=== PATIENT | female | born 1945 | race Caucasian/White ===

== ENCOUNTER 2024-11-08 09:55 | Inpatient (IN) | payer MEDICARE, MEDICAID, SELFPAY ==
[2024-11-08] VITALS (25 sets, daily range): BP systolic 98–144; BP diastolic 38–93; PULSE 71–108; RESP 11–99; TEMP 36–36.6; O2SAT 91–100; BMI 29.2
--- NOTE | 2024-11-08 10:10 | PC.NURSE ---
PATIENT BIBA FROM HOME WITH C/O AMS. PER FAMILY PATIENT WAS NOT ACTING LIKE HERSELF. ALSO C/O N/V AND DECREASED APPETITE. PATIENT HAS HX OF DM AND FAMILY STATES BLOOD SUGAR AT HOME HAS BEEN ABOVE 500 FOR A COUPLE OF DAYS NOW. PATIENT A/O X1 FOR EMS. BLOOD SUGAR READ OF HIGH FOR EMS. UPON ARRIVAL TO ED PATIENT A/O X3 WITH NO COMPLAINTS OF PAIN. BLOOD SUGAR READ IN ED HIGH. ED DOC NOTIFIED AND CAME TO BEDSIDE.
--- NOTE | 2024-11-08 10:14 | EDNOTE_ITS ---
Altered Mental Status RME/HPI General Chief Complaint: Altered Mental Status Stated Complaint: AMS Time Seen by Provider: 11/08/24 10:17 Arrival date/time: 11/08/24 09:55 RME / HPI RME / HPI narrative: This section includes all my notes and documentations, including HPI, PE, and ED course.? Donn Ramos MD HPI: 79 year old female with history of CVA, hypertension, diabetes, and previous admission for DKA presents to the ED BIBA for evaluation of altered mental status. Per medics report, family on scene stated at baseline patient is AOx1 however this morning was not acting her usual self. While in the ED patient reports I feel like shit and when asked to elaborate states I think I'm in ketoacidosis . Additionally complains of increased thirst. Denies fevers, chills, abdominal pain, vomiting. No other complaints. ROS: All negative except as documented in HPI. Physical Exam: General:? Alert and oriented.? Severe malaise appearing. Eyes:? Conjunctivae and lids clear.? ENT:? No nasal congestion.? Neck:? Supple.? Heart:? RRR.? Lungs:? No respiratory distress.? Good air movement.? No rhonchi, wheezing, rales.?? Abdomen:? Soft and nontender.?? Legs:? No clubbing, cyanosis, edema.? Skin:? Warm and dry.?? Neuro:? Alert and oriented X 3.??Cranial nerves II through XII grossly normal. No peripheral motor deficits. I reviewed EMS notes. I reviewed all diagnostic test results. My interpretation of the EKG is?sinus rhythm with nonspecific ST changes. My interpretation of the chest x-ray is infiltrates. My review of the head CT report is?no acute findings. My review of the chest/abdomen/pelvis CT report is pneumonia. Blood tests and urine tests?remarkable for DKA and YARA and UTI. At this point, diagnoses include?DKA, YARA, UTI, Pneumonia. Treatment here included?IV fluid, insulin bolus and drip, bicarb, Rocephin and Zithromax. No significant improvement noted. I discussed the case with our Machine Slat Basket Maker.? About the presentation and exam and diagnostics and treatments here.? And need of further care in the hospital.? Will accept the patient. Donn Ramos MD Related Data Home Medications ?Medication ?Instructions ?Recorded ?Confirmed cefdinir 300 mg capsule 300 mg PO BID 05/24/24 05/24/24 dapagliflozin propanediol 5 mg 5 mg PO QDAY 05/24/24 05/24/24 tablet (Farxiga) fluconazole 200 mg tablet 200 mg PO QDAY 05/24/24 05/24/24 vilazodone 20 mg tablet 20 mg PO QDAY 05/24/24 05/24/24 Previous Rx's ?Medication ?Instructions ?Recorded clopidogrel 75 mg tablet 75 mg PO QDAY #0 tabs 02/27/24 donepezil 5 mg tablet 10 mg (2 x 5 mg) PO HS #0 tabs 02/27/24 ezetimibe 10 mg tablet 10 mg PO QDAY #0 tabs 02/27/24 famotidine 20 mg tablet 20 mg PO BID #0 tabs 02/27/24 insulin glargine U-300 conc 300 40 unit (0.1333 mL) subcut QDAY #6 05/27/24 unit/mL (3 mL) subcutaneous pen mL (Toujeo Max U-300 SoloStar) insulin lispro 100 unit/mL 12 unit (0.12 mL) SCi TIDWM #10 mL 05/27/24 subcutaneous solution (Admelog U-100 Insulin lispro) pen needle, diabetic 29 gauge x #100 ea 05/27/24 1/2 (Pen Needle) Allergies Allergy/AdvReac Type Severity Reaction Status Date / Time No Known Allergies Allergy Unverified 05/24/24 05:34 Review of Systems Review of Systems Systems Reviewed: All systems reviewed, normal except as documented Past Medical History Past Medical History NEUROLOGIC: Positive Neurological Disorders and Cerebrovascular Accident CARDIAC: Positive Hypercholesterolemia and Hypertension GASTROINTESTINAL: Positive Gastrointestinal Disorders GENITOURINARY: Positive Genitourinary Disorders ENT: Positive Cataracts ENDOCRINE: Positive Diabetes Mellitus Type 2 OTHER HISTORY: Positive Falls Surgical History SURGICAL: Positive Cardiac Surgery ([place]) Social History SMOKING STATUS: Never smoker SECOND HAND EXPOSURE: No ED Exam Narrative Physical exam: As noted in HPI Course Quality Measures none Orders Category Date Time Status Bedside COVID-19 Antigen Test NOW Care 11/08/24 10:19 Active Bedside Influenza A&B Antigen Test NOW Care 11/08/24 10:19 Completed COVID-19 Screening Questionnaire NOW Care 11/08/24 12:39 Active Decision to Admit X1 Care 11/08/24 12:39 Active EKG (ED ONLY) *Do not use* NOW Care 11/08/24 10:19 Completed Saline [Insert IV] NOW Care 11/08/24 10:19 Active Straight [In and Out Catheter] X1 Care 11/08/24 10:[address] chest abdomen pelvis wo Stat Exams 11/08/24 10:[address] head/brain wo con Stat Exams 11/08/24 10:20 Completed EKG (ED Only) Stat Exams 11/08/24 10:19 Draft XR chest 1V portable Stat Exams 11/08/24 10:19 Completed ABG [Arterial Blood Gas] Stat Lab 11/08/24 11:07 Completed BNP [B-Type Natriuretic Peptide] Stat Lab 11/08/24 11:00 Completed Beta Hydroxybutyrate Stat Lab 11/08/24 11:00 Completed Blood Culture (Lab) Stat Lab 11/08/24 11:00 Received CBC Stat Lab 11/08/24 11:00 Completed CMP [Comprehensive Metabolic Panel] Stat Lab 11/08/24 11:00 Completed CRP [C-Reactive Protein] Stat Lab 11/08/24 11:00 Completed ESR [Sed Rate (ESR)] Stat Lab 11/08/24 11:00 Completed Lactate (Lactic Acid) Stat Lab 11/08/24 11:00 Results Lipase Stat Lab 11/08/24 11:00 Completed Magnesium Stat Lab 11/08/24 11:00 Completed Procalcitonin Stat Lab 11/08/24 11:00 Completed TSH [Thyroid Stimulating Hormone] Stat Lab 11/08/24 11:00 Completed Troponin I Stat Lab 11/08/24 11:00 Completed UA [Urinalysis] Stat Lab 11/08/24 10:23 Completed Urine Culture Stat Lab 11/08/24 10:23 Received Insulin Reg 100 Units/100 ml [Myxredlin] Med 11/08/24 10:18 Active 100 unit in 100 ml IV 0.1 unit/kg/hr Insulin Regular Med 11/08/24 10:17 Discontinued 10 unit IV X1 ONE Ondansetron Inj [Zofran Inj] Med 11/08/24 10:17 Discontinued 4 mg IV X1 ONE Ringers Lactated 1000 ml [Lactated Ringers] 1,000 ml Med 11/08/24 12:47 Active IV 999 mls/hr Sodium Bicarb 8.4% SYR Med 11/08/24 11:32 Discontinued 100 ml IV X1 ONE Sodium Chloride 0.9% 1000 ml [Ns] 1,000 ml Med 11/08/24 10:17 Discontinued IV 999 mls/hr cefTRIAXone/D5w 1gm IV premix [Rocephin/D5w 1gm IV Med 11/08/24 12:00 Discontinued premix] 50 ml IV X1 Vital Signs Vital signs: Vital Signs Temperature 96.8 F 11/08/24 10:21 Pulse Rate 94 11/08/24 10:21 Respiratory Rate 18 11/08/24 10:21 Blood Pressure 144/85 H 11/08/24 10:21 Pulse Oximetry (%) 97 11/08/24 10:21 Oxygen Delivery Method Room Air 11/08/24 10:21 Pulse ox is 97% on room air which is adequate. Altered Mental Status MDM Narrative MDM Narrative:: Brandy Graves am scribing for and in the presence of Dr. Ramos. Patient data External records reviewed:: [facility] previous records (I reviewed admission from 05/24/2024 through 05/28/2024 for DKA ) and EMS form Clinical information provided by:: patient and EMS (Provided prehospital course) Social determinants that could affect healthcare access:: none Patient has the following chronic illnesses:: CVA, hypertension, diabetes, and previous admission for DKA How is presenting disease/condition affected by chronic disease/condition?: exacerbated by Evaluation data The following diagnostics were reviewed and interpreted by me:: lab results, radiology exam(s) and EKG tracing(s) (My interpretation of the EKG is: Atrial fibrillation (97 bpm) with nonspecific ST-T changes. Donn Ramos MD) Lab and/or radiology exams considered but not ordered:: None Interpretation Summary: DKA and YARA pneumonia and UTI Medications / Prescriptions Medications or Prescriptions considered but not ordered:: None Medication administrations:: Medication Administration History Acetaminophen (Acetaminophen 325 Mg Tablet) 650 mg PO Q4HR PRN PRN Reason: PAIN SCALE 1-3 (mild Stop: 12/08/24 13:01 Acetaminophen (Acetaminophen Supp 650 Mg Supp) 650 mg [place] Q4HR PRN PRN Reason: PAIN SCALE 1-3 (mild Stop: 12/08/24 13:01 Al Hydrox/Mg Hydrox/Simethicone (Mg Hyd/Al Hyd/Nat (Maalox Reg) Susp 30 Ml Udc) 30 ml PO Q4HR PRN PRN Reason: Heartburn or Upset Stomach Stop: 12/08/24 13:01 Azithromycin (Azithromycin 250 Mg Tablet) 250 mg PO QDAY JULITA; Protocol Stop: 11/16/24 08:59 Dextrose (Dextrose 50%-Water Inj 50 Ml Syringe) 25 ml IV PRNMRX1 PRN PRN Reason: Blood Sugar - Low Heparin Sodium (Porcine) (Heparin Sod Inj 5000 Unit/Ml Vial) 5,000 unit SC Q8HR JULITA Stop: 11/22/24 13:59 Insulin Human Regular (Myxredlin) 100 unit in 100 mls @ 7.031 mls/hr IV .[id number] PRN; Protocol PRN Reason: PER PROTOCOL Stop: 12/08/24 10:17 Last Titration: 11/08/24 13:00 Dose: 0.1 unit/kg/hr, 7.031 mls/hr Documented By: ROSAURA Co-signed By: EF Admin: 11/08/24 12:01 Dose: 0.1 unit/kg/hr, 7.031 mls/hr Documented By: ROSAURA Co-signed By: DO Lactated Ringer's (Lactated Ringers) 1,000 mls @ 999 mls/hr IV .Q1H1M ONE Stop: 11/08/24 13:47 Last Admin: 11/08/24 12:50 Dose: 999 mls/hr Documented By: ROSAURA Potassium Chloride (Kcl Ivpb) 10 meq in 100 mls @ 100 mls/hr IV .Q1H PRN PRN Reason: IF POTASSIUM LESS THAN 3.3 Stop: 12/08/24 13:01 Magnesium Sulfate (Magnesium Sulfate Ivpb) 2 gm in 50 mls @ 25 mls/hr IV .Q2H PRN PRN Reason: PER DKA PROTOCOL Stop: 12/08/24 13:01 Insulin Human Regular 100 unit (/ IV Miscellaneous Supplies) 100 mls @ 7.031 mls/hr IV .[id number] PRN; Protocol PRN Reason: PER PROTOCOL Stop: 12/08/24 13:01 Dextrose/Lactated Ringer's (D5-Lr) 1,000 mls @ 200 mls/hr IV .Q5H PRN PRN Reason: PER PROTOCOL Stop: 12/08/24 13:01 Lactated Ringer's (Lactated Ringers) 1,000 mls @ 200 mls/hr IV .Q5H PRN PRN Reason: PER PROTOCOL Stop: 11/09/24 13:01 Potassium Chloride 20 meq/ (Lactated Ringer's) 1,010 mls @ 250 mls/hr IV .Q4H3M PRN PRN Reason: K LEVEL 3.3 TO 5.3mM/L Stop: 12/08/24 13:01 Potassium Chloride 40 meq/ (Lactated Ringer's) 1,020 mls @ 250 mls/hr IV .Q4H5M PRN PRN Reason: K LEVEL < 3.3 mM/L Stop: 12/08/24 13:01 Potassium Chloride 40 meq/ (Dextrose/Lactated Ringer's) 1,020 mls @ 250 mls/hr IV .Q4H5M PRN PRN Reason: K LEVEL < 3.3mM/L Stop: 12/08/24 13:01 Potassium Cl/Dextrose/Lact Ringer's (Kcl 20 Meq/L In D5-Lr) 20 meq in 1,000 mls @ 250 mls/hr IV .Q4H PRN PRN Reason: K LEVEL 3.3 TO 5.3 mM/L Stop: 12/08/24 13:01 Potassium Chloride (Kcl Ivpb) 10 meq in 100 mls @ 50 mls/hr IV PRN PRN PRN Reason: K LEVEL 3.3 to 5.3 & BG > 200 Stop: 12/08/24 13:01 Potassium Phosphate (Pot Phos 15 Mmol In Ns 250 Ml) 15 mmol in 250 mls @ 62.5 mls/hr IV PRN PRN PRN Reason: Phosphate <= 1mg/dL Stop: 12/08/24 13:01 Sodium Phosphate 15 mmol/ (Sodium Chloride) 255 mls @ 62.5 mls/hr IV .Q4H5M PRN PRN Reason: Phosphate <= 1mg/dL and K> than 5.3 Stop: 12/08/24 13:01 Ceftriaxone Sodium/Dextrose (Rocephin/D5w 1gm Iv Premix) 50 mls @ 100 mls/hr IV QDAY JULITA Stop: 11/15/24 13:04 Last Admin: 11/08/24 13:20 Dose: Not Given Documented By: ROSAURA Non-Admin Reason: Duplicate Medication on eMAR Azithromycin 500 mg/ Sodium (Chloride) 250 mls @ 250 mls/hr IV X1 ONE Stop: 11/08/24 14:29 Magnesium Hydroxide (Milk Of Magnesia Susp 30 Ml Udc) 30 ml PO QDAY PRN PRN Reason: CONSTIPATION Stop: 12/08/24 13:01 Nitroglycerin (Nitroglycerin 0.4 Mg Subl Btl #25) 0.4 mg SL Q5MIN PRN PRN Reason: CHEST PAIN Discontinued Medications Sodium Chloride (Ns) 1,000 mls @ 999 mls/hr IV .Q1H1M ONE Stop: 11/08/24 11:17 Last Infusion: 11/08/24 12:05 Dose: Infused Documented By: Admin: 11/08/24 10:58 Dose: 999 mls/hr Documented By: ROSAURA Ceftriaxone Sodium/Dextrose (Rocephin/D5w 1gm Iv Premix) 50 mls @ 100 mls/hr IV X1 ONE Stop: 11/08/24 12:29 Last Infusion: 11/08/24 12:40 Dose: Infused Documented By: Admin: 11/08/24 12:10 Dose: 100 mls/hr Documented By: ROSAURA Azithromycin 500 mg/ Sodium (Chloride) 250 mls @ 250 mls/hr IV QDAY JULITA Stop: 11/15/24 13:22 Last Admin: 11/08/24 13:29 Dose: Not Given Documented By: ROSAURA Non-Admin Reason: Discontinued Insulin Human Regular (Insulin Hum Regular 1 Unit/0.01 Ml (Per Unit)) 10 unit IV X1 ONE Stop: 11/08/24 10:18 Last Admin: 11/08/24 10:30 Dose: 10 unit Documented By: ROSAURA Co-signed By: BENOIT Ondansetron HCl (Ondansetron Inj 2 Mg/Ml Inj 2 Ml) 4 mg IV X1 ONE; Protocol Stop: 11/08/24 10:18 Last Admin: 11/08/24 10:59 Dose: 4 mg Documented By: ROSAURA Sodium Bicarbonate (Sodium Bicarb Inj 8.4% Syr 50 Ml Syringe) 100 ml IV X1 ONE Stop: 11/08/24 11:33 Last Admin: 11/08/24 11:47 Dose: 100 ml Documented By: FC See chart Consultations Consultation(s) initiated? (list below): No Diagnosis Differential diagnosis altered mental status: altered mental status, delirium, dementia, hypoglycemia, hyponatremia, subarachnoid hemorrhage, sepsis and other (Dehydration, DKA, UTI, pneumonia) Most likely diagnosis given after review of the tests above:: DKA, YRAA, UTI, pneumonia Admission Indicated Admission indicated?: indicated Explain why admission is indicated or not indicated:: Severe DKA Admission Request Was there a request for admission?: Yes Admission Attestation Admission request attestation: Discussed case with our ICU service regarding admission. Discussed patients ED course, exam findings, labs, and radiology results. The Hospitalist [agrees,declines] to accept the patient for admission. Disposition Plan Disposition Plan: Admit Critical Care Time Critical Care Time Critical Care Time: Yes Total Critical Care Time (min.): 36 Attestation: Due to a high probability of clinically significant, life threatening deterioration, the patient required my highest level of preparedness to intervene emergently and I personally spent this critical care time directly and personally managing the patient. This critical care time included obtaining a history; examining the patient; ordering and review of studies; arranging urgent treatment with development of a management plan; evaluation of patient's response to treatment; frequent reassessment; and discussions with family and other providers. It was exclusive of separately billable procedures and treating other patients and teaching time. Donn Ramos MD Discharge Plan Plan Patient Disposition: Admit Acute Care w/in Hospital Problem List Clinical Impression: DKA (diabetic ketoacidoses), UTI (lower urinary tract infection), YARA (acute kidney injury), Pneumonia
--- NOTE | 2024-11-08 10:19 | EKG_ITS ---
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
--- NOTE | 2024-11-08 10:19 | XR_ITS ---
Examination: AP chest single view TECHNIQUE: AP portable upright chest single view Exam date and time: November 08, 2024 1044 hours INDICATIONS: SOB today. FINDINGS: Suspicious for early left lower lobe pneumonia Normal heart size Ectatic thoracic aorta Prominent osteopenia IMPRESSION: Early left base pneumonia
--- NOTE | 2024-11-08 10:19 | XR_ITS ---
Examination: CT chest, without intravenous contrast. CT abdomen, without intravenous contrast. CT pelvis, without intravenous contrast. 2-D sagittal and coronal reconstructions. 3-D reconstructions. Date and time of exam:November 08, 2024 1037 hours Comparison February 23, 2024 INDICATIONS: Shortness of breath chest and abdominal pain today CTDI vol (mgy) 7.33 DLP (MGycm)511 Technique: Multiple CT images, 3.0 mm slice thickness, obtained chest, abdomen, pelvis, with the high-resolution 64 slice scanner.. Sagittal and coronal 2-D reconstructions are obtained. 3-D reconstructions Low dose protocols were performed. One or more of the following dose reduction techniques were used; automated exposure control, adjustment of the mA and/or KV according to patient size, use of iterative reconstruction technique. Findings: 14 mm right thyroid nodule No thoracic aortic aneurysm dilatation Main pulmonary artery segment transverse dimension 32 mm Heavy calcification left anterior descending coronary artery right coronary artery Mitral valvular calcification No paratracheal tracheobronchial or bronchopulmonary adenopathy 18 mm dense consolidation versus pulmonary nodule in the left upper lobe No pleural disease Fatty infiltration throughout the liver No gallstones Spleen not enlarged No pancreatic or adrenal mass No renal or ureteral calculi, no hydronephrosis Abdominal aortic calcification no aneurysmal dilatation No pericecal inflammatory change No bowel obstruction Colonic diverticulosis, no diverticulitis Urinary bladder wall thickening up to 8 mm No pelvic mass Fat-containing femoral hernias Severe osteopenia with chronic osteoporotic compression T11, T10 IMPRESSION: 14 mm right thyroid nodule, recommend elective dedicated thyroid sonography follow-up Heavy coronary artery calcification 18 mm dense pneumonic consolidation versus pulmonary nodule in the left upper lobe, recommend follow-up chest imaging Fatty liver No CT findings of appendicitis bowel obstruction or diverticulitis Abnormal urinary bladder wall thickening up to 8 mm, differential would include cystitis, early bladder cancer not excluded, consider urinary bladder sonography follow-up
--- NOTE | 2024-11-08 10:20 | XR_ITS ---
Examination: CT brain head without contrast. 2-D sagittal coronal reconstructions Date and time of exam:November 08, 2024 1033 hours Comparison May 19, 2015 INDICATIONS: Onset altered mental status today CTDI: vol (mGy):41.1 DLP: (mGycm):835 Technique: Multiple CT axial sections of the brain have been obtained, 5 mm slice thickness. Contrast has not been administered. 2-D sagittal, coronal reconstructions have been obtained Low dose protocols were performed. One or more of the following dose reduction techniques were used; automated exposure control, adjustment of the mA and/or KV according to patient size, use of iterative reconstruction technique. Findings: No significant ventricular enlargement. Old infarct left basal ganglia with ipsilateral ventricular dilatation Intra-axial or extra-axial hemorrhage density is not seen. No mass effect or midline shift Basal cisterns are not remarkable. Fourth ventricle is midline. Cranial vault intact. Impression: Negative for acute hemorrhage, mass effect or midline shift As clinically warranted, brain MRI follow-up would best assess for acute ischemic change
[2024-11-08] MEDS: INSULIN HUM REGULAR 1 UNIT/0.01 ML (PER UNIT) 10 UNIT IV (10:30)
[2024-11-08 10:38] LABS: Collection Type, Urine Clean Catch; Squamous Epithelial Cell,Urine 0 /hpf (0-5)
[2024-11-08 10:48] LABS: Bilirubin,Urine Negative (Negative); Blood,Urine 2+ (Negative); Budding Yeast,Urine Present; Color,Urine Lt-Yellow (Lt Yel-Yel); Glucose, Urine 4+ (Negative); Hyaline Casts,Urine < 1 /hpf (0-1); Ketones,Urine 4+ (Negative); Leukocyte Esterase,Urine Positive (Negative); Nitrite,Urine Negative (Negative); Protein,Urine Trace (Neg - Trace); RBC,Urine 2 /hpf (0-3); Urobilinogen,Urine Negative mg/dL (0.0-1.0); WBC,Urine 120 /hpf (0-5)
[2024-11-08] MEDS: SODIUM CHLORIDE 0.9% 1000 ML 1,000 ML 999 ML IV (10:58)
[2024-11-08] MEDS: ONDANSETRON INJ 2 MG/ML INJ 2 ML 4 MG IV (10:59)
[2024-11-08 11:10] LABS: Lactate (Lactic Acid) 3.4 mMol/L (0.4-2.0)
[2024-11-08 11:11] LABS: Base Excess -21 (-3-3); HCO3 6 mEq/L (20-26); Inspired Oxygen, FIO2 21 %; O2 Saturation 99 % (91-98); PCO2 15 mmHg (32.0-48.0); PO2 122 mmHg (83-108)
[2024-11-08 11:11] LABS: Basophils % (Auto) 0 % (0-2.5); Eosinophils % (Auto) 0 % (0-10); Hematocrit 40.9 % (36.0-46.0); Hemoglobin 13.8 g/dL (12.0-16.0); Immature Granulocytes % (Auto) 1 % (0-0); Immature Granulocytes Auto 0.11 Thou/mm3 (0.00-0.00); Lymphocytes % (Auto) 5 % (10-50); Mean Corpuscular HGB Conc 33.7 g/dl (31.0-37.0); Mean Corpuscular Hemoglobin 32.6 pg (25.0-35.0); Mean Corpuscular Volume 97 fL (80-100); Monocytes # (Auto) 0.3 Thou/mm3 (0.0-0.8); Monocytes % (Auto) 2 % (0-12); Neutrophils # (Auto) 16.9 Thou/mm3 (1.8-7.7); Neutrophils % (Auto) 92 % (37-80); Nucleated Red Blood Cell % 0 /100 WBC (0); Platelet Count 208 Thou/mm3 (140-440); RDW Standard Deviation 46.7 fL (36.4-46.3); Red Blood Count 4.23 Miln/mm3 (4.00-5.20); White Blood Count 18.4 Thou/mm3 (3.6-11.0)
[2024-11-08 11:18] LABS: Allen Test Performed/OK; Puncture Site Right Radial; pH, Arterial 7.17 (7.35-7.45)
[2024-11-08 11:18] LABS: Beta Hydroxybutyrate 5.3 mmol/L (<0.6)
[2024-11-08 11:19] LABS: Clarity,Urine Hazy (Clear/Hazy)
[2024-11-08 11:28] LABS: Sed Rate (ESR) 24 mm/hr (0-30)
[2024-11-08] MEDS: Sodium Bicarb Inj 8.4% SYR 50 ML SYRINGE 100 ML IV (11:47)
[2024-11-08 11:48] LABS: B-Type Natriuretic Peptide 115 pg/mL (0-100)
[2024-11-08] MEDS: INSULIN REG 100 UNITS/100 ML 100 UNIT/100 ML BAG 7.031 UNIT IV (12:01)
[2024-11-08 12:05] LABS: Alanine Aminotransferase 28 U/L (10-49); Albumin, Serum 4.6 gm/dL (3.4-4.8); Alkaline Phosphatase 97 U/L (46-116); Anion Gap 28 (7-16); Aspartate Amino Transferase 13 U/L (0-34); BUN/Creatinine Ratio 17 Ratio (12-20); Bilirubin,Total 0.5 mg/dL (0.3-1.2); Blood Urea Nitrogen 43 mg/dL (9-23); C-Reactive Protein 4.6 mg/dL (0.0-0.9); Calcium 10.1 mg/dL (8.3-10.6); Calcium (Corrected) 10.1 mg/dL (8.5-10.1); Chloride 91 mMol/L (98-107); Creatinine (Component) 2.5 mg/dL (0.6-1.3); Estimated Creatinine Clearance 15.8 mL/min (>60); Globulin 2.3 gm/dL (2.3-3.5); Lipase 62 U/L (12-53); Magnesium 2.7 mg/dL (1.6-2.6); Osmolality,Calculated 307 (275-295); Procalcitonin 2.14 ng/ml (0.0-0.49); Sodium 129 mMol/L (136-145); Thyroid Stimulating Hormone 1.73 uIU/mL (0.55-4.78); Total Protein 6.9 gm/dL (5.7-8.2); Troponin I < 0.020 ng/mL (0.0-0.045); eGFR 19 See Note
[2024-11-08 12:09] LABS: Carbon Dioxide < 10.0 mMol/L (20.0-31.0)
[2024-11-08 12:10] LABS: Glucose 783 mg/dL (74-106)
[2024-11-08] MEDS: cefTRIAXone/D5w 1gm IV premix 50 ML IV (12:10)
[2024-11-08] MEDS: RINGERS LACTATED 1000 ML 1,000 ML 999 ML IV (12:50)
--- NOTE | 2024-11-08 13:02 | ECHO_ITS ---
Transthoracic Echo Report Ht (in): 61 Wt (lb): 155 Exam Location: ER Status: Emergency Contract Preparer: Zuleyma Acosta Indications: Procedure Performed: BP: 123 / 66 HR: 65 Rhythm: Sinus Technical Quality: Fair MEASUREMENTS (Male / Female) Normal Values 2D ECHO LVOT Diameter 1.6 cm LA Volume Index 23.9 cm?/m? 16 - 28 cm?/m? Ascending Aorta Diameter 3.2 cm M-MODE Aortic Root Diameter MM 3.0 cm LA Systolic Diameter MM 3.5 cm LA Ao Ratio MM 1.2 AV Cusp Separation MM 1.8 cm DOPPLER AV Peak Velocity 194.0 cm/s AV Peak Gradient 15.1 mmHg AV Mean Gradient 7.0 mmHg AV Velocity Time Integral 38.4 cm LVOT Peak Velocity 133.0 cm/s LVOT Peak Gradient 7.1 mmHg LVOT Velocity Time Integral 29.9 cm LVOT Cardiac Index 2215.4 cm?/min?m? AV Area Cont Eq vti 1.6 cm? AV Area Cont Eq pk 1.4 cm? MV Peak Velocity 133.0 cm/s MV Peak Gradient 7.1 mmHg MV Mean Velocity 68.6 cm/s MV Mean Gradient 2.0 mmHg MV Area PHT 3.0 cm? MR Peak Velocity 337.0 cm/s MR Peak Gradient 45.4 mmHg Mitral E Point Velocity 99.4 cm/s Mitral A Point Velocity 137.0 cm/s Mitral E to A Ratio 0.7 LV E' Lateral Velocity 7.1 cm/s Mitral E to LV E' Lateral Ratio 14.1 LV E' Septal Velocity 5.8 cm/s Mitral E to LV E' Septal Ratio 17.2 TR Peak Velocity 231.0 cm/s TR Peak Gradient 21.3 mmHg FINDINGS Left Ventricle Normal left ventricular size, wall thickness, systolic function with no obvious regional wall motion abnormalities. The ejection fraction is visually estimated at 60-65%. Right Ventricle The right ventricle is normal in size and systolic function. The estimated right ventricular systoli c pressure, 26 mmHg. RAP 5. Left Atrium The left atrium is normal by two-dimensional, color flow and Doppler imaging with no structural abnormalities, no thrombus formation present. Right Atrium The right atrium is normal by two-dimensional imaging, color flow and Doppler imaging with no struct ural abnormalities, no thrombus formation present. Atrial Septum The interatrial septum appears normal with no evidence of a shunt. Aorta The aorta is normal by two-dimensional, color flow and Doppler interrogation. Mitral Valve The mitral valve is moderate MAC. There is mild mitral valve regurgitation. Aortic Valve The aortic valve is trileaflet. Mild sclerosis without stenosis. There is no significant aortic valv e regurgitation. Tricuspid Valve The tricuspid valve is normal by two-dimensional, color flow and Doppler interrogation. There is mil d tricuspid valve regurgitation. Pulmonic Valve The pulmonic valve is normal by two-dimensional, color flow and Doppler interrogation. There is no significant pulmonic valve regurgitation. Vessels The pulmonary artery appears normal. The inferior vena cava pulmonary and hepatic veins appear carol l. Pericardium The pericardium is normal by two-dimensional imaging. There is no significant pericardial effusion. CONCLUSIONS Indication: Evaluation LV function. Normal LV size and function. Stage I diastolic dysfunction. Estimated EF 60-65% Normal RV size and function. Moderate to severe MAC. Mild MR, TR. Mild AV sclerosis without stenosis. Derrick Anumanadelaa (Electronically Signed) Final Date: 09 November 2024 08:12
--- NOTE | 2024-11-08 13:06 | ESHP_ITS ---
Documentation for date of: 11/08/24 Anodic Operator HPI History of Present Illness History of present illness: This is an 79-year-old female who was brought to the ER for altered mental status. Apparently the patient has been somewhat confused and not herself for the last couple of days. The family have been taking her blood sugar at home and the blood sugars have been consistently above 500. Today the readings simply read high and therefore they decided to bring the patient to the ER. She is been having nausea and vomiting for the last 3 days. She denies any chest pain, cough, shortness of breath, abdominal pain, constipation or diarrhea at this time. She also denies any fever or chills. Per the daughter the patient has had flu sick contacts in the past week. Initially they thought her illness was this. Notes that overnight her mother was very thirsty and went looking for fluids at which point in time she drank a lot of sugar containing electrolyte solutions. She feels may have aggravated her mother's current condition. PMH: DM, CVA, h/o DKA, h/o chronic UTI, dyslipidemia PSH: Remote history of smoking and alcohol consumption however nothing in the last 20 years ROS: As per HPI otherwise negative Meds Home Medications and Allergies Home Medications ?Medication ?Instructions ?Recorded ?Confirmed ?Type cefdinir 300 mg capsule 300 mg PO BID 05/24/24 05/24/24 History dapagliflozin propanediol 5 mg 5 mg PO QDAY 05/24/24 05/24/24 History tablet (Farxiga) fluconazole 200 mg tablet 200 mg PO QDAY 05/24/24 05/24/24 History vilazodone 20 mg tablet 20 mg PO QDAY 05/24/24 05/24/24 History Allergies Allergy/AdvReac Type Severity Reaction Status Date / Time No Known Allergies Allergy Unverified 05/24/24 05:34 Exam Vital Signs Temp Pulse Resp BP Pulse Ox O2 Del Method 96.8 F 104 H 22 H 113/93 H 97 Room Air 11/08/24 10:21 11/08/24 12:00 11/08/24 12:00 11/08/24 12:00 11/08/24 12:00 11/08/24 12:00 Narrative Exam General-no acute distress however appears fatigued tired and ill, elderly and frail in appearance, awake and cooperative with the exam, oriented HEENT-normocephalic, atraumatic, sclera icteric, EOMI, oral mucosa is very dry, edentulous Chest-few crackles at right posterior base, no active wheezing, the rest of her lung luther are clear, heart regular rhythmic, no bruits murmurs auscultated times exam, no increased work of breathing, no tenderness on palpation of the chest wall Abdomen-obese, soft, nontender, bowel sounds present, no rebound or guarding Extremities-multiple areas of bruising on her lower extremities in different stages of healing, some abrasions, her feet are cool to touch, slight dusky appearance of her toes and fingertips, moves all 4, no clubbing, no other obvious mottling noted at this point in time. Physical Exam Completion Physical Exam Complete?: Yes Results: Labs 11/09/24 05:30 11/09/24 13:51 Labs: Short CBC 11/08/24 Range/Units 11:00 WBC 18.4 H (3.6-11.0) Thou/mm3 Hgb 13.8 (12.0-16.0) g/dL Hct 40.9 (36.0-46.0) % Plt Count 208 (140-440) Thou/mm3 BMP 11/08/24 11:00 Sodium 129 L Potassium 5.0 Chloride 91 L Carbon Dioxide < 10.0 L* BUN 43 H Creatinine 2.5 H Glucose 783 H* Calcium 10.1 Cardiac Enzymes 11/08/24 Range/Units 11:00 Troponin I < 0.020 (0.0-0.045) ng/mL Liver Function 11/08/24 Range/Units 11:00 Total Bilirubin 0.5 (0.3-1.2) mg/dL AST 13 (0-34) U/L ALT 28 (10-49) U/L Alkaline Phosphatase 97 (46-116) U/L Albumin 4.6 (3.4-4.8) gm/dL Urine 11/08/24 Range/Units 10:23 Urine Color Lt-Yellow (Lt Yel-Yel) Urine Clarity Hazy (Clear/Hazy) Urine pH 5.0 (5.0-7.0) Ur Specific [place] 1.020 (1.001-1.035) Urine Protein Trace (Neg - Trace) Urine Glucose (UA) 4+ A (Negative) ABG Interpretation ABG results: 11/08/24 11:07 ABG pH 7.17 L* ABG pCO2 15 L* ABG pO2 122 H ABG HCO3 6 L* ABG O2 Saturation 99 H ABG Base Excess -21 L Assessment & Plan Additional Assessment Additional Assessment: In summary this is an 79-year-old female being admitted to the ICU for 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 She will be given another liter of IV fluids prior to being started on the DKA protocol. ABG is noted and she has appropriate respiratory compensation for her metabolic acidosis. Acute kidney injury-likely prerenal and secondary to dehydration. Avoid nephrotoxins, monitor I's and O's GI Nausea- prn zofran Endo DKA-started on DKA protocol with labs every 4 hours and insulin drip. Once anion gap is closed x 2 will transition to subcutaneous Lantus. For now we will continue with finger checks every 1 hour. Check an A1c, pt has a h/o DKA and perhaps should not be on Farxiga at home as an outpt Heme Leukocytosis DVT proph- heparin ID ? UTI-started on ceftriaxone case d/w ICU team labs, imaging, records reviewed d/w family via phone ~55ccmin required for eval, exam, review, intervention, discussion and formulation of POC for this critically ill patient with DKA and severe acidosis who is at high risk for further and ongoing decompensation Additional Plan Additional Plan: PLAN: See MD orders and discussion above. Will continue supportive care of the organ system problems, diagnoses, and failures noted above. [A central line continues to be necessary for infusion of medications and IV fluids, it is to be removed when other adequate venous access is accomplished.] [Cannot be safely managed without restraints as potential for harm secondary to inadvertent movement and loss of tubes and lines outweighs the burdens of restraint.] This patient is critically ill and required [] minutes of my time to provide documentation, evaluate, manage and maintain or prevent deterioration of the organ systems and problems noted above. This critical care time does not include time I spent performing procedures that are reported separately. [If paz catheter present, it remains necessary to monitor urine output continuously, and/or divert urine from the skin. It will be removed per policy when it is not needed for these purposes.] Provider Notation Provider Notation: Although this document has been carefully reviewed, there may still be some phonetic and other typographical errors. These errors are purely grammatical due to imperfections in the software program and should not be construed in any way to compromise the substance of the patient's medical care during this visit. Thank you for the opportunity and privilege in assisting you with this patient's care and management. Quality Measures Quality Measures none Advance care planning discussed with:: child
[2024-11-08 14:05] LABS: Reflex Lactate? Y
[2024-11-08] MEDS: AZITHROMYCIN INJ 500 MG in SODIUM CHLORIDE 0.9% 250 ML 250 ML 250 MG IV (14:48)
[2024-11-08] MEDS: HEPARIN SOD INJ 5000 UNIT/ML VIAL SC ×2 (14:48→20:20)
[2024-11-08 15:03] LABS: Lactic Acid, 3 HR 2.2 mMol/L (0.4-2.0)
--- NOTE | 2024-11-08 15:36 | PC.NURSE ---
REPORT GIVEN TO MUSIC LIBRARY ASSISTANT TALYA
[2024-11-08 15:52] LABS: Basophils % (Auto) 0 % (0-2.5); Eosinophils % (Auto) 0 % (0-10); Hematocrit 32.1 % (36.0-46.0); Hemoglobin 11.5 g/dL (12.0-16.0); Immature Granulocytes % (Auto) 0 % (0-0); Immature Granulocytes Auto 0.05 Thou/mm3 (0.00-0.00); Lymphocytes # (Auto) 1.2 Thou/mm3 (1.0-4.8); Lymphocytes % (Auto) 10 % (10-50); Mean Corpuscular HGB Conc 35.8 g/dl (31.0-37.0); Mean Corpuscular Hemoglobin 32.9 pg (25.0-35.0); Mean Corpuscular Volume 92 fL (80-100); Monocytes # (Auto) 0.7 Thou/mm3 (0.0-0.8); Monocytes % (Auto) 6 % (0-12); Neutrophils # (Auto) 9.7 Thou/mm3 (1.8-7.7); Neutrophils % (Auto) 84 % (37-80); Nucleated Red Blood Cell % 0 /100 WBC (0); Platelet Count 166 Thou/mm3 (140-440); RDW Standard Deviation 43.3 fL (36.4-46.3); White Blood Count 11.6 Thou/mm3 (3.6-11.0)
[2024-11-08 15:55] LABS: Beta Hydroxybutyrate 4.9 mmol/L (<0.6)
[2024-11-08 16:09] LABS: Base Excess -3 (-3-3); HCO3 20 mEq/L (20-26); Inspired Oxygen, FIO2 21 %; O2 Saturation 97 % (91-98); PCO2 31 mmHg (32.0-48.0); PO2 90 mmHg (83-108); pH, Arterial 7.42 (7.35-7.45)
[2024-11-08 16:11] LABS: Allen Test Performed/OK; Puncture Site Right Radial
[2024-11-08 16:14] LABS: Alanine Aminotransferase 18 U/L (10-49); Albumin, Serum 3.9 gm/dL (3.4-4.8); Albumin/Globulin Ratio 2.2 (1.2-2.2); Alkaline Phosphatase 77 U/L (46-116); Anion Gap 16 (7-16); BUN/Creatinine Ratio 18 Ratio (12-20); Bilirubin,Total 0.4 mg/dL (0.3-1.2); Blood Urea Nitrogen 34 mg/dL (9-23); Calcium 9.3 mg/dL (8.3-10.6); Calcium (Corrected) 9.4 mg/dL (8.5-10.1); Carbon Dioxide 20.3 mMol/L (20.0-31.0); Chloride 103 mMol/L (98-107); Creatinine (Component) 1.9 mg/dL (0.6-1.3); Estimated Creatinine Clearance 20.8 mL/min (>60); Globulin 1.8 gm/dL (2.3-3.5); Glucose 357 mg/dL (74-106); Magnesium 2.1 mg/dL (1.6-2.6); Osmolality,Calculated 299 (275-295); Sodium 139 mMol/L (136-145); Total Protein 5.7 gm/dL (5.7-8.2); eGFR 26 See Note
[2024-11-08 16:24] LABS: Aspartate Amino Transferase < 10 U/L (0-34)
[2024-11-08] MEDS: POT CHL ADDITIVE 20 MEQ in RINGERS LACTATED 1000 ML 1,000 ML 250 MEQ IV (18:03)
[2024-11-08] MEDS: KCL 20 mEq/L in D5-LR 20 MEQ/1,000 ML BAG 250 MEQ IV (19:07)
[2024-11-08 19:30] LABS: Lactate (Lactic Acid) 1.5 mMol/L (0.4-2.0)
[2024-11-08 19:50] LABS: Albumin, Serum 3.9 gm/dL (3.4-4.8); Anion Gap 11 (7-16); BUN/Creatinine Ratio 21 Ratio (12-20); Blood Urea Nitrogen 36 mg/dL (9-23); Calcium 9.6 mg/dL (8.3-10.6); Calcium (Corrected) 9.7 mg/dL (8.5-10.1); Carbon Dioxide 25.8 mMol/L (20.0-31.0); Chloride 106 mMol/L (98-107); Creatinine (Component) 1.7 mg/dL (0.6-1.3); Estimated Creatinine Clearance 23.3 mL/min (>60); Glucose 135 mg/dL (74-106); Magnesium 2.1 mg/dL (1.6-2.6); Osmolality,Calculated 295 (275-295); Phosphorous 1.9 mg/dL (2.4-5.1); Sodium 143 mMol/L (136-145); eGFR 30 See Note
[2024-11-08] MEDS: INSULIN GLARGINE (Lantus) 5 UNIT/0.05 ML (PER 5 UNITS) 30 UNIT SC (20:19)
[2024-11-08] MEDS: SODIUM CHLORIDE 0.9% 1000 ML 1,000 ML 100 ML IV (20:22)
--- NOTE | 2024-11-08 20:24 | PD.EVENT ---
Documentation for date of: 11/08/24 Event Note Event Note: Anion gap is closed, bicarbonate levels are normal, and creatinine is trending downward. Initiate basal insulin. Plan to downgrade care in the morning if the patient's condition remains stable.
[2024-11-08] MEDS: POT PHOS 15 mMol in NS 250 ML 15 MMOL/250 ML BAG 62.5 MMOL IV (21:11)
[2024-11-09] VITALS (30 sets, daily range): BP systolic 101–180; BP diastolic 50–91; PULSE 58–78; RESP 0–98; TEMP 36.7–37.2; O2SAT 90–100; BMI 29.2
[2024-11-09 06:49] LABS: Basophils % (Auto) 0 % (0-2.5); Eosinophils % (Auto) 0 % (0-10); Hematocrit 32.1 % (36.0-46.0); Hemoglobin 11.2 g/dL (12.0-16.0); Immature Granulocytes % (Auto) 0 % (0-0); Immature Granulocytes Auto 0.04 Thou/mm3 (0.00-0.00); Lymphocytes # (Auto) 1.4 Thou/mm3 (1.0-4.8); Lymphocytes % (Auto) 15 % (10-50); Mean Corpuscular HGB Conc 34.9 g/dl (31.0-37.0); Mean Corpuscular Hemoglobin 33.3 pg (25.0-35.0); Mean Corpuscular Volume 96 fL (80-100); Monocytes # (Auto) 0.7 Thou/mm3 (0.0-0.8); Monocytes % (Auto) 8 % (0-12); Neutrophils # (Auto) 7.4 Thou/mm3 (1.8-7.7); Neutrophils % (Auto) 77 % (37-80); Nucleated Red Blood Cell % 0 /100 WBC (0); Platelet Count 151 Thou/mm3 (140-440); RDW Standard Deviation 47.2 fL (36.4-46.3); Red Blood Count 3.36 Miln/mm3 (4.00-5.20); White Blood Count 9.6 Thou/mm3 (3.6-11.0)
[2024-11-09 07:17] LABS: Albumin, Serum 3.7 gm/dL (3.4-4.8); Anion Gap 19 (7-16); BUN/Creatinine Ratio 19 Ratio (12-20); Blood Urea Nitrogen 30 mg/dL (9-23); Calcium 9.2 mg/dL (8.3-10.6); Calcium (Corrected) 9.4 mg/dL (8.5-10.1); Carbon Dioxide 17.3 mMol/L (20.0-31.0); Chloride 104 mMol/L (98-107); Creatinine (Component) 1.6 mg/dL (0.6-1.3); Estimated Creatinine Clearance 24.7 mL/min (>60); Glucose 226 mg/dL (74-106); Osmolality,Calculated 292 (275-295); Phosphorous 3.8 mg/dL (2.4-5.1); Potassium 4.8 mMol/L (3.4-5.1); Sodium 140 mMol/L (136-145); eGFR 32 See Note
[2024-11-09 07:27] LABS: Glucose Estimated Average 255 mg/dL (80-131); Hemoglobin A1C 10.5 % Hgb (4.8-6.0)
[2024-11-09] MEDS: INSULIN HUM REGULAR 1 UNIT/0.01 ML (PER UNIT) SC (08:03)
[2024-11-09] MEDS: cefTRIAXone/D5w 1gm IV premix 50 ML IV (08:25)
[2024-11-09] MEDS: AZITHROMYCIN 250 MG TABLET PO (08:25)
[2024-11-09] MEDS: INSULIN GLARGINE (Lantus) 5 UNIT/0.05 ML (PER 5 UNITS) 30 UNIT SC (08:25)
[2024-11-09] MEDS: RINGERS LACTATED 1000 ML 500 ML 999 ML IV (08:26)
[2024-11-09 09:30] LABS: Beta Hydroxybutyrate 6.3 mmol/L (<0.6)
[2024-11-09 10:01] LABS: Anion Gap 19 (7-16); BUN/Creatinine Ratio 16 Ratio (12-20); Blood Urea Nitrogen 25 mg/dL (9-23); Chloride 107 mMol/L (98-107); Creatinine (Component) 1.6 mg/dL (0.6-1.3); Estimated Creatinine Clearance 24.7 mL/min (>60); Glucose 289 mg/dL (74-106); Osmolality,Calculated 292 (275-295); Potassium 4.4 mMol/L (3.4-5.1); Sodium 139 mMol/L (136-145); eGFR 32 See Note
[2024-11-09 10:03] LABS: Carbon Dioxide 13.5 mMol/L (20.0-31.0)
--- NOTE | 2024-11-09 10:21 | PD.RESEVENT ---
Documentation for date of: 11/09/24 Event Note Event Note: 11/09/2024 Patient is 79-year-old female with past medical history of hypertension, diabetes, hyperlipidemia, chronic UTIs, CVA, history of DKA who was admitted due to altered mental status and DKA. Patient was downgraded from ICU, care was to be resumed by hospital team in the floors, however patient's anion gap increased and is still in DKA and condition is currently worsening. Patient will continue care under the ICU team. Santiago Tillman MD PGY-1
[2024-11-09] MEDS: INSULIN REG 100 UNITS/100 ML 100 UNIT in PRE-MIXED 1 BAG 7.01 UNIT IV (11:00)
[2024-11-09] MEDS: POT CHL ADDITIVE 20 MEQ in RINGERS LACTATED 1000 ML 1,000 ML 250 MEQ IV (11:02)
[2024-11-09] MEDS: INSULIN LISPRO (AdmeLOG) 1 UNIT/0.01 ML UNIT 8 UNIT SC (12:31)
[2024-11-09] MEDS: INSULIN LISPRO (AdmeLOG) 1 UNIT/0.01 ML UNIT 4 UNIT SC ×6 (13:17→18:22)
--- NOTE | 2024-11-09 13:45 | PC.NURSE ---
MD VO and MD Davis notified that the patient only has 1 IV access and multiple attempts have been made by 4 RN.
[2024-11-09] MEDS: HEPARIN SOD INJ 5000 UNIT/ML VIAL SC ×2 (14:08→20:36)
[2024-11-09] MEDS: KCL 20 mEq/L in D5-LR 20 MEQ/1,000 ML BAG 250 MEQ IV ×2 (14:08→14:11)
[2024-11-09 14:20] LABS: Base Excess, Venous -4 (-3-3); Lactate (Lactic Acid) 1.4 mMol/L (0.4-2.0); O2 Saturation, Venous 81 % (96-97); PCO2, Venous 27 mmHg (36-56); PO2, Venous 38 mmHg (15-58); pH, Venous 7.46 (7.33-7.66)
--- NOTE | 2024-11-09 14:32 | PC.NURSE ---
MD Davis and MD Metzger are aware the patient had no IV access 2 more RN's attempted with no success
[2024-11-09 14:44] LABS: Albumin, Serum 3.7 gm/dL (3.4-4.8); Anion Gap 14 (7-16); BUN/Creatinine Ratio 15 Ratio (12-20); Blood Urea Nitrogen 23 mg/dL (9-23); Calcium 9.2 mg/dL (8.3-10.6); Calcium (Corrected) 9.4 mg/dL (8.5-10.1); Carbon Dioxide 21.5 mMol/L (20.0-31.0); Chloride 107 mMol/L (98-107); Creatinine (Component) 1.5 mg/dL (0.6-1.3); Estimated Creatinine Clearance 26.3 mL/min (>60); Glucose 168 mg/dL (74-106); Magnesium 1.9 mg/dL (1.6-2.6); Osmolality,Calculated 290 (275-295); Phosphorous 1.9 mg/dL (2.4-5.1); Potassium 3.6 mMol/L (3.4-5.1); Sodium 142 mMol/L (136-145); eGFR 35 See Note
--- NOTE | 2024-11-09 14:57 | ESPR_ITS ---
Documentation for date of: 11/09/24 Subjective Subjective Interval history: This is an 79-year-old female who was brought to the ER for altered mental status. Apparently the patient has been somewhat confused and not herself for the last couple of days. The family have been taking her blood sugar at home and the blood sugars have been consistently above 500. Today the readings simply read high and therefore they decided to bring the patient to the ER. She is been having nausea and vomiting for the last 3 days. She denies any chest pain, cough, shortness of breath, abdominal pain, constipation or diarrhea at this time. She also denies any fever or chills. Per the daughter the patient has had flu sick contacts in the past week. Initially they thought her illness was this. Notes that overnight her mother was very thirsty and went looking for fluids at which point in time she drank a lot of sugar containing electrolyte solutions. She feels may have aggravated her mother's current condition. PMH: DM, CVA, h/o DKA, h/o chronic UTI, dyslipidemia PSH: Remote history of smoking and alcohol consumption however nothing in the last 20 years ROS: As per HPI otherwise negative 11/09/2024: Patient seen and examined at bedside. Patient was initially planned to be downgraded after resolution of DKA, however developed reopened anion gap and worsening metabolic acidosis, increased beta hydroxybutyrate. As such patient was already started on DKA protocol. Patient had several hide B-lines infiltrates with difficulty placing new ones. As such patient had IV fluids as per DKA protocol, with every hour bedside glucose checks and calculated lispro given every hour. Plan to downgrade patient when DKA resolves. Patient denies nausea and vomiting, states feeling significantly improved from admission. Exam Vital Signs Temp Pulse Resp BP Pulse Ox O2 Del Method 98.1 F 65 15 133/57 H 98 Room Air 11/09/24 12:02 11/09/24 14:01 11/09/24 14:01 11/09/24 14:01 11/09/24 13:02 11/08/24 14:16 Narrative Exam PE: Gen: Well-developed and well-nourished. HEENT: NCAT, PERRLA, EOMI, MMM, anicteric conjunctivae. CVS: normal S1 and S2. RRR. No M/R/G. Resp: CTA B/L. No rhonchi, rales, crackles or wheezing. Lung sounds diminished in left lower lung. Abd: soft, non-tender, non-distended. MSK: Good ROM in BUE & BLE. No rash. Trace pedal edema bilaterally. Left upper arm edema s/p infiltrated IV line. Multiple bruises bilateral forearms. Neuro: CN II-XII grossly intact. Strength 5/5 in BUE & BLE. Alert and oriented x2, baseline for patient. Psych: appropriate mood and affect. Objective Labs 11/09/24 05:30 11/09/24 13:51 Labs: Laboratory Results - last 24 hr 11/08/24 11/08/24 11/08/24 14:58 15:44 16:06 WBC 11.6 H D RBC 3.50 L Hgb 11.5 L D Hct 32.1 L MCV 92 MCH 32.9 MCHC 35.8 RDW Std Deviation 43.3 Plt Count 166 D Neut % (Auto) 84 H Lymph % (Auto) 10 [place] % (Auto) 6 Eos % (Auto) 0 Baso % (Auto) 0 Neut # (Auto) 9.7 H Lymph # (Auto) 1.2 [place] # (Auto) 0.7 Eos # (Auto) 0.0 Baso # (Auto) 0.0 Immature Gran # (Auto) 0.05 H Absolute Nucleated RBC 0.00 Immature Gran % 0 Nucleated RBC % 0 Puncture Site Right Radial ABG pH 7.42 D ABG pCO2 31 L D ABG pO2 90 D ABG HCO3 20 ABG O2 Saturation 97 ABG Base Excess -3 VBG pH VBG pCO2 VBG pO2 VBG O2 Sat (Kathryn) VBG Base Excess FiO2 21 Sodium 139 D Potassium 4.0 D Chloride 103 Carbon Dioxide 20.3 Anion Gap 16 BUN 34 H Creatinine 1.9 H D Estim Creat Clear Calc 20.8 L eGFR 26 L BUN/Creatinine Ratio 18 Glucose [address] Glu mg/dL Hemoglobin A1c Calculated Osmolality 299 H Lactic Acid 2.2 H Calcium 9.3 Corrected Calcium 9.4 Phosphorus Magnesium 2.1 Total Bilirubin 0.4 AST < 10 ALT 18 Alkaline Phosphatase 77 D Total Protein 5.7 Albumin 3.9 D Globulin 1.8 L Albumin/Globulin Ratio 2.2 Beta-Hydroxybutyrate/Acetoacetate 4.9 H 11/08/24 11/09/24 11/09/24 19:22 05:30 09:04 WBC 9.6 RBC 3.36 L Hgb 11.2 L Hct 32.1 L MCV 96 MCH 33.3 MCHC 34.9 RDW Std Deviation 47.2 H Plt Count 151 Neut % (Auto) 77 Lymph % (Auto) 15 [place] % (Auto) 8 Eos % (Auto) 0 Baso % (Auto) 0 Neut # (Auto) 7.4 Lymph # (Auto) 1.4 [place] # (Auto) 0.7 Eos # (Auto) 0.0 Baso # (Auto) 0.0 Immature Gran # (Auto) 0.04 H Absolute Nucleated RBC 0.00 Immature Gran % 0 Nucleated RBC % 0 Puncture Site ABG pH ABG pCO2 ABG pO2 ABG HCO3 ABG O2 Saturation ABG Base Excess VBG pH VBG pCO2 VBG pO2 VBG O2 Sat (Kathryn) VBG Base Excess FiO2 Sodium 143 140 Potassium 4.0 4.8 D Chloride 106 104 Carbon Dioxide 25.8 17.3 L Anion Gap 11 19 H BUN 36 H 30 H Creatinine 1.7 H 1.6 H Estim Creat Clear Calc 23.3 L 24.7 L eGFR 30 L 32 L BUN/Creatinine Ratio 21 H 19 Glucose 135 H D [address] Glu mg/dL 255 H Hemoglobin A1c 10.5 H Calculated Osmolality 295 292 Lactic Acid 1.5 Calcium 9.6 9.2 Corrected Calcium 9.7 9.4 Phosphorus 1.9 L 3.8 Magnesium 2.1 2.0 Total Bilirubin AST ALT Alkaline Phosphatase Total Protein Albumin 3.9 3.7 Globulin Albumin/Globulin Ratio Beta-Hydroxybutyrate/Acetoacetate 6.3 H 11/09/24 11/09/24 09:09 13:51 WBC RBC Hgb Hct MCV MCH MCHC RDW Std Deviation Plt Count Neut % (Auto) Lymph % (Auto) [place] % (Auto) Eos % (Auto) Baso % (Auto) Neut # (Auto) Lymph # (Auto) [place] # (Auto) Eos # (Auto) Baso # (Auto) Immature Gran # (Auto) Absolute Nucleated RBC Immature Gran % Nucleated RBC % Puncture Site ABG pH ABG pCO2 ABG pO2 ABG HCO3 ABG O2 Saturation ABG Base Excess VBG pH 7.46 VBG pCO2 27 L VBG pO2 38 VBG O2 Sat (Kathryn) 81 L VBG Base Excess -4 L FiO2 Sodium 139 142 Potassium 4.4 3.6 D Chloride 107 107 Carbon Dioxide 13.5 L* 21.5 Anion Gap 19 H 14 BUN 25 H 23 Creatinine 1.6 H 1.5 H Estim Creat Clear Calc 24.7 L 26.3 L eGFR 32 L 35 L BUN/Creatinine Ratio 16 15 Glucose 289 H D [address] Glu mg/dL Hemoglobin A1c Calculated Osmolality 292 290 Lactic Acid 1.4 Calcium 9.0 9.2 Corrected Calcium 9.4 Phosphorus 1.9 L Magnesium 1.9 Total Bilirubin AST ALT Alkaline Phosphatase Total Protein Albumin 3.7 Globulin Albumin/Globulin Ratio Beta-Hydroxybutyrate/Acetoacetate ABG Interpretation ABG results: 11/08/24 11/08/24 11/09/24 11:07 16:06 13:51 ABG pH 7.17 L* 7.42 D ABG pCO2 15 L* 31 L D ABG pO2 122 H 90 D ABG HCO3 6 L* 20 ABG O2 Saturation 99 H 97 ABG Base Excess -21 L -3 VBG pH 7.46 VBG pCO2 27 L VBG pO2 38 VBG Base Excess -4 L Quality Measures Quality Measures VTE prophylaxis Advance care planning discussed with:: patient and child Assessment & Plan Assessment Current Active Medications: Generic Name Dose Route Start Last Admin Trade Name Freq PRN Reason Stop Dose Admin Acetaminophen 650 mg 11/08/24 13:02 Acetaminophen 325 Mg Tablet PO 12/08/24 13:01 Q4HR PRN PAIN SCALE 1-3 (mild Acetaminophen 650 mg 11/08/24 13:02 Acetaminophen Supp 650 Mg Supp MN 12/08/24 13:01 Q4HR PRN PAIN SCALE 1-3 (mild Al Hydrox/Mg Hydrox/Simethicone 30 ml 11/08/24 13:02 Mg Hyd/Al Hyd/Nat (Maalox Reg) Susp 30 Ml Udc PO 12/08/24 13:01 Q4HR PRN Heartburn or Upset Stomach Azithromycin 250 mg 11/09/24 09:00 11/09/24 08:25 Azithromycin 250 Mg Tablet PO 11/16/24 08:59 250 mg QDAY JULITA Administration Protocol Dextrose 25 ml 11/09/24 10:07 Dextrose 50%-Water Inj 50 Ml Syringe IV [id number] PRN Blood Sugar - Low Heparin Sodium (Porcine) 5,000 unit 11/08/24 14:00 11/09/24 14:08 Heparin Sod Inj 5000 Unit/Ml Vial SC 11/22/24 13:59 5,000 unit Q8HR JULITA Administration Ceftriaxone Sodium/Dextrose 50 mls @ 100 mls/hr 11/08/24 13:05 11/09/24 08:25 Rocephin/D5w 1gm Iv Premix IV 11/15/24 13:04 100 mls/hr QDAY JULITA Administration Potassium Chloride 10 meq in 100 mls @ 100 mls/hr 11/09/24 10:07 Kcl Ivpb IV 12/09/24 10:06 .Q1H PRN IF POTASSIUM LESS THAN 3.3 Magnesium Sulfate 2 gm in 50 mls @ 25 mls/hr 11/09/24 10:07 Magnesium Sulfate Ivpb IV 12/09/24 10:06 .Q2H PRN PER DKA PROTOCOL Insulin Human Regular 100 unit 100 mls @ 7.01 mls/hr 11/09/24 10:07 11/09/24 11:30 / IV Miscellaneous Supplies IV 12/09/24 10:06 0 unit/kg/hr .[id number] PRN 0 mls/hr PER PROTOCOL Titration Protocol 0.1 UNIT/KG/HR Dextrose/Lactated Ringer's 1,000 mls @ 250 mls/hr 11/09/24 10:07 D5-Lr IV 12/09/24 10:06 .Q4H PRN PER PROTOCOL Lactated Ringer's 1,000 mls @ 250 mls/hr 11/09/24 10:07 Lactated Ringers IV 11/10/24 10:06 .Q4H PRN PER PROTOCOL Potassium Chloride 20 meq/ 1,010 mls @ 250 mls/hr 11/09/24 10:07 11/09/24 12:31 Lactated Ringer's IV 12/09/24 10:06 250 mls/hr .Q4H3M PRN Infusion K LEVEL 3.3 TO 5.3mM/L Potassium Chloride 40 meq/ 1,020 mls @ 250 mls/hr 11/09/24 10:07 Lactated Ringer's IV 12/09/24 10:06 .Q4H5M PRN K LEVEL < 3.3 mM/L Potassium Chloride 40 meq/ 1,020 mls @ 250 mls/hr 11/09/24 10:07 Dextrose/Lactated Ringer's IV 12/09/24 10:06 .Q4H5M PRN K LEVEL < 3.3mM/L Potassium Cl/Dextrose/Lact Ringer's 20 meq in 1,000 mls @ 250 mls/hr 11/09/24 10:07 11/09/24 14:11 Kcl 20 Meq/L In D5-Lr IV 12/09/24 10:06 250 mls/hr .Q4H PRN Administration K LEVEL 3.3 TO 5.3 mM/L Potassium Chloride 10 meq in 100 mls @ 50 mls/hr 11/09/24 10:07 Kcl Ivpb IV 12/09/24 10:06 PRN PRN K LEVEL 3.3 to 5.3 & BG > 200 Potassium Phosphate 15 mmol in 250 mls @ 62.5 mls/hr 11/09/24 10:07 Pot Phos 15 Mmol In Ns 250 Ml IV 12/09/24 10:06 PRN PRN Phosphate <= 1mg/dL Sodium Phosphate 15 mmol/ 255 mls @ 62.5 mls/hr 11/09/24 10:07 Sodium Chloride IV 12/09/24 10:06 .Q4H5M PRN Phosphate <= 1mg/dL and K> than 5.3 Insulin Glargine 30 unit 11/08/24 20:15 11/08/24 20:19 Insulin Glargine (Lantus) 5 Unit/0.05 Ml (Per 5 Units) SC 12/08/24 20:14 30 unit QDAY JULITA Administration Magnesium Hydroxide 30 ml 11/08/24 13:02 Milk Of Magnesia Susp 30 Ml Udc PO 12/08/24 13:01 QDAY PRN CONSTIPATION Nitroglycerin 0.4 mg 11/08/24 13:02 Nitroglycerin 0.4 Mg Subl Btl #25 SL Q5MIN PRN CHEST PAIN Sodium Bicarbonate 50 ml 11/09/24 10:07 Sodium Bicarb Inj 8.4% Syr 50 Ml Syringe IV 12/09/24 10:06 PRN PRN For ph <= to 7.0 Plan 79-year-old female who was brought to the ER for altered mental status, admitted to ICU for DKA. Neuro: #No active issues Cardio: #No active issues Pulm: #Left lower lobe pneumonia DDx: Aspiration versus community-acquired Patient had signs of early left lobe pneumonia on chest imaging. Decreased left lower lobe lung sounds on exam. -Rocephin 1 g IV daily (started 11/08) -Monitor vitals GI: #Nausea/vomiting-resolved Secondary to DKA. Patient had nausea and vomiting for several days prior to admission, poor p.o. intake. Nausea vomiting is resolved his DKA is improved. -Zosyn as needed for nausea Renal: #YARA Secondary to dehydration due to DKA. Patient has mild elevation of creatinine and BUN. Urinary output record unreliable, patient noncompliant with pure wick. -IVF as per DKA protocol -Avoid nephrotoxic medications -Monitor labs Endo: #DKA Patient found to have DKA based on labs, elevated beta hydroxybutyrate, anion gap acidosis. DKA protocol initiated and patient mated to ICU. Anion gap closed, patient transition to subcu insulin, was planning for downgrade but follow-up labs showed reopening of anion gap and increased beta hydroxybutyrate. Patient remains in ICU. Patient had difficult IV sticks, with infiltrates, for several hours had only 1 viable IV. IV was used for fluids, insulin was manually calculated and delivered subcu every hour. -DKA protocol fluids -Monitor labs for resolution of DKA -Calculated insulin delivery based on blood glucose levels every hour Heme: #Anemia Normocytic anemia most likely dilutional due to IVF fluid repletion. Mild and asymptomatic. -Monitor #Leukocytosis-resolved Likely reactive due to DKA. -Monitor ID: #Pneumonia -See pulm for treatment Skin/MSK: #No active issues ICU Health maintenance: Mechanical ventilation: No Sedation: No Diet: N.p.o. except ice chips DVT ppx: Heparin GI ppx: No Fu: Pure wick IV lines: 2 peripheral IVs, difficult stick Central line: No Arterial line: No Code status: Full code Plan of care discussed with attending Dr. Davis. Trevor Metzger MD PGY-1 Attending Provider Attestation/Addendum Patient seen and examined with resident. Agree with above. In brief this is an 79-year-old female admitted for DKA. Overnight her anion gap closed and she was transitioned to subcutaneous Lantus and a sliding scale. This morning repeat labs showed a worsening anion gap as well as a decreasing bicarb. She was felt of gone back into DKA and therefore insulin drip was restarted. Shortly after the patient's IV access blew and only 1 line was available. Through the 1 peripheral IV DKA fluids were given and the patient's insulin requirements were calculated and given injected with lispro every hour. She has been improving. Her acute kidney injury has also shown some degree of improvement. She maintains a good urinary output. Once her gap is closed and she is stable we will readjust her insulin prior to transitioning to the floor. Case discussed with ICU team Labs, imaging and records reviewed Approximately 40 critical care minutes required for evaluation, exam, review, intervention, hourly calculation of insulin requirements, discussion and formulation of plan of care for this critically ill patient with DKA.
[2024-11-09 17:38] LABS: Lactate (Lactic Acid) 1.5 mMol/L (0.4-2.0)
[2024-11-09 17:39] LABS: Base Excess, Venous 0 (-3-3); O2 Saturation, Venous 93 % (96-97); PCO2, Venous 31 mmHg (36-56); PO2, Venous 55 mmHg (15-58); pH, Venous 7.48 (7.33-7.66)
[2024-11-09 18:05] LABS: Albumin, Serum 3.4 gm/dL (3.4-4.8); Anion Gap 9 (7-16); BUN/Creatinine Ratio 14 Ratio (12-20); Blood Urea Nitrogen 19 mg/dL (9-23); Calcium (Corrected) 9.5 mg/dL (8.5-10.1); Carbon Dioxide 25.2 mMol/L (20.0-31.0); Chloride 109 mMol/L (98-107); Creatinine (Component) 1.4 mg/dL (0.6-1.3); Estimated Creatinine Clearance 28.2 mL/min (>60); Glucose 143 mg/dL (74-106); Magnesium 1.8 mg/dL (1.6-2.6); Osmolality,Calculated 289 (275-295); Phosphorous 1.6 mg/dL (2.4-5.1); Potassium 3.7 mMol/L (3.4-5.1); Sodium 143 mMol/L (136-145); eGFR 38 See Note
[2024-11-09] MEDS: INSULIN GLARGINE (Lantus) 5 UNIT/0.05 ML (PER 5 UNITS) 20 UNIT SC (18:24)
[2024-11-09] MEDS: NAPH,KPH MBDB 1 PACKET (1.5 GM) 2 PACKET PO (18:27)
[2024-11-09 21:22] LABS: Base Excess, Venous 3 (-3-3); O2 Saturation, Venous 54 % (96-97); PCO2, Venous 43 mmHg (36-56); PO2, Venous 27 mmHg (15-58); pH, Venous 7.42 (7.33-7.66)
[2024-11-09] MEDS: hydrALAZINE INJ 20 MG/ML VIAL 10 MG IV (21:36)
[2024-11-09 21:50] LABS: Albumin, Serum 3.3 gm/dL (3.4-4.8); Anion Gap 8 (7-16); BUN/Creatinine Ratio 15 Ratio (12-20); Blood Urea Nitrogen 18 mg/dL (9-23); Calcium 9.2 mg/dL (8.3-10.6); Calcium (Corrected) 9.8 mg/dL (8.5-10.1); Carbon Dioxide 26.3 mMol/L (20.0-31.0); Chloride 108 mMol/L (98-107); Creatinine (Component) 1.2 mg/dL (0.6-1.3); Estimated Creatinine Clearance 32.9 mL/min (>60); Glucose 69 mg/dL (74-106); Magnesium 1.7 mg/dL (1.6-2.6); Osmolality,Calculated 283 (275-295); Phosphorous 2.1 mg/dL (2.4-5.1); Potassium 4.1 mMol/L (3.4-5.1); Sodium 142 mMol/L (136-145); eGFR 45 See Note
[2024-11-10] VITALS (20 sets, daily range): BP systolic 120–175; BP diastolic 56–95; PULSE 63–94; RESP 14–99; TEMP 36.1–36.9; O2SAT 94–99
[2024-11-10] MEDS: HEPARIN SOD INJ 5000 UNIT/ML VIAL SC ×2 (05:23→13:35)
[2024-11-10] MEDS: hydrALAZINE INJ 20 MG/ML VIAL 10 MG IV (05:23)
[2024-11-10 05:24] LABS: Base Excess, Venous 2 (-3-3); O2 Saturation, Venous 90 % (96-97); PCO2, Venous 37 mmHg (36-56); PO2, Venous 52 mmHg (15-58); pH, Venous 7.45 (7.33-7.66)
[2024-11-10 05:54] LABS: Albumin, Serum 3.3 gm/dL (3.4-4.8); Anion Gap 9 (7-16); BUN/Creatinine Ratio 14 Ratio (12-20); Blood Urea Nitrogen 17 mg/dL (9-23); Calcium 8.7 mg/dL (8.3-10.6); Calcium (Corrected) 9.3 mg/dL (8.5-10.1); Carbon Dioxide 25.1 mMol/L (20.0-31.0); Chloride 107 mMol/L (98-107); Creatinine (Component) 1.2 mg/dL (0.6-1.3); Estimated Creatinine Clearance 32.9 mL/min (>60); Glucose 74 mg/dL (74-106); Magnesium 1.7 mg/dL (1.6-2.6); Osmolality,Calculated 281 (275-295); Phosphorous 1.9 mg/dL (2.4-5.1); Potassium 3.7 mMol/L (3.4-5.1); Sodium 141 mMol/L (136-145); eGFR 45 See Note
[2024-11-10] MEDS: POT PHOS 15 mMol in NS 250 ML 15 MMOL/250 ML BAG 62.5 MMOL IV (08:23)
[2024-11-10] MEDS: METOPROLOL TARTRATE 25 MG TABLET 12.5 MG PO ×2 (08:23→21:14)
[2024-11-10] MEDS: cefTRIAXone/D5w 1gm IV premix 50 ML IV (08:23)
[2024-11-10] MEDS: AZITHROMYCIN 250 MG TABLET PO (08:24)
[2024-11-10] MEDS: INSULIN GLARGINE (Lantus) 5 UNIT/0.05 ML (PER 5 UNITS) 15 UNIT SC (08:31)
[2024-11-10 10:13] LABS: Basophils % (Auto) 0 % (0-2.5); Eosinophils % (Auto) 1 % (0-10); Hematocrit 31.6 % (36.0-46.0); Hemoglobin 11.1 g/dL (12.0-16.0); Immature Granulocytes % (Auto) 0 % (0-0); Immature Granulocytes Auto 0.01 Thou/mm3 (0.00-0.00); Lymphocytes # (Auto) 1.6 Thou/mm3 (1.0-4.8); Lymphocytes % (Auto) 29 % (10-50); Mean Corpuscular HGB Conc 35.1 g/dl (31.0-37.0); Mean Corpuscular Hemoglobin 32.7 pg (25.0-35.0); Mean Corpuscular Volume 93 fL (80-100); Monocytes # (Auto) 0.4 Thou/mm3 (0.0-0.8); Monocytes % (Auto) 8 % (0-12); Neutrophils # (Auto) 3.3 Thou/mm3 (1.8-7.7); Neutrophils % (Auto) 62 % (37-80); Nucleated Red Blood Cell % 0 /100 WBC (0); Platelet Count 121 Thou/mm3 (140-440); RDW Standard Deviation 46.1 fL (36.4-46.3); Red Blood Count 3.39 Miln/mm3 (4.00-5.20); White Blood Count 5.3 Thou/mm3 (3.6-11.0)
--- NOTE | 2024-11-10 10:13 | ESPR_ITS ---
<Statement entered by Leander Lunsford MD - 11/26/24 09:27> I reviewed above note and agree with findings and plans. I have also personally examined the patient with medicine team and went over assessment and plan with medical team including rn intern and resident physician. Documentation for date of: 11/10/24 Subjective Subjective Interval history: Patient examined at bedside today. No acute overnight events. Says he takes insulin at home, but does not know how much she takes. Says that her son helps her use insulin. Says that she has not been eating well for some time now and says she does not have an appetite. No other complaints at this time. Exam Vital Signs Temp Pulse Resp BP Pulse Ox O2 Del Method 98.2 F 89 18 138/56 H 99 Room Air 11/10/24 04:01 11/10/24 08:23 11/10/24 06:00 11/10/24 08:23 11/10/24 06:00 11/08/24 14:16 Narrative Exam General: AAOx3, NAD, HEENT: Moist mucous membranes, conjunctiva clear, EOMI, PERRLA, poor dentition Cardiovascular: S1, S2, radial pulses +2 bilat, RRR Pulmonary: CTAB bilat no cough, no wheezing GI: No tenderness to light or deep palpitation, no guarding, rigidity, rebound tenderness or distension Extremities: No presence of trace or pitting edema in lower extremities bilaterally, dorsalis pedis pulses +2 bilaterally Neuro: AAOx3, no focal motor or sensory deficits in the UE or LE bilat Psych:Cooperative Objective Labs 11/11/24 05:10 11/11/24 05:10 Labs: Laboratory Results - last 24 hr 11/09/24 11/09/24 11/09/24 13:51 17:10 20:50 VBG pH 7.46 7.48 7.42 VBG pCO2 27 L 31 L 43 D VBG pO2 38 55 27 D VBG O2 Sat (Kathryn) 81 L 93 L 54 L VBG Base Excess -4 L 0 3 Sodium 142 143 142 Potassium 3.6 D 3.7 4.1 Chloride 107 109 H 108 H Carbon Dioxide 21.5 25.2 26.3 Anion Gap 14 9 8 BUN 23 19 18 Creatinine 1.5 H 1.4 H 1.2 Estim Creat Clear Calc 26.3 L 28.2 L 32.9 L eGFR 35 L 38 L 45 L BUN/Creatinine Ratio 15 14 15 Glucose 168 H D 143 H 69 L D Calculated Osmolality 290 289 283 Lactic Acid 1.4 1.5 Calcium 9.2 9.0 9.2 Corrected Calcium 9.4 9.5 9.8 Phosphorus 1.9 L 1.6 L 2.1 L Magnesium 1.9 1.8 1.7 Albumin 3.7 3.4 3.3 L Beta-Hydroxybutyrate/Acetoacetate 2.0 H 11/10/24 04:50 VBG pH 7.45 VBG pCO2 37 VBG pO2 52 D VBG O2 Sat (Kathryn) 90 L VBG Base Excess 2 Sodium 141 Potassium 3.7 Chloride 107 Carbon Dioxide 25.1 Anion Gap 9 BUN 17 Creatinine 1.2 Estim Creat Clear Calc 32.9 L eGFR 45 L BUN/Creatinine Ratio 14 Glucose 74 Calculated Osmolality 281 Lactic Acid Calcium 8.7 Corrected Calcium 9.3 Phosphorus 1.9 L Magnesium 1.7 Albumin 3.3 L Beta-Hydroxybutyrate/Acetoacetate ABG Interpretation ABG results: 11/08/24 11/08/24 11/09/24 11:07 16:06 13:51 ABG pH 7.17 L* 7.42 D ABG pCO2 15 L* 31 L D ABG pO2 122 H 90 D ABG HCO3 6 L* 20 ABG O2 Saturation 99 H 97 ABG Base Excess -21 L -3 VBG pH 7.46 VBG pCO2 27 L VBG pO2 38 VBG Base Excess -4 L 11/09/24 11/09/24 11/10/24 17:10 20:50 04:50 ABG pH ABG pCO2 ABG pO2 ABG HCO3 ABG O2 Saturation ABG Base Excess VBG pH 7.48 7.42 7.45 VBG pCO2 31 L 43 D 37 VBG pO2 55 27 D 52 D VBG Base Excess 0 3 2 Quality Measures Quality Measures VTE prophylaxis Advance care planning discussed with:: patient Assessment & Plan Assessment Current Active Medications: Generic Name Dose Route Start Last Admin Trade Name Freq PRN Reason Stop Dose Admin Acetaminophen 650 mg 11/08/24 13:02 Acetaminophen 325 Mg Tablet PO 12/08/24 13:01 Q4HR PRN PAIN SCALE 1-3 (mild Al Hydrox/Mg Hydrox/Simethicone 30 ml 11/08/24 13:02 Mg Hyd/Al Hyd/Nat (Maalox Reg) Susp 30 Ml Udc PO 12/08/24 13:01 Q4HR PRN Heartburn or Upset Stomach Azithromycin 250 mg 11/09/24 09:00 11/10/24 08:24 Azithromycin 250 Mg Tablet PO 11/16/24 08:59 250 mg QDAY JULITA Administration Protocol Dextrose 25 ml 11/09/24 18:56 Dextrose 50%-Water Inj 50 Ml Syringe IV 12/09/24 18:55 Q15MIN PRN BG 50-70 responsive npo pt Dextrose 50 ml 11/09/24 18:56 Dextrose 50%-Water Inj 50 Ml Syringe IV 12/09/24 18:55 Q15MIN PRN BG <50 OR BG <70 & pt unresponsive Glucagon 1 mg 11/09/24 18:56 Glucagon Inj 1 Mg Vial IM Q15MIN PRN BG <70, and no IV access Heparin Sodium (Porcine) 5,000 unit 11/08/24 14:00 11/10/24 05:23 Heparin Sod Inj 5000 Unit/Ml Vial SC 11/22/24 13:59 5,000 unit Q8HR JULITA Administration Hydralazine HCl 10 mg 11/10/24 07:51 Hydralazine Inj 20 Mg/Ml Vial IV 12/09/24 20:46 Q6HR PRN SBP >160 Ceftriaxone Sodium/Dextrose 50 mls @ 100 mls/hr 11/08/24 13:05 11/10/24 08:23 Rocephin/D5w 1gm Iv Premix IV 11/15/24 13:04 100 mls/hr QDAY JULITA Administration Potassium Phosphate 15 mmol in 250 mls @ 62.5 mls/hr 11/10/24 07:48 11/10/24 08:23 Pot Phos 15 Mmol In Ns 250 Ml IV 11/10/24 11:47 62.5 mls/hr X1 ONE Administration Insulin Glargine 60 unit 11/10/24 21:00 Insulin Glargine (Lantus) 5 Unit/0.05 Ml (Per 5 Units) SC 12/10/24 20:59 HS [facility] Insulin Human Lispro 0 unit 11/09/24 21:00 11/10/24 07:15 Insulin Lispro (Admelog) 1 Unit/0.01 Ml Unit SC 12/09/24 20:59 Not Given ACHS [facility] Protocol Insulin Human Lispro 15 unit 11/10/24 11:30 Insulin Lispro (Admelog) 1 Unit/0.01 Ml Unit SC 12/10/24 11:29 AC JULITA Magnesium Hydroxide 30 ml 11/08/24 13:02 Milk Of Magnesia Susp 30 Ml Udc PO 12/08/24 13:01 QDAY PRN CONSTIPATION Metoprolol Tartrate 12.5 mg 11/09/24 21:00 11/10/24 08:23 Metoprolol Tartrate 25 Mg Tablet PO 12/09/24 20:59 12.5 mg BID JULITA Administration Nitroglycerin 0.4 mg 11/08/24 13:02 Nitroglycerin 0.4 Mg Subl Btl #25 SL Q5MIN PRN CHEST PAIN Plan Assessment 79-year-old female with past medical history of diabetes mellitus, prior CVAs, and previous admissions for DKA is currently admitted for DKA, off insulin drip and is currently on subcutaneous insulin on the floors. #Insulin-dependent diabetes mellitus #DKA, resolved Patient found to have DKA based on labs, elevated beta hydroxybutyrate, anion gap acidosis. DKA protocol initiated and patient mated to ICU. Anion gap closed, patient transition to subcu insulin, was planning for downgrade but follow-up labs showed reopening of anion gap and increased beta hydroxybutyrate. Patient remains in ICU. Patient had difficult IV sticks, with infiltrates, for several hours had only 1 viable IV. IV was used for fluids, insulin was manually calculated and delivered subcu every hour. DKA could be due to noncompliance and also infectious cause, however sounds like patient is not the most compliant with her insulin management, but could also be a component of infection Home insulin regimen is 60 of glargine, will 15 with meals. Patient has gotten 15 already today, will give another 45 minutes Will resume home regimen and titrate from there A1c of 11 Anion gap is closed Fasting blood sugar today was 74 Patient given ~10 units of insulin including short acting and long-acting yesterday Plan: ?60 units of glargine ?Lispro 15 3 times daily AC ?SSI ?Hypoglycemic protocol ?Carb consistent diet #Left lower lobe pneumonia, improving DDx: Aspiration versus community-acquired Patient does have history of history, however patient's pneumonia is on left side Will hold on additional anaerobic coverage Patient is not requiring oxygen at this time Blood cultures no growth after 2 days MRSA nares negative Plan: ?Continue with Rocephin 1 g IV daily #Poor oral intake #Nausea #Vomiting Could be related to DKA or infectious cause Patient has endorsed poor oral intake prior to admission Will continue with antiemetics, will consider appetite stimulant later Plan: ?Zofran every 4 hours as needed ?Carb consistent diet #YARA, improving Secondary to dehydration due to DKA. Patient has mild elevation of creatinine and BUN. Urinary output record unreliable, patient noncompliant with pure wick. Patient to continue with p.o. fluids Creatinine 1.2 today, 1.2 yesterday Plan: -Avoid nephrotoxic medications -Monitor labs #Normocytic anemia #Asymptomatic anemia Could be related to dehydration Plan: ?Monitor CBC #Health Maintenance Disposition: Telemetry DVT prophylaxis: Heparin GI prophylaxis: Protonix Diet: Carb consistent CODE STATUS: Full Patient seen and care discussed with my senior resident, Dr. Jones , and my attending physician, Dr. Isatu Coley, PGY-1 Senior resident attestation: Patient evaluated and examined at the bedside, plan of care discussed with rest of the team including my attending physician, except as noted. Patient is 79-year-old female with past medical history of diabetes mellitus, noncompliant with treatment. Patient home insulin is 60 units of insulin glargine along with 15 units of insulin lispro premeals. Patient reports that her son's girlfriend is the one who gives her the insulin, sometimes they miss nighttime insulin, home blood glucose readings frequently in the 400s and 500s. Patient came in with DKA, was admitted to ICU for insulin drip, was downgraded to the floors once anion gap closed x 2, but patient went back into diabetic ketoacidosis, BHB positive, but due to poor IV access IV line was used for IV fluids and insulin was given subcu. Patient received approximately 120 units of insulin over last 24 hours in ICU, and downgraded to the floors, patient received 15 units insulin glargine and 15 units insulin lispro Premeal's in the a.m., concern for hypoglycemia and poor p.o. intake. RN was instructed to do frequent fingerstick glucose checks and continue with insulin as patient's risk of going back into DKA is high. Glucose in the a.m. in the 70s, patient was encouraged to eat her meals, glucose later improved to 180. #DKA #Type 2 diabetes mellitus?poorly controlled: Home dose of insulin 60 insulin glargine +15 insulin lispro 3 times daily Premeal. Received 120 units of insulin over last 24 hours During DKA management. Recommend 30 units insulin glargine twice daily and 15 units insulin lispro 3 times daily, premeals along with sliding scale insulin. Encourage better oral intake #Intractable nausea vomiting Added Zofran as needed, to be given 30 minutes before meals if patient feels nauseated #Pneumonia #UTI #Concern for cystitis Continue on IV antibiotics, ordered pelvic ultrasound as CT abdomen pelvis reported as concerning for cystitis, possible differentials include bladder cancer. Can follow-up outpatient with urology as symptoms of cystitis are not acutely concerning. Quresh PGY2
[2024-11-10] MEDS: INSULIN LISPRO (AdmeLOG) 1 UNIT/0.01 ML UNIT 15 UNIT SC (11:20)
[2024-11-10] MEDS: MG HYD/AL HYD/SIME (Maalox Reg) SUSP 30 ML UDC PO (11:25)
[2024-11-10] MEDS: ONDANSETRON INJ 2 MG/ML INJ 2 ML 4 MG IV ×2 (11:45→21:14)
--- NOTE | 2024-11-10 20:45 | PC.NURSE ---
Patient has order for lantus 45 units tonight but pt's blood sugar is 75. Pt is asymptomatic and was given juice and snacks. MD Lockwood is aware and said ok to hold the lantus for tonight
[2024-11-10] MEDS: PHENOL/NA PHENOLATE (Chloraseptic) SPRY 180 ML BTL PO (21:13)
[2024-11-11] VITALS (10 sets, daily range): BP systolic 109–153; BP diastolic 60–76; PULSE 59–73; RESP 12–95; TEMP 35.9–36.6; O2SAT 93–98; BMI 27.9
[2024-11-11 06:08] LABS: Basophils % (Auto) 0 % (0-2.5); Eosinophils # (Auto) 0.1 Thou/mm3 (0.0-0.5); Eosinophils % (Auto) 2 % (0-10); Hematocrit 32.9 % (36.0-46.0); Hemoglobin 11.6 g/dL (12.0-16.0); Immature Granulocytes % (Auto) 0 % (0-0); Immature Granulocytes Auto 0.01 Thou/mm3 (0.00-0.00); Lymphocytes % (Auto) 30 % (10-50); Mean Corpuscular HGB Conc 35.3 g/dl (31.0-37.0); Mean Corpuscular Hemoglobin 33.2 pg (25.0-35.0); Mean Corpuscular Volume 94 fL (80-100); Monocytes # (Auto) 0.3 Thou/mm3 (0.0-0.8); Monocytes % (Auto) 11 % (0-12); Neutrophils # (Auto) 1.9 Thou/mm3 (1.8-7.7); Neutrophils % (Auto) 58 % (37-80); Nucleated Red Blood Cell % 0 /100 WBC (0); Platelet Count 114 Thou/mm3 (140-440); RDW Standard Deviation 44.6 fL (36.4-46.3); Red Blood Count 3.49 Miln/mm3 (4.00-5.20); White Blood Count 3.2 Thou/mm3 (3.6-11.0)
[2024-11-11 06:38] LABS: Alanine Aminotransferase 18 U/L (10-49); Albumin, Serum 3.1 gm/dL (3.4-4.8); Albumin/Globulin Ratio 1.8 (1.2-2.2); Alkaline Phosphatase 57 U/L (46-116); Anion Gap 8 (7-16); Aspartate Amino Transferase 18 U/L (0-34); BUN/Creatinine Ratio 9 Ratio (12-20); Bilirubin,Total 0.5 mg/dL (0.3-1.2); Blood Urea Nitrogen 8 mg/dL (9-23); Calcium 8.6 mg/dL (8.3-10.6); Calcium (Corrected) 9.3 mg/dL (8.5-10.1); Carbon Dioxide 25.8 mMol/L (20.0-31.0); Chloride 107 mMol/L (98-107); Creatinine (Component) 0.9 mg/dL (0.6-1.3); Globulin 1.7 gm/dL (2.3-3.5); Glucose 89 mg/dL (74-106); Magnesium 1.7 mg/dL (1.6-2.6); Osmolality,Calculated 278 (275-295); Phosphorous 2.2 mg/dL (2.4-5.1); Potassium 3.5 mMol/L (3.4-5.1); Sodium 141 mMol/L (136-145); Total Protein 4.8 gm/dL (5.7-8.2); eGFR > 60 See Note
[2024-11-11] MEDS: INSULIN LISPRO (AdmeLOG) 1 UNIT/0.01 ML UNIT SC ×2 (07:51→12:36)
[2024-11-11] MEDS: INSULIN GLARGINE (Lantus) 5 UNIT/0.05 ML (PER 5 UNITS) 15 UNIT SC ×2 (08:37→21:17)
[2024-11-11] MEDS: METOCLOPRAMIDE INJ 5 MG/ML VIAL 2 ML IVP ×3 (08:38→17:41)
[2024-11-11] MEDS: cefTRIAXone/D5w 1gm IV premix 50 ML IV (08:39)
[2024-11-11] MEDS: AZITHROMYCIN 250 MG TABLET 500 MG PO (08:39)
[2024-11-11] MEDS: METOPROLOL TARTRATE 25 MG TABLET 12.5 MG PO ×2 (08:39→21:17)
[2024-11-11] MEDS: NAPH,KPH MBDB 1 PACKET (1.5 GM) PO (08:52)
[2024-11-11] MEDS: POTASSIUM CHLORIDE 20 mEq TABCR 40 MEQ PO (08:52)
--- NOTE | 2024-11-11 09:25 | PCS.ST ---
Swallow Eval completed. See report for details. Continue current diet. Note pt c/o pain in distal esophageal region when eating.
--- NOTE | 2024-11-11 10:09 | PC.SS ---
Initial assessment: This is 79 year old female admitted for DKA. Patient was able to confirm her home address. Patient lives with her son, James. Patient's emergency contact is her daughter, Marii Gonzalez. Patient reports being independent with ADL's. Patient denies any DME use at home. Patient's PCP is Dr. Mack Neumann. Pharmacy of choice is [facility] in [place]. The patient's discharge plan is to return home. Patient's daughter Marii to assist with transport. No needs identified at this time. D/c plan: home Contact: daughterMarii
--- NOTE | 2024-11-11 10:45 | XR_ITS ---
Examination: Urinary bladder sonography complete TECHNIQUE: Grayscale sonographic images urinary bladder November 11, 2024 1155 hours INDICATIONS: Abnormal urinary bladder wall thickening up to [address] pelvis November 08, 2024 FINDINGS: Bladder prevoid volume 87.5 cc Echogenic area in the posterior bladder wall, 5.5 x 1.2 x 4.1 cm This may represent blood clot although soft tissue mass cannot be excluded IMPRESSION: Recommend cystoscopy follow-up to differentiate blood clot from bladder mass posterior margin of the
--- NOTE | 2024-11-11 12:06 | ESPR_ITS ---
<Statement entered by Leander Lunsford MD - 11/26/24 09:38> I reviewed above note and agree with findings and plans. I have also personally examined the patient with medicine team and went over assessment and plan with medical team including public health internship and resident physician. Documentation for date of: 11/11/24 Subjective Subjective Interval history: Patient seen today at the bedside found awake, alert, orientedx3. No overnight events reported. Vital signs stable at this time. Patient is not tolerating po intake at this time states shes has pain when she tries to swallow even liquids. GI, Dr. Hairston was consulted, appreciate recommendations. Placed patient on scheduled reglan as patient states some abdominal discomfort. Repeated renal panel to follow up in the afternoon as her decreased po intake is of concern having just come out of DKA. Insulin regimen was also adjusted and antibiotic coverage broadened to zosyn and azithromycin for concern of WBCs still in sepsis range and concern for pseudomonas pneumonia Exam Vital Signs Temp Pulse Resp BP Pulse Ox O2 Del Method 97.2 F 68 21 H 153/68 H 98 Room Air 11/11/24 08:00 11/11/24 08:50 11/11/24 08:50 11/11/24 08:39 11/11/24 08:00 11/11/24 08:00 Narrative Exam Physical Exam GENERAL: NAD, AAOx3, poor dentition HEENT: Moist mucosa. Eyes open, symmetrical, & clear CARDIO: No chest pain on palpation. Heart RRR, no obvious murmurs PULM: No noted coughing/dyspnea. Lungs CTA B/L, no R/W/R GI: Abdomen soft, nondistended, no pain on palpation. BSx4 SKIN/MSK/EXT: No wounds/rashes/edema/amputations, no pain on palpation. Pedal pulses present B/L NEURO: AAOx3, able to move all 4 extremities Objective Labs 11/11/24 05:10 11/11/24 13:59 Labs: Laboratory Results - last 24 hr 11/11/24 05:10 WBC 3.2 L RBC 3.49 L Hgb 11.6 L Hct 32.9 L MCV 94 MCH 33.2 MCHC 35.3 RDW Std Deviation 44.6 Plt Count 114 L Neut % (Auto) 58 Lymph % (Auto) 30 [place] % (Auto) 11 Eos % (Auto) 2 Baso % (Auto) 0 Neut # (Auto) 1.9 Lymph # (Auto) 1.0 [facility] # (Auto) 0.3 Eos # (Auto) 0.1 Baso # (Auto) 0.0 Immature Gran # (Auto) 0.01 H Absolute Nucleated RBC 0.00 Immature Gran % 0 Nucleated RBC % 0 Sodium 141 Potassium 3.5 Chloride 107 Carbon Dioxide 25.8 Anion Gap 8 BUN 8 L Creatinine 0.9 Estim Creat Clear Calc 43.0 L eGFR > 60 BUN/Creatinine Ratio 9 L Glucose 89 Calculated Osmolality 278 Calcium 8.6 Corrected Calcium 9.3 Phosphorus 2.2 L Magnesium 1.7 Total Bilirubin 0.5 AST 18 ALT 18 Alkaline Phosphatase 57 D Total Protein 4.8 L Albumin 3.1 L Globulin 1.7 L Albumin/Globulin Ratio 1.8 ABG Interpretation ABG results: 11/08/24 11/08/24 11/09/24 11:07 16:06 13:51 ABG pH 7.17 L* 7.42 D ABG pCO2 15 L* 31 L D ABG pO2 122 H 90 D ABG HCO3 6 L* 20 ABG O2 Saturation 99 H 97 ABG Base Excess -21 L -3 VBG pH 7.46 VBG pCO2 27 L VBG pO2 38 VBG Base Excess -4 L 11/09/24 11/09/24 11/10/24 17:10 20:50 04:50 ABG pH ABG pCO2 ABG pO2 ABG HCO3 ABG O2 Saturation ABG Base Excess VBG pH 7.48 7.42 7.45 VBG pCO2 31 L 43 D 37 VBG pO2 55 27 D 52 D VBG Base Excess 0 3 2 Quality Measures Quality Measures VTE prophylaxis Advance care planning discussed with:: patient Assessment & Plan Assessment Current Active Medications: Generic Name Dose Route Start Last Admin Trade Name Freq PRN Reason Stop Dose Admin Acetaminophen 650 mg 11/08/24 13:02 Acetaminophen 325 Mg Tablet PO 12/08/24 13:01 Q4HR PRN PAIN SCALE 1-3 (mild Al Hydrox/Mg Hydrox/Simethicone 30 ml 11/08/24 13:02 11/10/24 11:25 Mg Hyd/Al Hyd/Nat (Maalox Reg) Susp 30 Ml Udc PO 12/08/24 13:01 30 ml Q4HR PRN Administration Heartburn or Upset Stomach Azithromycin 500 mg 11/11/24 09:00 11/11/24 08:39 Azithromycin 250 Mg Tablet PO 11/16/24 08:59 500 mg QDAY [facility] Administration Protocol Dextrose 25 ml 11/09/24 18:56 Dextrose 50%-Water Inj 50 Ml Syringe IV 12/09/24 18:55 Q15MIN PRN BG 50-70 responsive npo pt Dextrose 50 ml 11/09/24 18:56 Dextrose 50%-Water Inj 50 Ml Syringe IV 12/09/24 18:55 Q15MIN PRN BG <50 OR BG <70 & pt unresponsive Glucagon 1 mg 11/09/24 18:56 Glucagon Inj 1 Mg Vial IM Q15MIN PRN BG <70, and no IV access Heparin Sodium (Porcine) 5,000 unit 11/08/24 14:00 11/11/24 05:32 Heparin Sod Inj 5000 Unit/Ml Vial SC 11/22/24 13:59 Not Given Q8HR [facility] Hydralazine HCl 10 mg 11/10/24 07:51 Hydralazine Inj 20 Mg/Ml Vial IV 12/09/24 20:46 Q6HR PRN SBP >160 Piperacillin/Tazobactam/Dextrose 3.375 gm in 50 mls @ 12.5 mls/hr 11/11/24 22:00 Zosyn IV 11/18/24 21:59 Q8HR [facility] Insulin Glargine 15 unit 11/11/24 09:15 11/11/24 09:38 Insulin Glargine (Lantus) 5 Unit/0.05 Ml (Per 5 Units) SC 12/11/24 09:14 Not Given BID [facility] Insulin Human Lispro 0 unit 11/10/24 12:48 11/11/24 07:51 Insulin Lispro (Admelog) 1 Unit/0.01 Ml Unit SC 12/09/24 20:59 1 unit ACHS [facility] Administration Protocol Insulin Human Lispro 10 unit 11/11/24 11:30 Insulin Lispro (Admelog) 1 Unit/0.01 Ml Unit SC 12/11/24 11:29 AC [facility] Magnesium Hydroxide 30 ml 11/08/24 13:02 Milk Of Magnesia Susp 30 Ml Udc PO 12/08/24 13:01 QDAY PRN CONSTIPATION Metoclopramide HCl 5 mg 11/11/24 08:00 11/11/24 08:38 Metoclopramide Inj 5 Mg/Ml Vial 2 Ml IVP 12/11/24 07:59 5 mg TIDWM JULITA Administration Protocol Metoprolol Tartrate 12.5 mg 11/09/24 21:00 11/11/24 08:39 Metoprolol Tartrate 25 Mg Tablet PO 12/09/24 20:59 12.5 mg BID JULITA Administration Nitroglycerin 0.4 mg 11/08/24 13:02 Nitroglycerin 0.4 Mg Subl Btl #25 SL Q5MIN PRN CHEST PAIN Ondansetron HCl 4 mg 11/10/24 11:41 11/10/24 21:14 Ondansetron Inj 2 Mg/Ml Inj 2 Ml IV 12/10/24 11:40 4 mg Q6HR PRN Administration NAUSEA OR VOMITING Protocol Phenol/Menthol 0 ml 11/10/24 18:14 11/10/24 21:13 Phenol/Na Phenolate (Chloraseptic) [place] 180 Ml Btl PO 12/10/24 18:13 1 dose Q6HR PRN Administration SORE THROAT Plan 79-year-old female with past medical history of hypertension, diabetes, hyperlipidemia, chronic UTIs, CVA, history of DKA who was admitted due to altered mental status and DKA. Patient was downgraded to the floors after DKA resolved. #DKA-resolved #Insulin dependent Diabetes Patient was admitted to the ICU for DKA protocol Anion gap closed, patient transition to subcu insulin, was planning for downgrade but follow-up labs showed reopening of anion gap and increased beta hydroxybutyrate. Patient has previous hx of DKA, likely in the setting of noncomplaince A1C 11, Anion gap has closed There is concern as patient is not eating and not taking much po intake - SSI - blood sugar checks q 4hours - insulin glargine 15 units given today - f/u afternoon renal panel #Left lower lobe pneumonia, improving likely causes include CAP and aspiration CXR shows left sided pneumonia blood cx negative suspected pseudomonal pneumonia, will broaden coverage - on Zosyn - on azithromycin #Dysphagia #Poor oral intake #Nausea #Vomiting likely in the setting of DKA vs infectious vs mechanical Patient has endorsed poor oral intake prior to admission Currently on anti-emetics Patient has been stating pain with swallowing solids and liquids and states that is the reason she has had poor oral intake - continue anti-emetics - Dr. Hairston, GI specialist consulted, appreciate recommendations - Can consider appetite stimulant later #YARA- resolved Secondary to dehydration due to DKA. Patient has mild elevation of creatinine and BUN Urinary output record unreliable, patient non-compliant with pure wick. Patient to continue with p.o. fluids Creatinine 0.9 -Avoid nephrotoxic medications -Monitor labs #Normocytic anemia #Asymptomatic anemia Could be related to dehydration ?Monitor CBC #Cystitis #?Echogenic mass Bladder scan showed Echogenic area in the posterior bladder wall, 5.5 x 1.2 x 4.1 cm This may represent blood clot although soft tissue mass cannot be excluded recommended to do cystoscopy as outpatient -f/u as outpatient Case discussed with my senior Dr. Jones PGY-[address] Isatu Tillman MD PGY-1 Disposition: Tele Fluids: None Feeding: dysphagia 3 Thrombo prophylaxis: heparin Gastric Ulcer prophylaxis: Pantoprazole CODE STATUS: Full code Senior resident attestation: Patient evaluated and examined at the bedside, plan of care discussed with rest of the team including my attending physician, except as noted. Patient is 79-year-old female with past medical history of diabetes mellitus, noncompliant with treatment. Patient home insulin is 60 units of insulin glargine along with 15 units of insulin lispro premeals. Patient reports that her son's girlfriend is the one who gives her the insulin, sometimes they miss nighttime insulin, home blood glucose readings frequently in the 400s and 500s. Patient came in with DKA, was admitted to ICU for insulin drip, was downgraded to the floors once anion gap closed x 2, but patient went back into diabetic ketoacidosis, BHB positive, but due to poor IV access IV line was used for IV fluids and insulin was given subcu. Patient received approximately 120 units of insulin over last 24 hours in ICU, and downgraded to the floors, patient received 15 units insulin glargine and 15 units insulin lispro Premeal's in the a.m., concern for hypoglycemia and poor p.o. intake. RN was instructed to do frequent fingerstick glucose checks and continue with insulin as patient's risk of going back into DKA is high. Glucose in the a.m. in the 70s, patient was encouraged to eat her meals, glucose later improved to 180. #DKA #Type 2 diabetes mellitus?poorly controlled: Home dose of insulin 60 insulin glargine +15 insulin lispro 3 times daily Premeal. Received 120 units of insulin over last 24 hours During DKA management. ? The patient has actually been refusing diet, due to painful swallowing as well as epigastric discomfort, even after drinking water or Jell-O. Poor per oral intake, however we will watch her anion gap closely continue with low-dose insulin, once patient is back to her normal diet, she can go back to her normal insulin usage. ?Insulin glargine 15 units twice daily, insulin lispro 10 units AC with sliding scale to be continued for now. ?Patient would likely require more units of insulin once per oral intake increases. ?Added small chopped diet frequent meals, regular diet instead of carb consistent as patient is refusing to eat carb consistent diet. #Intractable nausea vomiting #Peptic ulcer disease #Odynophagia ?Added Zofran as needed for nausea, Reglan 5 mg Premeal for prokinetic effect, Protonix 40 mg twice daily due to concern for peptic ulcer, gastroenterology consult added for possible EGD, appreciate GI recs. ?Added small frequent meals, chopped up diet #Pneumonia versus pulmonary nodule: CT scan shows pulmonary nodule/pneumonia, ordered cocci serology #Rule out cocci #UTI #Concern for cystitis Continue on IV antibiotics, ordered pelvic ultrasound as CT abdomen pelvis reported as concerning for cystitis, possible differentials include bladder cancer. Can follow-up outpatient with urology for cystoscopy, ultrasound bladder shows possible blood clot versus mass in the posterior bladder wall. Spoke to patient's daughter and son, gave information about following up with urologist outpatient for cystoscopy to rule out bladder cancer. Robert PGY2
[2024-11-11] MEDS: PIPER/TAZO 3.375 GM 3.375 GM/50 ML BAG IV ×2 (12:35→21:19)
[2024-11-11] MEDS: INSULIN LISPRO (AdmeLOG) 1 UNIT/0.01 ML UNIT 10 UNIT SC (12:36)
[2024-11-11 14:36] LABS: Albumin, Serum 3.1 gm/dL (3.4-4.8); Anion Gap 7 (7-16); BUN/Creatinine Ratio 9 Ratio (12-20); Blood Urea Nitrogen 9 mg/dL (9-23); Calcium 8.4 mg/dL (8.3-10.6); Calcium (Corrected) 9.1 mg/dL (8.5-10.1); Carbon Dioxide 25.6 mMol/L (20.0-31.0); Chloride 104 mMol/L (98-107); Estimated Creatinine Clearance 38.7 mL/min (>60); Glucose 178 mg/dL (74-106); Osmolality,Calculated 276 (275-295); Phosphorous 2.1 mg/dL (2.4-5.1); Potassium 4.2 mMol/L (3.4-5.1); Sodium 137 mMol/L (136-145); eGFR 57 See Note
[2024-11-11] MEDS: HEPARIN SOD INJ 5000 UNIT/ML VIAL SC ×2 (14:46→21:18)
[2024-11-11 14:52] LABS: Cocci Serology, IgM Negative (Negative)
--- NOTE | 2024-11-11 15:13 | PC.SS ---
Rounding note: patient is not eating, medical team to monitor patient another night.
[2024-11-11] MEDS: SUCRALFATE SUSP 1 GM/10 ML UDC PO (17:41)
--- NOTE | 2024-11-11 18:50 | PD.IMCONS ---
HPI Data of Consult Requesting Physician: Domi Davis MD Primary Care Provider: Mack Neumann PA-C Consult Narrative Reason for consult: Dysphagia odynophagia History of present illness: 79 years old female evaluated at the request of the internal medicine team for odynophagia painful swallowing even with liquids She is here in the hospital with left lower lobe pneumonia just came out of DKA and has insulin-dependent diabetes mellitus She did present with a hemoglobin hematocrit 13.8 and 41.9 currently hemoglobin hematocrit down to 11.6 and 32.9 with a platelet count of 114,000 LFTs are normal She is on broad-spectrum antibiotics for her left lower lobe pneumonia cc:: cc: Domi Davis MD Review of Systems Review of Systems Systems Reviewed: All systems reviewed, normal except as documented Past Medical History Surgical History OTHER SURGICAL HX: As in the history of present illness Meds Home Medications and Allergies Home Medications ?Medication ?Instructions ?Recorded ?Confirmed ?Type cefdinir 300 mg capsule 300 mg PO BID 05/24/24 05/24/24 History dapagliflozin propanediol 5 mg 5 mg PO QDAY 05/24/24 05/24/24 History tablet (Farxiga) fluconazole 200 mg tablet 200 mg PO QDAY 05/24/24 05/24/24 History vilazodone 20 mg tablet 20 mg PO QDAY 05/24/24 05/24/24 History Allergies Allergy/AdvReac Type Severity Reaction Status Date / Time No Known Allergies Allergy Unverified 05/24/24 05:34 Exam Vital Signs Temp Pulse Resp BP Pulse Ox O2 Del Method 97.2 F 68 16 113/61 98 Room Air 11/11/24 16:00 11/11/24 16:00 11/11/24 16:00 11/11/24 16:00 11/11/24 16:00 11/11/24 16:00 Constitutional Comments: Alert oriented Routine Respiratory Exam Comments: Decreased breath sounds at the bases Routine Abdominal Exam Comments: Soft nontender Results Labs 11/11/24 05:10 11/11/24 13:59 Labs: Short CBC 11/11/24 Range/Units 05:10 WBC 3.2 L (3.6-11.0) Thou/mm3 Hgb 11.6 L (12.0-16.0) g/dL Hct 32.9 L (36.0-46.0) % Plt Count 114 L (140-440) Thou/mm3 BMP 11/11/24 11/11/24 05:10 13:59 Sodium 141 137 Potassium 3.5 4.2 D Chloride 107 104 Carbon Dioxide 25.8 25.6 BUN 8 L 9 Creatinine 0.9 1.0 Glucose 89 178 H D Calcium 8.6 8.4 Liver Function 11/11/24 11/11/24 Range/Units 05:10 13:59 Total Bilirubin 0.5 (0.3-1.2) mg/dL AST 18 (0-34) U/L ALT 18 (10-49) U/L Alkaline Phosphatase 57 D (46-116) U/L Albumin 3.1 L 3.1 L (3.4-4.8) gm/dL ABG Interpretation ABG results: 11/08/24 11/08/24 11/09/24 11:07 16:06 13:51 ABG pH 7.17 L* 7.42 D ABG pCO2 15 L* 31 L D ABG pO2 122 H 90 D ABG HCO3 6 L* 20 ABG O2 Saturation 99 H 97 ABG Base Excess -21 L -3 VBG pH 7.46 VBG pCO2 27 L VBG pO2 38 VBG Base Excess -4 L 11/09/24 11/09/24 11/10/24 17:10 20:50 04:50 ABG pH ABG pCO2 ABG pO2 ABG HCO3 ABG O2 Saturation ABG Base Excess VBG pH 7.48 7.42 7.45 VBG pCO2 31 L 43 D 37 VBG pO2 55 27 D 52 D VBG Base Excess 0 3 2 Assessment and Plan Additional Assessment & Plan Additional Plan: # Odynophagia Plan is TSH ANUP Consent obtained for fiberoptic esophagogastroduodenoscopy with possible biopsies possible therapeutic intervention such as guidewire savory dilatation or esophageal balloon dilatation if required under intravenous moderate sedation Which has been scheduled for tomorrow afternoon Clear liquid diet a.m. N.p.o. 11:00 in the morning except p.o. meds Other medical problems include # Left lower lobe pneumonia # Just came out of DKA # IDDM Thank you very much for the opportunity to participate in the care of this patient
[2024-11-11 19:38] LABS: Thyroid Stimulating Hormone 3.28 uIU/mL (0.55-4.78)
[2024-11-11] MEDS: PANTOPRAZOLE INJ 40 MG VIAL IV (21:23)
[2024-11-12] VITALS (20 sets, daily range): BP systolic 112–189; BP diastolic 48–89; PULSE 59–73; RESP 13–95; TEMP 36.1–36.8; O2SAT 92–100; BMI 28.3
[2024-11-12] MEDS: HEPARIN SOD INJ 5000 UNIT/ML VIAL SC ×2 (05:18→22:10)
[2024-11-12] MEDS: PIPER/TAZO 3.375 GM 3.375 GM/50 ML BAG IV ×3 (05:19→22:09)
[2024-11-12 06:36] LABS: Basophils % (Auto) 0 % (0-2.5); Eosinophils # (Auto) 0.1 Thou/mm3 (0.0-0.5); Eosinophils % (Auto) 3 % (0-10); Hematocrit 33.1 % (36.0-46.0); Hemoglobin 11.5 g/dL (12.0-16.0); Immature Granulocytes % (Auto) 0 % (0-0); Immature Granulocytes Auto 0.01 Thou/mm3 (0.00-0.00); Lymphocytes # (Auto) 1.1 Thou/mm3 (1.0-4.8); Lymphocytes % (Auto) 29 % (10-50); Mean Corpuscular HGB Conc 34.7 g/dl (31.0-37.0); Mean Corpuscular Hemoglobin 32.6 pg (25.0-35.0); Mean Corpuscular Volume 94 fL (80-100); Monocytes # (Auto) 0.4 Thou/mm3 (0.0-0.8); Monocytes % (Auto) 12 % (0-12); Neutrophils # (Auto) 2.1 Thou/mm3 (1.8-7.7); Neutrophils % (Auto) 56 % (37-80); Nucleated Red Blood Cell % 0 /100 WBC (0); Platelet Count 99 Thou/mm3 (140-440); RDW Standard Deviation 43.8 fL (36.4-46.3); Red Blood Count 3.53 Miln/mm3 (4.00-5.20); White Blood Count 3.6 Thou/mm3 (3.6-11.0)
[2024-11-12 07:16] LABS: Alanine Aminotransferase 20 U/L (10-49); Albumin, Serum 3.3 gm/dL (3.4-4.8); Albumin/Globulin Ratio 1.9 (1.2-2.2); Alkaline Phosphatase 60 U/L (46-116); Anion Gap 7 (7-16); Aspartate Amino Transferase 24 U/L (0-34); BUN/Creatinine Ratio 8 Ratio (12-20); Bilirubin,Total 0.5 mg/dL (0.3-1.2); Blood Urea Nitrogen 8 mg/dL (9-23); Calcium 8.8 mg/dL (8.3-10.6); Calcium (Corrected) 9.4 mg/dL (8.5-10.1); Carbon Dioxide 28.9 mMol/L (20.0-31.0); Chloride 105 mMol/L (98-107); Globulin 1.7 gm/dL (2.3-3.5); Glucose 81 mg/dL (74-106); Magnesium 1.8 mg/dL (1.6-2.6); Osmolality,Calculated 278 (275-295); Phosphorous 2.5 mg/dL (2.4-5.1); Potassium 4.2 mMol/L (3.4-5.1); Sodium 141 mMol/L (136-145); eGFR 57 See Note
[2024-11-12] MEDS: SUCRALFATE SUSP 1 GM/10 ML UDC PO ×3 (07:37→17:16)
[2024-11-12] MEDS: METOCLOPRAMIDE INJ 5 MG/ML VIAL 2 ML IVP ×3 (07:37→17:16)
--- NOTE | 2024-11-12 08:56 | PC.SS ---
Update: Plan is for EGD today.
[2024-11-12] MEDS: METOPROLOL TARTRATE 25 MG TABLET 12.5 MG PO ×2 (09:04→22:08)
[2024-11-12] MEDS: PANTOPRAZOLE INJ 40 MG VIAL IV ×2 (09:04→22:08)
[2024-11-12] MEDS: AZITHROMYCIN 250 MG TABLET 500 MG PO (09:05)
[2024-11-12] MEDS: INSULIN GLARGINE (Lantus) 5 UNIT/0.05 ML (PER 5 UNITS) 15 UNIT SC (09:06)
--- NOTE | 2024-11-12 12:40 | ESPR_ITS ---
<Statement entered by Leander Lunsford MD - 11/26/24 09:35> I reviewed above note and agree with findings and plans. I have also personally examined the patient with medicine team and went over assessment and plan with medical team including psychology intern and resident physician. <Statement entered by Lewis Horan MD - 11/12/24 16:20> Patient was seen and examined at bedside. Patient noticed to have her blood sugar in the lower normal range. For that reason, we decreased her insulin lispro to 8 units Premeal. Patient reported that her dysphagia mildly improved however she still feels the food stuck in her chest. Discussion regarding the thyroid, pulmonary, and bladder nodules was conducted with the patient and her daughter and her daughter reported that the patient refuses to do any health maintenance. We expressed our concerns I do encourage the patient to do outpatient follow-up on this nodules to rule out any malignancy. Hemoglobin at this time 11.5 and the patient is scheduled for EGD today by Dr. Hairston. - Patient's plan and care discussed with my attending, Dr. Isatu Horan MD Internal Medicine PGY-2 Documentation for date of: 11/12/24 Subjective Subjective Interval history: Patient seen today at the bedside found awake, alert, orientedx3. No overnight events reported. Continues to have pain with swallowing solids or liquids, although slightly improved compared to yesterday. Vital signs stable at this time. Patient is pending EGD by GI, Dr. Hairston. Will continue to monitor at this time. Exam Vital Signs Temp Pulse Resp BP Pulse Ox O2 Del Method 97.1 F 62 18 131/82 H 98 Room Air 11/12/24 08:00 11/12/24 11:57 11/12/24 08:00 11/12/24 09:04 11/12/24 08:00 11/12/24 08:00 Narrative Exam Physical Exam GENERAL: NAD, AAOx3, poor dentition HEENT: Moist mucosa. Eyes open, symmetrical, & clear CARDIO: No chest pain on palpation. Heart RRR, no obvious murmurs PULM: No noted coughing/dyspnea. Lungs CTA B/L, no R/W/R GI: Abdomen soft, nondistended, no pain on palpation. BSx4 SKIN/MSK/EXT: No wounds/rashes/edema/amputations, no pain on palpation. Pedal pulses present B/L NEURO: AAOx3, able to move all 4 extremities Objective Labs 11/12/24 05:43 11/12/24 05:43 Labs: Laboratory Results - last 24 hr 11/11/24 11/11/24 11/12/24 10:50 13:59 05:43 WBC 3.6 RBC 3.53 L Hgb 11.5 L Hct 33.1 L MCV 94 MCH 32.6 MCHC 34.7 RDW Std Deviation 43.8 Plt Count 99 L Neut % (Auto) 56 Lymph % (Auto) 29 [place] % (Auto) 12 Eos % (Auto) 3 Baso % (Auto) 0 Neut # (Auto) 2.1 Lymph # (Auto) 1.1 [place] # (Auto) 0.4 Eos # (Auto) 0.1 Baso # (Auto) 0.0 Immature Gran # (Auto) 0.01 H Absolute Nucleated RBC 0.00 Immature Gran % 0 Nucleated RBC % 0 Sodium 137 141 Potassium 4.2 D 4.2 Chloride 104 105 Carbon Dioxide 25.6 28.9 Anion Gap 7 7 BUN 9 8 L Creatinine 1.0 1.0 Estim Creat Clear Calc 38.7 L 39.0 L eGFR 57 L 57 L BUN/Creatinine Ratio 9 L 8 L Glucose 178 H D 81 D Calculated Osmolality 276 278 Calcium 8.4 8.8 Corrected Calcium 9.1 9.4 Phosphorus 2.1 L 2.5 Magnesium 1.8 Total Bilirubin 0.5 AST 24 ALT 20 Alkaline Phosphatase 60 Total Protein 5.0 L Albumin 3.1 L 3.3 L Globulin 1.7 L Albumin/Globulin Ratio 1.9 TSH 3.28 Coccidioides IgM Ab Negative ABG Interpretation ABG results: 11/08/24 11/08/24 11/09/24 11:07 16:06 13:51 ABG pH 7.17 L* 7.42 D ABG pCO2 15 L* 31 L D ABG pO2 122 H 90 D ABG HCO3 6 L* 20 ABG O2 Saturation 99 H 97 ABG Base Excess -21 L -3 VBG pH 7.46 VBG pCO2 27 L VBG pO2 38 VBG Base Excess -4 L 11/09/24 11/09/24 11/10/24 17:10 20:50 04:50 ABG pH ABG pCO2 ABG pO2 ABG HCO3 ABG O2 Saturation ABG Base Excess VBG pH 7.48 7.42 7.45 VBG pCO2 31 L 43 D 37 VBG pO2 55 27 D 52 D VBG Base Excess 0 3 2 Quality Measures Quality Measures VTE prophylaxis Advance care planning discussed with:: patient Assessment & Plan Assessment Current Active Medications: Generic Name Dose Route Start Last Admin Trade Name Freq PRN Reason Stop Dose Admin Acetaminophen 650 mg 11/08/24 13:02 Acetaminophen 325 Mg Tablet PO 12/08/24 13:01 Q4HR PRN PAIN SCALE 1-3 (mild Al Hydrox/Mg Hydrox/Simethicone 30 ml 11/08/24 13:02 11/10/24 11:25 Mg Hyd/Al Hyd/Nat (Maalox Reg) Susp 30 Ml Udc PO 12/08/24 13:01 30 ml Q4HR PRN Administration Heartburn or Upset Stomach Azithromycin 500 mg 11/11/24 09:00 11/12/24 09:05 Azithromycin 250 Mg Tablet PO 11/16/24 08:59 500 mg QDAY JULITA Administration Protocol Dextrose 25 ml 11/09/24 18:56 Dextrose 50%-Water Inj 50 Ml Syringe IV 12/09/24 18:55 Q15MIN PRN BG 50-70 responsive npo pt Dextrose 50 ml 11/09/24 18:56 Dextrose 50%-Water Inj 50 Ml Syringe IV 12/09/24 18:55 Q15MIN PRN BG <50 OR BG <70 & pt unresponsive Glucagon 1 mg 11/09/24 18:56 Glucagon Inj 1 Mg Vial IM Q15MIN PRN BG <70, and no IV access Heparin Sodium (Porcine) 5,000 unit 11/08/24 14:00 11/12/24 05:18 Heparin Sod Inj 5000 Unit/Ml Vial SC 11/22/24 13:59 5,000 unit Q8HR JULITA Administration Hydralazine HCl 10 mg 11/10/24 07:51 Hydralazine Inj 20 Mg/Ml Vial IV 12/09/24 20:46 Q6HR PRN SBP >160 Piperacillin/Tazobactam/Dextrose 3.375 gm in 50 mls @ 12.5 mls/hr 11/11/24 22:00 11/12/24 05:19 Zosyn IV 11/18/24 21:59 12.5 mls/hr Q8HR JULITA Administration Insulin Glargine 15 unit 11/11/24 09:15 11/12/24 09:06 Insulin Glargine (Lantus) 5 Unit/0.05 Ml (Per 5 Units) SC 12/11/24 09:14 15 unit BID JULITA Administration Insulin Human Lispro 0 unit 11/10/24 12:48 11/12/24 11:41 Insulin Lispro (Admelog) 1 Unit/0.01 Ml Unit SC 12/09/24 20:59 Not Given ACHS JULITA Protocol Insulin Human Lispro 8 unit 11/12/24 11:30 11/12/24 11:44 Insulin Lispro (Admelog) 1 Unit/0.01 Ml Unit SC 12/12/24 11:29 Not Given AC JULITA Magnesium Hydroxide 30 ml 11/08/24 13:02 Milk Of Magnesia Susp 30 Ml Udc PO 12/08/24 13:01 QDAY PRN CONSTIPATION Metoclopramide HCl 5 mg 11/11/24 08:00 11/12/24 11:37 Metoclopramide Inj 5 Mg/Ml Vial 2 Ml IVP 12/11/24 07:59 5 mg TIDWM JULITA Administration Protocol Metoprolol Tartrate 12.5 mg 11/09/24 21:00 11/12/24 09:04 Metoprolol Tartrate 25 Mg Tablet PO 12/09/24 20:59 12.5 mg BID JULITA Administration Nitroglycerin 0.4 mg 11/08/24 13:02 Nitroglycerin 0.4 Mg Subl Btl #25 SL Q5MIN PRN CHEST PAIN Ondansetron HCl 4 mg 11/10/24 11:41 11/10/24 21:14 Ondansetron Inj 2 Mg/Ml Inj 2 Ml IV 12/10/24 11:40 4 mg Q6HR PRN Administration NAUSEA OR VOMITING Protocol Pantoprazole Sodium 40 mg 11/11/24 21:00 11/12/24 09:04 Pantoprazole Inj 40 Mg Vial IV 12/11/24 20:59 40 mg BID JULITA Administration Phenol/Menthol 0 ml 11/10/24 18:14 11/10/24 21:13 Phenol/Na Phenolate (Chloraseptic) [place] 180 Ml Btl PO 12/10/24 18:13 1 dose Q6HR PRN Administration SORE THROAT Sucralfate 1 gm 11/12/24 07:30 11/12/24 11:37 Sucralfate Susp 1 Gm/10 Ml Udc PO 12/11/24 16:14 1 gm AC JULITA Administration Plan 79-year-old female with past medical history of hypertension, diabetes, hyperlipidemia, chronic UTIs, CVA, history of DKA who was admitted due to altered mental status and DKA. Patient was downgraded to the floors after DKA resolved. #DKA-resolved #Insulin dependent Diabetes Patient was admitted to the ICU for DKA protocol Anion gap closed, patient transition to subcu insulin, was planning for downgrade but follow-up labs showed reopening of anion gap and increased beta hydroxybutyrate. Patient has previous hx of DKA, likely in the setting of noncomplaince A1C 11, Anion gap has closed There is concern as patient is not eating and not taking much po intake - SSI - blood sugar checks q 4hours - insulin glargine 15 units given today - f/u afternoon renal panel #Left lower lobe pneumonia, improving likely causes include CAP and aspiration CXR shows left sided pneumonia blood cx negative suspected pseudomonal pneumonia, will broaden coverage - on Zosyn - on azithromycin #Odynophagia #Dysphagia #Poor oral intake #Nausea #Vomiting likely in the setting of DKA vs infectious vs mechanical Patient has endorsed poor oral intake prior to admission Currently on anti-emetics Patient has been stating pain with swallowing solids and liquids and states that is the reason she has had poor oral intake - continue anti-emetics - Dr. Hairston, GI specialist consulted, appreciate recommendations - Pending EGD in afternoon - Can consider appetite stimulant later #YARA- resolved Secondary to dehydration due to DKA. Patient has mild elevation of creatinine and BUN Urinary output record unreliable, patient non-compliant with pure wick. Patient to continue with p.o. fluids Creatinine 0.9 -Avoid nephrotoxic medications -Monitor labs #Normocytic anemia #Asymptomatic anemia Could be related to dehydration ?Monitor CBC #Cystitis #?Echogenic mass Bladder scan showed Echogenic area in the posterior bladder wall, 5.5 x 1.2 x 4.1 cm This may represent blood clot although soft tissue mass cannot be excluded recommended to do cystoscopy as outpatient -f/u as outpatient #?18 mm pulmonary nodule in the left upperlobe Seen on CT chest - Recommend follow-up chest imaging as outpatient Case discussed with my senior Dr. Saucedo PGY-[address] Isatu Tillman MD PGY-1 Disposition: Tele Fluids: None Feeding: dysphagia 3 Thrombo prophylaxis: heparin Gastric Ulcer prophylaxis: Pantoprazole CODE STATUS: Full code
--- NOTE | 2024-11-12 13:54 | PC.NURSE ---
Per Dr. Lea hold 1400 dose of heparin per pending procedure. Dose held.
--- NOTE | 2024-11-12 15:00 | PC.SS ---
Rounding Note: EGD remains pending. Plan is for d/c tomorrow.
[2024-11-12] MEDS: MG HYD/AL HYD/SIME (Maalox Reg) SUSP 30 ML UDC 15 ML PO (22:08)
[2024-11-13] VITALS (14 sets, daily range): BP systolic 114–162; BP diastolic 58–80; PULSE 57–82; RESP 12–17; TEMP 36.1–36.9; O2SAT 95–98; BMI 28.5
[2024-11-13] MEDS: MG HYD/AL HYD/SIME (Maalox Reg) SUSP 30 ML UDC 15 ML PO ×4 (05:17→20:29)
[2024-11-13] MEDS: PIPER/TAZO 3.375 GM 3.375 GM/50 ML BAG IV ×3 (05:17→21:17)
[2024-11-13] MEDS: HEPARIN SOD INJ 5000 UNIT/ML VIAL SC ×3 (05:18→21:17)
[2024-11-13 05:45] LABS: Basophils % (Auto) 0 % (0-2.5); Eosinophils # (Auto) 0.2 Thou/mm3 (0.0-0.5); Eosinophils % (Auto) 6 % (0-10); Hematocrit 31.9 % (36.0-46.0); Immature Granulocytes % (Auto) 0 % (0-0); Immature Granulocytes Auto 0.01 Thou/mm3 (0.00-0.00); Lymphocytes # (Auto) 1.1 Thou/mm3 (1.0-4.8); Lymphocytes % (Auto) 30 % (10-50); Mean Corpuscular HGB Conc 34.5 g/dl (31.0-37.0); Mean Corpuscular Hemoglobin 32.7 pg (25.0-35.0); Mean Corpuscular Volume 95 fL (80-100); Monocytes # (Auto) 0.5 Thou/mm3 (0.0-0.8); Monocytes % (Auto) 15 % (0-12); Neutrophils # (Auto) 1.8 Thou/mm3 (1.8-7.7); Neutrophils % (Auto) 49 % (37-80); Nucleated Red Blood Cell % 0 /100 WBC (0); Platelet Count 100 Thou/mm3 (140-440); RDW Standard Deviation 43.7 fL (36.4-46.3); Red Blood Count 3.36 Miln/mm3 (4.00-5.20); White Blood Count 3.7 Thou/mm3 (3.6-11.0)
[2024-11-13 06:15] LABS: Alanine Aminotransferase 21 U/L (10-49); Albumin, Serum 3.1 gm/dL (3.4-4.8); Albumin/Globulin Ratio 1.8 (1.2-2.2); Alkaline Phosphatase 60 U/L (46-116); Anion Gap 8 (7-16); Aspartate Amino Transferase 21 U/L (0-34); BUN/Creatinine Ratio 7 Ratio (12-20); Bilirubin,Total 0.6 mg/dL (0.3-1.2); Blood Urea Nitrogen 7 mg/dL (9-23); Calcium 8.7 mg/dL (8.3-10.6); Calcium (Corrected) 9.4 mg/dL (8.5-10.1); Carbon Dioxide 26.4 mMol/L (20.0-31.0); Chloride 105 mMol/L (98-107); Estimated Creatinine Clearance 39.1 mL/min (>60); Globulin 1.7 gm/dL (2.3-3.5); Glucose 136 mg/dL (74-106); Magnesium 1.9 mg/dL (1.6-2.6); Osmolality,Calculated 277 (275-295); Phosphorous 2.6 mg/dL (2.4-5.1); Potassium 3.9 mMol/L (3.4-5.1); Sodium 139 mMol/L (136-145); Total Protein 4.8 gm/dL (5.7-8.2); eGFR 57 See Note
[2024-11-13] MEDS: INSULIN LISPRO (AdmeLOG) 1 UNIT/0.01 ML UNIT SC ×3 (07:21→20:30)
[2024-11-13] MEDS: SUCRALFATE SUSP 1 GM/10 ML UDC PO ×3 (07:21→16:41)
[2024-11-13] MEDS: METOCLOPRAMIDE INJ 5 MG/ML VIAL 2 ML IVP (07:22)
[2024-11-13] MEDS: CLOPIDOGREL BISULFATE 75 MG TABLET PO (09:08)
[2024-11-13] MEDS: PANTOPRAZOLE INJ 40 MG VIAL IV ×2 (09:08→20:29)
[2024-11-13] MEDS: Magnesium Sulfate 2 GM Ivpb 2 GM/50 ML BAG IV (09:08)
[2024-11-13] MEDS: AZITHROMYCIN 250 MG TABLET 500 MG PO (09:08)
[2024-11-13] MEDS: INSULIN GLARGINE (Lantus) 5 UNIT/0.05 ML (PER 5 UNITS) 15 UNIT SC ×2 (09:11→20:32)
[2024-11-13] MEDS: METOPROLOL TARTRATE 25 MG TABLET 12.5 MG PO ×2 (09:23→20:24)
--- NOTE | 2024-11-13 10:11 | PC.SS ---
Update: Plan is to d/c the patient home today.
--- NOTE | 2024-11-13 10:47 | PD.RESPRO ---
Documentation for date of: 11/13/24 Subjective Subjective Interval history: Patient seen today at the bedside found awake, alert, orientedx3. No overnight events reported. Vital signs stable at this time. Underwent EGD found some stenosis which was dilated and some ulceration on lower third of esophagus. Tolerating diet well after procedure, will advance as tolerated. Possibeld ischarge in next 24-48hours. Exam Vital Signs Temp Pulse Resp BP Pulse Ox O2 Del Method O2 Flow Rate 97.1 F 66 13 144/64 H 98 Room Air 3 11/13/24 09:00 11/13/24 09:23 11/13/24 09:00 11/13/24 09:23 11/13/24 09:00 11/13/24 09:00 11/12/24 20:32 Narrative Exam Physical Exam GENERAL: NAD, AAOx3, poor dentition HEENT: Moist mucosa. Eyes open, symmetrical, & clear CARDIO: No chest pain on palpation. Heart RRR, no obvious murmurs PULM: No noted coughing/dyspnea. Lungs CTA B/L, no R/W/R GI: Abdomen soft, nondistended, no pain on palpation. BSx4 SKIN/MSK/EXT: No wounds/rashes/edema/amputations, no pain on palpation. Pedal pulses present B/L NEURO: AAOx3, able to move all 4 extremities Objective Labs 11/14/24 04:20 11/14/24 04:20 Labs: Laboratory Results - last 24 hr 11/13/24 05:27 WBC 3.7 RBC 3.36 L Hgb 11.0 L Hct 31.9 L MCV 95 MCH 32.7 MCHC 34.5 RDW Std Deviation 43.7 Plt Count 100 L Neut % (Auto) 49 Lymph % (Auto) 30 [place] % (Auto) 15 H Eos % (Auto) 6 Baso % (Auto) 0 Neut # (Auto) 1.8 Lymph # (Auto) 1.1 [place] # (Auto) 0.5 Eos # (Auto) 0.2 Baso # (Auto) 0.0 Immature Gran # (Auto) 0.01 H Absolute Nucleated RBC 0.00 Immature Gran % 0 Nucleated RBC % 0 Sodium 139 Potassium 3.9 Chloride 105 Carbon Dioxide 26.4 Anion Gap 8 BUN 7 L Creatinine 1.0 Estim Creat Clear Calc 39.1 L eGFR 57 L BUN/Creatinine Ratio 7 L Glucose 136 H D Calculated Osmolality 277 Calcium 8.7 Corrected Calcium 9.4 Phosphorus 2.6 Magnesium 1.9 Total Bilirubin 0.6 AST 21 ALT 21 Alkaline Phosphatase 60 Total Protein 4.8 L Albumin 3.1 L Globulin 1.7 L Albumin/Globulin Ratio 1.8 ABG Interpretation ABG results: 11/08/24 11/08/24 11/09/24 11:07 16:06 13:51 ABG pH 7.17 L* 7.42 D ABG pCO2 15 L* 31 L D ABG pO2 122 H 90 D ABG HCO3 6 L* 20 ABG O2 Saturation 99 H 97 ABG Base Excess -21 L -3 VBG pH 7.46 VBG pCO2 27 L VBG pO2 38 VBG Base Excess -4 L 11/09/24 11/09/24 11/10/24 17:10 20:50 04:50 ABG pH ABG pCO2 ABG pO2 ABG HCO3 ABG O2 Saturation ABG Base Excess VBG pH 7.48 7.42 7.45 VBG pCO2 31 L 43 D 37 VBG pO2 55 27 D 52 D VBG Base Excess 0 3 2 Quality Measures Quality Measures VTE prophylaxis Advance care planning discussed with:: patient Assessment & Plan Assessment Current Active Medications: Generic Name Dose Route Start Last Admin Trade Name Freq PRN Reason Stop Dose Admin Acetaminophen 650 mg 11/08/24 13:02 Acetaminophen 325 Mg Tablet PO 12/08/24 13:01 Q4HR PRN PAIN SCALE 1-3 (mild Al Hydrox/Mg Hydrox/Simethicone 30 ml 11/08/24 13:02 11/10/24 11:25 Mg Hyd/Al Hyd/Nat (Maalox Reg) Susp 30 Ml Udc PO 12/08/24 13:01 30 ml Q4HR PRN Administration Heartburn or Upset Stomach Al Hydrox/Mg Hydrox/Simethicone 15 ml 11/12/24 21:00 11/13/24 05:17 Mg Hyd/Al Hyd/Nat (Maalox Reg) Susp 30 Ml Udc PO 12/12/24 20:59 15 ml QID JULITA Administration Atorvastatin Calcium 40 mg 11/13/24 21:00 Atorvastatin Calcium 20 Mg Tablet PO 12/13/24 20:59 HS JULITA Clopidogrel Bisulfate 75 mg 11/13/24 09:00 11/13/24 09:08 Clopidogrel Bisulfate 75 Mg Tablet PO 12/13/24 08:59 75 mg QDAY JULITA Administration Dextrose 25 ml 11/09/24 18:56 Dextrose 50%-Water Inj 50 Ml Syringe IV 12/09/24 18:55 Q15MIN PRN BG 50-70 responsive npo pt Dextrose 50 ml 11/09/24 18:56 Dextrose 50%-Water Inj 50 Ml Syringe IV 12/09/24 18:55 Q15MIN PRN BG <50 OR BG <70 & pt unresponsive Donepezil HCl 10 mg 11/13/24 21:00 Donepezil Hcl 5 Mg Tablet PO 12/13/24 20:59 HS JULITA Glucagon 1 mg 11/09/24 18:56 Glucagon Inj 1 Mg Vial IM Q15MIN PRN BG <70, and no IV access Heparin Sodium (Porcine) 5,000 unit 11/08/24 14:00 11/13/24 05:18 Heparin Sod Inj 5000 Unit/Ml Vial SC 11/22/24 13:59 5,000 unit Q8HR JULITA Administration Hydralazine HCl 10 mg 11/10/24 07:51 Hydralazine Inj 20 Mg/Ml Vial IV 12/09/24 20:46 Q6HR PRN SBP >160 Piperacillin/Tazobactam/Dextrose 3.375 gm in 50 mls @ 12.5 mls/hr 11/11/24 22:00 11/13/24 05:17 Zosyn IV 11/18/24 21:59 12.5 mls/hr Q8HR JULITA Administration Insulin Glargine 15 unit 11/11/24 09:15 11/13/24 09:11 Insulin Glargine (Lantus) 5 Unit/0.05 Ml (Per 5 Units) SC 12/11/24 09:14 15 unit BID JULITA Administration Insulin Human Lispro 0 unit 11/10/24 12:48 11/13/24 07:21 Insulin Lispro (Admelog) 1 Unit/0.01 Ml Unit SC 12/09/24 20:59 4 unit ACHS JULITA Administration Protocol Insulin Human Lispro 8 unit 11/12/24 11:30 11/13/24 07:31 Insulin Lispro (Admelog) 1 Unit/0.01 Ml Unit SC 12/12/24 11:29 Not Given AC [facility] Magnesium Hydroxide 30 ml 11/08/24 13:02 Milk Of Magnesia Susp 30 Ml Udc PO 12/08/24 13:01 QDAY PRN CONSTIPATION Metoprolol Tartrate 12.5 mg 11/09/24 21:00 11/13/24 09:23 Metoprolol Tartrate 25 Mg Tablet PO 12/09/24 20:59 12.5 mg BID JULITA Administration Nitroglycerin 0.4 mg 11/08/24 13:02 Nitroglycerin 0.4 Mg Subl Btl #25 SL Q5MIN PRN CHEST PAIN Ondansetron HCl 4 mg 11/10/24 11:41 11/10/24 21:14 Ondansetron Inj 2 Mg/Ml Inj 2 Ml IV 12/10/24 11:40 4 mg Q6HR PRN Administration NAUSEA OR VOMITING Protocol Pantoprazole Sodium 40 mg 11/11/24 21:00 11/13/24 09:08 Pantoprazole Inj 40 Mg Vial IV 12/11/24 20:59 40 mg BID JULITA Administration Phenol/Menthol 0 ml 11/10/24 18:14 11/10/24 21:13 Phenol/Na Phenolate (Chloraseptic) [place] 180 Ml Btl PO 12/10/24 18:13 1 dose Q6HR PRN Administration SORE THROAT Sucralfate 1 gm 11/12/24 07:30 11/13/24 07:21 Sucralfate Susp 1 Gm/10 Ml Udc PO 12/11/24 16:14 1 gm AC JULITA Administration Plan 79-year-old female with past medical history of hypertension, diabetes, hyperlipidemia, chronic UTIs, CVA, history of DKA who was admitted due to altered mental status and DKA. Patient was downgraded to the floors after DKA resolved. #DKA-resolved #Insulin dependent Diabetes Patient was admitted to the ICU for DKA protocol Anion gap closed, patient transition to subcu insulin, was planning for downgrade but follow-up labs showed reopening of anion gap and increased beta hydroxybutyrate. Patient has previous hx of DKA, likely in the setting of noncomplaince A1C 11, Anion gap has closed There is concern as patient is not eating and not taking much po intake - SSI - blood sugar checks q 4hours - insulin glargine 15 units given today - f/u afternoon renal panel #Left lower lobe pneumonia, improving likely causes include CAP and aspiration CXR shows left sided pneumonia blood cx negative suspected pseudomonal pneumonia, will broaden coverage - on Zosyn - on azithromycin #Esophageal stenosis s/p dilation #Esophageal ulcers #Odynophagia #Dysphagia #Poor oral intake #Nausea #Vomiting likely in the setting of DKA vs infectious vs mechanical Patient has endorsed poor oral intake prior to admission Currently on anti-emetics Patient has been stating pain with swallowing solids and liquids and states that is the reason she has had poor oral intake EGD was done showed some esophageal stenosis which were dilated, and ulceration in lower 3rd of the esophagus - continue anti-emetics - Protonix 40 BID - GI on case, appreciate recommendations #YARA- resolved Secondary to dehydration due to DKA. Patient has mild elevation of creatinine and BUN Urinary output record unreliable, patient non-compliant with pure wick. Patient to continue with p.o. fluids Creatinine 0.9 -Avoid nephrotoxic medications -Monitor labs #Normocytic anemia #Asymptomatic anemia Could be related to dehydration ?Monitor CBC #Cystitis #?Echogenic mass Bladder scan showed Echogenic area in the posterior bladder wall, 5.5 x 1.2 x 4.1 cm This may represent blood clot although soft tissue mass cannot be excluded recommended to do cystoscopy as outpatient -f/u as outpatient #?18 mm pulmonary nodule in the left upperlobe Seen on CT chest - Recommend follow-up chest imaging as outpatient Case discussed with my senior Dr. Jones PGY-[address] Tran Tillman MD PGY-1 Disposition: Tele Fluids: None Feeding: Full liquid Thrombo prophylaxis: heparin Gastric Ulcer prophylaxis: Pantoprazole CODE STATUS: Full code Senior resident attestation: Patient evaluated and examined at the bedside, plan of care discussed with rest of the team including my attending physician, except as noted. Patient is 79-year-old female with past medical history of diabetes mellitus, noncompliant with treatment. Patient home insulin is 60 units of insulin glargine along with 15 units of insulin lispro premeals. Patient reports that her son's girlfriend is the one who gives her the insulin, sometimes they miss nighttime insulin, home blood glucose readings frequently in the 400s and 500s. Patient came in with DKA, was admitted to ICU for insulin drip, was downgraded to the floors once anion gap closed x 2, but patient went back into diabetic ketoacidosis, BHB positive, but due to poor IV access IV line was used for IV fluids and insulin was given subcu. Patient received approximately 120 units of insulin over last 24 hours in ICU, and downgraded to the floors, patient received 15 units insulin glargine and 15 units insulin lispro Premeal's in the a.m., concern for hypoglycemia and poor p.o. intake. RN was instructed to do frequent fingerstick glucose checks and continue with insulin as patient's risk of going back into DKA is high. #DKA #Type 2 diabetes mellitus?poorly controlled: Home dose of insulin 60 insulin glargine +15 insulin lispro 3 times daily Premeal. Received 120 units of insulin over last 24 hours During DKA management. ? The patient has actually been refusing diet, due to painful swallowing as well as epigastric discomfort, even after drinking water or Jell-O. Poor per oral intake, however we will watch her anion gap closely continue with low-dose insulin, once patient is back to her normal diet, she can go back to her normal insulin usage. ?Insulin glargine 15 units twice daily, insulin lispro 8 units AC with sliding scale to be continued for now. ?Patient would likely require more units of insulin on discharge ,once per oral intake increases. ?Added small chopped diet frequent meals, regular diet instead of carb consistent as patient is refusing to eat carb consistent diet. #Intractable nausea vomiting #Peptic ulcer disease #Odynophagia ?Added Zofran as needed for nausea, Reglan 5 mg Premeal for prokinetic effect, Protonix 40 mg twice daily due to concern for peptic ulcer, gastroenterology consult added for possible EGD, appreciate GI recs. ?Added small frequent meals, chopped up diet ?EGD by Dr. Hairston shows esophageal ulcers and esophageal stricture, which was dilated. Currently on full liquid diet, will advance as tolerated. #Pneumonia versus pulmonary nodule: CT scan shows pulmonary nodule/pneumonia, ordered cocci serology #Rule out cocci #UTI #Concern for cystitis Continue on IV antibiotics, ordered pelvic ultrasound as CT abdomen pelvis reported as concerning for cystitis, possible differentials include bladder cancer. Can follow-up outpatient with urology for cystoscopy, ultrasound bladder shows possible blood clot versus mass in the posterior bladder wall. Spoke to patient's daughter and son, gave information about following up with urologist outpatient for cystoscopy to rule out bladder cancer. Quresh PGY2 Attending Provider Attestation/Addendum I have examined the patient, reviewed labs and imaging findings, discussed the case with the resident(s), and reviewed entered orders. I agree with the plan of care as outlined in this note, with these additional summaries/recommendations: Patient seen at bedside. No acute overnight events. Patient seen tolerating liquid diet and we will advance to full liquid diet for lunch. She endorses less pain with swallowing today. She underwent EGD that revealed esophageal ulcers which were severe, esophagitis, and gastritis. Pending pathology report and patient will need close outpatient follow-up with gastroenterology in 2 weeks. Continue Protonix and Maalox. Patient was also found to have 14 mm thyroid nodule and can follow-up outpatient. Patient diagnosed with pneumonia and receiving antibiotics. Patient was also noted to have echogenic area on bladder ultrasound 5.5 X1.2X 4.1 cm. Per patient and family they are aware of this finding currently going under further evaluation outpatient. Patient's diabetic ketoacidosis has resolved. Overall her blood sugars are much improved. A1c 10.5%. Continue basal insulin 15 units subcu twice daily and lispro 8 units with meals plus insulin sliding scale. Patient was counseled on medication compliance. Repeat hematology and chemistry panel in AM. Dr. Mayfield
--- NOTE | 2024-11-13 11:15 | PC.NURSE ---
Per Janell, physical therapist patient is independent and can be transitioned to 1 star fall risk.
--- NOTE | 2024-11-13 13:36 | PC.PT ---
PT eval only. Patient is I with transfers and ambulation without AD.
[2024-11-13 13:50] LABS: Cocci Serology, IgG Negative (Negative)
--- NOTE | 2024-11-13 15:11 | PC.SS ---
Rounding Note: DKA has been resolved. GI bleed present, Dr. Hairston recommendations pending.
--- NOTE | 2024-11-13 16:46 | PC.NURSE ---
Dr. Lea made aware of patients blood sugar readings related to scheduled [address] Lea he will look at patients ordered sliding scale and adjust as necessary.
--- NOTE | 2024-11-13 19:51 | ESPR_ITS ---
Documentation for date of: 11/13/24 Subjective Subjective Interval history: Diagnosis GI dysphagia improved after endoscopic dilatation status post dilatation of the proximal esophageal stricture with 45 Palestinian and 54 Palestinian savory dilators Multiple ulcers distal esophagus Symptoms have tremendously improved Advance diet as tolerated Exam Vital Signs Temp Pulse Resp BP Pulse Ox O2 Del Method O2 Flow Rate 97.7 F 68 16 126/80 98 Room Air 3 11/13/24 17:00 11/13/24 17:00 11/13/24 17:00 11/13/24 17:00 11/13/24 17:00 11/13/24 17:00 11/12/24 20:32 Objective Labs 11/13/24 05:27 11/13/24 05:27 Labs: Laboratory Results - last 24 hr 11/11/24 11/13/24 10:50 05:27 WBC 3.7 RBC 3.36 L Hgb 11.0 L Hct 31.9 L MCV 95 MCH 32.7 MCHC 34.5 RDW Std Deviation 43.7 Plt Count 100 L Neut % (Auto) 49 Lymph % (Auto) 30 [place] % (Auto) 15 H Eos % (Auto) 6 Baso % (Auto) 0 Neut # (Auto) 1.8 Lymph # (Auto) 1.1 [place] # (Auto) 0.5 Eos # (Auto) 0.2 Baso # (Auto) 0.0 Immature Gran # (Auto) 0.01 H Absolute Nucleated RBC 0.00 Immature Gran % 0 Nucleated RBC % 0 Sodium 139 Potassium 3.9 Chloride 105 Carbon Dioxide 26.4 Anion Gap 8 BUN 7 L Creatinine 1.0 Estim Creat Clear Calc 39.1 L eGFR 57 L BUN/Creatinine Ratio 7 L Glucose 136 H D Calculated Osmolality 277 Calcium 8.7 Corrected Calcium 9.4 Phosphorus 2.6 Magnesium 1.9 Total Bilirubin 0.6 AST 21 ALT 21 Alkaline Phosphatase 60 Total Protein 4.8 L Albumin 3.1 L Globulin 1.7 L Albumin/Globulin Ratio 1.8 Coccidioides IgG Ab Negative Impressions Impression: # Proximal esophageal stricture status post endoscopic dilatation guidewire savory # Multiple ulcers distal esophagus Advance diet as tolerated ABG Interpretation ABG results: 11/08/24 11/08/24 11/09/24 11:07 16:06 13:51 ABG pH 7.17 L* 7.42 D ABG pCO2 15 L* 31 L D ABG pO2 122 H 90 D ABG HCO3 6 L* 20 ABG O2 Saturation 99 H 97 ABG Base Excess -21 L -3 VBG pH 7.46 VBG pCO2 27 L VBG pO2 38 VBG Base Excess -4 L 11/09/24 11/09/24 11/10/24 17:10 20:50 04:50 ABG pH ABG pCO2 ABG pO2 ABG HCO3 ABG O2 Saturation ABG Base Excess VBG pH 7.48 7.42 7.45 VBG pCO2 31 L 43 D 37 VBG pO2 55 27 D 52 D VBG Base Excess 0 3 2 Assessment & Plan A&P Narrative # Odynophagia Plan is TSH ANUP Consent obtained for fiberoptic esophagogastroduodenoscopy with possible biopsies possible therapeutic intervention such as guidewire savory dilatation or esophageal balloon dilatation if required under intravenous moderate sedation Which has been scheduled for tomorrow afternoon Clear liquid diet a.m. N.p.o. 11:00 in the morning except p.o. meds Other medical problems include # Left lower lobe pneumonia # Just came out of DKA # IDDM Thank you very much for the opportunity to participate in the care of this patient Time Spent With Patient Time: Total time spent is greater than 50% in coordination of care (as documented) at patient's floor/unit and/or counseling patient:
[2024-11-13] MEDS: ATORVASTATIN CALCIUM 20 MG TABLET 40 MG PO (20:24)
[2024-11-13] MEDS: DONEPEZIL HCL 5 MG TABLET 10 MG PO (20:24)
[2024-11-14] VITALS (13 sets, daily range): BP systolic 102–159; BP diastolic 51–91; PULSE 62–72; RESP 13–16; TEMP 36.6–38.9; O2SAT 95–99; BMI 29.2
[2024-11-14] MEDS: HEPARIN SOD INJ 5000 UNIT/ML VIAL SC ×3 (05:04→21:01)
[2024-11-14] MEDS: MG HYD/AL HYD/SIME (Maalox Reg) SUSP 30 ML UDC 15 ML PO ×4 (05:04→20:28)
[2024-11-14] MEDS: ACETAMINOPHEN 325 MG TABLET 650 MG PO ×2 (05:05→15:24)
[2024-11-14] MEDS: PIPER/TAZO 3.375 GM 3.375 GM/50 ML BAG IV ×3 (05:07→21:01)
[2024-11-14 06:01] LABS: Basophils % (Auto) 0 % (0-2.5); Eosinophils # (Auto) 0.2 Thou/mm3 (0.0-0.5); Eosinophils % (Auto) 5 % (0-10); Hematocrit 32.1 % (36.0-46.0); Hemoglobin 11.1 g/dL (12.0-16.0); Immature Granulocytes % (Auto) 0 % (0-0); Immature Granulocytes Auto 0.01 Thou/mm3 (0.00-0.00); Lymphocytes # (Auto) 0.5 Thou/mm3 (1.0-4.8); Lymphocytes % (Auto) 16 % (10-50); Mean Corpuscular HGB Conc 34.6 g/dl (31.0-37.0); Mean Corpuscular Hemoglobin 32.9 pg (25.0-35.0); Mean Corpuscular Volume 95 fL (80-100); Monocytes # (Auto) 0.5 Thou/mm3 (0.0-0.8); Monocytes % (Auto) 15 % (0-12); Neutrophils # (Auto) 2.1 Thou/mm3 (1.8-7.7); Neutrophils % (Auto) 64 % (37-80); Nucleated Red Blood Cell % 0 /100 WBC (0); Platelet Count 117 Thou/mm3 (140-440); RDW Standard Deviation 43.7 fL (36.4-46.3); Red Blood Count 3.37 Miln/mm3 (4.00-5.20); White Blood Count 3.2 Thou/mm3 (3.6-11.0)
[2024-11-14 06:42] LABS: Alanine Aminotransferase 25 U/L (10-49); Albumin, Serum 3.2 gm/dL (3.4-4.8); Albumin/Globulin Ratio 1.7 (1.2-2.2); Alkaline Phosphatase 65 U/L (46-116); Anion Gap 8 (7-16); Aspartate Amino Transferase 36 U/L (0-34); BUN/Creatinine Ratio 6 Ratio (12-20); Bilirubin,Total 0.6 mg/dL (0.3-1.2); Blood Urea Nitrogen 6 mg/dL (9-23); Calcium 9.2 mg/dL (8.3-10.6); Calcium (Corrected) 9.8 mg/dL (8.5-10.1); Carbon Dioxide 26.9 mMol/L (20.0-31.0); Chloride 102 mMol/L (98-107); Estimated Creatinine Clearance 39.5 mL/min (>60); Globulin 1.9 gm/dL (2.3-3.5); Glucose 127 mg/dL (74-106); Osmolality,Calculated 273 (275-295); Phosphorous 2.4 mg/dL (2.4-5.1); Sodium 137 mMol/L (136-145); Total Protein 5.1 gm/dL (5.7-8.2); eGFR 57 See Note
[2024-11-14] MEDS: SUCRALFATE SUSP 1 GM/10 ML UDC PO ×3 (08:20→17:36)
[2024-11-14] MEDS: METOPROLOL TARTRATE 25 MG TABLET 12.5 MG PO ×2 (09:27→20:29)
[2024-11-14] MEDS: CLOPIDOGREL BISULFATE 75 MG TABLET PO (09:27)
[2024-11-14] MEDS: PANTOPRAZOLE INJ 40 MG VIAL IV ×2 (09:27→20:32)
--- NOTE | 2024-11-14 09:40 | PC.SS ---
Update: Patient in possession of fever. Patient receiving IV antibiotics.
--- NOTE | 2024-11-14 10:27 | PD.RESPRO ---
Documentation for date of: 11/14/24 Subjective Subjective Interval history: Patient seen today at the bedside found awake, alert, oriented x3. Overnight patient developed 1 episode of fever, will continue to monitor at this time. States no active complaints at this time. Vitals stable at this time. Labs significant for leukopenia. Currently tolerating diet with no issues, will continue to advance. Started diflucan for yeast infection in view of spiking fevers and leukopenia. If patient continue spiking fevers will repeat blood cultures and broaden antibiotics. In the afternoon was called by nurse informing that the patient developed another fever of 102, blood cultures, urine cultures ordered, Antibiotic therapy broadened added Vancomycin and will continue with Zosyn at this time. Will continue to monitor. Exam Vital Signs Temp Pulse Resp BP Pulse Ox O2 Del Method O2 Flow Rate 97.8 F 72 16 102/51 L 95 Room Air 0 11/14/24 07:53 11/14/24 09:27 11/14/24 07:53 11/14/24 09:27 11/14/24 07:53 11/14/24 07:53 11/14/24 07:53 Narrative Exam Physical Exam GENERAL: NAD, AAOx3, poor dentition HEENT: Moist mucosa. Eyes open, symmetrical, & clear CARDIO: No chest pain on palpation. Heart RRR, no obvious murmurs PULM: No noted coughing/dyspnea. Lungs CTA B/L, no R/W/R GI: Abdomen soft, nondistended, no pain on palpation. BSx4 SKIN/MSK/EXT: No wounds/rashes/edema/amputations, no pain on palpation. Pedal pulses present B/L NEURO: AAOx3, able to move all 4 extremities Objective Labs 11/15/24 04:49 11/15/24 04:49 Labs: Laboratory Results - last 24 hr 11/11/24 11/14/24 10:50 04:20 WBC 3.2 L RBC 3.37 L Hgb 11.1 L Hct 32.1 L MCV 95 MCH 32.9 MCHC 34.6 RDW Std Deviation 43.7 Plt Count 117 L Neut % (Auto) 64 Lymph % (Auto) 16 [place] % (Auto) 15 H Eos % (Auto) 5 Baso % (Auto) 0 Neut # (Auto) 2.1 Lymph # (Auto) 0.5 L [place] # (Auto) 0.5 Eos # (Auto) 0.2 Baso # (Auto) 0.0 Immature Gran # (Auto) 0.01 H Absolute Nucleated RBC 0.00 Immature Gran % 0 Nucleated RBC % 0 Sodium 137 Potassium 4.0 Chloride 102 Carbon Dioxide 26.9 Anion Gap 8 BUN 6 L Creatinine 1.0 Estim Creat Clear Calc 39.5 L eGFR 57 L BUN/Creatinine Ratio 6 L Glucose 127 H Calculated Osmolality 273 L Calcium 9.2 Corrected Calcium 9.8 Phosphorus 2.4 Magnesium 2.0 Total Bilirubin 0.6 AST 36 H ALT 25 Alkaline Phosphatase 65 Total Protein 5.1 L Albumin 3.2 L Globulin 1.9 L Albumin/Globulin Ratio 1.7 Coccidioides IgG Ab Negative ABG Interpretation ABG results: 11/08/24 11/08/24 11/09/24 11:07 16:06 13:51 ABG pH 7.17 L* 7.42 D ABG pCO2 15 L* 31 L D ABG pO2 122 H 90 D ABG HCO3 6 L* 20 ABG O2 Saturation 99 H 97 ABG Base Excess -21 L -3 VBG pH 7.46 VBG pCO2 27 L VBG pO2 38 VBG Base Excess -4 L 11/09/24 11/09/24 11/10/24 17:10 20:50 04:50 ABG pH ABG pCO2 ABG pO2 ABG HCO3 ABG O2 Saturation ABG Base Excess VBG pH 7.48 7.42 7.45 VBG pCO2 31 L 43 D 37 VBG pO2 55 27 D 52 D VBG Base Excess 0 3 2 Quality Measures Quality Measures VTE prophylaxis Advance care planning discussed with:: patient and child Assessment & Plan Assessment Current Active Medications: Generic Name Dose Route Start Last Admin Trade Name Freq PRN Reason Stop Dose Admin Acetaminophen 650 mg 11/14/24 04:04 11/14/24 05:05 Acetaminophen 325 Mg Tablet PO 12/08/24 13:01 650 mg Q4HR PRN Administration Pain 1-3 or fever >100.3 Al Hydrox/Mg Hydrox/Simethicone 30 ml 11/08/24 13:02 11/10/24 11:25 Mg Hyd/Al Hyd/Nat (Maalox Reg) Susp 30 Ml Udc PO 12/08/24 13:01 30 ml Q4HR PRN Administration Heartburn or Upset Stomach Al Hydrox/Mg Hydrox/Simethicone 15 ml 11/12/24 21:00 11/14/24 05:04 Mg Hyd/Al Hyd/Nat (Maalox Reg) Susp 30 Ml Udc PO 12/12/24 20:59 15 ml QID JULITA Administration Atorvastatin Calcium 40 mg 11/13/24 21:00 11/13/24 20:24 Atorvastatin Calcium 20 Mg Tablet PO 12/13/24 20:59 40 mg HS JULITA Administration Clopidogrel Bisulfate 75 mg 11/13/24 09:00 11/14/24 09:27 Clopidogrel Bisulfate 75 Mg Tablet PO 12/13/24 08:59 75 mg QDAY JULITA Administration Dextrose 25 ml 11/09/24 18:56 Dextrose 50%-Water Inj 50 Ml Syringe IV 12/09/24 18:55 Q15MIN PRN BG 50-70 responsive npo pt Dextrose 50 ml 11/09/24 18:56 Dextrose 50%-Water Inj 50 Ml Syringe IV 12/09/24 18:55 Q15MIN PRN BG <50 OR BG <70 & pt unresponsive Donepezil HCl 10 mg 11/13/24 21:00 11/13/24 20:24 Donepezil Hcl 5 Mg Tablet PO 12/13/24 20:59 10 mg HS JULITA Administration Fluconazole 400 mg 11/15/24 09:00 Fluconazole 100 Mg Tablet PO 11/22/24 08:59 QDAY JULITA Glucagon 1 mg 11/09/24 18:56 Glucagon Inj 1 Mg Vial IM Q15MIN PRN BG <70, and no IV access Heparin Sodium (Porcine) 5,000 unit 11/08/24 14:00 11/14/24 05:04 Heparin Sod Inj 5000 Unit/Ml Vial SC 11/22/24 13:59 5,000 unit Q8HR JULITA Administration Hydralazine HCl 10 mg 11/10/24 07:51 Hydralazine Inj 20 Mg/Ml Vial IV 12/09/24 20:46 Q6HR PRN SBP >160 Piperacillin/Tazobactam/Dextrose 3.375 gm in 50 mls @ 12.5 mls/hr 11/11/24 22:00 11/14/24 05:07 Zosyn IV 11/18/24 21:59 12.5 mls/hr Q8HR JULITA Administration Insulin Glargine 15 unit 11/11/24 09:15 11/13/24 20:32 Insulin Glargine (Lantus) 5 Unit/0.05 Ml (Per 5 Units) SC 12/11/24 09:14 15 unit BID JULITA Administration Insulin Human Lispro 0 unit 11/10/24 12:48 11/14/24 07:30 Insulin Lispro (Admelog) 1 Unit/0.01 Ml Unit SC 12/09/24 20:59 Not Given ACHS JULITA Protocol Insulin Human Lispro 8 unit 11/12/24 11:30 11/14/24 09:08 Insulin Lispro (Admelog) 1 Unit/0.01 Ml Unit SC 12/12/24 11:29 Not Given AC JULITA Magnesium Hydroxide 30 ml 11/08/24 13:02 Milk Of Magnesia Susp 30 Ml Udc PO 12/08/24 13:01 QDAY PRN CONSTIPATION Metoprolol Tartrate 12.5 mg 11/09/24 21:00 11/14/24 09:27 Metoprolol Tartrate 25 Mg Tablet PO 12/09/24 20:59 12.5 mg BID JULITA Administration Nitroglycerin 0.4 mg 11/08/24 13:02 Nitroglycerin 0.4 Mg Subl Btl #25 SL Q5MIN PRN CHEST PAIN Ondansetron HCl 4 mg 11/10/24 11:41 11/10/24 21:14 Ondansetron Inj 2 Mg/Ml Inj 2 Ml IV 12/10/24 11:40 4 mg Q6HR PRN Administration NAUSEA OR VOMITING Protocol Pantoprazole Sodium 40 mg 11/11/24 21:00 11/14/24 09:27 Pantoprazole Inj 40 Mg Vial IV 12/11/24 20:59 40 mg BID JULITA Administration Phenol/Menthol 0 ml 11/10/24 18:14 11/10/24 21:13 Phenol/Na Phenolate (Chloraseptic) Beatrice 180 Ml Btl PO 12/10/24 18:13 1 dose Q6HR PRN Administration SORE THROAT Sucralfate 1 gm 11/12/24 07:30 11/14/24 08:20 Sucralfate Susp 1 Gm/10 Ml Udc PO 12/11/24 16:14 1 gm AC JULITA Administration Plan 79-year-old female with past medical history of hypertension, diabetes, hyperlipidemia, chronic UTIs, CVA, history of DKA who was admitted due to altered mental status and DKA. Patient was downgraded to the floors after DKA resolved. #DKA-resolved #Insulin dependent Diabetes Patient was admitted to the ICU for DKA protocol Anion gap closed, patient transition to subcu insulin, was planning for downgrade but follow-up labs showed reopening of anion gap and increased beta hydroxybutyrate. Patient has previous hx of DKA, likely in the setting of noncomplaince A1C 11, Anion gap has closed There is concern as patient is not eating and not taking much po intake s/p esophageal dilation patient has been tolerating po intake and advancing diet, well tolerated - SSI - blood sugar checks q 4hours - insulin glargine 15 units #Left lower lobe pneumonia likely causes include CAP and aspiration CXR shows left sided pneumonia blood cx negative suspected pseudomonal pneumonia, will broaden coverage - on Zosyn - on vancomycin #Esophageal stenosis s/p dilation #Esophageal ulcers #Odynophagia #Dysphagia #Poor oral intake #Nausea #Vomiting likely in the setting of DKA vs infectious vs mechanical Patient has endorsed poor oral intake prior to admission Currently on anti-emetics Patient has been stating pain with swallowing solids and liquids and states that is the reason she has had poor oral intake EGD was done showed some esophageal stenosis which were dilated, and ulceration in lower 3rd of the esophagus - continue anti-emetics - advance diet as tolerated - Protonix 40 BID - GI on case, appreciate recommendations #Fever unknown origin Patient today developed fever overnight no repeat episodes possible causes include yeast infection found on UA will treat with fluconazole at this time and will monitor if fever spikes continue will likely re-order blood cultures and broaden antibiotic coverage #YARA- resolved Secondary to dehydration due to DKA. Patient has mild elevation of creatinine and BUN Urinary output record unreliable, patient non-compliant with pure wick. Patient to continue with p.o. fluids Creatinine 0.9 -Avoid nephrotoxic medications -Monitor labs #Normocytic anemia #Asymptomatic anemia Could be related to dehydration ?Monitor CBC #Cystitis #?Echogenic mass Bladder scan showed Echogenic area in the posterior bladder wall, 5.5 x 1.2 x 4.1 cm This may represent blood clot although soft tissue mass cannot be excluded recommended to do cystoscopy as outpatient -f/u as outpatient #?18 mm pulmonary nodule in the left upperlobe Seen on CT chest - Recommend follow-up chest imaging as outpatient Case discussed with my senior Dr. Jones PGY-[address] Tran Tillman MD PGY-1 Disposition: Tele Fluids: None Feeding: dysphagia 3 Thrombo prophylaxis: heparin Gastric Ulcer prophylaxis: Pantoprazole CODE STATUS: Full code Senior resident attestation: Patient evaluated and examined at the bedside, plan of care discussed with rest of the team including my attending physician, except as noted. Patient is 79-year-old female with past medical history of diabetes mellitus, noncompliant with treatment. Patient home insulin is 60 units of insulin glargine along with 15 units of insulin lispro premeals. Patient reports that her son's girlfriend is the one who gives her the insulin, sometimes they miss nighttime insulin, home blood glucose readings frequently in the 400s and 500s. Patient came in with DKA, was admitted to ICU for insulin drip, was downgraded to the floors once anion gap closed x 2, but patient went back into diabetic ketoacidosis, BHB positive, but due to poor IV access IV line was used for IV fluids and insulin was given subcu. Patient received approximately 120 units of insulin over last 24 hours in ICU, and downgraded to the floors, patient received 15 units insulin glargine and 15 units insulin lispro Premeal's in the a.m., concern for hypoglycemia and poor p.o. intake. RN was instructed to do frequent fingerstick glucose checks and continue with insulin as patient's risk of going back into DKA is high. #Pneumonia versus pulmonary nodule: CT scan shows pulmonary nodule/pneumonia, ordered cocci serology #Rule out cocci #UTI #Concern for cystitis Continue on IV antibiotics, ordered pelvic ultrasound as CT abdomen pelvis reported as concerning for cystitis, possible differentials include bladder cancer. Can follow-up outpatient with urology for cystoscopy, ultrasound bladder shows possible blood clot versus mass in the posterior bladder wall. Spoke to patient's daughter and son, gave information about following up with urologist outpatient for cystoscopy to rule out bladder cancer. - 11/14/24 patient developed fever 101F overnight, clinically patient does not appear septic, later in the afternoon patient had temperature spike, we repeated blood cultures and urine cultures, patient is already on Zosyn for pseudomonal and anaerobic coverage, added vancomycin for MRSA coverage, follow microbiology results. 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 #DKA- resolved #Type 2 diabetes mellitus?poorly controlled: Home dose of insulin 60 insulin glargine +15 insulin lispro 3 times daily Premeal. Received 120 units of insulin over last 24 hours During DKA management. ? The patient has actually been refusing diet, due to painful swallowing as well as epigastric discomfort, even after drinking water or Jell-O. Poor per oral intake, however we will watch her anion gap closely continue with low-dose insulin, once patient is back to her normal diet, she can go back to her normal insulin usage. ?Insulin glargine 15 units twice daily, insulin lispro 8 units AC with sliding scale to be continued for now. ?Patient would likely require more units of insulin on discharge ,once per oral intake increases. ?Added small chopped diet frequent meals, regular diet instead of carb consistent as patient is refusing to eat carb consistent diet. #nausea vomiting- resolved #Peptic ulcer disease #Odynophagia ?Added Zofran as needed for nausea, Reglan 5 mg Premeal for prokinetic effect, Protonix 40 mg twice daily due to concern for peptic ulcer, gastroenterology consult added for possible EGD, appreciate GI recs. ?Added small frequent meals, chopped up diet ?EGD by Dr. Hairston shows esophageal ulcers and esophageal stricture, which was dilated. Currently on full liquid diet, will advance as tolerated. Quresh PGY2 Attending Provider Attestation/Addendum I have examined the patient, reviewed labs and imaging findings, discussed the case with the resident(s), and reviewed entered orders. I agree with the plan of care as outlined in this note, with these additional summaries/recommendations: Patient seen at bedside. Patient developed fever this morning with Tmax 101.6 F. Continue IV zosyn for pneumonia and diflucan added to regimen for yeast seen on urinalysis. We will monitor vital signs closely and repeat cultures if needed. Patient does have history of valley fever but reports she completed treatment with her primary care provider. Continue basal and bolus insulin for uncontrolled diabetes mellitus type II. Blood sugars still not at goal although overall improved. Patients dysphagia is improving and we will continue to advance diet. Continue protonix and Carafate. Repeat chemistry and hematology panel in am. Dr. Mayfield
[2024-11-14] MEDS: FLUCONAZOLE 100 MG TABLET 800 MG PO (11:00)
[2024-11-14] MEDS: INSULIN LISPRO (AdmeLOG) 1 UNIT/0.01 ML UNIT 8 UNIT SC (11:36)
[2024-11-14] MEDS: INSULIN LISPRO (AdmeLOG) 1 UNIT/0.01 ML UNIT SC ×2 (11:37→20:30)
--- NOTE | 2024-11-14 14:02 | XR_ITS ---
Examination: AP chest single view TECHNIQUE: AP portable upright chest single view Exam date and time: November 14, 2024 1412 hours Comparison November 08, 2024 INDICATIONS: Coughing today. FINDINGS: Moderate left base pneumonia Right lung clear Normal heart size IMPRESSION: Moderate left base pneumonia
--- NOTE | 2024-11-14 15:57 | PC.SS ---
Rounding Note: Patient in possession of fever. Cough has worsened. Plan is for chest X-Ray.
--- NOTE | 2024-11-14 17:57 | PD.IMPROG ---
Documentation for date of: 11/14/24 Subjective Subjective Interval history: Met with the family Patient able to eat much better No complaints of swallowing Exam Vital Signs Temp Pulse Resp BP Pulse Ox O2 Del Method O2 Flow Rate 100.9 F H 65 13 137/66 H 98 Room Air 0 11/14/24 16:37 11/14/24 16:00 11/14/24 16:00 11/14/24 16:00 11/14/24 16:00 11/14/24 16:00 11/14/24 12:00 Constitutional Comments: Chronically ill-appearing Routine Respiratory Exam Comments: Normal to auscultation Routine Abdominal Exam Comments: Soft nontender Objective Labs 11/14/24 04:20 11/14/24 04:20 Labs: Laboratory Results - last 24 hr 11/14/24 04:20 WBC 3.2 L RBC 3.37 L Hgb 11.1 L Hct 32.1 L MCV 95 MCH 32.9 MCHC 34.6 RDW Std Deviation 43.7 Plt Count 117 L Neut % (Auto) 64 Lymph % (Auto) 16 [place] % (Auto) 15 H Eos % (Auto) 5 Baso % (Auto) 0 Neut # (Auto) 2.1 Lymph # (Auto) 0.5 L [place] # (Auto) 0.5 Eos # (Auto) 0.2 Baso # (Auto) 0.0 Immature Gran # (Auto) 0.01 H Absolute Nucleated RBC 0.00 Immature Gran % 0 Nucleated RBC % 0 Sodium 137 Potassium 4.0 Chloride 102 Carbon Dioxide 26.9 Anion Gap 8 BUN 6 L Creatinine 1.0 Estim Creat Clear Calc 39.5 L eGFR 57 L BUN/Creatinine Ratio 6 L Glucose 127 H Calculated Osmolality 273 L Calcium 9.2 Corrected Calcium 9.8 Phosphorus 2.4 Magnesium 2.0 Total Bilirubin 0.6 AST 36 H ALT 25 Alkaline Phosphatase 65 Total Protein 5.1 L Albumin 3.2 L Globulin 1.9 L Albumin/Globulin Ratio 1.7 Impressions Impression: # Odynophagia improved # esophageal stricture status post endoscopic dilatation # Multiple ulcers distal esophagus Continue current management ABG Interpretation ABG results: 11/08/24 11/08/24 11/09/24 11:07 16:06 13:51 ABG pH 7.17 L* 7.42 D ABG pCO2 15 L* 31 L D ABG pO2 122 H 90 D ABG HCO3 6 L* 20 ABG O2 Saturation 99 H 97 ABG Base Excess -21 L -3 VBG pH 7.46 VBG pCO2 27 L VBG pO2 38 VBG Base Excess -4 L 11/09/24 11/09/24 11/10/24 17:10 20:50 04:50 ABG pH ABG pCO2 ABG pO2 ABG HCO3 ABG O2 Saturation ABG Base Excess VBG pH 7.48 7.42 7.45 VBG pCO2 31 L 43 D 37 VBG pO2 55 27 D 52 D VBG Base Excess 0 3 2 Assessment & Plan A&P Narrative # Odynophagia Plan is TSH ANUP Consent obtained for fiberoptic esophagogastroduodenoscopy with possible biopsies possible therapeutic intervention such as guidewire savory dilatation or esophageal balloon dilatation if required under intravenous moderate sedation Which has been scheduled for tomorrow afternoon Clear liquid diet a.m. N.p.o. 11:00 in the morning except p.o. meds Other medical problems include # Left lower lobe pneumonia # Just came out of DKA # IDDM Thank you very much for the opportunity to participate in the care of this patient Time Spent With Patient Time: Total time spent is greater than 50% in coordination of care (as documented) at patient's floor/unit and/or counseling patient:
[2024-11-14] MEDS: VANCOMYCIN/NS 1 GM IVPB 200 ML IV (18:30)
[2024-11-14] MEDS: ATORVASTATIN CALCIUM 20 MG TABLET 40 MG PO (20:29)
[2024-11-14] MEDS: DONEPEZIL HCL 5 MG TABLET 10 MG PO (20:29)
[2024-11-14] MEDS: INSULIN GLARGINE (Lantus) 5 UNIT/0.05 ML (PER 5 UNITS) 15 UNIT SC (20:30)
[2024-11-15] VITALS (12 sets, daily range): BP systolic 99–146; BP diastolic 47–80; PULSE 52–70; RESP 13–22; TEMP 36.8–39; O2SAT 96–98; BMI 29.2
[2024-11-15] MEDS: PIPER/TAZO 3.375 GM 3.375 GM/50 ML BAG IV ×3 (05:13→21:31)
[2024-11-15] MEDS: MG HYD/AL HYD/SIME (Maalox Reg) SUSP 30 ML UDC 15 ML PO ×4 (05:14→20:59)
[2024-11-15] MEDS: HEPARIN SOD INJ 5000 UNIT/ML VIAL SC ×3 (05:14→21:00)
[2024-11-15 05:49] LABS: Basophils % (Auto) 1 % (0-2.5); Eosinophils # (Auto) 0.1 Thou/mm3 (0.0-0.5); Eosinophils % (Auto) 3 % (0-10); Hematocrit 30.4 % (36.0-46.0); Hemoglobin 10.5 g/dL (12.0-16.0); Immature Granulocytes % (Auto) 1 % (0-0); Immature Granulocytes Auto 0.01 Thou/mm3 (0.00-0.00); Lymphocytes # (Auto) 0.5 Thou/mm3 (1.0-4.8); Lymphocytes % (Auto) 26 % (10-50); Mean Corpuscular HGB Conc 34.5 g/dl (31.0-37.0); Mean Corpuscular Hemoglobin 32.6 pg (25.0-35.0); Mean Corpuscular Volume 94 fL (80-100); Monocytes # (Auto) 0.5 Thou/mm3 (0.0-0.8); Monocytes % (Auto) 24 % (0-12); Neutrophils % (Auto) 47 % (37-80); Nucleated Red Blood Cell % 0 /100 WBC (0); Platelet Count 102 Thou/mm3 (140-440); RDW Standard Deviation 43.8 fL (36.4-46.3); Red Blood Count 3.22 Miln/mm3 (4.00-5.20)
[2024-11-15 05:57] LABS: White Blood Count 2.1 Thou/mm3 (3.6-11.0)
[2024-11-15 06:27] LABS: Alanine Aminotransferase 34 U/L (10-49); Albumin/Globulin Ratio 1.8 (1.2-2.2); Alkaline Phosphatase 60 U/L (46-116); Anion Gap 9 (7-16); Aspartate Amino Transferase 45 U/L (0-34); BUN/Creatinine Ratio 6 Ratio (12-20); Bilirubin,Total 0.5 mg/dL (0.3-1.2); Blood Urea Nitrogen 6 mg/dL (9-23); Calcium 8.1 mg/dL (8.3-10.6); Calcium (Corrected) 8.9 mg/dL (8.5-10.1); Carbon Dioxide 22.2 mMol/L (20.0-31.0); Chloride 99 mMol/L (98-107); Estimated Creatinine Clearance 39.5 mL/min (>60); Globulin 1.7 gm/dL (2.3-3.5); Glucose 224 mg/dL (74-106); Magnesium 1.8 mg/dL (1.6-2.6); Osmolality,Calculated 265 (275-295); Phosphorous 2.7 mg/dL (2.4-5.1); Potassium 4.1 mMol/L (3.4-5.1); Sodium 130 mMol/L (136-145); Total Protein 4.7 gm/dL (5.7-8.2); eGFR 57 See Note
[2024-11-15] MEDS: ACETAMINOPHEN 325 MG TABLET 650 MG PO (07:38)
[2024-11-15] MEDS: INSULIN LISPRO (AdmeLOG) 1 UNIT/0.01 ML UNIT 8 UNIT SC (07:39)
[2024-11-15] MEDS: INSULIN LISPRO (AdmeLOG) 1 UNIT/0.01 ML UNIT SC ×3 (07:39→21:00)
[2024-11-15] MEDS: SUCRALFATE SUSP 1 GM/10 ML UDC PO ×3 (07:41→17:31)
[2024-11-15 08:25] LABS: Lactate (Lactic Acid) 1.3 mMol/L (0.4-2.0)
[2024-11-15 08:25] LABS: Vitamin B12 819 pg/mL (211-911)
[2024-11-15 08:41] LABS: Path Review Blood Smear Sent to Pathologist
--- NOTE | 2024-11-15 08:45 | PC.SS ---
Update: Patient remains in possession of fever. Plan is to d/c patient once fever is resolved.
[2024-11-15] MEDS: FLUCONAZOLE 100 MG TABLET 400 MG PO (09:09)
[2024-11-15] MEDS: CLOPIDOGREL BISULFATE 75 MG TABLET PO (09:09)
[2024-11-15] MEDS: METOPROLOL TARTRATE 25 MG TABLET 12.5 MG PO (09:09)
[2024-11-15] MEDS: PANTOPRAZOLE INJ 40 MG VIAL IV ×2 (09:11→21:00)
[2024-11-15] MEDS: INSULIN GLARGINE (Lantus) 5 UNIT/0.05 ML (PER 5 UNITS) 23 UNIT SC ×2 (09:17→21:01)
[2024-11-15] MEDS: VANCOMYCIN/NS 750 MG IVPB 750 MG/150 ML BAG 120 MG IV (09:42)
--- NOTE | 2024-11-15 10:59 | PD.IMPROG ---
Documentation for date of: 11/15/24 Subjective Subjective Interval history: Evaluated the patient She is able to eat and swallow Family was in the room and feeding her mashed potato and chicken no difficulty in swallowing Exam Vital Signs Temp Pulse Resp BP Pulse Ox O2 Del Method O2 Flow Rate 100.2 F 66 21 H 131/61 H 96 Room Air 0 11/15/24 09:05 11/15/24 09:09 11/15/24 07:59 11/15/24 09:09 11/15/24 07:59 11/15/24 07:59 11/15/24 07:59 Routine Respiratory Exam Comments: Normal to auscultation Routine Abdominal Exam Comments: Soft nontender Objective Labs 11/15/24 04:49 11/15/24 04:49 Labs: Laboratory Results - last 24 hr 11/15/24 11/15/24 11/15/24 04:49 07:47 08:05 WBC 2.1 L RBC 3.22 L Hgb 10.5 L Hct 30.4 L MCV 94 MCH 32.6 MCHC 34.5 RDW Std Deviation 43.8 Plt Count 102 L Neut % (Auto) 47 Lymph % (Auto) 26 [place] % (Auto) 24 H Eos % (Auto) 3 Baso % (Auto) 1 Neut # (Auto) 1.0 L Lymph # (Auto) 0.5 L [place] # (Auto) 0.5 Eos # (Auto) 0.1 Baso # (Auto) 0.0 Immature Gran # (Auto) 0.01 H Absolute Nucleated RBC 0.00 Immature Gran % 1 H Nucleated RBC % 0 Smear Path Review Sent to Pathologist Cancelled Sodium 130 L Potassium 4.1 Chloride 99 Carbon Dioxide 22.2 Anion Gap 9 BUN 6 L Creatinine 1.0 Estim Creat Clear Calc 39.5 L eGFR 57 L BUN/Creatinine Ratio 6 L Glucose 224 H D Calculated Osmolality 265 L Lactic Acid 1.3 Calcium 8.1 L Corrected Calcium 8.9 Phosphorus 2.7 Magnesium 1.8 Total Bilirubin 0.5 AST 45 H ALT 34 Alkaline Phosphatase 60 Total Protein 4.7 L Albumin 3.0 L Globulin 1.7 L Albumin/Globulin Ratio 1.8 Vitamin B12 819 Impressions Impression: # Dysphagia improved after endoscopic dilatation of the esophageal stricture Continue current management ABG Interpretation ABG results: 12/13/24 12/13/24 12/14/24 11:07 16:06 13:51 ABG pH 7.17 L* 7.42 D ABG pCO2 15 L* 31 L D ABG pO2 122 H 90 D ABG HCO3 6 L* 20 ABG O2 Saturation 99 H 97 ABG Base Excess -21 L -3 VBG pH 7.46 VBG pCO2 27 L VBG pO2 38 VBG Base Excess -4 L 11/09/24 11/09/24 11/10/24 17:10 20:50 04:50 ABG pH ABG pCO2 ABG pO2 ABG HCO3 ABG O2 Saturation ABG Base Excess VBG pH 7.48 7.42 7.45 VBG pCO2 31 L 43 D 37 VBG pO2 55 27 D 52 D VBG Base Excess 0 3 2 Assessment & Plan A&P Narrative # Odynophagia Plan is TSH ANUP Consent obtained for fiberoptic esophagogastroduodenoscopy with possible biopsies possible therapeutic intervention such as guidewire savory dilatation or esophageal balloon dilatation if required under intravenous moderate sedation Which has been scheduled for tomorrow afternoon Clear liquid diet a.m. N.p.o. 11:00 in the morning except p.o. meds Other medical problems include # Left lower lobe pneumonia # Just came out of DKA # IDDM Thank you very much for the opportunity to participate in the care of this patient Time Spent With Patient Time: Total time spent is greater than 50% in coordination of care (as documented) at patient's floor/unit and/or counseling patient:
[2024-11-15] MEDS: SODIUM CHLORIDE 0.9% 500 ML 500 ML 999 ML IV (11:35)
--- NOTE | 2024-11-15 14:35 | PC.SS ---
Rounding Note: Patient's urine/blood cultures are pending. Patient receiving IV antibiotics.
--- NOTE | 2024-11-15 16:57 | ESPR_ITS ---
<Statement entered by Lewis Horan MD - 11/15/24 18:50> Patient was seen and examined at bedside, patient today is complaining of runny nose that started couple days ago. Patient was noted to spike fever with maximum of 102.2, and we noticed that the patient WBC went down to 2.7, for that reason we ordered for the patient flu and COVID screening tests. Her MRSA screening came back negative for that reason we DC'd the vancomycin. We also repeated blood cultures and sensitivity and also urine cultures. At this time the source of fever still obscure however we will continue to monitor. At this time patient is on fluconazole and Zosyn. We started the patient on fluconazole due to possibility of fungal UTI. Pathology results for her EGD showed positive H. pylori however there is low suspicion of H. pylori bacteremia as a cause of her fever. For that reason we will continue to monitor and will consider quadruple therapy if patient's fever does not improve or if blood culture showed positive bacteremia of H. pylori which is very rare. - Patient's plan and care discussed with my attending, Dr. Tran Horan MD Internal Medicine PGY-2 Documentation for date of: 11/15/24 Subjective Subjective Interval history: Pt examined at bedside today. Overnight events included a fever of 102. Spoke with pt today, reports that she feels hot, but does not experience any CP or SOB. Says that she does not experience any urinary discomfort or increase in urinary frequency. Her cough is still present same as yesterday. No other complaints at this time Exam Vital Signs Temp Pulse Resp BP Pulse Ox O2 Del Method O2 Flow Rate 98.7 F 54 L 18 130/68 96 Room Air 0 11/15/24 12:00 11/15/24 16:00 11/15/24 12:05 11/15/24 12:05 11/15/24 12:05 11/15/24 12:05 11/15/24 12:00 Narrative Exam General: AAOx3, NAD, talking a bit less HEENT: Dry mucous membranes, conjunctiva clear, EOMI, PERRLA, Cardiovascular: S1, S2, radial pulses +2 bilat, RRR Pulmonary: L sided crackles at base, cough present, no wheezing GI: No tenderness to light or deep palpitation, no guarding, rigidity, rebound tenderness or distension Extremities: No presence of trace or pitting edema in lower extremities bilaterally, dorsalis pedis pulses +2 bilaterally Neuro: AAOx3, no focal motor or sensory deficits in the UE or LE bilat Psych: Good judgement, thought and behavior. Cooperative Objective Labs 11/16/24 04:20 11/16/24 04:20 Labs: Laboratory Results - last 24 hr 11/15/24 11/15/24 11/15/24 04:49 07:47 08:05 WBC 2.1 L RBC 3.22 L Hgb 10.5 L Hct 30.4 L MCV 94 MCH 32.6 MCHC 34.5 RDW Std Deviation 43.8 Plt Count 102 L Neut % (Auto) 47 Lymph % (Auto) 26 [place] % (Auto) 24 H Eos % (Auto) 3 Baso % (Auto) 1 Neut # (Auto) 1.0 L Lymph # (Auto) 0.5 L [place] # (Auto) 0.5 Eos # (Auto) 0.1 Baso # (Auto) 0.0 Immature Gran # (Auto) 0.01 H Absolute Nucleated RBC 0.00 Immature Gran % 1 H Nucleated RBC % 0 Smear Path Review Sent to Pathologist Cancelled Sodium 130 L Potassium 4.1 Chloride 99 Carbon Dioxide 22.2 Anion Gap 9 BUN 6 L Creatinine 1.0 Estim Creat Clear Calc 39.5 L eGFR 57 L BUN/Creatinine Ratio 6 L Glucose 224 H D Calculated Osmolality 265 L Lactic Acid 1.3 Calcium 8.1 L Corrected Calcium 8.9 Phosphorus 2.7 Magnesium 1.8 Total Bilirubin 0.5 AST 45 H ALT 34 Alkaline Phosphatase 60 Total Protein 4.7 L Albumin 3.0 L Globulin 1.7 L Albumin/Globulin Ratio 1.8 Vitamin B12 819 ABG Interpretation ABG results: 11/08/24 11/08/24 11/09/24 11:07 16:06 13:51 ABG pH 7.17 L* 7.42 D ABG pCO2 15 L* 31 L D ABG pO2 122 H 90 D ABG HCO3 6 L* 20 ABG O2 Saturation 99 H 97 ABG Base Excess -21 L -3 VBG pH 7.46 VBG pCO2 27 L VBG pO2 38 VBG Base Excess -4 L 11/09/24 11/09/24 11/10/24 17:10 20:50 04:50 ABG pH ABG pCO2 ABG pO2 ABG HCO3 ABG O2 Saturation ABG Base Excess VBG pH 7.48 7.42 7.45 VBG pCO2 31 L 43 D 37 VBG pO2 55 27 D 52 D VBG Base Excess 0 3 2 Quality Measures Quality Measures VTE prophylaxis Advance care planning discussed with:: patient Assessment & Plan Assessment Current Active Medications: Generic Name Dose Route Start Last Admin Trade Name Freq PRN Reason Stop Dose Admin Acetaminophen 650 mg 11/14/24 04:04 11/15/24 07:38 Acetaminophen 325 Mg Tablet PO 12/08/24 13:01 650 mg Q4HR PRN Administration Pain 1-3 or fever >100.3 Al Hydrox/Mg Hydrox/Simethicone 30 ml 11/08/24 13:02 11/10/24 11:25 Mg Hyd/Al Hyd/Nat (Maalox Reg) Susp 30 Ml Udc PO 12/08/24 13:01 30 ml Q4HR PRN Administration Heartburn or Upset Stomach Al Hydrox/Mg Hydrox/Simethicone 15 ml 11/12/24 21:00 11/15/24 12:07 Mg Hyd/Al Hyd/Nat (Maalox Reg) Susp 30 Ml Udc PO 12/12/24 20:59 15 ml QID JULITA Administration Atorvastatin Calcium 40 mg 11/13/24 21:00 11/14/24 20:29 Atorvastatin Calcium 20 Mg Tablet PO 12/13/24 20:59 40 mg HS JULITA Administration Clopidogrel Bisulfate 75 mg 11/13/24 09:00 11/15/24 09:09 Clopidogrel Bisulfate 75 Mg Tablet PO 12/13/24 08:59 75 mg QDAY JULITA Administration Dextrose 25 ml 11/09/24 18:56 Dextrose 50%-Water Inj 50 Ml Syringe IV 12/09/24 18:55 Q15MIN PRN BG 50-70 responsive npo pt Dextrose 50 ml 11/09/24 18:56 Dextrose 50%-Water Inj 50 Ml Syringe IV 12/09/24 18:55 Q15MIN PRN BG <50 OR BG <70 & pt unresponsive Donepezil HCl 10 mg 11/13/24 21:00 11/14/24 20:29 Donepezil Hcl 5 Mg Tablet PO 12/13/24 20:59 10 mg HS JULITA Administration Fluconazole 400 mg 11/15/24 09:00 11/15/24 09:09 Fluconazole 100 Mg Tablet PO 11/22/24 08:59 400 mg QDAY JULITA Administration Glucagon 1 mg 11/09/24 18:56 Glucagon Inj 1 Mg Vial IM Q15MIN PRN BG <70, and no IV access Guaifenesin 200 mg 11/14/24 14:03 Guaifenesin Syrup 200 Mg/10 Ml Udc PO 12/14/24 14:02 QID PRN COUGH OR CONGESTION Protocol Heparin Sodium (Porcine) 5,000 unit 11/08/24 14:00 11/15/24 13:02 Heparin Sod Inj 5000 Unit/Ml Vial SC 11/22/24 13:59 5,000 unit Q8HR JULITA Administration Hydralazine HCl 10 mg 11/10/24 07:51 Hydralazine Inj 20 Mg/Ml Vial IV 12/09/24 20:46 Q6HR PRN SBP >160 Piperacillin/Tazobactam/Dextrose 3.375 gm in 50 mls @ 12.5 mls/hr 11/11/24 22:00 11/15/24 13:02 Zosyn IV 11/18/24 21:59 12.5 mls/hr Q8HR JULITA Administration Insulin Glargine 23 unit 11/15/24 09:00 11/15/24 09:17 Insulin Glargine (Lantus) 5 Unit/0.05 Ml (Per 5 Units) SC 12/15/24 08:59 23 unit BID JULITA Administration Insulin Human Lispro 0 unit 11/10/24 12:48 11/15/24 12:07 Insulin Lispro (Admelog) 1 Unit/0.01 Ml Unit SC 12/09/24 20:59 2 unit ACHS JULITA Administration Protocol Insulin Human Lispro 8 unit 11/12/24 11:30 11/15/24 12:06 Insulin Lispro (Admelog) 1 Unit/0.01 Ml Unit SC 12/12/24 11:29 Not Given AC JULITA Magnesium Hydroxide 30 ml 11/08/24 13:02 Milk Of Magnesia Susp 30 Ml Udc PO 12/08/24 13:01 QDAY PRN CONSTIPATION Metoprolol Tartrate 12.5 mg 11/09/24 21:00 11/15/24 09:09 Metoprolol Tartrate 25 Mg Tablet PO 12/09/24 20:59 12.5 mg BID JULITA Administration Nitroglycerin 0.4 mg 11/08/24 13:02 Nitroglycerin 0.4 Mg Subl Btl #25 SL Q5MIN PRN CHEST PAIN Ondansetron HCl 4 mg 11/10/24 11:41 11/10/24 21:14 Ondansetron Inj 2 Mg/Ml Inj 2 Ml IV 12/10/24 11:40 4 mg Q6HR PRN Administration NAUSEA OR VOMITING Protocol Pantoprazole Sodium 40 mg 11/11/24 21:00 11/15/24 09:11 Pantoprazole Inj 40 Mg Vial IV 12/11/24 20:59 40 mg BID JULITA Administration Pharmacy Consult 1 each 11/14/24 15:30 Vancomycin Pharmacy To Dose 1 Each Each IV 12/14/24 15:29 QDAY PRN CONSULT Phenol/Menthol 0 ml 11/10/24 18:14 11/10/24 21:13 Phenol/Na Phenolate (Chloraseptic) [place] 180 Ml Btl PO 12/10/24 18:13 1 dose Q6HR PRN Administration SORE THROAT Sucralfate 1 gm 11/12/24 07:30 11/15/24 12:07 Sucralfate Susp 1 Gm/10 Ml Udc PO 12/11/24 16:14 1 gm AC JULITA Administration Plan 79-year-old female with past medical history of hypertension, diabetes, hyperlipidemia, chronic UTIs, CVA, history of DKA who was admitted due to altered mental status and DKA. Patient was downgraded to the floors after DKA resolved. #DKA-resolved #Insulin dependent Diabetes Patient was admitted to the ICU for DKA protocol Anion gap closed, patient transition to subcu insulin, was planning for downgrade but follow-up labs showed reopening of anion gap and increased beta hydroxybutyrate. Patient has previous hx of DKA, likely in the setting of noncomplaince A1C 11, Anion gap has closed There is concern as patient is not eating and not taking much po intake s/p esophageal dilation patient has been tolerating po intake and advancing diet, well tolerated BG fasting was 111, will adjust insulin based of SSI - SSI - blood sugar checks q 4hours - insulin glargine 23 units ?Lispro TIDWM #Recurrent Fever of unknown origin possible causes include yeast infection found on UA will treat with fluconazole at this time and will monitor Fevers seem to be at night, may consider to workup for TB Fever could be infectious from lung or urine Pt was not having fevers initially Had fever 102 overnight, has had them over past two nights Plan: ?Follow-up blood cultures ?Follow-up urine culture ?Tylenol as needed #Left lower lobe pneumonia likely causes include CAP and aspiration CXR shows left sided pneumonia Initial blood cx negative suspected pseudomonal pneumonia, will broaden coverage In setting of overnight fevers, concerned for worsening infection Plan: - on Zosyn - on vancomycin ?Robitussin as needed ? Follow-up blood cultures ?As above #H. pylori infecetion #Esophageal stenosis s/p dilation #Esophageal ulcers #Odynophagia #Dysphagia #Poor oral intake #Nausea #Vomiting likely in the setting of DKA vs infectious vs mechanical Patient has endorsed poor oral intake prior to admission Currently on anti-emetics Patient has been stating pain with swallowing solids and liquids and states that is the reason she has had poor oral intake EGD was done showed some esophageal stenosis which were dilated, and ulceration in lower 3rd of the esophagus H. pylori infection positive on pathology report Need to see if we will start with Triple or Quad therapy, will continue with Zoysn for now Plan: - continue anti-emetics - advance diet as tolerated - Protonix 40 BID - GI on case, appreciate recommendations #YARA- resolved Secondary to dehydration due to DKA. Patient has mild elevation of creatinine and BUN Urinary output record unreliable, patient non-compliant with pure wick. Patient to continue with p.o. fluids Creatinine 1.0 today, yesterday 0.9 Plan: -Avoid nephrotoxic medications -Monitor labs #Normocytic anemia #Asymptomatic anemia Could be related to dehydration ?Monitor CBC #Cystitis #?Echogenic mass Bladder scan showed Echogenic area in the posterior bladder wall, 5.5 x 1.2 x 4.1 cm This may represent blood clot although soft tissue mass cannot be excluded recommended to do cystoscopy as outpatient Plan: -f/u as outpatient #?18 mm pulmonary nodule in the left upperlobe Seen on CT chest - Recommend follow-up chest imaging as outpatient #Health Maintenance Disposition: Tele DVT prophylaxis: Heparin GI prophylaxis: Protonix Diet: Dysphagia CODE STATUS: Full Patient seen and care discussed with my senior resident, Dr. Horan, and my attending physician, Dr. Tran Coley, PGY-1 Attending Provider Attestation/Addendum I have examined the patient, reviewed labs and imaging findings, discussed the case with the resident(s), and reviewed entered orders. I agree with the plan of care as outlined in this note, with these additional summaries/recommendations: Patient seen at bedside. Overnight patient spiked multiple fevers with Tmax 102.2 Fahrenheit. Repeat blood and urine cultures ordered. Rule out new source. Path report from EGD did reveal H. pylori and patient currently receiving Zosyn. We will discontinue IV vancomycin as MRSA screen negative. Patient is receiving fluconazole for yeast seen on urinalysis and patient now denies ever having valley fever. Cocci serology was negative on admission. Patient reports improvement in dysphagia after esophageal dilation during EGD. Continue Protonix and Carafate. Repeat hematology and chemistry panel in AM. Dr. Mayfield
[2024-11-15 19:50] LABS: COVID-19 Antigen (In-House) Negative (Negative)
[2024-11-15 19:51] LABS: Influenza A Ag Positive; Influenza B Ag Negative
--- NOTE | 2024-11-15 20:15 | PC.NURSE ---
MD Van made aware that pt is positive for influenza A, will put order in. Pt will be on droplet precaution.
[2024-11-15] MEDS: ATORVASTATIN CALCIUM 20 MG TABLET 40 MG PO (21:00)
[2024-11-15] MEDS: DONEPEZIL HCL 5 MG TABLET 10 MG PO (21:00)
[2024-11-15] MEDS: OSELTAMIVIR 75 MG CAPSULE PO (21:04)
[2024-11-16] VITALS (9 sets, daily range): BP systolic 116–140; BP diastolic 50–81; PULSE 52–71; RESP 12–20; TEMP 36.4–37.7; O2SAT 95–97
--- NOTE | 2024-11-16 00:57 | PC.NURSE ---
Pt given specimen cup for sputum culture.
[2024-11-16] MEDS: HEPARIN SOD INJ 5000 UNIT/ML VIAL SC ×3 (05:14→21:22)
[2024-11-16] MEDS: PIPER/TAZO 3.375 GM 3.375 GM/50 ML BAG IV (05:14)
[2024-11-16] MEDS: MG HYD/AL HYD/SIME (Maalox Reg) SUSP 30 ML UDC 15 ML PO ×4 (05:14→20:45)
[2024-11-16 05:28] LABS: Basophils % (Auto) 1 % (0-2.5); Eosinophils # (Auto) 0.1 Thou/mm3 (0.0-0.5); Eosinophils % (Auto) 4 % (0-10); Hematocrit 30.8 % (36.0-46.0); Hemoglobin 11.1 g/dL (12.0-16.0); Immature Granulocytes % (Auto) 1 % (0-0); Immature Granulocytes Auto 0.01 Thou/mm3 (0.00-0.00); Lymphocytes # (Auto) 0.7 Thou/mm3 (1.0-4.8); Lymphocytes % (Auto) 42 % (10-50); Mean Corpuscular Hemoglobin 33.4 pg (25.0-35.0); Mean Corpuscular Volume 93 fL (80-100); Monocytes # (Auto) 0.5 Thou/mm3 (0.0-0.8); Monocytes % (Auto) 28 % (0-12); Neutrophils # (Auto) 0.4 Thou/mm3 (1.8-7.7); Neutrophils % (Auto) 26 % (37-80); Nucleated Red Blood Cell % 0 /100 WBC (0); Platelet Count 102 Thou/mm3 (140-440); RDW Standard Deviation 43.9 fL (36.4-46.3); Red Blood Count 3.32 Miln/mm3 (4.00-5.20)
[2024-11-16 05:48] LABS: White Blood Count 1.6 Thou/mm3 (3.6-11.0)
[2024-11-16 05:50] LABS: Alanine Aminotransferase 49 U/L (10-49); Albumin, Serum 3.1 gm/dL (3.4-4.8); Albumin/Globulin Ratio 1.8 (1.2-2.2); Alkaline Phosphatase 59 U/L (46-116); Anion Gap 7 (7-16); Aspartate Amino Transferase 89 U/L (0-34); BUN/Creatinine Ratio 7 Ratio (12-20); Bilirubin,Total 0.4 mg/dL (0.3-1.2); Blood Urea Nitrogen 7 mg/dL (9-23); Calcium (Corrected) 8.7 mg/dL (8.5-10.1); Carbon Dioxide 25.8 mMol/L (20.0-31.0); Chloride 100 mMol/L (98-107); Estimated Creatinine Clearance 39.5 mL/min (>60); Globulin 1.7 gm/dL (2.3-3.5); Glucose 173 mg/dL (74-106); Magnesium 1.8 mg/dL (1.6-2.6); Osmolality,Calculated 268 (275-295); Phosphorous 2.9 mg/dL (2.4-5.1); Potassium 3.6 mMol/L (3.4-5.1); Sodium 133 mMol/L (136-145); Total Protein 4.8 gm/dL (5.7-8.2); eGFR 57 See Note
[2024-11-16] MEDS: SUCRALFATE SUSP 1 GM/10 ML UDC PO ×2 (07:33→11:36)
[2024-11-16] MEDS: INSULIN LISPRO (AdmeLOG) 1 UNIT/0.01 ML UNIT 8 UNIT SC ×2 (07:34→11:37)
[2024-11-16] MEDS: INSULIN GLARGINE (Lantus) 5 UNIT/0.05 ML (PER 5 UNITS) 23 UNIT SC ×2 (07:34→20:46)
[2024-11-16] MEDS: INSULIN LISPRO (AdmeLOG) 1 UNIT/0.01 ML UNIT SC ×3 (07:35→20:47)
[2024-11-16] MEDS: METOPROLOL TARTRATE 25 MG TABLET 12.5 MG PO (08:15)
[2024-11-16] MEDS: PANTOPRAZOLE INJ 40 MG VIAL IV (08:15)
[2024-11-16] MEDS: FLUCONAZOLE 100 MG TABLET 400 MG PO (08:16)
[2024-11-16] MEDS: CLOPIDOGREL BISULFATE 75 MG TABLET PO (08:16)
[2024-11-16] MEDS: OSELTAMIVIR 30 MG CAPSULE PO ×2 (08:16→20:45)
--- NOTE | 2024-11-16 10:15 | PC.NURSE ---
Notified that patient heart rate was 47 but has been maintaining in the 50s per tele. Patient is asymptomatic otherwise. Patient was sleeping when heart rate was warner but when she was woken up heart rate was 65. Patient did receive 12.5mg of metoprolol as hr was 70 -72 for 0800 vitals and again when medications were being administered. No new orders received at this time
--- NOTE | 2024-11-16 12:42 | PD.IMPROG ---
Documentation for date of: 11/16/24 Subjective Subjective Interval history: Swallowing has improved as per the patient and the family Continue current management Exam Vital Signs Temp Pulse Resp BP Pulse Ox O2 Del Method O2 Flow Rate 99.2 F 66 19 118/81 96 Room Air 0 11/16/24 12:00 11/16/24 12:00 11/16/24 12:00 11/16/24 12:00 11/16/24 12:00 11/16/24 12:00 11/16/24 12:00 Objective Labs 11/16/24 04:20 11/16/24 04:20 Labs: Laboratory Results - last 24 hr 11/15/24 11/15/24 11/16/24 14:36 14:56 04:20 WBC 1.6 L RBC 3.32 L Hgb 11.1 L Hct 30.8 L MCV 93 MCH 33.4 MCHC 36.0 RDW Std Deviation 43.9 Plt Count 102 L Neut % (Auto) 26 L Lymph % (Auto) 42 [place] % (Auto) 28 H Eos % (Auto) 4 Baso % (Auto) 1 Neut # (Auto) 0.4 L Lymph # (Auto) 0.7 L [place] # (Auto) 0.5 Eos # (Auto) 0.1 Baso # (Auto) 0.0 Immature Gran # (Auto) 0.01 H Absolute Nucleated RBC 0.00 Immature Gran % 1 H Nucleated RBC % 0 Sodium 133 L Potassium 3.6 D Chloride 100 Carbon Dioxide 25.8 Anion Gap 7 BUN 7 L Creatinine 1.0 Estim Creat Clear Calc 39.5 L eGFR 57 L BUN/Creatinine Ratio 7 L Glucose 173 H D Calculated Osmolality 268 L Calcium 8.0 L Corrected Calcium 8.7 Phosphorus 2.9 Magnesium 1.8 Total Bilirubin 0.4 AST 89 H ALT 49 Alkaline Phosphatase 59 Total Protein 4.8 L Albumin 3.1 L Globulin 1.7 L Albumin/Globulin Ratio 1.8 Influenza A (Rapid) Positive A Influenza B (Rapid) Negative SARS-CoV-2 Ag (Rapid) Negative Impressions Impression: # Esophageal stricture status post endoscopic dilatation # Dysphagia improved after endoscopic dilatation Continue current management ABG Interpretation ABG results: 11/08/24 11/08/24 11/09/24 11:07 16:06 13:51 ABG pH 7.17 L* 7.42 D ABG pCO2 15 L* 31 L D ABG pO2 122 H 90 D ABG HCO3 6 L* 20 ABG O2 Saturation 99 H 97 ABG Base Excess -21 L -3 VBG pH 7.46 VBG pCO2 27 L VBG pO2 38 VBG Base Excess -4 L 11/09/24 11/09/24 11/10/24 17:10 20:50 04:50 ABG pH ABG pCO2 ABG pO2 ABG HCO3 ABG O2 Saturation ABG Base Excess VBG pH 7.48 7.42 7.45 VBG pCO2 31 L 43 D 37 VBG pO2 55 27 D 52 D VBG Base Excess 0 3 2 Assessment & Plan A&P Narrative # Odynophagia Plan is TSH ANUP Consent obtained for fiberoptic esophagogastroduodenoscopy with possible biopsies possible therapeutic intervention such as guidewire savory dilatation or esophageal balloon dilatation if required under intravenous moderate sedation Which has been scheduled for tomorrow afternoon Clear liquid diet a.m. N.p.o. 11:00 in the morning except p.o. meds Other medical problems include # Left lower lobe pneumonia # Just came out of DKA # IDDM Thank you very much for the opportunity to participate in the care of this patient Time Spent With Patient Time: Total time spent is greater than 50% in coordination of care (as documented) at patient's floor/unit and/or counseling patient:
[2024-11-16] MEDS: metroNIDAZOLE 250 MG TABLET 500 MG PO ×2 (14:58→21:22)
--- NOTE | 2024-11-16 15:37 | ESPR_ITS ---
Documentation for date of: 11/16/24 Subjective Subjective Interval history: Patient examined at bedside today. No acute overnight events. Patient did not have a fever overnight. Says she is not having any urinary symptoms in terms of increase frequency or dysuria. Patient wondering when she can go home. No other complaints at this time Exam Vital Signs Temp Pulse Resp BP Pulse Ox O2 Del Method O2 Flow Rate 99.2 F 66 19 118/81 96 Room Air 0 11/16/24 12:00 11/16/24 12:00 11/16/24 12:00 11/16/24 12:00 11/16/24 12:00 11/16/24 12:00 11/16/24 12:00 Narrative Exam General: AAOx3, NAD, talking more compared to yesterday HEENT: Dry mucous membranes, conjunctiva clear, EOMI, PERRLA, Cardiovascular: S1, S2, radial pulses +2 bilat, RRR Pulmonary: L sided crackles at base, cough present, no wheezing GI: No tenderness to light or deep palpitation, no guarding, rigidity, rebound tenderness or distension Extremities: No presence of trace or pitting edema in lower extremities bilaterally, dorsalis pedis pulses +2 bilaterally Neuro: AAOx3, no focal motor or sensory deficits in the UE or LE bilat Psych: Good judgement, thought and behavior. Cooperative Objective Labs 11/17/24 04:42 11/17/24 04:42 Labs: Laboratory Results - last 24 hr 11/15/24 11/15/24 11/16/24 14:36 14:56 04:20 WBC 1.6 L RBC 3.32 L Hgb 11.1 L Hct 30.8 L MCV 93 MCH 33.4 MCHC 36.0 RDW Std Deviation 43.9 Plt Count 102 L Neut % (Auto) 26 L Lymph % (Auto) 42 [place] % (Auto) 28 H Eos % (Auto) 4 Baso % (Auto) 1 Neut # (Auto) 0.4 L Lymph # (Auto) 0.7 L [place] # (Auto) 0.5 Eos # (Auto) 0.1 Baso # (Auto) 0.0 Immature Gran # (Auto) 0.01 H Absolute Nucleated RBC 0.00 Immature Gran % 1 H Nucleated RBC % 0 Sodium 133 L Potassium 3.6 D Chloride 100 Carbon Dioxide 25.8 Anion Gap 7 BUN 7 L Creatinine 1.0 Estim Creat Clear Calc 39.5 L eGFR 57 L BUN/Creatinine Ratio 7 L Glucose 173 H D Calculated Osmolality 268 L Calcium 8.0 L Corrected Calcium 8.7 Phosphorus 2.9 Magnesium 1.8 Total Bilirubin 0.4 AST 89 H ALT 49 Alkaline Phosphatase 59 Total Protein 4.8 L Albumin 3.1 L Globulin 1.7 L Albumin/Globulin Ratio 1.8 Influenza A (Rapid) Positive A Influenza B (Rapid) Negative SARS-CoV-2 Ag (Rapid) Negative ABG Interpretation ABG results: 11/08/24 11/08/24 11/09/24 11:07 16:06 13:51 ABG pH 7.17 L* 7.42 D ABG pCO2 15 L* 31 L D ABG pO2 122 H 90 D ABG HCO3 6 L* 20 ABG O2 Saturation 99 H 97 ABG Base Excess -21 L -3 VBG pH 7.46 VBG pCO2 27 L VBG pO2 38 VBG Base Excess -4 L 11/09/24 11/09/24 11/10/24 17:10 20:50 04:50 ABG pH ABG pCO2 ABG pO2 ABG HCO3 ABG O2 Saturation ABG Base Excess VBG pH 7.48 7.42 7.45 VBG pCO2 31 L 43 D 37 VBG pO2 55 27 D 52 D VBG Base Excess 0 3 2 Quality Measures Quality Measures VTE prophylaxis Advance care planning discussed with:: patient Assessment & Plan Assessment Current Active Medications: Generic Name Dose Route Start Last Admin Trade Name Freq PRN Reason Stop Dose Admin Acetaminophen 650 mg 11/14/24 04:04 11/15/24 07:38 Acetaminophen 325 Mg Tablet PO 12/08/24 13:01 650 mg Q4HR PRN Administration Pain 1-3 or fever >100.3 Al Hydrox/Mg Hydrox/Simethicone 30 ml 11/08/24 13:02 11/10/24 11:25 Mg Hyd/Al Hyd/Nat (Maalox Reg) Susp 30 Ml Udc PO 12/08/24 13:01 30 ml Q4HR PRN Administration Heartburn or Upset Stomach Al Hydrox/Mg Hydrox/Simethicone 15 ml 11/12/24 21:00 11/16/24 11:36 Mg Hyd/Al Hyd/Nat (Maalox Reg) Susp 30 Ml Udc PO 12/12/24 20:59 15 ml QID JULITA Administration Atorvastatin Calcium 40 mg 11/13/24 21:00 11/15/24 21:00 Atorvastatin Calcium 20 Mg Tablet PO 12/13/24 20:59 40 mg HS JULITA Administration Bismuth Subsalicylate 1 tab 11/16/24 17:00 Bismuth Subsalicyl 1 Tablet (Pepto-Bismol) PO 12/16/24 16:59 QID JULITA Clopidogrel Bisulfate 75 mg 11/13/24 09:00 11/16/24 08:16 Clopidogrel Bisulfate 75 Mg Tablet PO 12/13/24 08:59 75 mg QDAY JULITA Administration Dextrose 25 ml 11/09/24 18:56 Dextrose 50%-Water Inj 50 Ml Syringe IV 12/09/24 18:55 Q15MIN PRN BG 50-70 responsive npo pt Dextrose 50 ml 11/09/24 18:56 Dextrose 50%-Water Inj 50 Ml Syringe IV 12/09/24 18:55 Q15MIN PRN BG <50 OR BG <70 & pt unresponsive Donepezil HCl 10 mg 11/13/24 21:00 11/15/24 21:00 Donepezil Hcl 5 Mg Tablet PO 12/13/24 20:59 10 mg HS JULITA Administration Doxycycline Hyclate 100 mg 11/16/24 21:00 Doxycycline 100 Mg Tablet PO 11/23/24 20:59 BID JULITA Fluconazole 400 mg 11/15/24 09:00 11/16/24 08:16 Fluconazole 100 Mg Tablet PO 11/22/24 08:59 400 mg QDAY JULITA Administration Glucagon 1 mg 11/09/24 18:56 Glucagon Inj 1 Mg Vial IM Q15MIN PRN BG <70, and no IV access Guaifenesin 200 mg 11/14/24 14:03 Guaifenesin Syrup 200 Mg/10 Ml Udc PO 12/14/24 14:02 QID PRN COUGH OR CONGESTION Protocol Heparin Sodium (Porcine) 5,000 unit 11/08/24 14:00 11/16/24 14:19 Heparin Sod Inj 5000 Unit/Ml Vial SC 11/22/24 13:59 5,000 unit Q8HR JULITA Administration Hydralazine HCl 10 mg 11/10/24 07:51 Hydralazine Inj 20 Mg/Ml Vial IV 12/09/24 20:46 Q6HR PRN SBP >160 Insulin Glargine 23 unit 11/15/24 09:00 11/16/24 07:34 Insulin Glargine (Lantus) 5 Unit/0.05 Ml (Per 5 Units) SC 12/15/24 08:59 23 unit BID JULITA Administration Insulin Human Lispro 0 unit 11/10/24 12:48 11/16/24 11:37 Insulin Lispro (Admelog) 1 Unit/0.01 Ml Unit SC 12/09/24 20:59 2 unit ACHS JULITA Administration Protocol Insulin Human Lispro 8 unit 11/12/24 11:30 11/16/24 11:37 Insulin Lispro (Admelog) 1 Unit/0.01 Ml Unit SC 12/12/24 11:29 8 unit AC JULITA Administration Magnesium Hydroxide 30 ml 11/08/24 13:02 Milk Of Magnesia Susp 30 Ml Udc PO 12/08/24 13:01 QDAY PRN CONSTIPATION Metronidazole 500 mg 11/16/24 14:45 11/16/24 14:58 Metronidazole 250 Mg Tablet PO 11/23/24 14:44 500 mg TID JULITA Administration Nitroglycerin 0.4 mg 11/08/24 13:02 Nitroglycerin 0.4 Mg Subl Btl #25 SL Q5MIN PRN CHEST PAIN Ondansetron HCl 4 mg 11/10/24 11:41 11/10/24 21:14 Ondansetron Inj 2 Mg/Ml Inj 2 Ml IV 12/10/24 11:40 4 mg Q6HR PRN Administration NAUSEA OR VOMITING Protocol Oseltamivir Phosphate 30 mg 11/16/24 09:00 11/16/24 08:16 Oseltamivir 30 Mg Capsule PO 11/20/24 09:01 30 mg BID JULITA Administration Pantoprazole Sodium 40 mg 11/11/24 21:00 11/16/24 08:15 Pantoprazole Inj 40 Mg Vial IV 12/11/24 20:59 40 mg BID JULITA Administration Phenol/Menthol 0 ml 11/10/24 18:14 11/10/24 21:13 Phenol/Na Phenolate (Chloraseptic) Morrison 180 Ml Btl PO 12/10/24 18:13 1 dose Q6HR PRN Administration SORE THROAT Sucralfate 1 gm 11/12/24 07:30 12/21/24 11:36 Sucralfate Susp 1 Gm/10 Ml Udc PO 12/11/24 16:14 1 gm AC JULITA Administration Plan 79-year-old female with past medical history of hypertension, diabetes, hyperlipidemia, chronic UTIs, CVA, history of DKA who was admitted due to altered mental status and DKA. Patient was downgraded to the floors after DKA resolved. #DKA-resolved #Insulin dependent Diabetes Patient was admitted to the ICU for DKA protocol Anion gap closed, patient transition to subcu insulin, was planning for downgrade but follow-up labs showed reopening of anion gap and increased beta hydroxybutyrate. Patient has previous hx of DKA, likely in the setting of noncomplaince A1C 11, Anion gap has closed There is concern as patient is not eating and not taking much po intake s/p esophageal dilation patient has been tolerating po intake and advancing diet, well tolerated BG fasting was 173 today, will adjust insulin based of SSI Plan: - SSI - blood sugar checks q 4hours - insulin glargine 23 units BID ?Lispro 8 units TIDWM #Infection with Influenza #Recurrent Fever, improving #Left lower lobe pneumonia #? Vaginitis Patient was treated for lower lobe pneumonia for over 7 days with Zosyn Patient tested positive for influenza A, night team started Tamiflu With initiation of Tamiflu, patient has not spiked fever in past 24 hours Fever was likely secondary to influenza Will hold on continue antibiotics at this time Concern for vaginitis due to yeast in urine Plan: ?Continue Tamiflu ?Follow-up urine culture ?Tylenol as needed ?Continue fluconazole #Leukopenia, worsening #Neutropenia, worsening Abs neutrophil count at 0.4 Leukocyte count at ~1.7, has been downtrending over the past couple days Zosyn could be causing the leukopenia and neutropenia, seen as a side effect, we will stop Zosyn and see how patient improves May consider oncology consult if does not improve tomorrow with stopping Zosyn Plan: ?Trend CBC #H. pylori infection #Esophageal stenosis s/p dilation #Esophageal ulcers #Odynophagia #Dysphagia #Poor oral intake #Nausea #Vomiting likely in the setting of DKA vs infectious vs mechanical Patient has endorsed poor oral intake prior to admission Currently on anti-emetics Patient has been stating pain with swallowing solids and liquids and states that is the reason she has had poor oral intake EGD was done showed some esophageal stenosis which were dilated, and ulceration in lower 3rd of the esophagus H. pylori infection positive on pathology report Stopped Zosyn, will initiate quad therapy for h pylori Plan: ?Initiate quad therapy for h pylori - continue anti-emetics - advance diet as tolerated - Protonix 40 BID - GI on case, appreciate recommendations #YARA- resolved Secondary to dehydration due to DKA. Patient has mild elevation of creatinine and BUN Urinary output record unreliable, patient non-compliant with pure wick. Patient to continue with p.o. fluids Creatinine 1.0 today, yesterday 0.9 Plan: -Avoid nephrotoxic medications -Monitor labs #Normocytic anemia #Asymptomatic anemia Could be related to dehydration ?Monitor CBC #?Echogenic mass Bladder scan showed Echogenic area in the posterior bladder wall, 5.5 x 1.2 x 4.1 cm This may represent blood clot although soft tissue mass cannot be excluded recommended to do cystoscopy as outpatient Plan: -f/u as outpatient #?18 mm pulmonary nodule in the left upperlobe Seen on CT chest - Recommend follow-up chest imaging as outpatient #Health Maintenance Disposition: Tele DVT prophylaxis: Heparin GI prophylaxis: Protonix Diet: Dysphagia CODE STATUS: Full Patient seen and care discussed with my senior resident, Dr. Jones, and my attending physician, Dr. Tran Coley, PGY-1 Senior resident attestation: Patient evaluated and examined at the bedside, plan of care discussed with rest of the team including my attending physician, except as noted. Senior resident attestation: Patient evaluated and examined at the bedside, plan of care discussed with rest of the team including my attending physician, except as noted. Patient is 79-year-old female with past medical history of diabetes mellitus, noncompliant with treatment. Patient home insulin is 60 units of insulin glargine along with 15 units of insulin lispro premeals. Patient reports that her son's girlfriend is the one who gives her the insulin, sometimes they miss nighttime insulin, home blood glucose readings frequently in the 400s and 500s. Patient came in with DKA, was admitted to ICU for insulin drip, was downgraded to the floors once anion gap closed x 2, but patient went back into diabetic ketoacidosis, BHB positive, but due to poor IV access IV line was used for IV fluids and insulin was given subcu. Patient received approximately 120 units of insulin over last 24 hours in ICU, and downgraded to the floors, patient received 15 units insulin glargine and 15 units insulin lispro Premeal's in the a.m., concern for hypoglycemia and poor p.o. intake. RN was instructed to do frequent fingerstick glucose checks and continue with insulin as patient's risk of going back into DKA is high. #New onset fever #Influenza A The patient had new onset fever, despite being on adequate antibiotics for pneumonia, which included pseudomonal coverage. Patient's clinical condition continued to improve but developed fever overnight, of note patient had recent sick contacts, initial bedside influenza testing in the ER was negative, repeat flu and COVID testing was ordered as patient blood culture and urine cultures continue to be negative for bacteria, tested positive for influenza A. Started on Tamiflu by the night team. Likely cause of new onset fevers. ? Continue Tamiflu #Neutropenia ANC<1000, absolute neutrophil count 400 on CBC this a.m., went over patient's documentation, orders, likely cause for neutropenia possible bone marrow suppression or drug-induced neutropenia. Of note patient does not clinically look septic, she has actually improved a lot since admission, her appetite has improved, she is more alert and active, eating her meals. Likely pulmonary suppression due to concurrent viral infection or drug-induced neutropenia, we will discontinue likely culprits as patient is already received 10 days of IV antibiotic therapy for pneumonia. ? Zosyn discontinued due to concern for neutropenia. ? Already completed adequate antibiotic therapy for pneumonia. Will continue to monitor for any new onset fever, follow-up blood cultures. #H. pylori gastritis EGD showed H. pylori-like organisms on path report, ? Start patient on H. pylori eradication therapy on bismuth, doxycycline, metronidazole and on Protonix to be continued for 10 to 14 days. ?Tetracycline substituted with Doxycycline due to concomitant neutropenia. #Pneumonia #Rule out cocci #UTI #Concern for cystitis ? Already completed adequate antibiotic therapy for pneumonia. Will continue to monitor for any new onset fever, follow-up blood cultures. ? Currently on Diflucan for UTI caused by yeast. #DKA- resolved #Type 2 diabetes mellitus?poorly controlled: Home dose of insulin 60 insulin glargine +15 insulin lispro 3 times daily Premeal. ?Currently well-managed on insulin glargine 23 units twice daily, insulin lispro 8 units AC with sliding scale . #Nausea vomiting- resolved #Peptic ulcer disease #Odynophagia ?Zofran, Reglan, ?EGD by Dr. Hairston shows esophageal ulcers and esophageal stricture, which was dilated. Diet advance as tolerated. Quresh PGY2 Attending Provider Attestation/Addendum I have examined the patient, reviewed labs and imaging findings, discussed the case with the resident(s), and reviewed entered orders. I agree with the plan of care as outlined in this note, with these additional summaries/recommendations: Patient seen at bedside. No acute overnight events. Patient now afebrile for approximately 24 hours. Repeat blood culture still pending. Influenza A returned positive and patient started on Tamiflu. Patient has worsening leukopenia with now neutropenia. Zosyn stopped as it may be contributing and repeat hematology panel in AM. If no improvement then we will consider consulting hematology. Patient started on quadruple therapy for H. pylori. Patient's dysphagia continues to improve and currently tolerating dysphagia 3 diet. Blood sugars continue to improve from admission and continue basal and bolus insulin. A1c 10.5%. Thrombocytopenia present although no evidence of bleeding and we will continue to monitor. Outpatient follow-up for echogenic mass seen on bladder ultrasound. Continue to monitor for return of fevers. Repeat chemistry and hematology panel in AM. Dr. Mayfield
[2024-11-16] MEDS: BISMUTH SUBSALICYL 1 TABLET (Pepto-Bismol) 1 TAB PO ×2 (17:27→20:45)
--- NOTE | 2024-11-16 18:31 | PC.NURSE ---
Notified that patients blood sugar was 95. Per provider okay to hold 8 units scheduled lispro
[2024-11-16] MEDS: DONEPEZIL HCL 5 MG TABLET 10 MG PO (20:44)
[2024-11-16] MEDS: DOXYCYCLINE 100 MG TABLET PO (20:45)
[2024-11-16] MEDS: ATORVASTATIN CALCIUM 20 MG TABLET 40 MG PO (20:45)
[2024-11-16] MEDS: PANTOPRAZOLE 40 MG TABLET PO (20:45)
[2024-11-17] VITALS (7 sets, daily range): BP systolic 115–148; BP diastolic 58–76; PULSE 53–68; RESP 13–20; TEMP 36.1–36.5; O2SAT 95–99
[2024-11-17] MEDS: HEPARIN SOD INJ 5000 UNIT/ML VIAL SC ×3 (05:20→21:50)
[2024-11-17] MEDS: BISMUTH SUBSALICYL 1 TABLET (Pepto-Bismol) 1 TAB PO ×4 (05:20→21:49)
[2024-11-17] MEDS: MG HYD/AL HYD/SIME (Maalox Reg) SUSP 30 ML UDC 15 ML PO ×4 (05:20→21:49)
[2024-11-17] MEDS: metroNIDAZOLE 250 MG TABLET 500 MG PO ×3 (05:20→21:50)
[2024-11-17 06:07] LABS: Alanine Aminotransferase 57 U/L (10-49); Albumin, Serum 3.1 gm/dL (3.4-4.8); Albumin/Globulin Ratio 1.9 (1.2-2.2); Alkaline Phosphatase 59 U/L (46-116); Anion Gap 6 (7-16); Aspartate Amino Transferase 82 U/L (0-34); BUN/Creatinine Ratio 8 Ratio (12-20); Bilirubin,Total 0.3 mg/dL (0.3-1.2); Blood Urea Nitrogen 7 mg/dL (9-23); Calcium 8.2 mg/dL (8.3-10.6); Calcium (Corrected) 8.9 mg/dL (8.5-10.1); Carbon Dioxide 26.9 mMol/L (20.0-31.0); Chloride 102 mMol/L (98-107); Creatinine (Component) 0.9 mg/dL (0.6-1.3); Globulin 1.6 gm/dL (2.3-3.5); Glucose 110 mg/dL (74-106); Magnesium 1.7 mg/dL (1.6-2.6); Osmolality,Calculated 269 (275-295); Phosphorous 2.5 mg/dL (2.4-5.1); Potassium 3.3 mMol/L (3.4-5.1); Sodium 135 mMol/L (136-145); Total Protein 4.7 gm/dL (5.7-8.2); eGFR > 60 See Note
[2024-11-17 06:48] LABS: Basophils % (Auto) 1 % (0-2.5); Eosinophils # (Auto) 0.1 Thou/mm3 (0.0-0.5); Eosinophils % (Auto) 7 % (0-10); Hemoglobin 10.8 g/dL (12.0-16.0); Immature Granulocytes % (Auto) 1 % (0-0); Immature Granulocytes Auto 0.01 Thou/mm3 (0.00-0.00); Lymphocytes # (Auto) 0.8 Thou/mm3 (1.0-4.8); Lymphocytes % (Auto) 48 % (10-50); Mean Corpuscular HGB Conc 34.8 g/dl (31.0-37.0); Mean Corpuscular Volume 95 fL (80-100); Monocytes # (Auto) 0.4 Thou/mm3 (0.0-0.8); Monocytes % (Auto) 21 % (0-12); Neutrophils # (Auto) 0.4 Thou/mm3 (1.8-7.7); Neutrophils % (Auto) 23 % (37-80); Nucleated Red Blood Cell % 0 /100 WBC (0); Platelet Count 120 Thou/mm3 (140-440); RDW Standard Deviation 44.5 fL (36.4-46.3); Red Blood Count 3.27 Miln/mm3 (4.00-5.20)
[2024-11-17 07:06] LABS: White Blood Count 1.8 Thou/mm3 (3.6-11.0)
[2024-11-17] MEDS: FLUCONAZOLE 100 MG TABLET 400 MG PO (08:12)
[2024-11-17] MEDS: PANTOPRAZOLE 40 MG TABLET PO ×2 (08:12→21:50)
[2024-11-17] MEDS: CLOPIDOGREL BISULFATE 75 MG TABLET PO (08:12)
[2024-11-17] MEDS: DOXYCYCLINE 100 MG TABLET PO ×2 (08:12→21:49)
[2024-11-17] MEDS: OSELTAMIVIR 30 MG CAPSULE PO ×2 (08:13→21:49)
[2024-11-17] MEDS: POTASSIUM CHLORIDE 20 mEq TABCR 40 MEQ PO (08:17)
[2024-11-17] MEDS: Magnesium Sulfate 4 GM Ivpb 4 GM/50 ML BAG IV (08:17)
[2024-11-17] MEDS: INSULIN GLARGINE (Lantus) 5 UNIT/0.05 ML (PER 5 UNITS) 23 UNIT SC (08:18)
--- NOTE | 2024-11-17 12:41 | ESPR_ITS ---
Documentation for date of: 11/17/24 Subjective Subjective Interval history: Patient seen today at the bedside found awake, alert, oriented x 3. No overnight events reported. Vital signs at this time are stable. No fevers reported in the last 48 hours. States no active complaints at this time, is asking when she is able to go home. Due to continuing leukopenia and neutropenia will consult hematology Dr. Antoine for further recommendations. Encouraged patient to get out of bed to chair with assistance and ambulate as tolerated with assistance. Will continue current management with Tamiflu, fluconazole. Will continue management of H. pylori with quadruple therapy. Anticipate discharge in next 24 to 48 hours. Exam Vital Signs Temp Pulse Resp BP Pulse Ox O2 Del Method O2 Flow Rate 97.3 F 60 17 125/70 95 Room Air 0 11/17/24 12:00 11/17/24 12:00 11/17/24 12:00 11/17/24 12:00 11/17/24 12:00 11/17/24 12:00 11/17/24 12:00 Narrative Exam Physical Exam GENERAL: NAD, AAOx3 HEENT: Moist mucosa. Eyes open, symmetrical, & clear CARDIO: Heart RRR, no obvious murmurs PULM: No noted coughing/dyspnea CTA B/L, no R/W/R GI: Abdomen soft, nondistended, no pain on palpation. BSx4 SKIN/MSK/EXT: No wounds/rashes/edema/amputations, no pain on palpation. Pedal pulses present B/L NEURO: AAOx3, no focal neuro deficits, able to move all 4 extremities Objective Labs 11/17/24 04:42 11/17/24 04:42 Labs: Laboratory Results - last 24 hr 11/17/24 04:42 WBC 1.8 L RBC 3.27 L Hgb 10.8 L Hct 31.0 L MCV 95 MCH 33.0 MCHC 34.8 RDW Std Deviation 44.5 Plt Count 120 L Neut % (Auto) 23 L Lymph % (Auto) 48 [place] % (Auto) 21 H Eos % (Auto) 7 Baso % (Auto) 1 Neut # (Auto) 0.4 L Lymph # (Auto) 0.8 L [place] # (Auto) 0.4 Eos # (Auto) 0.1 Baso # (Auto) 0.0 Immature Gran # (Auto) 0.01 H Absolute Nucleated RBC 0.00 Immature Gran % 1 H Nucleated RBC % 0 Sodium 135 L Potassium 3.3 L Chloride 102 Carbon Dioxide 26.9 Anion Gap 6 L BUN 7 L Creatinine 0.9 Estim Creat Clear Calc 43.0 L eGFR > 60 BUN/Creatinine Ratio 8 L Glucose 110 H D Calculated Osmolality 269 L Calcium 8.2 L Corrected Calcium 8.9 Phosphorus 2.5 Magnesium 1.7 Total Bilirubin 0.3 AST 82 H ALT 57 H Alkaline Phosphatase 59 Total Protein 4.7 L Albumin 3.1 L Globulin 1.6 L Albumin/Globulin Ratio 1.9 ABG Interpretation ABG results: 11/08/24 11/08/24 11/09/24 11:07 16:06 13:51 ABG pH 7.17 L* 7.42 D ABG pCO2 15 L* 31 L D ABG pO2 122 H 90 D ABG HCO3 6 L* 20 ABG O2 Saturation 99 H 97 ABG Base Excess -21 L -3 VBG pH 7.46 VBG pCO2 27 L VBG pO2 38 VBG Base Excess -4 L 11/09/24 11/09/24 11/10/24 17:10 20:50 04:50 ABG pH ABG pCO2 ABG pO2 ABG HCO3 ABG O2 Saturation ABG Base Excess VBG pH 7.48 7.42 7.45 VBG pCO2 31 L 43 D 37 VBG pO2 55 27 D 52 D VBG Base Excess 0 3 2 Quality Measures Quality Measures VTE prophylaxis Advance care planning discussed with:: patient Assessment & Plan Assessment Current Active Medications: Generic Name Dose Route Start Last Admin Trade Name Freq PRN Reason Stop Dose Admin Acetaminophen 650 mg 11/14/24 04:04 11/15/24 07:38 Acetaminophen 325 Mg Tablet PO 12/08/24 13:01 650 mg Q4HR PRN Administration Pain 1-3 or fever >100.3 Al Hydrox/Mg Hydrox/Simethicone 30 ml 11/08/24 13:02 11/10/24 11:25 Mg Hyd/Al Hyd/Nat (Maalox Reg) Susp 30 Ml Udc PO 12/08/24 13:01 30 ml Q4HR PRN Administration Heartburn or Upset Stomach Al Hydrox/Mg Hydrox/Simethicone 15 ml 11/12/24 21:00 11/17/24 11:32 Mg Hyd/Al Hyd/Nat (Maalox Reg) Susp 30 Ml Udc PO 12/12/24 20:59 15 ml QID JULITA Administration Atorvastatin Calcium 40 mg 11/13/24 21:00 11/16/24 20:45 Atorvastatin Calcium 20 Mg Tablet PO 12/13/24 20:59 40 mg HS JULITA Administration Bismuth Subsalicylate 1 tab 11/16/24 17:00 11/17/24 11:32 Bismuth Subsalicyl 1 Tablet (Pepto-Bismol) PO 12/16/24 16:59 1 tab QID JULITA Administration Clopidogrel Bisulfate 75 mg 11/13/24 09:00 11/17/24 08:12 Clopidogrel Bisulfate 75 Mg Tablet PO 12/13/24 08:59 75 mg QDAY JULITA Administration Dextrose 25 ml 11/09/24 18:56 Dextrose 50%-Water Inj 50 Ml Syringe IV 12/09/24 18:55 Q15MIN PRN BG 50-70 responsive npo pt Dextrose 50 ml 11/09/24 18:56 Dextrose 50%-Water Inj 50 Ml Syringe IV 12/09/24 18:55 Q15MIN PRN BG <50 OR BG <70 & pt unresponsive Donepezil HCl 10 mg 11/13/24 21:00 11/16/24 20:44 Donepezil Hcl 5 Mg Tablet PO 12/13/24 20:59 10 mg HS JULITA Administration Doxycycline Hyclate 100 mg 11/16/24 21:00 11/17/24 08:12 Doxycycline 100 Mg Tablet PO 11/23/24 20:59 100 mg BID JULITA Administration Fluconazole 400 mg 11/15/24 09:00 11/17/24 08:12 Fluconazole 100 Mg Tablet PO 11/22/24 08:59 400 mg QDAY JULITA Administration Glucagon 1 mg 11/09/24 18:56 Glucagon Inj 1 Mg Vial IM Q15MIN PRN BG <70, and no IV access Guaifenesin 200 mg 11/14/24 14:03 Guaifenesin Syrup 200 Mg/10 Ml Udc PO 12/14/24 14:02 QID PRN COUGH OR CONGESTION Protocol Heparin Sodium (Porcine) 5,000 unit 11/08/24 14:00 11/17/24 05:20 Heparin Sod Inj 5000 Unit/Ml Vial SC 11/22/24 13:59 5,000 unit Q8HR JULITA Administration Hydralazine HCl 10 mg 11/10/24 07:51 Hydralazine Inj 20 Mg/Ml Vial IV 12/09/24 20:46 Q6HR PRN SBP >160 Insulin Glargine 23 unit 11/15/24 09:00 11/17/24 08:18 Insulin Glargine (Lantus) 5 Unit/0.05 Ml (Per 5 Units) SC 12/15/24 08:59 23 unit BID JULITA Administration Insulin Human Lispro 0 unit 11/10/24 12:48 11/17/24 11:29 Insulin Lispro (Admelog) 1 Unit/0.01 Ml Unit SC 12/09/24 20:59 Not Given ACHS JULITA Protocol Insulin Human Lispro 8 unit 11/12/24 11:30 11/17/24 11:29 Insulin Lispro (Admelog) 1 Unit/0.01 Ml Unit SC 12/12/24 11:29 Not Given AC JULITA Magnesium Hydroxide 30 ml 11/08/24 13:02 Milk Of Magnesia Susp 30 Ml Udc PO 12/08/24 13:01 QDAY PRN CONSTIPATION Metronidazole 500 mg 11/16/24 14:45 11/17/24 05:20 Metronidazole 250 Mg Tablet PO 11/23/24 14:44 500 mg TID JULITA Administration Nitroglycerin 0.4 mg 11/08/24 13:02 Nitroglycerin 0.4 Mg Subl Btl #25 SL Q5MIN PRN CHEST PAIN Ondansetron HCl 4 mg 11/10/24 11:41 11/10/24 21:14 Ondansetron Inj 2 Mg/Ml Inj 2 Ml IV 12/10/24 11:40 4 mg Q6HR PRN Administration NAUSEA OR VOMITING Protocol Oseltamivir Phosphate 30 mg 11/16/24 09:00 11/17/24 08:13 Oseltamivir 30 Mg Capsule PO 11/20/24 09:01 30 mg BID JULITA Administration Pantoprazole Sodium 40 mg 11/16/24 21:00 11/17/24 08:12 Pantoprazole 40 Mg Tablet PO 12/16/24 20:59 40 mg BID JULITA Administration Phenol/Menthol 0 ml 11/10/24 18:14 11/10/24 21:13 Phenol/Na Phenolate (Chloraseptic) [place] 180 Ml Btl PO 01/14/25 18:13 1 dose Q6HR PRN Administration SORE THROAT Plan 79-year-old female with past medical history of hypertension, diabetes, hyperlipidemia, chronic UTIs, CVA, history of DKA who was admitted due to altered mental status and DKA. Patient was downgraded to the floors after DKA resolved. #DKA-resolved #Insulin dependent Diabetes Patient was admitted to the ICU for DKA protocol Anion gap closed, patient transition to subcu insulin, was planning for downgrade but follow-up labs showed reopening of anion gap and increased beta hydroxybutyrate. Patient has previous hx of DKA, likely in the setting of noncomplaince A1C 11, Anion gap has closed There is concern as patient is not eating and not taking much po intake s/p esophageal dilation patient has been tolerating po intake and advancing diet, well tolerated - SSI - blood sugar checks q 4hours - insulin glargine 23 units twice daily -Lispro 8 units 3 times daily with meals #Infection with Influenza #Recurrent Fever, improving #Left lower lobe pneumonia #? Vaginitis Patient already received 7 days of treatment for pneumonia Fevers likely in the setting of influenza blood cx negative Concern for vaginitis due to yeast on UA in the setting of neutropenia with spiking fevers -On Tamiflu -On Fluconazole #Neutropenia #Leukpenia Patient has absolute neutrophil count less than 1000 possible bone marrow suppression or drug-induced neutropenia. Patient however does not look septic clinically improved since admission Zosyn was discontinued due to concerns for worsening neutropenia and already completed antibiotic therapy Patient continues to have a leukopenia and neutropenia -Consulted hematology Dr. Antoine, appreciate recommendations #H. pylori infection #Esophageal stenosis s/p dilation #Esophageal ulcers #Odynophagia #Dysphagia #Poor oral intake #Nausea #Vomiting likely in the setting of DKA vs infectious vs mechanical Patient has endorsed poor oral intake prior to admission Currently on anti-emetics Patient has been stating pain with swallowing solids and liquids and states that is the reason she has had poor oral intake EGD was done showed some esophageal stenosis which were dilated, and ulceration in lower 3rd of the esophagus H. pylori infection positive on pathology report - on quadruple therapy for H.Pylori, flagyl, bismuth, PPI, doxycycline - continue anti-emetics - advance diet as tolerated - Protonix 40mg BID - GI on case, appreciate recommendations #YARA- resolved Secondary to dehydration due to DKA. Patient has mild elevation of creatinine and BUN Urinary output record unreliable, patient non-compliant with pure wick. Patient to continue with p.o. fluids Creatinine 0.9 -Avoid nephrotoxic medications -Monitor labs #Normocytic anemia #Asymptomatic anemia Could be related to dehydration ?Monitor CBC #Cystitis #?Echogenic mass Bladder scan showed Echogenic area in the posterior bladder wall, 5.5 x 1.2 x 4.1 cm This may represent blood clot although soft tissue mass cannot be excluded recommended to do cystoscopy as outpatient -f/u as outpatient #?18 mm pulmonary nodule in the left upperlobe Seen on CT chest - Recommend follow-up chest imaging as outpatient Case discussed with my senior Dr. Jones PGY-[address] Tran Tillman MD PGY-1 Disposition: Tele Fluids: None Feeding: dysphagia 3 Thrombo prophylaxis: heparin Gastric Ulcer prophylaxis: Pantoprazole CODE STATUS: Full code Senior resident attestation: Patient evaluated and examined at the bedside, plan of care discussed with rest of the team including my attending physician, except as noted. Patient is 79-year-old female with past medical history of diabetes mellitus, noncompliant with treatment. Patient home insulin is 60 units of insulin glargine along with 15 units of insulin lispro premeals. Patient reports that her son's girlfriend is the one who gives her the insulin, sometimes they miss nighttime insulin, home blood glucose readings frequently in the 400s and 500s. Patient came in with DKA, was admitted to ICU for insulin drip, was downgraded to the floors once anion gap closed x 2, but patient went back into diabetic ketoacidosis, BHB positive, but due to poor IV access IV line was used for IV fluids and insulin was given subcu. Patient received approximately 120 units of insulin over last 24 hours in ICU, and downgraded to the floors, patient received 15 units insulin glargine and 15 units insulin lispro Premeal's in the a.m., concern for hypoglycemia and poor p.o. intake. RN was instructed to do frequent fingerstick glucose checks and continue with insulin as patient's risk of going back into DKA is high. #New onset fever #Influenza A The patient had new onset fever, despite being on adequate antibiotics for pneumonia, which included pseudomonal coverage. Patient's clinical condition continued to improve but developed fever overnight, of note patient had recent sick contacts, initial bedside influenza testing in the ER was negative, repeat flu and COVID testing was ordered as patient blood culture and urine cultures continue to be negative for bacteria, tested positive for influenza A. Started on Tamiflu by the night team. Likely cause of new onset fevers. ? Continue Tamiflu #Neutropenia ANC<1000, absolute neutrophil count 400 on CBC this a.m., went over patient's documentation, orders, likely cause for neutropenia possible bone marrow suppression or drug-induced neutropenia. Of note patient does not clinically look septic, she has actually improved a lot since admission, her appetite has improved, she is more alert and active, eating her meals. Likely pulmonary suppression due to concurrent viral infection or drug-induced neutropenia, we will discontinue likely culprits as patient is already received 10 days of IV antibiotic therapy for pneumonia. ? Zosyn discontinued due to concern for neutropenia. ? Already completed adequate antibiotic therapy for pneumonia. Will continue to monitor for any new onset fever, follow-up blood cultures. #H. pylori gastritis EGD showed H. pylori-like organisms on path report, ? Start patient on H. pylori eradication therapy on bismuth, doxycycline, metronidazole and on Protonix to be continued for 10 to 14 days. ?Tetracycline substituted with Doxycycline due to concomitant neutropenia. #Pneumonia #Rule out cocci #UTI #Concern for cystitis ? Already completed adequate antibiotic therapy for pneumonia. Will continue to monitor for any new onset fever, follow-up blood cultures. ? Currently on Diflucan for UTI caused by yeast. #DKA- resolved #Type 2 diabetes mellitus?poorly controlled: Home dose of insulin 60 insulin glargine +15 insulin lispro 3 times daily Premeal. ?Currently well-managed on insulin glargine 23 units twice daily, insulin lispro 8 units AC with sliding scale . #Nausea vomiting- resolved #Peptic ulcer disease #Odynophagia ?Adolfo Fitch, ?EGD by Dr. Hairston shows esophageal ulcers and esophageal stricture, which was dilated. Diet advance as tolerated. Quresh PGY2 Attending Provider Attestation/Addendum I have examined the patient, reviewed labs and imaging findings, discussed the case with the resident(s), and reviewed entered orders. I agree with the plan of care as outlined in this note, with these additional summaries/recommendations: Patient seen at bedside. No acute overnight events. Patient now afebrile for approximately 48 hours. Blood cultures preliminary showing no growth at 48 hours. Influenza A returned positive and patient has been receiving Tamiflu. Patient has worsening leukopenia with neutropenia. We will consult hematology for recommendations and suspect etiology secondary to the flu causing decreased production of white blood cells. Continue on quadruple therapy for H. pylori. Patient's dysphagia continues to improve and currently tolerating dysphagia 3 diet. Blood sugars continue to improve from admission and continue basal and bolus insulin. A1c 10.5%. Thrombocytopenia present although no evidence of bleeding and we will continue to monitor. Outpatient follow-up for echogenic mass seen on bladder ultrasound. Continue to monitor for return of fevers. Repeat chemistry and hematology panel in AM. Anticipate discharge in the next [address] Mayfield
--- NOTE | 2024-11-17 15:09 | PD.IMPROG ---
Documentation for date of: 11/17/24 Subjective Subjective Interval history: Swallowing is improved after endoscopic dilatation Exam Vital Signs Temp Pulse Resp BP Pulse Ox O2 Del Method O2 Flow Rate 97.3 F 65 17 125/70 95 Room Air 0 11/17/24 12:00 11/17/24 13:56 11/17/24 12:00 11/17/24 12:00 11/17/24 12:00 11/17/24 12:00 11/17/24 12:00 Objective Labs 11/18/24 05:09 11/18/24 05:09 Labs: Laboratory Results - last 24 hr 11/17/24 04:42 WBC 1.8 L RBC 3.27 L Hgb 10.8 L Hct 31.0 L MCV 95 MCH 33.0 MCHC 34.8 RDW Std Deviation 44.5 Plt Count 120 L Neut % (Auto) 23 L Lymph % (Auto) 48 [place] % (Auto) 21 H Eos % (Auto) 7 Baso % (Auto) 1 Neut # (Auto) 0.4 L Lymph # (Auto) 0.8 L [place] # (Auto) 0.4 Eos # (Auto) 0.1 Baso # (Auto) 0.0 Immature Gran # (Auto) 0.01 H Absolute Nucleated RBC 0.00 Immature Gran % 1 H Nucleated RBC % 0 Sodium 135 L Potassium 3.3 L Chloride 102 Carbon Dioxide 26.9 Anion Gap 6 L BUN 7 L Creatinine 0.9 Estim Creat Clear Calc 43.0 L eGFR > 60 BUN/Creatinine Ratio 8 L Glucose 110 H D Calculated Osmolality 269 L Calcium 8.2 L Corrected Calcium 8.9 Phosphorus 2.5 Magnesium 1.7 Total Bilirubin 0.3 AST 82 H ALT 57 H Alkaline Phosphatase 59 Total Protein 4.7 L Albumin 3.1 L Globulin 1.6 L Albumin/Globulin Ratio 1.9 Impressions Impression: # Esophageal stricture status post endoscopic dilatation # Improved dysphagia after endoscopic dilatation Continue current management ABG Interpretation ABG results: 11/08/24 11/08/24 11/09/24 11:07 16:06 13:51 ABG pH 7.17 L* 7.42 D ABG pCO2 15 L* 31 L D ABG pO2 122 H 90 D ABG HCO3 6 L* 20 ABG O2 Saturation 99 H 97 ABG Base Excess -21 L -3 VBG pH 7.46 VBG pCO2 27 L VBG pO2 38 VBG Base Excess -4 L 11/09/24 11/09/24 11/10/24 17:10 20:50 04:50 ABG pH ABG pCO2 ABG pO2 ABG HCO3 ABG O2 Saturation ABG Base Excess VBG pH 7.48 7.42 7.45 VBG pCO2 31 L 43 D 37 VBG pO2 55 27 D 52 D VBG Base Excess 0 3 2 Assessment & Plan A&P Narrative # Odynophagia Plan is TSH ANUP Consent obtained for fiberoptic esophagogastroduodenoscopy with possible biopsies possible therapeutic intervention such as guidewire savory dilatation or esophageal balloon dilatation if required under intravenous moderate sedation Which has been scheduled for tomorrow afternoon Clear liquid diet a.m. N.p.o. 11:00 in the morning except p.o. meds Other medical problems include # Left lower lobe pneumonia # Just came out of DKA # IDDM Thank you very much for the opportunity to participate in the care of this patient Time Spent With Patient Time: Total time spent is greater than 50% in coordination of care (as documented) at patient's floor/unit and/or counseling patient:
[2024-11-17] MEDS: INSULIN LISPRO (AdmeLOG) 1 UNIT/0.01 ML UNIT SC (16:49)
[2024-11-17] MEDS: INSULIN LISPRO (AdmeLOG) 1 UNIT/0.01 ML UNIT 8 UNIT SC (16:50)
[2024-11-17] MEDS: DONEPEZIL HCL 5 MG TABLET 10 MG PO (21:50)
[2024-11-17] MEDS: ATORVASTATIN CALCIUM 20 MG TABLET 40 MG PO (23:08)
[2024-11-18] VITALS: BP 145/74; PULSE 57; PULSE 59; RESP 13; TEMP 36.2; O2SAT 97
[2024-11-18 04:00] VITALS: BP 117/67; PULSE 53; PULSE 56; RESP 13; TEMP 36.1; O2SAT 97
[2024-11-18] MEDS: MG HYD/AL HYD/SIME (Maalox Reg) SUSP 30 ML UDC 15 ML PO ×4 (05:06→21:17)
[2024-11-18] MEDS: metroNIDAZOLE 250 MG TABLET 500 MG PO ×3 (05:06→21:18)
[2024-11-18] MEDS: HEPARIN SOD INJ 5000 UNIT/ML VIAL SC ×3 (05:06→21:19)
[2024-11-18] MEDS: BISMUTH SUBSALICYL 1 TABLET (Pepto-Bismol) 1 TAB PO ×4 (05:06→21:17)
[2024-11-18 05:56] LABS: Basophils % (Auto) 0 % (0-2.5); Eosinophils # (Auto) 0.1 Thou/mm3 (0.0-0.5); Eosinophils % (Auto) 5 % (0-10); Hematocrit 32.4 % (36.0-46.0); Hemoglobin 11.3 g/dL (12.0-16.0); Immature Granulocytes % (Auto) 0 % (0-0); Immature Granulocytes Auto 0.01 Thou/mm3 (0.00-0.00); Lymphocytes # (Auto) 1.2 Thou/mm3 (1.0-4.8); Lymphocytes % (Auto) 49 % (10-50); Mean Corpuscular HGB Conc 34.9 g/dl (31.0-37.0); Mean Corpuscular Hemoglobin 32.9 pg (25.0-35.0); Mean Corpuscular Volume 95 fL (80-100); Monocytes # (Auto) 0.4 Thou/mm3 (0.0-0.8); Monocytes % (Auto) 15 % (0-12); Neutrophils # (Auto) 0.7 Thou/mm3 (1.8-7.7); Neutrophils % (Auto) 29 % (37-80); Nucleated Red Blood Cell % 0 /100 WBC (0); Platelet Count 123 Thou/mm3 (140-440); RDW Standard Deviation 45.5 fL (36.4-46.3); Red Blood Count 3.43 Miln/mm3 (4.00-5.20)
[2024-11-18 06:05] LABS: White Blood Count 2.4 Thou/mm3 (3.6-11.0)
[2024-11-18 06:24] LABS: Alanine Aminotransferase 48 U/L (10-49); Albumin/Globulin Ratio 1.7 (1.2-2.2); Alkaline Phosphatase 56 U/L (46-116); Anion Gap 8 (7-16); Aspartate Amino Transferase 67 U/L (0-34); BUN/Creatinine Ratio 9 Ratio (12-20); Bilirubin,Total 0.3 mg/dL (0.3-1.2); Blood Urea Nitrogen 8 mg/dL (9-23); Calcium 8.7 mg/dL (8.3-10.6); Calcium (Corrected) 9.5 mg/dL (8.5-10.1); Carbon Dioxide 24.9 mMol/L (20.0-31.0); Chloride 106 mMol/L (98-107); Creatinine (Component) 0.9 mg/dL (0.6-1.3); Estimated Creatinine Clearance 42.7 mL/min (>60); Globulin 1.8 gm/dL (2.3-3.5); Glucose 118 mg/dL (74-106); Osmolality,Calculated 276 (275-295); Phosphorous 2.4 mg/dL (2.4-5.1); Potassium 4.2 mMol/L (3.4-5.1); Sodium 139 mMol/L (136-145); Total Protein 4.8 gm/dL (5.7-8.2); eGFR > 60 See Note
[2024-11-18 06:56] LABS: ANA Pattern NUCLEAR, HOMOGENEOUS; ANA Pattern NUCLEAR, SPECKLED; ANA Screen, IFA POSITIVE (NEGATIVE); ANA Titer 1:40 titer
[2024-11-18 08:00] VITALS: BP 124/61; PULSE 57; PULSE 62; RESP 16; TEMP 36.3; O2SAT 98
[2024-11-18] MEDS: FLUCONAZOLE 100 MG TABLET 400 MG PO (10:10)
[2024-11-18] MEDS: PANTOPRAZOLE 40 MG TABLET PO ×2 (10:11→21:18)
[2024-11-18] MEDS: OSELTAMIVIR 30 MG CAPSULE PO ×2 (10:11→21:17)
[2024-11-18] MEDS: DOXYCYCLINE 100 MG TABLET PO (10:11)
[2024-11-18] MEDS: CLOPIDOGREL BISULFATE 75 MG TABLET PO (10:11)
[2024-11-18] MEDS: INSULIN GLARGINE (Lantus) 5 UNIT/0.05 ML (PER 5 UNITS) 23 UNIT SC ×2 (10:18→21:18)
[2024-11-18] MEDS: INSULIN LISPRO (AdmeLOG) 1 UNIT/0.01 ML UNIT SC ×2 (11:45→21:19)
[2024-11-18] MEDS: INSULIN LISPRO (AdmeLOG) 1 UNIT/0.01 ML UNIT 8 UNIT SC (11:46)
[2024-11-18 12:00] VITALS: BP 129/54; PULSE 55; PULSE 56; RESP 14; TEMP 36.5; O2SAT 96
[2024-11-18] MEDS: TETRACYCLINE 250 MG CAPSULE 500 MG PO ×3 (13:21→21:17)
--- NOTE | 2024-11-18 14:51 | PD.RESPRO ---
Documentation for date of: 11/18/24 ATTESTATION: I saw and examined the patient this morning, and I agree with current management stated by the resident. Will continue to monitor patient during their stay. Disclaimer: Despite multiple revisions, due to the dictation software being used, the document bellow may not be free of grammatical errors including phonetic/typographic errors. However, this does not deter from our commitment to providing health care in the patient's best interest in mind. Dr. Matt Rodriguez, PGY-3 Subjective Subjective Interval history: Patient seen today at the bedside found awake, alert, oriented x 3. No overnight events reported. Vital signs at this time are stable. No fevers reported in the last 72 hours. States no active complaints at this time, is asking when she is able to go home. Due to continuing leukopenia and neutropenia, improving today, consulted hematology Dr. Antoine for further recommendations. Will continue current management with Tamiflu, fluconazole. Will continue management of H. pylori with quadruple therapy. Anticipate discharge in next 24 to 48 hours. Exam Vital Signs Temp Pulse Resp BP Pulse Ox O2 Del Method O2 Flow Rate 97.7 F 55 L 14 129/54 L 96 Room Air 0 11/18/24 12:00 11/18/24 12:00 11/18/24 12:00 11/18/24 12:00 11/18/24 12:00 11/18/24 12:00 11/18/24 12:00 Narrative Exam Physical Exam GENERAL: NAD, AAOx3 HEENT: Moist mucosa. Eyes open, symmetrical, & clear CARDIO: Heart RRR, no obvious murmurs PULM: No noted coughing/dyspnea CTA B/L, no R/W/R GI: Abdomen soft, nondistended, no pain on palpation. BSx4 SKIN/MSK/EXT: No wounds/rashes/edema/amputations, no pain on palpation. Pedal pulses present B/L NEURO: AAOx3, no focal neuro deficits, able to move all 4 extremities Objective Labs 11/19/24 05:38 11/19/24 05:38 Labs: Laboratory Results - last 24 hr 11/12/24 11/18/24 05:43 05:09 WBC 2.4 L RBC 3.43 L Hgb 11.3 L Hct 32.4 L MCV 95 MCH 32.9 MCHC 34.9 RDW Std Deviation 45.5 Plt Count 123 L Neut % (Auto) 29 L Lymph % (Auto) 49 [place] % (Auto) 15 H Eos % (Auto) 5 Baso % (Auto) 0 Neut # (Auto) 0.7 L Lymph # (Auto) 1.2 [place] # (Auto) 0.4 Eos # (Auto) 0.1 Baso # (Auto) 0.0 Immature Gran # (Auto) 0.01 H Absolute Nucleated RBC 0.00 Immature Gran % 0 Nucleated RBC % 0 Sodium 139 Potassium 4.2 D Chloride 106 Carbon Dioxide 24.9 Anion Gap 8 BUN 8 L Creatinine 0.9 Estim Creat Clear Calc 42.7 L eGFR > 60 BUN/Creatinine Ratio 9 L Glucose 118 H Calculated Osmolality 276 Calcium 8.7 Corrected Calcium 9.5 Phosphorus 2.4 Magnesium 2.0 Total Bilirubin 0.3 AST 67 H ALT 48 Alkaline Phosphatase 56 Total Protein 4.8 L Albumin 3.0 L Globulin 1.8 L Albumin/Globulin Ratio 1.7 ANUP Screen POSITIVE A ANUP Titer 1:40 H ANUP Titer 2 1:40 H ANUP Titer 3 TNP ANUP Pattern NUCLEAR, SPECKLED ANUP Pattern 2 NUCLEAR, HOMOGENEOUS ANUP Pattern 3 TNP ABG Interpretation ABG results: 11/08/24 11/08/24 11/09/24 11:07 16:06 13:51 ABG pH 7.17 L* 7.42 D ABG pCO2 15 L* 31 L D ABG pO2 122 H 90 D ABG HCO3 6 L* 20 ABG O2 Saturation 99 H 97 ABG Base Excess -21 L -3 VBG pH 7.46 VBG pCO2 27 L VBG pO2 38 VBG Base Excess -4 L 11/09/24 11/09/24 11/10/24 17:10 20:50 04:50 ABG pH ABG pCO2 ABG pO2 ABG HCO3 ABG O2 Saturation ABG Base Excess VBG pH 7.48 7.42 7.45 VBG pCO2 31 L 43 D 37 VBG pO2 55 27 D 52 D VBG Base Excess 0 3 2 Quality Measures Quality Measures VTE prophylaxis Advance care planning discussed with:: patient Assessment & Plan Assessment Current Active Medications: Generic Name Dose Route Start Last Admin Trade Name Freq PRN Reason Stop Dose Admin Acetaminophen 650 mg 11/14/24 04:04 11/15/24 07:38 Acetaminophen 325 Mg Tablet PO 12/08/24 13:01 650 mg Q4HR PRN Administration Pain 1-3 or fever >100.3 Al Hydrox/Mg Hydrox/Simethicone 30 ml 11/08/24 13:02 11/10/24 11:25 Mg Hyd/Al Hyd/Nat (Maalox Reg) Susp 30 Ml Udc PO 12/08/24 13:01 30 ml Q4HR PRN Administration Heartburn or Upset Stomach Al Hydrox/Mg Hydrox/Simethicone 15 ml 11/12/24 21:00 11/18/24 11:44 Mg Hyd/Al Hyd/Nat (Maalox Reg) Susp 30 Ml Udc PO 12/12/24 20:59 15 ml QID JULITA Administration Atorvastatin Calcium 40 mg 11/13/24 21:00 11/17/24 23:08 Atorvastatin Calcium 20 Mg Tablet PO 12/13/24 20:59 40 mg HS JULITA Administration Bismuth Subsalicylate 1 tab 11/16/24 17:00 11/18/24 11:45 Bismuth Subsalicyl 1 Tablet (Pepto-Bismol) PO 12/16/24 16:59 1 tab QID JULITA Administration Clopidogrel Bisulfate 75 mg 11/13/24 09:00 11/18/24 10:11 Clopidogrel Bisulfate 75 Mg Tablet PO 12/13/24 08:59 75 mg QDAY JULITA Administration Dextrose 25 ml 11/09/24 18:56 Dextrose 50%-Water Inj 50 Ml Syringe IV 12/09/24 18:55 Q15MIN PRN BG 50-70 responsive npo pt Dextrose 50 ml 11/09/24 18:56 Dextrose 50%-Water Inj 50 Ml Syringe IV 12/09/24 18:55 Q15MIN PRN BG <50 OR BG <70 & pt unresponsive Donepezil HCl 10 mg 11/13/24 21:00 11/17/24 21:50 Donepezil Hcl 5 Mg Tablet PO 12/13/24 20:59 10 mg HS JULITA Administration Glucagon 1 mg 11/09/24 18:56 Glucagon Inj 1 Mg Vial IM Q15MIN PRN BG <70, and no IV access Guaifenesin 200 mg 11/14/24 14:03 Guaifenesin Syrup 200 Mg/10 Ml Udc PO 12/14/24 14:02 QID PRN COUGH OR CONGESTION Protocol Heparin Sodium (Porcine) 5,000 unit 11/08/24 14:00 11/18/24 13:22 Heparin Sod Inj 5000 Unit/Ml Vial SC 11/22/24 13:59 5,000 unit Q8HR JULITA Administration Hydralazine HCl 10 mg 11/10/24 07:51 Hydralazine Inj 20 Mg/Ml Vial IV 12/09/24 20:46 Q6HR PRN SBP >160 Insulin Glargine 23 unit 11/15/24 09:00 11/18/24 10:18 Insulin Glargine (Lantus) 5 Unit/0.05 Ml (Per 5 Units) SC 12/15/24 08:59 23 unit BID JULITA Administration Insulin Human Lispro 0 unit 11/10/24 12:48 11/18/24 11:45 Insulin Lispro (Admelog) 1 Unit/0.01 Ml Unit SC 12/09/24 20:59 6 unit ACHS JULITA Administration Protocol Insulin Human Lispro 8 unit 11/12/24 11:30 11/18/24 11:46 Insulin Lispro (Admelog) 1 Unit/0.01 Ml Unit SC 12/12/24 11:29 8 unit AC JULITA Administration Magnesium Hydroxide 30 ml 11/08/24 13:02 Milk Of Magnesia Susp 30 Ml Udc PO 12/08/24 13:01 QDAY PRN CONSTIPATION Metronidazole 500 mg 11/16/24 14:45 11/18/24 13:22 Metronidazole 250 Mg Tablet PO 11/23/24 14:44 500 mg TID UJLITA Administration Nitroglycerin 0.4 mg 11/08/24 13:02 Nitroglycerin 0.4 Mg Subl Btl #25 SL Q5MIN PRN CHEST PAIN Ondansetron HCl 4 mg 11/10/24 11:41 11/10/24 21:14 Ondansetron Inj 2 Mg/Ml Inj 2 Ml IV 12/10/24 11:40 4 mg Q6HR PRN Administration NAUSEA OR VOMITING Protocol Oseltamivir Phosphate 30 mg 11/16/24 09:00 11/18/24 10:11 Oseltamivir 30 Mg Capsule PO 11/20/24 09:01 30 mg BID JULITA Administration Pantoprazole Sodium 40 mg 11/16/24 21:00 11/18/24 10:11 Pantoprazole 40 Mg Tablet PO 12/16/24 20:59 40 mg BID JULITA Administration Phenol/Menthol 0 ml 11/10/24 18:14 11/10/24 21:13 Phenol/Na Phenolate (Chloraseptic) [place] 180 Ml Btl PO 12/10/24 18:13 1 dose Q6HR PRN Administration SORE THROAT Tetracycline HCl 500 mg 11/18/24 12:15 11/18/24 13:21 Tetracycline 250 Mg Capsule PO 11/25/24 12:14 500 mg QID JULITA Administration Plan 79-year-old female with past medical history of hypertension, diabetes, hyperlipidemia, chronic UTIs, CVA, history of DKA who was admitted due to altered mental status and DKA. Patient was downgraded to the floors after DKA resolved. #DKA-resolved #Insulin dependent Diabetes Patient was admitted to the ICU for DKA protocol Anion gap closed, patient transition to subcu insulin, was planning for downgrade but follow-up labs showed reopening of anion gap and increased beta hydroxybutyrate. Patient has previous hx of DKA, likely in the setting of noncomplaince A1C 11, Anion gap has closed There is concern as patient is not eating and not taking much po intake s/p esophageal dilation patient has been tolerating po intake and advancing diet, well tolerated - SSI - blood sugar checks q 4hours - insulin glargine 23 units twice daily -Lispro 8 units 3 times daily with meals #Infection with Influenza #Recurrent Fever, improving #Left lower lobe pneumonia #? Vaginitis Patient already received 7 days of treatment for pneumonia Fevers likely in the setting of influenza blood cx negative Concern for vaginitis due to yeast on UA in the setting of neutropenia with spiking fevers -On Tamiflu -On Fluconazole #Neutropenia #Leukpenia Patient has absolute neutrophil count less than 1000 possible bone marrow suppression or drug-induced neutropenia. Patient however does not look septic clinically improved since admission Zosyn was discontinued due to concerns for worsening neutropenia and already completed antibiotic therapy Patient continues to have a leukopenia and neutropenia -Consulted hematology Dr. Antoine, appreciate recommendations #H. pylori infection #Esophageal stenosis s/p dilation #Esophageal ulcers #Odynophagia #Dysphagia #Poor oral intake #Nausea #Vomiting likely in the setting of DKA vs infectious vs mechanical Patient has endorsed poor oral intake prior to admission Currently on anti-emetics Patient has been stating pain with swallowing solids and liquids and states that is the reason she has had poor oral intake EGD was done showed some esophageal stenosis which were dilated, and ulceration in lower 3rd of the esophagus H. pylori infection positive on pathology report - on quadruple therapy for H.Pylori, flagyl, bismuth, PPI, tetracycline - continue anti-emetics prn - advance diet as tolerated - Protonix 40mg BID - GI on case, appreciate recommendations #YARA- resolved Secondary to dehydration due to DKA. Patient has mild elevation of creatinine and BUN Urinary output record unreliable, patient non-compliant with pure wick. Patient to continue with p.o. fluids Creatinine 0.9 -Avoid nephrotoxic medications -Monitor labs #Normocytic anemia #Asymptomatic anemia Could be related to dehydration ?Monitor CBC #Cystitis #?Echogenic mass Bladder scan showed Echogenic area in the posterior bladder wall, 5.5 x 1.2 x 4.1 cm This may represent blood clot although soft tissue mass cannot be excluded recommended to do cystoscopy as outpatient -f/u as outpatient #?18 mm pulmonary nodule in the left upperlobe Seen on CT chest - Recommend follow-up chest imaging as outpatient Case discussed with my senior Dr. Rodriguez PGY-[address] Elvia Tillman MD PGY-1 Disposition: Tele Fluids: None Feeding: dysphagia 3 Thrombo prophylaxis: heparin Gastric Ulcer prophylaxis: Pantoprazole CODE STATUS: Full code Attending Provider Attestation/Addendum I have discussed and was present for the essential components of the history, physical examination, diagnosis, and treatment plan with the resident. I agree with the patient's care as documented by the resident and amended herein by me. Chavo Gan DO. Although this document has been carefully reviewed, there may still be some phonetic and other typographical errors. These errors are purely grammatical due to imperfections in the software program and should not be construed in any way to compromise the substance of the patient's medical care during this visit.
--- NOTE | 2024-11-18 15:18 | PC.SS ---
Rounding Note: Plan is to d/c patient today following Dr. Antoine's recommendations.
[2024-11-18 16:00] VITALS: BP 103/53; PULSE 55; PULSE 61; RESP 10; TEMP 36.3; O2SAT 97
--- NOTE | 2024-11-18 19:23 | ESPR_ITS ---
Documentation for date of: 11/18/24 Subjective Subjective Interval history: Able to eat and swallow after endoscopic dilatation Being treated for expiratory gastritis on gastric mucosal biopsies Exam Vital Signs Temp Pulse Resp BP Pulse Ox O2 Del Method O2 Flow Rate 97.4 F 61 10 L 103/53 L 97 Room Air 0 11/18/24 16:00 11/18/24 16:00 11/18/24 16:00 11/18/24 16:00 11/18/24 16:00 11/18/24 16:00 11/18/24 16:00 Objective Labs 11/18/24 05:09 11/18/24 05:09 Labs: Laboratory Results - last 24 hr 11/12/24 11/18/24 05:43 05:09 WBC 2.4 L RBC 3.43 L Hgb 11.3 L Hct 32.4 L MCV 95 MCH 32.9 MCHC 34.9 RDW Std Deviation 45.5 Plt Count 123 L Neut % (Auto) 29 L Lymph % (Auto) 49 [place] % (Auto) 15 H Eos % (Auto) 5 Baso % (Auto) 0 Neut # (Auto) 0.7 L Lymph # (Auto) 1.2 [place] # (Auto) 0.4 Eos # (Auto) 0.1 Baso # (Auto) 0.0 Immature Gran # (Auto) 0.01 H Absolute Nucleated RBC 0.00 Immature Gran % 0 Nucleated RBC % 0 Sodium 139 Potassium 4.2 D Chloride 106 Carbon Dioxide 24.9 Anion Gap 8 BUN 8 L Creatinine 0.9 Estim Creat Clear Calc 42.7 L eGFR > 60 BUN/Creatinine Ratio 9 L Glucose 118 H Calculated Osmolality 276 Calcium 8.7 Corrected Calcium 9.5 Phosphorus 2.4 Magnesium 2.0 Total Bilirubin 0.3 AST 67 H ALT 48 Alkaline Phosphatase 56 Total Protein 4.8 L Albumin 3.0 L Globulin 1.8 L Albumin/Globulin Ratio 1.7 ANUP Screen POSITIVE A ANUP Titer 1:40 H ANUP Titer 2 1:40 H ANUP Titer 3 TNP ANUP Pattern NUCLEAR, SPECKLED ANUP Pattern 2 NUCLEAR, HOMOGENEOUS ANUP Pattern 3 TNP Impressions Impression: # Dysphagia improved after endoscopic dilatation # Essential stricture status post endoscopic dilatation # H. pylori gastritis being treated ABG Interpretation ABG results: 11/08/24 11/08/24 11/09/24 11:07 16:06 13:51 ABG pH 7.17 L* 7.42 D ABG pCO2 15 L* 31 L D ABG pO2 122 H 90 D ABG HCO3 6 L* 20 ABG O2 Saturation 99 H 97 ABG Base Excess -21 L -3 VBG pH 7.46 VBG pCO2 27 L VBG pO2 38 VBG Base Excess -4 L 11/09/24 11/09/24 11/10/24 17:10 20:50 04:50 ABG pH ABG pCO2 ABG pO2 ABG HCO3 ABG O2 Saturation ABG Base Excess VBG pH 7.48 7.42 7.45 VBG pCO2 31 L 43 D 37 VBG pO2 55 27 D 52 D VBG Base Excess 0 3 2 Assessment & Plan A&P Narrative # Odynophagia Plan is TSH ANUP Consent obtained for fiberoptic esophagogastroduodenoscopy with possible biopsies possible therapeutic intervention such as guidewire savory dilatation or esophageal balloon dilatation if required under intravenous moderate sedation Which has been scheduled for tomorrow afternoon Clear liquid diet a.m. N.p.o. 11:00 in the morning except p.o. meds Other medical problems include # Left lower lobe pneumonia # Just came out of DKA # IDDM Thank you very much for the opportunity to participate in the care of this patient Time Spent With Patient Time: Total time spent is greater than 50% in coordination of care (as documented) at patient's floor/unit and/or counseling patient:
[2024-11-18 20:00] VITALS: BP 120/59; PULSE 54; PULSE 57; RESP 15; TEMP 36.1; O2SAT 97
[2024-11-18] MEDS: ATORVASTATIN CALCIUM 20 MG TABLET 40 MG PO (21:17)
[2024-11-18] MEDS: DONEPEZIL HCL 5 MG TABLET 10 MG PO (21:18)
[2024-11-19] VITALS: BP 123/61; PULSE 54; PULSE 57; RESP 15; TEMP 36.2; O2SAT 98
[2024-11-19 04:00] VITALS: BP 119/63; PULSE 52; RESP 15; TEMP 36.2; O2SAT 98
[2024-11-19] MEDS: MG HYD/AL HYD/SIME (Maalox Reg) SUSP 30 ML UDC 15 ML PO ×2 (05:29→12:29)
[2024-11-19] MEDS: metroNIDAZOLE 250 MG TABLET 500 MG PO ×2 (05:29→14:30)
[2024-11-19] MEDS: HEPARIN SOD INJ 5000 UNIT/ML VIAL SC ×2 (05:30→14:30)
[2024-11-19] MEDS: BISMUTH SUBSALICYL 1 TABLET (Pepto-Bismol) 1 TAB PO ×2 (05:30→12:29)
[2024-11-19] MEDS: TETRACYCLINE 250 MG CAPSULE 500 MG PO ×2 (05:30→12:29)
[2024-11-19 05:51] VITALS: BMI 27.6
[2024-11-19 05:59] LABS: Basophils % (Auto) 0 % (0-2.5); Eosinophils # (Auto) 0.1 Thou/mm3 (0.0-0.5); Eosinophils % (Auto) 4 % (0-10); Hematocrit 31.4 % (36.0-46.0); Hemoglobin 10.7 g/dL (12.0-16.0); Immature Granulocytes % (Auto) 0 % (0-0); Immature Granulocytes Auto 0.01 Thou/mm3 (0.00-0.00); Lymphocytes # (Auto) 1.4 Thou/mm3 (1.0-4.8); Lymphocytes % (Auto) 47 % (10-50); Mean Corpuscular HGB Conc 34.1 g/dl (31.0-37.0); Mean Corpuscular Hemoglobin 32.5 pg (25.0-35.0); Mean Corpuscular Volume 95 fL (80-100); Monocytes # (Auto) 0.3 Thou/mm3 (0.0-0.8); Monocytes % (Auto) 11 % (0-12); Neutrophils # (Auto) 1.2 Thou/mm3 (1.8-7.7); Neutrophils % (Auto) 39 % (37-80); Nucleated Red Blood Cell % 0 /100 WBC (0); Platelet Count 118 Thou/mm3 (140-440); Red Blood Count 3.29 Miln/mm3 (4.00-5.20); White Blood Count 3.1 Thou/mm3 (3.6-11.0)
[2024-11-19 06:21] LABS: Alanine Aminotransferase 40 U/L (10-49); Albumin, Serum 3.2 gm/dL (3.4-4.8); Albumin/Globulin Ratio 1.8 (1.2-2.2); Alkaline Phosphatase 55 U/L (46-116); Anion Gap 6 (7-16); Aspartate Amino Transferase 46 U/L (0-34); BUN/Creatinine Ratio 6 Ratio (12-20); Bilirubin,Total 0.4 mg/dL (0.3-1.2); Blood Urea Nitrogen 5 mg/dL (9-23); Calcium 8.7 mg/dL (8.3-10.6); Calcium (Corrected) 9.3 mg/dL (8.5-10.1); Carbon Dioxide 25.6 mMol/L (20.0-31.0); Chloride 106 mMol/L (98-107); Creatinine (Component) 0.9 mg/dL (0.6-1.3); Estimated Creatinine Clearance 42.8 mL/min (>60); Globulin 1.8 gm/dL (2.3-3.5); Glucose 74 mg/dL (74-106); Osmolality,Calculated 271 (275-295); Potassium 3.8 mMol/L (3.4-5.1); Sodium 138 mMol/L (136-145); eGFR > 60 See Note
[2024-11-19 07:51] VITALS: BP 150/68; PULSE 56; RESP 20; TEMP 36.3; O2SAT 97
--- NOTE | 2024-11-19 09:13 | PC.NURSE ---
reported pt's bld sugar of [address] Ramos, he says to hold all insulin for now and repeat bs in an hour
[2024-11-19] MEDS: PANTOPRAZOLE 40 MG TABLET PO (09:16)
[2024-11-19] MEDS: OSELTAMIVIR 30 MG CAPSULE PO (09:16)
[2024-11-19] MEDS: CLOPIDOGREL BISULFATE 75 MG TABLET PO (09:16)
--- NOTE | 2024-11-19 09:49 | ESDS_ITS ---
Planned Discharge Date 11/19/24 DS: Providers Provider Date of admission: 11/08/24 13:02 Primary care physician: Mack Neumann PA-C Admitting Provider: Domi Davis MD Attending Provider on Admission: Jere Mayfield MD Consults: 11/08/24 13:03 Referral Registered Dietitian Routine Comment: 11/11/24 13:15 Consult to Gastroenterology Routine Comment: dysphagia Consulting Provider: Christ Hairston 11/13/24 09:29 Referral Physical Therapy Routine Comment: Physician Instructions: 11/17/24 12:21 Consult to Hematology Routine Comment: leukopenia w neutropenia Consulting Provider: Kj Antoine Attending Provider on DC: Jere Mayfield MD Discharging Provider: Santiago Tillman MD Anticipated date of discharge: 11/19/24 DS: Diagnosis Problem List Completed Was Problem List Reviewed/Reconciled?: Yes Hospital Course Hospital Course Hospital course: 79-year-old female with past medical history of hypertension, diabetes, hyperlipidemia, chronic UTIs, CVA, history of DKA who was admitted due to altered mental status and DKA. During Hospital stay patient underwent DKA protocol which included aggressive IV hydration, electrolyte replenishment and insulin drip, and management of her acid base status. After patients anion gap closed patient was downgraded to the floors, however patient developed re- opening of anion gap and acidosis which required 1 more day of ICU stay for DKA management and IV hydration for Acute kidney injury. Patient was downgraded to the floors after. While on the floors patient was having trouble with swallowing reporting some pain. GI specialist, Dr. Hairston was consulted and patient underwent EGD procedure which showed esophageal ulcers of the entire distal third of the esophagus, as well as esophagitis and biopsies were taken. Benign esophageal stenosis was found and patient had dilation of stenosis and later improved her oral intake as patient was able to tolerated food. Biopsies of the esophagus showed H. Pylori for which quadruple therapy with bismuth, protonix, flagyl and tetracycline were initiated. Patient has history of DKA and diabetes for which her insulin regimen was managed by insulin sliding scale and was encouraged to have strict glycemic control at home. Patient at this time is medically stable for discharge. Recommend cystoscopy follow-up to differentiate blood clot from bladder mass in posterior margin, as well as follow up for the 18mm pulmonary nodule found in the left upper lobe. Patient needs to continue quadruple therapy for 11 more days to continue H pylori treatment which includes, bisthmus 2 tablets 4 times a day, metronidazole 500mg twice a day, pantoprazole 40mg twice a day and tetracycline 500mg four times a day, Follow up closely outpatient with PCP in 1 week to repeat CBC and monitor Neutropenia. Recommend outpatient hematology follow up. Changed insuline regime to 30 units of lantus once a day with lispro 8 units three times a day with meals. Follow up closely with PCP to continue adjusting regimen. If symptoms recur or worsen patient is instructed to return to the ED. Problem List: #DKA-resolved #Insulin dependent Diabetes #Infection with Influenza #Recurrent Fever, improving #Left lower lobe pneumonia #?Vaginitis #Neutropenia #Leukpenia #H. pylori infection #Esophageal stenosis s/p dilation #Esophageal ulcers #Odynophagia #Dysphagia #Poor oral intake #Nausea #Vomiting #YARA- resolved #Normocytic anemia #Asymptomatic anemia #Cystitis #?Echogenic mass #?18 mm pulmonary nodule in the left upperlobe Case discussed with my senior Dr. Rodriguez PGY-[address] Tran Tillman MD PGY-1 Status at Discharge Functional status at discharge: independent ambulation Overall status at discharge: patient is back to baseline Time Spent with Patient Time attestation: Total time spent providing and/or coordinating discharge services: Time spent: Greater than 30 minutes Exam Vital Signs Temp Pulse Resp BP Pulse Ox O2 Del Method O2 Flow Rate 97.4 F 56 L 20 150/68 H 97 Room Air 0 11/19/24 07:51 11/19/24 07:51 11/19/24 07:51 11/19/24 07:51 11/19/24 07:51 11/19/24 07:51 11/19/24 04:00 Narrative Exam Physical Exam GENERAL: NAD, AAOx3 HEENT: Moist mucosa. Eyes open, symmetrical, & clear CARDIO: Heart RRR, no obvious murmurs PULM: No noted coughing/dyspnea CTA B/L, no R/W/R GI: Abdomen soft, nondistended, no pain on palpation. BSx4 SKIN/MSK/EXT: No wounds/rashes/edema/amputations, no pain on palpation. Pedal pulses present B/L NEURO: AAOx3, no focal neuro deficits, able to move all 4 extremities Discharge Plan Plan Patient Disposition: Home w/HOME HEALTH Patient condition on transfer: Stable Care Plan Goals: Recommend cystoscopy follow-up to differentiate blood clot from bladder mass posterior margin. Patient needs to continue quadruple therapy for 11 more days to continue H pylori treatment which includes, bisthmus 2 tablets 4 times a day, metronidazole 500mg twice a day, pantoprazole 40mg twice a day and tetracycline 500mg four times a day, Follow up closely outpatient with PCP in 1 week to repeat CBC and monitor Neutropenia. Recommend outpatient hematology follow up. Changed insuline regime to 30 units of lantus once a day with lispro 8 units three times a day with meals. Follow up closely with PCP to continue adjusting regimen Prescriptions/Referrals Prescriptions/Med Rec: New pantoprazole 40 mg tablet,delayed release (DR/EC) 40 mg PO BID 11 Days Qty: 22 0RF metronidazole 500 mg tablet 500 mg PO BID 11 Days Qty: 22 0RF bismuth subsalicylate [Quantico Bismuth] 262 mg tablet,chewable 2 tab PO QID 11 Days Qty: 88 0RF tetracycline 500 mg capsule 500 mg PO Q6H 11 Days Qty: 44 0RF Continued donepezil 5 mg Tablet 10 mg PO HS Qty: 0 0RF clopidogrel 75 mg Tablet 75 mg PO QDAY Qty: 0 0RF famotidine 20 mg Tablet 20 mg PO BID Qty: 0 0RF ezetimibe 10 mg Tablet 10 mg PO QDAY Qty: 0 0RF vilazodone 20 mg tablet 20 mg PO QDAY (DME) pen needle, diabetic [Pen Needle] 29 gauge x 1/2 needle See Rx Instructions .Route Qty: 100 3RF Rx Instructions: As directed latanoprost 0.005 % Drops 1 drp OPHTHALMIC (EYE) QPM Rx Instructions: both eyes atorvastatin 40 mg Tablet 40 mg PO QDAY brinzolamide 1 % Drops,Suspension 1 drp OPHTHALMIC (EYE) BID Rx Instructions: left eye metoprolol tartrate 25 mg Tablet 25 mg PO QDAY dapagliflozin propanediol [Farxiga] 5 mg Tablet 5 mg PO QDAY Changed insulin lispro [Admelog U-100 Insulin lispro] 100 unit/mL solution 8 unit SCi TIDWM Qty: 10 0RF insulin glargine U-300 conc [Toujeo Max U-300 SoloStar] 300 unit/mL (3 mL) insulin pen 30 unit subcut QDAY Qty: 6 0RF Referrals: Mack Neumann PA-C [Primary Care Provider] - Patient/Caregiver Discharge Instructions Education Materials: Upper GI Endoscopy, Diabetic Ketoacidosis Print Language: Kiswahili Stand Alone Forms: [employer] Award Info., Patient Portal Info Letter Discharge Order Discharge Orders: Discharge (Routine); Ordered 11/19/24 Ordered By: Santiago Tillman Quality Discharge Quality Measures VTE prophylaxis MD Attestestation MD Attestation I have examined the patient, reviewed labs and imaging findings, discussed the case with the resident(s), and reviewed entered orders. I agree with the plan of care as outlined in this note. Dr. Mayfield
[2024-11-19 11:22] VITALS: PULSE 54
[2024-11-19 11:50] VITALS: BP 123/63; PULSE 54; RESP 18; TEMP 36.1; O2SAT 94
[2024-11-19 11:51] LABS: Band Neutrophils (Manual) 2 % (0-6); Lymphocytes (Manual) 48 % (20-44); Monocytes (Manual) 6 % (2-9); Neutrophils (Manual) 44 % (50-70)
[2024-11-19] MEDS: INSULIN LISPRO (AdmeLOG) 1 UNIT/0.01 ML UNIT SC (12:30)
[2024-11-19 13:08] VITALS: PULSE 58
--- NOTE | 2024-11-19 14:14 | PD.IMPROG ---
Documentation for date of: 11/19/24 Subjective Subjective Interval history: Able to swallow No choking spells Okay to discharge patient home to be followed by the PCP No need for GI follow-up Exam Vital Signs Temp Pulse Resp BP Pulse Ox O2 Del Method O2 Flow Rate 97.0 F 58 L 18 123/63 94 L Room Air 0 11/19/24 11:50 11/19/24 13:08 11/19/24 11:50 11/19/24 11:50 11/19/24 11:50 11/19/24 11:50 11/19/24 04:00 Objective Labs 11/19/24 05:38 11/19/24 05:38 Labs: Laboratory Results - last 24 hr 11/19/24 05:38 WBC 3.1 L RBC 3.29 L Hgb 10.7 L Hct 31.4 L MCV 95 MCH 32.5 MCHC 34.1 RDW Std Deviation 46.0 Plt Count 118 L Neut % (Auto) 39 Lymph % (Auto) 47 [place] % (Auto) 11 Eos % (Auto) 4 Baso % (Auto) 0 Neut # (Auto) 1.2 L Lymph # (Auto) 1.4 [place] # (Auto) 0.3 Eos # (Auto) 0.1 Baso # (Auto) 0.0 Immature Gran # (Auto) 0.01 H Absolute Nucleated RBC 0.00 Immature Gran % 0 Neutrophils % (Manual) 44 L Monocytes % (Manual) 6 Nucleated RBC % 0 Band Neutrophils 2 Lymphocytes (Manual) 48 H Sodium 138 Potassium 3.8 Chloride 106 Carbon Dioxide 25.6 Anion Gap 6 L BUN 5 L Creatinine 0.9 Estim Creat Clear Calc 42.8 L eGFR > 60 BUN/Creatinine Ratio 6 L Glucose 74 Calculated Osmolality 271 L Calcium 8.7 Corrected Calcium 9.3 Total Bilirubin 0.4 AST 46 H ALT 40 Alkaline Phosphatase 55 Total Protein 5.0 L Albumin 3.2 L Globulin 1.8 L Albumin/Globulin Ratio 1.8 Impressions Impression: # Esophageal stricture status post endoscopic dilatation # Improved dysphagia after endoscopic dilatation Okay to be discharged to be followed by PCP No GI follow-up necessary ABG Interpretation ABG results: 11/08/24 11/08/24 11/09/24 11:07 16:06 13:51 ABG pH 7.17 L* 7.42 D ABG pCO2 15 L* 31 L D ABG pO2 122 H 90 D ABG HCO3 6 L* 20 ABG O2 Saturation 99 H 97 ABG Base Excess -21 L -3 VBG pH 7.46 VBG pCO2 27 L VBG pO2 38 VBG Base Excess -4 L 11/09/24 11/09/24 11/10/24 17:10 20:50 04:50 ABG pH ABG pCO2 ABG pO2 ABG HCO3 ABG O2 Saturation ABG Base Excess VBG pH 7.48 7.42 7.45 VBG pCO2 31 L 43 D 37 VBG pO2 55 27 D 52 D VBG Base Excess 0 3 2 Assessment & Plan A&P Narrative # Odynophagia Plan is TSH ANUP Consent obtained for fiberoptic esophagogastroduodenoscopy with possible biopsies possible therapeutic intervention such as guidewire savory dilatation or esophageal balloon dilatation if required under intravenous moderate sedation Which has been scheduled for tomorrow afternoon Clear liquid diet a.m. N.p.o. 11:00 in the morning except p.o. meds Other medical problems include # Left lower lobe pneumonia # Just came out of DKA # IDDM Thank you very much for the opportunity to participate in the care of this patient Time Spent With Patient Time: Total time spent is greater than 50% in coordination of care (as documented) at patient's floor/unit and/or counseling patient:
--- NOTE | 2024-11-20 10:13 | PC.CM ---
Patient accepted by [facility]. Pending start of care date.
[2024-11-21 06:36] LABS: Folate, RBC* 612 ng/mL RBC (>280)
--- NOTE | 2024-11-21 15:34 | ESCONSULT_ITS ---
RE: MARIBEL DICKERSON : 1945 DATE OF CONSULTATION: 11/18/2024 REFERRING PHYSICIAN: Domi Davis MD REASON FOR CONSULTATION: 1. Neutropenia. 2. Diabetes mellitus. 3. Positive for influenza. HISTORY OF PRESENT ILLNESS: Ms. Dickerson is an 79-year-old female who was brought to the emergency room because of altered mental status. It is noted that she was confused and not herself for the last couple of days. Her blood sugar was taken, was consistently above 500 and because of that, the patient was brought to the emergency room. She had some nausea and vomiting for the last 3 days. Denies any cough, shortness of breath, abdominal pain, constipation, or diarrhea at that time or any fever or chills, but her daughter mentioned that she had a flu sick contacts in the past week. It was noted that mother was very thirsty and she was drinking a lot of fluid in which she drank a lot of sugar-containing electrolyte solution and she developed neutropenia and because of that, this consultation obtained. PAST MEDICAL HISTORY: Diabetes mellitus, CVA, history of DKA, history of chronic UTI, and dyslipidemia. SOCIAL HISTORY: Remote history of smoking and alcohol consumption; however, nothing for the last 20 years. MEDICATIONS: As per record. ALLERGIES: NONE KNOWN. FAMILY HISTORY: Irrelevant. No information is available. PHYSICAL EXAMINATION: GENERAL: She is alert, coughing up some loose phlegm, but did not tell me any color. She is afebrile. VITAL SIGNS: Stable. HEENT: Pupils are reactive to light and accommodation. Sclerae nonicteric. NECK: Supple. There are No JVD or palpable mass. LUNGS: There is good air entry bilaterally. There are coarse rhonchi. HEART: Regular. ABDOMEN: Soft. Bowel sounds are present. EXTREMITIES: 3+ pedal pulses. CENTRAL NERVOUS SYSTEM: The patient follows simple commands. LABORATORY DATA: Her blood work today, WBC count 2.4, hemoglobin is 11.3, hemoglobin 32.4, and platelet count of 123,000. Her neutrophil count is 29%, lymphocyte count is 49% and monocyte count is 15%. Yesterday, her WBC count was 1.8, hemoglobin was 10.8, hematocrit was 31.0, platelet count was 120,000, and neutrophil count was 23%, but on 11/12/2024, had a WBC count of 3.6, hemoglobin was 11.5, hematocrit was 33.1, platelet count was 99,000, neutrophil count was 56%. Her creatinine is 0.9, GFR is 42.7, BUN is 8. ASSESSMENT AND PLAN: It looked like that patient has neutropenia related to acute infection and it may be reverting back to the baseline. Just continue the present plan of treatment. Her chest x-ray done on 11/14/2024 showed moderate left-based pneumonia, so most probably, it is a combination of infection, which is suppressing her bone marrow and causing a neutropenia, but by looking at the lab, her neutrophil is getting back toward the baseline. The patient and family asked several questions. They were answered to their satisfaction. I thank you, Dr. Domi Davis for letting me participate in the care of this interesting patient. If you have any questions, please feel free to contact me. DT: 16:50:10 TT: 19:19:00 Ref: [id number] - TID: [id number]
--- NOTE | 2024-11-22 15:26 | PC.CM ---
[facility] accepted patient and start of care date is 11/23.
== END 2024-11-19 15:50 | disposition home health service (06) | DRG 637 ==
LOC: SERX 12:39 → SERHOLD 13:15 → S2SX 16:15 → S2NX 11-11 06:23 → S2SX 11-11 13:40
PROVIDERS: Internal Medicine; Specialist; Student in an Organized Health Care Education/Training Program; Admitting Provider Internal Medicine; Emergency Provider Emergency Medicine; PCP Physician Assistant; Visit Provider Student in an Organized Health Care Education/Training Program
PROC: 0D718ZZ Dilation of Upper Esophagus, Via Natural or Artificial Opening Endoscopic (ICD-10-PCS; CPT 43239; principal; 2024-11-12 19:00)
DX: E11.10 Type 2 diabetes mellitus with ketoacidosis without coma (principal); J10.00 Influenza due to other identified influenza virus with unspecified type of pneumonia; N17.9 Acute kidney failure, unspecified; K22.10 Ulcer of esophagus without bleeding; E78.5 Hyperlipidemia, unspecified; I10 Essential (primary) hypertension; E86.0 Dehydration; K22.2 Esophageal obstruction; N30.90 Cystitis, unspecified without hematuria; N76.0 Acute vaginitis; R91.1 Solitary pulmonary nodule; B96.81 Helicobacter pylori [H. pylori] as the cause of diseases classified elsewhere; K29.60 Other gastritis without bleeding; D64.9 Anemia, unspecified; E04.1 Nontoxic single thyroid nodule; D70.3 Neutropenia due to infection; D69.6 Thrombocytopenia, unspecified; T38.3X6A Underdosing of insulin and oral hypoglycemic [antidiabetic] drugs, initial encounter; N32.89 Other specified disorders of bladder; Z91.138 Patient's unintentional underdosing of medication regimen for other reason; Z86.73 Personal history of transient ischemic attack (TIA), and cerebral infarction without residual deficits; Z87.891 Personal history of nicotine dependence; Z86.19 Personal history of other infectious and parasitic diseases; Z91.199 Patient's noncompliance with other medical treatment and regimen due to unspecified reason; Z79.899 Other long term (current) drug therapy; Z79.02 Long term (current) use of antithrombotics/antiplatelets; Z79.4 Long term (current) use of insulin; Z79.84 Long term (current) use of oral hypoglycemic drugs
CPT/HCPCS: 36415; 36600; 70450; 71045; 71250; 74176; 76857; 80048; 80053; 80069; 81001; 82010; 82607; 82747; 82803; 83036; 83605; 83690; 83735; 83880; 84100; 84145; 84443; 84484; 85025; 85652; 86038; 86039; 86140; 86331; 86635; 87040; 87081; 87086; 87400; 87502; 87811; 92526; 92610; 93005; 93306; 97162; 99291; A4217; C1769; J0360; J0456; J0696; J1643; J1815; J2250; J2405; J2470; J2543; J2765; J3010; J3370; J3475; J3480; J7030; J7040; J7050; J7120; J7999; A9270; J1644

== ENCOUNTER 2024-12-10 13:48 | Inpatient (IN) | payer MEDICARE, MEDICAID, SELFPAY ==
[2024-12-10] VITALS (24 sets, daily range): BP systolic 70–126; BP diastolic 44–72; PULSE 63–95; RESP 10–100; TEMP 36.4–37.1; O2SAT 85–100; BMI 21.4
--- NOTE | 2024-12-10 13:56 | EKG_ITS ---
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
[2024-12-10 14:55] LABS: Basophils % (Auto) 0 % (0-2.5); Eosinophils % (Auto) 0 % (0-10); Hematocrit 37.5 % (36.0-46.0); Hemoglobin 12.6 g/dL (12.0-16.0); Immature Granulocytes % (Auto) 0 % (0-0); Immature Granulocytes Auto 0.04 Thou/mm3 (0.00-0.00); Lymphocytes # (Auto) 0.9 Thou/mm3 (1.0-4.8); Lymphocytes % (Auto) 8 % (10-50); Mean Corpuscular HGB Conc 33.6 g/dl (31.0-37.0); Mean Corpuscular Hemoglobin 34.2 pg (25.0-35.0); Mean Corpuscular Volume 102 fL (80-100); Monocytes # (Auto) 1.4 Thou/mm3 (0.0-0.8); Monocytes % (Auto) 12 % (0-12); Neutrophils # (Auto) 9.4 Thou/mm3 (1.8-7.7); Neutrophils % (Auto) 80 % (37-80); Nucleated Red Blood Cell % 0 /100 WBC (0); Platelet Count 208 Thou/mm3 (140-440); RDW Standard Deviation 53.5 fL (36.4-46.3); Red Blood Count 3.68 Miln/mm3 (4.00-5.20); White Blood Count 11.7 Thou/mm3 (3.6-11.0)
[2024-12-10] MEDS: SODIUM CHLORIDE 0.9% 1000 ML 1,000 ML 999 ML IV ×2 (15:16→16:05)
[2024-12-10 15:22] LABS: Beta Hydroxybutyrate 4.7 mmol/L (<0.6)
--- NOTE | 2024-12-10 15:23 | PD.EDADULT ---
ED General RME/HPI General Chief complaint: Altered Mental Status Stated complaint: AMS Time Seen by Provider: 12/10/24 13:53 Arrival date/time: 12/10/24 13:48 RME / HPI RME / HPI narrative: 79 year old female with history of CVA, hypertension, diabetes, and previous admissions for DKA presents to the ED BIBA from home for I think I'm in ketoacidosis . Per medics, prehospital blood sugar was high . While in the ED has no other complaints. Denies fevers, chills, chest pain, cough, shortness of breath, abdominal pain, nausea, vomiting, diarrhea, or urinary symptoms. Related Data Home Medications ?Medication ?Instructions ?Recorded ?Confirmed vilazodone 20 mg tablet 20 mg PO QDAY 05/24/24 11/14/24 atorvastatin 40 mg tablet 40 mg PO QDAY 11/14/24 11/14/24 brinzolamide 1 % eye 1 drp ophthalmic (eye) BID 11/14/24 11/14/24 drops,suspension dapagliflozin propanediol 5 mg 5 mg PO QDAY 11/14/24 11/14/24 tablet (Farxiga) latanoprost 0.005 % eye drops 1 drp ophthalmic (eye) QPM 11/14/24 11/14/24 metoprolol tartrate 25 mg tablet 25 mg PO QDAY 11/14/24 11/14/24 Previous Rx's ?Medication ?Instructions ?Recorded clopidogrel 75 mg tablet 75 mg PO QDAY #0 tabs 02/27/24 donepezil 5 mg tablet 10 mg (2 x 5 mg) PO HS #0 tabs 02/27/24 ezetimibe 10 mg tablet 10 mg PO QDAY #0 tabs 02/27/24 famotidine 20 mg tablet 20 mg PO BID #0 tabs 02/27/24 pen needle, diabetic 29 gauge x #100 ea 05/27/2411/28 (Pen Needle) insulin glargine U-300 conc 300 30 unit (0.1 mL) subcut QDAY #6 mL 11/19/24 unit/mL (3 mL) subcutaneous pen (Toujeo Max U-300 SoloStar) insulin lispro 100 unit/mL 8 unit (0.08 mL) SCi TIDWM #10 mL 11/19/24 subcutaneous solution (Admelog U-100 Insulin lispro) Allergies Allergy/AdvReac Type Severity Reaction Status Date / Time No Known Allergies Allergy Unverified 05/24/24 05:34 Review of Systems Review of Systems Narrative Review of Systems: GEN: No fever, no chills, no weight loss EYES: No discharge, no visual changes, no pain HEENT: No ear pain, no congestion, no sore throat PULM: No shortness of breath, no cough, no congestion CV: No chest pain, no dyspnea on exertion, no palpitations GI: No nausea, no vomiting, no diarrhea, no pain, no constipation : No frequency, no urgency, no dysuria MUSC/SKEL: No joint pain, no back pain SKIN: No rash NEURO: No weakness, no headache Past Medical History Past Medical History NEUROLOGIC: Positive Neurological Disorders and Cerebrovascular Accident CARDIAC: Positive Hypercholesterolemia and Hypertension GASTROINTESTINAL: Positive Gastrointestinal Disorders GENITOURINARY: Positive Genitourinary Disorders ENT: Positive Cataracts ENDOCRINE: Positive Diabetes Mellitus Type 2 OTHER HISTORY: Positive Falls Surgical History SURGICAL: Positive Cardiac Surgery Social History SMOKING STATUS: Never smoker SECOND HAND EXPOSURE: No ED Exam Narrative Physical exam: GENERAL APPEARANCE: alert and oriented x 4, well-developed, well-nourished, no acute distress HEENT: Normocephalic, atraumatic; pupils equal, round, reactive to light; EOMI; mucous membranes pink, moist; oropharynx clear NECK: Supple LUNGS: CTABL; no wheezes, no rales, no rhonchi HEART: Regular rate, regular rhythm; normal S1, S2; no murmurs ABDOMEN: non distended; normal BS; soft, no tenderness, no guarding, no rebound; no masses, no organomegaly, no hernia BACK: no CVA tenderness EXTREMITIES: atraumatic; no edema NEUROLOGIC: awake; alert and oriented x4; cranial nerves II-XII grossly intact; no focal sensory or motor deficits PSYCHIATRIC: appropriate mood and affect SKIN: warm, dry, normal color; no rashes Course Quality Measures none Orders Category Date Time Status Admit to Inpatient Status Routine Admission 12/10/24 17:15 Active Bedside Blood Glucose Q1H Care 12/10/24 17:11 Active COVID-19 Screening Questionnaire NOW Care 12/10/24 16:33 Active Rn Care Manager Q4H Care 12/10/24 17:11 Active DKA Protocol QSHIFT Care 12/10/24 17:11 Active Decision to Admit X1 Care 12/10/24 16:33 Active EKG (ED ONLY) *Do not use* NOW Care 12/10/24 13:56 Completed Intake and Output Q1H Care 12/10/24 17:15 Ordered Intake and Output Q1H Care 12/10/24 18:15 Ordered Intake and Output Q1H Care 12/10/24 19:15 Ordered Intake and Output Q1H Care 12/10/24 20:15 Ordered Intake and Output Q1H Care 12/10/24 21:15 Ordered Intake and Output Q1H Care 12/10/24 22:15 Ordered Intake and Output Q1H Care 12/10/24 23:15 Ordered NPO NOW Care 12/10/24 17:11 Active Notify provider NEEDED Care 12/10/24 17:11 Active Referral Registered Dietitian Routine Cons 12/10/24 17:11 Active Diet NPO (NOW) Diet 12/10/24 17:11 Active EKG (ED Only) Stat Exams 12/10/24 13:56 Draft ABG [Arterial Blood Gas] Stat Lab 12/10/24 16:26 Ordered B-Type Natriuretic Peptide Stat Lab 12/10/24 14:45 Completed Beta Hydroxybutyrate DAILY Lab 12/12/24 09:00 Ordered Beta Hydroxybutyrate DAILY Lab 12/13/24 09:00 Ordered Beta Hydroxybutyrate DAILY Lab 12/14/24 09:00 Ordered Beta Hydroxybutyrate Stat Lab 12/10/24 14:45 Completed Blood Culture (Lab) Routine Lab 12/10/24 17:58 Received CBC AM DRAW Lab 12/11/24 05:00 Ordered CBC AM DRAW Lab 12/12/24 05:00 Ordered CBC AM DRAW Lab 12/13/24 05:00 Ordered CBC AM DRAW Lab 12/14/24 05:00 Ordered CBC AM DRAW Lab 12/15/24 05:00 Ordered CBC AM DRAW Lab 12/16/24 05:00 Ordered CBC AM DRAW Lab 12/17/24 05:00 Ordered CBC Stat Lab 12/10/24 14:45 Completed Comprehensive Metabolic Panel Stat Lab 12/10/24 14:45 Completed Glycohemoglobin w (eAG) AM DRAW Lab 12/11/24 05:00 Ordered Lactate (Lactic Acid) Q4H Lab 12/10/24 21:15 Ordered Lactate (Lactic Acid) Q4H Lab 12/11/24 01:15 Ordered Lactate (Lactic Acid) Q4H Lab 12/11/24 05:15 Ordered Lactate (Lactic Acid) Q4H Lab 12/11/24 09:15 Ordered Lactate (Lactic Acid) Q4H Lab 12/11/24 13:15 Ordered Lactate (Lactic Acid) Q4H Lab 12/11/24 17:15 Ordered Lactate (Lactic Acid) Q4H Lab 12/11/24 21:15 Ordered Lactate (Lactic Acid) Q4H Lab 12/12/24 01:15 Ordered Lactate (Lactic Acid) Q4H Lab 12/12/24 05:15 Ordered Lactate (Lactic Acid) Q4H Lab 12/12/24 09:15 Ordered Lactate (Lactic Acid) Q4H Lab 12/12/24 13:15 Ordered Lactate (Lactic Acid) Q4H Lab 12/12/24 17:15 Ordered Lipase Stat Lab 12/10/24 14:45 Completed Magnesium Q4H Lab 12/10/24 21:15 Ordered Magnesium Q4H Lab 12/11/24 01:15 Ordered Magnesium Q4H Lab 12/11/24 05:15 Ordered Magnesium Q4H Lab 12/11/24 09:15 Ordered Magnesium Q4H Lab 12/11/24 13:15 Ordered Magnesium Q4H Lab 12/11/24 17:15 Ordered Magnesium Q4H Lab 12/11/24 21:15 Ordered Magnesium Q4H Lab 12/12/24 01:15 Ordered Magnesium Q4H Lab 12/12/24 05:15 Ordered Magnesium Q4H Lab 12/12/24 09:15 Ordered Magnesium Q4H Lab 12/12/24 13:15 Ordered Magnesium Q4H Lab 12/12/24 17:15 Ordered Magnesium Stat Lab 12/10/24 14:45 Completed Phosphorous Q4H Lab 12/11/24 01:15 Ordered Phosphorous Q4H Lab 12/11/24 05:15 Ordered Phosphorous Q4H Lab 12/11/24 09:15 Ordered Phosphorous Q4H Lab 12/11/24 13:15 Ordered Phosphorous Q4H Lab 12/11/24 17:15 Ordered Phosphorous Q4H Lab 12/11/24 21:15 Ordered Phosphorous Q4H Lab 12/12/24 01:15 Ordered Phosphorous Q4H Lab 12/12/24 05:15 Ordered Phosphorous Q4H Lab 12/12/24 09:15 Ordered Phosphorous Q4H Lab 12/12/24 13:15 Ordered Phosphorous Q4H Lab 12/12/24 17:15 Ordered Troponin I Stat Lab 12/10/24 14:45 Completed UA, C/S IF [Urinalysis, C/S if Indicated] Stat Lab 12/10/24 13:56 Ordered Urinalysis Routine Lab 12/10/24 17:13 Ordered Venous Blood Gas Stat Lab 12/10/24 16:48 Completed Dextrose 5%-Lactated Ringers [D5-Lr] 1,000 ml Med 12/10/24 17:10 Active Pot Chl Additive [KCl Additive] 40 meq IV 250 mls/hr Dextrose 5%-Lactated Ringers [D5-Lr] 1,000 ml Med 12/10/24 17:10 Active IV 250 mls/hr Dextrose 50% Syr [D50w Syringe Abboject] Med 12/10/24 17:10 Active 25 ml IV PRNMRX1 PRN Insulin Reg 100 Units/100 ml [Myxredlin] Med 12/10/24 15:58 Active 100 unit in 100 ml IV 0.1 unit/kg/hr Insulin Regular Med 12/10/24 15:58 Discontinued 10 unit IV X1 ONE KCL 20 mEq/L in D5-LR Med 12/10/24 17:10 Active 20 meq in 1,000 ml IV 250 mls/hr Magnesium Sulfate 2 GM Ivpb [Magnesium Sulfate Ivpb] Med 12/10/24 17:10 Active 2 gm in 50 ml IV 25 mls/hr POT PHOS 15 mMol in NS 250 ML [Pot Phos 15 mMol in NS Med 12/10/24 17:10 Active 250 ml] 15 mmol in 250 ml IV PRN POTASSIUM CHL 10 mEq IVPB [Kcl Ivpb] Med 12/10/24 17:10 Active 10 meq in 100 ml IV 100 mls/hr POTASSIUM CHL 10 mEq IVPB [Kcl Ivpb] Med 12/10/24 17:10 Active 10 meq in 100 ml IV PRN Ringers Lactated 1000 ml [Lactated Ringers] 1,000 ml Med 12/10/24 17:10 Active Pot Chl Additive [KCl Additive] 20 meq IV 250 mls/hr Ringers Lactated 1000 ml [Lactated Ringers] 1,000 ml Med 12/10/24 17:10 Active Pot Chl Additive [KCl Additive] 40 meq IV 250 mls/hr Ringers Lactated 1000 ml [Lactated Ringers] 1,000 ml Med 12/10/24 17:10 Active IV 250 mls/hr Sodium Bicarb 8.4% SYR Med 12/10/24 17:10 Active 50 ml IV PRN PRN Sodium Chloride 0.9% 1000 ml [Ns] 1,000 ml Med 12/10/24 13:56 Discontinued IV 999 mls/hr Sodium Chloride 0.9% 1000 ml [Ns] 1,000 ml Med 12/10/24 15:58 Discontinued IV 999 mls/hr Sodium Chloride 0.9% 250 ml [Ns] 250 ml Med 12/10/24 17:10 Active Sod Phos Additive [NaPhos Additive] 15 mmol IV 62.5 mls/hr Code Status Routine Oth 12/10/24 17:10 Ordered Vital Signs Vital signs: Vital Signs Temperature 98.7 F 12/10/24 14:01 Pulse Rate 93 12/10/24 14:01 Respiratory Rate 16 12/10/24 14:01 Blood Pressure 109/51 L 12/10/24 14:01 Pulse Oximetry (%) 96 12/10/24 14:01 Pulse ox is 96% on room air which is adequate. [facility] Patient data External records reviewed:: [facility] previous records (I reviewed admission from 11/08/2024 through 11/20/2024) and EMS form Clinical information provided by:: patient and EMS Social determinants that could affect healthcare access:: none Patient has the following chronic illnesses:: CVA, hypertension, diabetes, and previous admissions for DKA How is presenting disease/condition affected by chronic disease/condition?: exacerbated by Evaluation data The following diagnostics were reviewed and interpreted by me:: lab results and EKG tracing(s) (sinus rhythm, rate 98, QTc 450) Lab and/or radiology exams considered but not ordered:: None Interpretation Summary: DKA, blood glucose was 682. YARA Medications Medications considered but not ordered:: None Medication administrations:: Medication Administration History Acetaminophen (Acetaminophen 325 Mg Tablet) 650 mg PO Q6H PRN PRN Reason: Pain and Fever >101.5 Stop: 01/09/25 17:38 Atorvastatin Calcium (Atorvastatin Calcium 20 Mg Tablet) 40 mg PO HS JULITA Stop: 01/09/25 20:59 Last Admin: 12/10/24 21:13 Dose: 40 mg Documented By: ROMERO Clopidogrel Bisulfate (Clopidogrel Bisulfate 75 Mg Tablet) 75 mg PO QDAY [facility] Stop: 01/10/25 08:59 Dextrose (Dextrose 50%-Water Inj 50 Ml Syringe) 25 ml IV PRNMRX1 PRN PRN Reason: Blood Sugar - Low Donepezil HCl (Donepezil Hcl 5 Mg Tablet) 10 mg PO HS [facility] Stop: 01/10/25 20:59 Heparin Sodium (Porcine) (Heparin Sod Inj 5000 Unit/Ml Vial) 5,000 unit SC Q8HR [facility] Stop: 12/24/24 21:59 Last Admin: 12/10/24 21:14 Dose: 5,000 unit Documented By: ROMERO Co-signed By: SANTINO Insulin Human Regular (Myxredlin) 100 unit in 100 mls @ 4.99 mls/hr IV .Q20H3M PRN; Protocol PRN Reason: PER PROTOCOL Stop: 01/09/25 15:57 Last Titration: 12/10/24 20:21 Dose: 0.1 unit/kg/hr, 4.99 mls/hr Documented By: BEN Co-signed By: EDILMA Titration: 12/10/24 19:08 Dose: 0.1 unit/kg/hr, 4.99 mls/hr Documented By: GRETA Co-signed By: EDILMA Admin: 12/10/24 17:16 Dose: 0.1 unit/kg/hr, 4.99 mls/hr Documented By: GRETA Co-signed By: JD Potassium Chloride (Kcl Ivpb) 10 meq in 100 mls @ 100 mls/hr IV .Q1H PRN PRN Reason: IF POTASSIUM LESS THAN 3.3 Stop: 01/09/25 17:09 Magnesium Sulfate (Magnesium Sulfate Ivpb) 2 gm in 50 mls @ 25 mls/hr IV .Q2H PRN PRN Reason: PER DKA PROTOCOL Stop: 01/09/25 17:09 Dextrose/Lactated Ringer's (D5-Lr) 1,000 mls @ 250 mls/hr IV .Q4H PRN PRN Reason: PER PROTOCOL Stop: 01/09/25 17:09 Lactated Ringer's (Lactated Ringers) 1,000 mls @ 250 mls/hr IV .Q4H PRN PRN Reason: PER PROTOCOL Stop: 12/11/24 17:09 Potassium Chloride 20 meq/ (Lactated Ringer's) 1,010 mls @ 250 mls/hr IV .Q4H3M PRN PRN Reason: K LEVEL 3.3 TO 5.3mM/L Stop: 01/09/25 17:09 Last Admin: 12/10/24 20:45 Dose: 250 mls/hr Documented By: JASSO Potassium Chloride 40 meq/ (Lactated Ringer's) 1,020 mls @ 250 mls/hr IV .Q4H5M PRN PRN Reason: K LEVEL < 3.3 mM/L Stop: 01/09/25 17:09 Potassium Chloride 40 meq/ (Dextrose/Lactated Ringer's) 1,020 mls @ 250 mls/hr IV .Q4H5M PRN PRN Reason: K LEVEL < 3.3mM/L Stop: 01/09/25 17:09 Potassium Cl/Dextrose/Lact Ringer's (Kcl 20 Meq/L In D5-Lr) 20 meq in 1,000 mls @ 250 mls/hr IV .Q4H PRN PRN Reason: K LEVEL 3.3 TO 5.3 mM/L Stop: 01/09/25 17:09 Last Admin: 12/10/24 21:23 Dose: 250 mls/hr Documented By: JASSO Potassium Chloride (Kcl Ivpb) 10 meq in 100 mls @ 50 mls/hr IV PRN PRN PRN Reason: K LEVEL 3.3 to 5.3 & BG > 200 Stop: 01/09/25 17:09 Potassium Phosphate (Pot Phos 15 Mmol In Ns 250 Ml) 15 mmol in 250 mls @ 62.5 mls/hr IV PRN PRN PRN Reason: Phosphate <= 1mg/dL Stop: 01/09/25 17:09 Sodium Phosphate 15 mmol/ (Sodium Chloride) 255 mls @ 62.5 mls/hr IV .Q4H5M PRN PRN Reason: Phosphate <= 1mg/dL and K> than 5.3 Stop: 01/09/25 17:09 Metoprolol Tartrate (Metoprolol Tartrate 25 Mg Tablet) 25 mg PO BID JULITA Stop: 01/09/25 20:59 Pantoprazole Sodium (Pantoprazole Inj 40 Mg Vial) 40 mg IVP QDAY JULITA Stop: 01/09/25 17:44 Last Admin: 12/10/24 18:57 Dose: 40 mg Documented By: GRETA Sennosides (Senna Tablet) 1 tab PO QDAY PRN; Protocol PRN Reason: constipation Stop: 01/09/25 17:38 Sodium Bicarbonate (Sodium Bicarb Inj 8.4% Syr 50 Ml Syringe) 50 ml IV PRN PRN PRN Reason: For ph <= to 7.0 Stop: 01/09/25 17:09 Discontinued Medications Donepezil HCl (Donepezil Hcl 5 Mg Tablet) 5 mg PO HS JULITA Stop: 01/09/25 20:59 Last Admin: 12/10/24 21:13 Dose: 5 mg Documented By: ROMERO Sodium Chloride (Ns) 1,000 mls @ 999 mls/hr IV .Q1H1M ONE Stop: 12/10/24 14:56 Last Infusion: 12/10/24 19:20 Dose: Infused Documented By: Admin: 12/10/24 15:16 Dose: 999 mls/hr Documented By: GRETA Sodium Chloride (Ns) 1,000 mls @ 999 mls/hr IV .Q1H1M ONE Stop: 12/10/24 16:58 Last Infusion: 12/10/24 19:21 Dose: Infused Documented By: Admin: 12/10/24 16:05 Dose: 999 mls/hr Documented By: GRETA Insulin Human Regular (Insulin Hum Regular 1 Unit/0.01 Ml (Per Unit)) 10 unit IV X1 ONE Stop: 12/10/24 15:59 Last Admin: 12/10/24 16:06 Dose: 10 unit Documented By: GRETA Co-signed By: AMELIE Ondansetron HCl (Ondansetron Inj 2 Mg/Ml Inj 2 Ml) 4 mg IV Q6H PRN; Protocol PRN Reason: NAUSEA OR VOMITING Stop: 01/09/25 17:38 See above Consultations Consultation(s) initiated? (list below): Yes Consultation #1 (Physician, Specialty, Details): Discussed test HPI, PMHx, lab, radiology results and/or management with hospitalist. Will admit for further evaluation and management. Accepts patient for admission. Time: 17:15 Diagnosis Differential Diagnosis ED Complaint MDM: DKA, hyperglycemia, viral illness, sepsis Most likely diagnosis given after review of the tests above:: DKA YARA Admission Indicated Admission indicated?: indicated Explain why admission is indicated or not indicated:: Diagnoses meet admission criteria. Admission Request Was there a request for admission?: Yes Admission Attestation Admission request attestation: Discussed case with [] from Hospitalist service regarding admission. Discussed patients ED course, exam findings, labs, and radiology results. The Hospitalist [agrees,declines] to accept the patient for admission. Disposition Plan Disposition Plan: Admit Medical Decision Making Differential Diagnosis Differential Diagnosis: DKA, hyperglycemia, viral illness, sepsis Lab Data 12/10/24 14:45 12/10/24 17:58 Labs: Lab Results 12/10/24 12/10/24 Range/Units 14:45 16:48 WBC 11.7 H (3.6-11.0) Thou/mm3 RBC 3.68 L (4.00-5.20) Miln/mm3 Hgb 12.6 (12.0-16.0) g/dL Hct 37.5 (36.0-46.0) % MCV 102 H (80-100) fL MCH 34.2 (25.0-35.0) pg MCHC 33.6 (31.0-37.0) g/dl RDW Std Deviation 53.5 H (36.4-46.3) fL Plt Count 208 D (140-440) Thou/mm3 Neut % (Auto) 80 (37-80) % Lymph % (Auto) 8 L (10-50) % [place] % (Auto) 12 (0-12) % Eos % (Auto) 0 (0-10) % Baso % (Auto) 0 (0-2.5) % Neut # (Auto) 9.4 H (1.8-7.7) Thou/mm3 Lymph # (Auto) 0.9 L (1.0-4.8) Thou/mm3 [place] # (Auto) 1.4 H (0.0-0.8) Thou/mm3 Eos # (Auto) 0.0 (0.0-0.5) Thou/mm3 Baso # (Auto) 0.0 (0.0-0.2) Thou/mm3 Immature Gran # (Auto) 0.04 H (0.00-0.00) Thou/mm3 Absolute Nucleated RBC 0.00 (0.00-0.00) Thou/mm3 Immature Gran % 0 (0-0) % Nucleated RBC % 0 (0) /100 WBC VBG pH 7.06 L (7.33-7.66) VBG pCO2 28 L (36-56) mmHg VBG pO2 27 (15-58) mmHg VBG O2 Sat (Kathryn) 37 L (96-97) % VBG Base Excess -21 L (-3-3) Sodium 131 L (136-145) mMol/L Potassium 5.0 (3.4-5.1) mMol/L Chloride 93 L (98-107) mMol/L Carbon Dioxide < 10.0 L* (20.0-31.0) mMol/L Anion Gap 28 H (7-16) BUN 36 H (9-23) mg/dL Creatinine 2.0 H (0.6-1.3) mg/dL Estim Creat Clear Calc 15.8 L (>60) mL/min eGFR 25 L (60 - ) See Note BUN/Creatinine Ratio 18 (12-20) Ratio Glucose 682 H* (74-106) mg/dL Calculated Osmolality 302 H (275-295) Calcium 9.5 (8.3-10.6) mg/dL Corrected Calcium 9.5 (8.5-10.1) mg/dL Magnesium 2.4 (1.6-2.6) mg/dL Total Bilirubin 0.5 (0.3-1.2) mg/dL AST 18 (0-34) U/L ALT 24 (10-49) U/L Alkaline Phosphatase 71 (46-116) U/L Troponin I < 0.020 (0.0-0.045) ng/mL B-Natriuretic Peptide 108 H (0-100) pg/mL Total Protein 6.3 (5.7-8.2) gm/dL Albumin 4.1 (3.4-4.8) gm/dL Globulin 2.2 L (2.3-3.5) gm/dL Albumin/Globulin Ratio 1.9 (1.2-2.2) Lipase 21 (12-53) U/L Beta-Hydroxybutyrate/Acetoacetate 4.7 H (<0.6) mmol/L Discharge Plan Plan Patient Disposition: Admit Acute Care w/in Hospital Disposition Comment: ICU Patient condition on transfer: Stable Problem List Clinical Impression: DKA (diabetic ketoacidoses), YARA (acute kidney injury)
[2024-12-10 15:28] LABS: B-Type Natriuretic Peptide 108 pg/mL (0-100)
[2024-12-10 15:49] LABS: Alanine Aminotransferase 24 U/L (10-49); Albumin, Serum 4.1 gm/dL (3.4-4.8); Albumin/Globulin Ratio 1.9 (1.2-2.2); Alkaline Phosphatase 71 U/L (46-116); Anion Gap 28 (7-16); Aspartate Amino Transferase 18 U/L (0-34); BUN/Creatinine Ratio 18 Ratio (12-20); Bilirubin,Total 0.5 mg/dL (0.3-1.2); Blood Urea Nitrogen 36 mg/dL (9-23); Calcium 9.5 mg/dL (8.3-10.6); Calcium (Corrected) 9.5 mg/dL (8.5-10.1); Chloride 93 mMol/L (98-107); Estimated Creatinine Clearance 15.8 mL/min (>60); Globulin 2.2 gm/dL (2.3-3.5); Lipase 21 U/L (12-53); Magnesium 2.4 mg/dL (1.6-2.6); Osmolality,Calculated 302 (275-295); Sodium 131 mMol/L (136-145); Total Protein 6.3 gm/dL (5.7-8.2); Troponin I < 0.020 ng/mL (0.0-0.045); eGFR 25 See Note
[2024-12-10 15:51] LABS: Carbon Dioxide < 10.0 mMol/L (20.0-31.0)
[2024-12-10 15:53] LABS: Glucose 682 mg/dL (74-106)
[2024-12-10] MEDS: INSULIN HUM REGULAR 1 UNIT/0.01 ML (PER UNIT) 10 UNIT IV (16:06)
[2024-12-10 16:55] LABS: Base Excess, Venous -21 (-3-3); O2 Saturation, Venous 37 % (96-97); PCO2, Venous 28 mmHg (36-56); PO2, Venous 27 mmHg (15-58); pH, Venous 7.06 (7.33-7.66)
[2024-12-10] MEDS: INSULIN REG 100 UNITS/100 ML 100 UNIT/100 ML BAG IV (17:16)
--- NOTE | 2024-12-10 17:23 | ESHP_ITS ---
<Statement entered by Adrien Rodgers DO - 12/11/24 06:14> Senior attestation: Patient was examined and case was reviewed with team including attending physician. Note reviewed, I agree with most of its contents and agree with the patient's care. In summary, patient is a 79 year old female with history of DKA, hypertension, T2DM, hyperlipidemia, Alzheimer dementia, CVA, and chronic UTIs who presented to the [facility] ED with concerns of vomiting and feeling she was ketoacidosis, found to have glucose 682, beta hydroxybutyrate 4.7, anion gap 28, bicarb < 10, creatinine 2.0, and BUN 36. She endorsed less than 5 episodes of non-bloody vomiting last few days, was not nauseous at time of examination. Unclear if patient has been compliant with medications last few days as her answers to the question varied during history taking. Patient was however alert and oriented, opted for DNR/DNI code status that was confirmed with ED RN. Patient will be admitted to the ICU for DKA treatment with Insulin drip protocol, will add anti- emetics as needed cautiously due to concerns of QTc prolongation. Will resume home medications including metoprolol tartrate, donepezil, and atorvastatin. For YARA, patient received fluids, will follow up with renal function lab review. Adrien Rodgers DO PGY-3 Documentation for date of: 12/10/24 HPI History of Present Illness Chief complaint: High blood glucose History of present illness: Ms. Dickerson is a 79-year-old female with past medical history of hypertension, diabetes, hyperlipidemia, Alzheimer dementia, chronic UTIs, CVA, history of DKA, H pylori gastritis who presented to [facility] with chief complaint of high blood glucose levels. Patient has dementia at baseline and is a poor historian, on asking about details patient said that she thinks she might be in ketoacidosis further patient describes that since yesterday she has been having nausea and vomiting, reports having at least 5 episodes of emesis, nonbloody, moderate amount and foul-smelling. Patient also complains of on and off chest pain, describes it in the middle of her chest. Otherwise patient denies any diarrhea, shortness of breath, cough, headache, chills and fever. She endorses taking her medications regularly including insulin. Of note on discussion regarding CODE STATUS patient opted for DNR/DNI, patient's nurse in ED confirmed patient's CODE STATUS at bedside, patient alert oriented x 3 during discussion. ED Course: ED Vitals:On presentation blood pressure 109/51, P 93, RR 16, Temp 98.7, O2 sat 96 on room air ED Labs:ED labs significant for WBC 11.7, RBC 3.68, MCV 102, neutrophil 9.4 VBG in ED shows pH 7.06, pCO2 28, sodium 131, chloride 93, pCO2 less than 10, BUN 36, creatinine 2.0, GFR 25, glucose 682, BNP 108, globulin 2.2, beta- hydroxybutyrate 4.7 ED Imaging: No imaging obtained in ED EKG shows sinus rhythm, QTc 450 ED Treatment: Patient was given 2 L normal saline, 10 units of IV insulin and was started on insulin GGT in emergency department Patient admitted to intensive care unit for further management of diabetic ketoacidosis. Review of Systems Review of Systems Narrative Review of Systems: ROS: -CONSTITUTIONAL: Denies weight loss, fever and chills. -HEENT: Denies changes in vision and hearing. -RESPIRATORY: Denies SOB and cough. -CV: Denies palpitations and positive for Chest Pain. -GI: Denies abdominal pain, constipation and diarrhea. Positive for nausea and vomiting -: Denies dysuria and urinary frequency. -MSK: Denies myalgia and joint pain. -SKIN: Denies rash and pruritus. -NEUROLOGICAL: Denies headache and syncope. -PSYCHIATRIC: Denies recent changes in mood. Denies anxiety and depression. Past Medical History Past Medical History NEUROLOGIC: Positive Neurological Disorders and Cerebrovascular Accident CARDIAC: Positive Hypercholesterolemia and Hypertension GASTROINTESTINAL: Positive Gastrointestinal Disorders GENITOURINARY: Positive Genitourinary Disorders ENT: Positive Cataracts ENDOCRINE: Positive Diabetes Mellitus Type 2 OTHER HISTORY: Positive Falls Surgical History SURGICAL: Positive Cardiac Surgery Social History SMOKING STATUS: Never smoker SECOND HAND EXPOSURE: No Past Medical History Comments PMH COMMENT: PMH: Positive for hypertension, diabetes, hyperlipidemia, Alzheimer dementia, chronic UTIs, CVA, history of DKA, H pylori gastritis PSHx: Does endorse history of surgeries in the past, unable to elaborate Allergies: No known allergies Social history: Patient reports living with son and [id number] at home, reports independent ADLs -Smoking: Smoked about 5 cigarettes/day for 5 years in the past -Alcohol Use: Denies -Illicit Drug Use: Denies Family History: Denies any significant family history Exam Vital Signs Temp Pulse Resp BP Pulse Ox O2 Del Method 97.5 F 95 20 114/62 98 Room Air 12/10/24 16:00 12/10/24 16:00 12/10/24 16:00 12/10/24 16:00 12/10/24 16:00 12/10/24 16:00 Narrative Exam Physical Exam General: Awake and in no acute distress. Conversational and non-toxic appearing. HEENT: Normocephalic, atraumatic, mucous membranes dry. Heart: Regular rate and rhythm, no murmurs. Lungs: Clear to auscultation with no wheezing or crackles. Abdomen: Soft, nondistended, nontender, positive bowel sounds. ?No guarding or rebound tenderness. Neurologic: Alert and oriented x3, no gross neurological deficit, and patient able to move all 4 extremities. Extremities: No edema. Skin: No rash or ecchymoses. Results: Labs 12/10/24 14:45 12/10/24 17:58 Labs: Short CBC 12/10/24 Range/Units 14:45 WBC 11.7 H (3.6-11.0) Thou/mm3 Hgb 12.6 (12.0-16.0) g/dL Hct 37.5 (36.0-46.0) % Plt Count 208 D (140-440) Thou/mm3 BMP 12/10/24 14:45 Sodium 131 L Potassium 5.0 Chloride 93 L Carbon Dioxide < 10.0 L* BUN 36 H Creatinine 2.0 H Glucose 682 H* Calcium 9.5 Cardiac Enzymes 12/10/24 Range/Units 14:45 Troponin I < 0.020 (0.0-0.045) ng/mL Liver Function 12/10/24 Range/Units 14:45 Total Bilirubin 0.5 (0.3-1.2) mg/dL AST 18 (0-34) U/L ALT 24 (10-49) U/L Alkaline Phosphatase 71 (46-116) U/L Albumin 4.1 (3.4-4.8) gm/dL ABG Interpretation ABG results: 12/10/24 16:48 VBG pH 7.06 L VBG pCO2 28 L VBG pO2 27 VBG Base Excess -21 L Quality Measures Quality Measures none Advance care planning discussed with:: patient Medications Home Medications and Allergies Home Medications ?Medication ?Instructions ?Recorded ?Confirmed ?Type vilazodone 20 mg tablet 20 mg PO QDAY 05/24/24 11/14/24 History atorvastatin 40 mg tablet 40 mg PO QDAY 11/14/24 11/14/24 History brinzolamide 1 % eye 1 drp ophthalmic (eye) BID 11/14/24 11/14/24 History drops,suspension dapagliflozin propanediol 5 mg 5 mg PO QDAY 11/14/24 11/14/24 History tablet (Farxiga) latanoprost 0.005 % eye drops 1 drp ophthalmic (eye) QPM 11/14/24 11/14/24 History metoprolol tartrate 25 mg tablet 25 mg PO QDAY 11/14/24 11/14/24 History Allergies Allergy/AdvReac Type Severity Reaction Status Date / Time No Known Allergies Allergy Unverified 05/24/24 05:34 Visit Medications Dextrose (Dextrose 50%-Water Inj 50 Ml Syringe) 25 ml IV [id number] PRN PRN Reason: Blood Sugar - Low Insulin Human Regular (Myxredlin) 100 unit in 100 mls @ 4.99 mls/hr IV .Q20H3M PRN; Protocol PRN Reason: PER PROTOCOL Stop: 01/09/25 15:57 Potassium Chloride (Kcl Ivpb) 10 meq in 100 mls @ 100 mls/hr IV .Q1H PRN PRN Reason: IF POTASSIUM LESS THAN 3.3 Stop: 01/09/25 17:09 Magnesium Sulfate (Magnesium Sulfate Ivpb) 2 gm in 50 mls @ 25 mls/hr IV .Q2H PRN PRN Reason: PER DKA PROTOCOL Stop: 01/09/25 17:09 Dextrose/Lactated Ringer's (D5-Lr) 1,000 mls @ 250 mls/hr IV .Q4H PRN PRN Reason: PER PROTOCOL Stop: 01/09/25 17:09 Lactated Ringer's (Lactated Ringers) 1,000 mls @ 250 mls/hr IV .Q4H PRN PRN Reason: PER PROTOCOL Stop: 12/11/24 17:09 Potassium Chloride 20 meq/ (Lactated Ringer's) 1,010 mls @ 250 mls/hr IV .Q4H3M PRN PRN Reason: K LEVEL 3.3 TO 5.3mM/L Stop: 01/09/25 17:09 Potassium Chloride 40 meq/ (Lactated Ringer's) 1,020 mls @ 250 mls/hr IV .Q4H5M PRN PRN Reason: K LEVEL < 3.3 mM/L Stop: 01/09/25 17:09 Potassium Chloride 40 meq/ (Dextrose/Lactated Ringer's) 1,020 mls @ 250 mls/hr IV .Q4H5M PRN PRN Reason: K LEVEL < 3.3mM/L Stop: 01/09/25 17:09 Potassium Cl/Dextrose/Lact Ringer's (Kcl 20 Meq/L In D5-Lr) 20 meq in 1,000 mls @ 250 mls/hr IV .Q4H PRN PRN Reason: K LEVEL 3.3 TO 5.3 mM/L Stop: 01/09/25 17:09 Potassium Chloride (Kcl Ivpb) 10 meq in 100 mls @ 50 mls/hr IV PRN PRN PRN Reason: K LEVEL 3.3 to 5.3 & BG > 200 Stop: 01/09/25 17:09 Potassium Phosphate (Pot Phos 15 Mmol In Ns 250 Ml) 15 mmol in 250 mls @ 62.5 mls/hr IV PRN PRN PRN Reason: Phosphate <= 1mg/dL Stop: 01/09/25 17:09 Sodium Phosphate 15 mmol/ (Sodium Chloride) 255 mls @ 62.5 mls/hr IV .Q4H5M PRN PRN Reason: Phosphate <= 1mg/dL and K> than 5.3 Stop: 01/09/25 17:09 Sodium Bicarbonate (Sodium Bicarb Inj 8.4% Syr 50 Ml Syringe) 50 ml IV PRN PRN PRN Reason: For ph <= to 7.0 Stop: 01/09/25 17:09 Discontinued Medications Sodium Chloride (Ns) 1,000 mls @ 999 mls/hr IV .Q1H1M ONE Stop: 12/10/24 14:56 Last Admin: 12/10/24 15:16 Dose: 999 mls/hr Sodium Chloride (Ns) 1,000 mls @ 999 mls/hr IV .Q1H1M ONE Stop: 12/10/24 16:58 Last Admin: 12/10/24 16:05 Dose: 999 mls/hr Insulin Human Regular (Insulin Hum Regular 1 Unit/0.01 Ml (Per Unit)) 10 unit IV X1 ONE Stop: 12/10/24 15:59 Last Admin: 12/10/24 16:06 Dose: 10 unit Assessment & Plan Plan Assessment and Plan: Summary: Ms. Dickerson is a 79-year-old female with past medical history of hypertension, diabetes, hyperlipidemia, Alzheimer dementia, chronic UTIs, CVA, history of DKA, H pylori gastritis who presented to [facility] with chief complaint of high blood glucose levels. Patient admitted to intensive care unit for further management of diabetic ketoacidosis. Neurological # Alzheimer Dementia Patient is alert and oriented x 3, on donepezil 10 mg at bedtime at home Differential diagnosis: High suspicion of Alzheimer dementia, less likely vascular dementia Treatment: Resumed home dose donepezil 10 mg at bedtime # History of CVA Treatment: Resume home dose Plavix 75 daily Cardiology # Hypertension Patient has history of hypertension, on metoprolol tartrate 25 twice daily at home Treatment: -Resumed home dose metoprolol tartrate 25 twice daily #Hyperlipidemia Patient has history of hyperlipidemia on atorvastatin 40 mg and ezetimibe 10 mg at home Treatment: -Resumed home dose atorvastatin -Will follow lipid panel in a.m. Pulmonary Stable Gastrointestinal # Nausea and vomiting Patient reports nausea and vomiting since yesterday, moderate in amount, foul- smelling, nonbloody, associated with chest pain Differential diagnosis: Possibly secondary to DKA, gastroenteritis Diagnostic workup: Currently denies any nausea and vomiting Treatment: -Will treat underlying DKA -Will be cautious with the use of antiemetics, patient's QTc 450, already on donepezil -Started on IV Protonix daily Follow-up: -Monitor for nausea/vomiting Renal/Genitourinary # High anion gap metabolic acidosis with compensated respiratory alkalosis Differential diagnosis: Underlying diabetic ketoacidosis Diagnostic workup: pH VBG 7.06 on presentation, pCO2 28, venous CO2 less than 10 Anion gap 37, corrected sodium 140, chloride 93,, bicarb 10, albumin 4.1 Beta hydroxybutyrate 4.7 Treatment: -Will treat underlying DKA Follow-up: -Follow renal panel every 4 hours #Acute kidney injury Differential diagnosis: Prerenal versus intrinsic renal versus postrenal Diagnostic workup: Baseline 5, creatinine 0.9, GFR more than 60 On presentation BUN 36, creatinine 2.0, GFR 25 Treatment: -Patient was given 2 L NS in ED -Currently on IV Ringer lactate Follow-up: -Monitor renal panel every 4 hours Endocrine # Diabetes Ketoacidosis Differential diagnosis: Diabetic ketoacidosis, less likely HHS Diagnostic workup: pH VBG 7.06 on presentation, pCO2 28, venous CO2 less than 10 Anion gap 37, corrected sodium 140, chloride 93,, bicarb 10, albumin 4.1 Beta hydroxybutyrate 4.7 Patient complained of nausea/vomiting since yesterday History of DKA in the past, currently on insulin for diabetes management High suspicion of poor outpatient management/compliance due to underlying Alzheimer's dementia Treatment: -Insulin GGT -Will correct and replace electrolytes per protocol -Fingerstick blood glucose checks every 1 hour -Monitor potassium level closely -N.p.o. for now -IV Ringer lactate Follow-up: -Follow renal panel every 4 hours -Follow hemoglobin A1c in a.m. Hematology # Leukocytosis, possibly reactive No source of infection, patient's only symptoms are nausea/vomiting Will monitor WBC count and Infectious Disease Stable DVT prophylaxis: Heparin every 8 hours GI prophylaxis: Protonix 40 mg IV daily Diet: N.p.o. for now Lines: Peripheral IV Code status: DNR/DNI Case discussed with Attending Dr. Titus and Dr. Rodgers PGY3. Francisca Cano PGY1
[2024-12-10 18:40] LABS: Albumin, Serum 3.8 gm/dL (3.4-4.8); Anion Gap 24 (7-16); BUN/Creatinine Ratio 16 Ratio (12-20); Blood Urea Nitrogen 29 mg/dL (9-23); Calcium 8.7 mg/dL (8.3-10.6); Calcium (Corrected) 8.9 mg/dL (8.5-10.1); Chloride 101 mMol/L (98-107); Creatinine (Component) 1.8 mg/dL (0.6-1.3); Estimated Creatinine Clearance 17.6 mL/min (>60); Osmolality,Calculated 292 (275-295); Phosphorous 6.4 mg/dL (2.4-5.1); Potassium 4.3 mMol/L (3.4-5.1); Sodium 135 mMol/L (136-145); eGFR 28 See Note
[2024-12-10 18:44] LABS: Carbon Dioxide < 10.0 mMol/L (20.0-31.0)
[2024-12-10 18:45] LABS: Glucose 403 mg/dL (74-106)
[2024-12-10] MEDS: PANTOPRAZOLE INJ 40 MG VIAL IVP (18:57)
[2024-12-10] MEDS: POT CHL ADDITIVE 20 MEQ in RINGERS LACTATED 1000 ML 1,000 ML 250 MEQ IV (20:45)
[2024-12-10] MEDS: ATORVASTATIN CALCIUM 20 MG TABLET 40 MG PO (21:13)
[2024-12-10] MEDS: DONEPEZIL HCL 5 MG TABLET PO (21:13)
[2024-12-10] MEDS: HEPARIN SOD INJ 5000 UNIT/ML VIAL SC (21:14)
[2024-12-10] MEDS: KCL 20 mEq/L in D5-LR 20 MEQ/1,000 ML BAG 250 MEQ IV (21:23)
[2024-12-10 22:14] LABS: Lactate (Lactic Acid) 1.8 mMol/L (0.4-2.0)
[2024-12-10 22:37] LABS: Albumin, Serum 3.4 gm/dL (3.4-4.8); Anion Gap 12 (7-16); BUN/Creatinine Ratio 19 Ratio (12-20); Blood Urea Nitrogen 31 mg/dL (9-23); Calcium 8.5 mg/dL (8.3-10.6); Carbon Dioxide 18.9 mMol/L (20.0-31.0); Chloride 106 mMol/L (98-107); Creatinine (Component) 1.6 mg/dL (0.6-1.3); Estimated Creatinine Clearance 19.8 mL/min (>60); Glucose 165 mg/dL (74-106); Osmolality,Calculated 284 (275-295); Phosphorous 4.2 mg/dL (2.4-5.1); Potassium 4.3 mMol/L (3.4-5.1); Sodium 137 mMol/L (136-145); eGFR 32 See Note
[2024-12-11] VITALS (39 sets, daily range): BP systolic 83–138; BP diastolic 40–83; PULSE 59–92; RESP 13–98; TEMP 36.2–37.2; O2SAT 97–100; BMI 27.5
[2024-12-11] MEDS: KCL 20 mEq/L in D5-LR 20 MEQ/1,000 ML BAG 250 MEQ IV (01:06)
[2024-12-11 02:01] LABS: Lactate (Lactic Acid) 1.3 mMol/L (0.4-2.0)
[2024-12-11 03:05] LABS: Albumin, Serum 3.1 gm/dL (3.4-4.8); Anion Gap 11 (7-16); BUN/Creatinine Ratio 20 Ratio (12-20); Blood Urea Nitrogen 28 mg/dL (9-23); Calcium 8.4 mg/dL (8.3-10.6); Calcium (Corrected) 9.1 mg/dL (8.5-10.1); Carbon Dioxide 22.5 mMol/L (20.0-31.0); Chloride 107 mMol/L (98-107); Creatinine (Component) 1.4 mg/dL (0.6-1.3); Estimated Creatinine Clearance 22.6 mL/min (>60); Glucose 193 mg/dL (74-106); Osmolality,Calculated 289 (275-295); Phosphorous 3.6 mg/dL (2.4-5.1); Potassium 4.4 mMol/L (3.4-5.1); Sodium 140 mMol/L (136-145); eGFR 38 See Note
[2024-12-11] MEDS: HEPARIN SOD INJ 5000 UNIT/ML VIAL SC ×3 (05:17→21:11)
[2024-12-11] MEDS: INSULIN GLARGINE (Lantus) 5 UNIT/0.05 ML (PER 5 UNITS) 30 UNIT SC (06:12)
[2024-12-11 06:13] LABS: Lactate (Lactic Acid) 1.4 mMol/L (0.4-2.0)
[2024-12-11 06:23] LABS: Basophils % (Auto) 0 % (0-2.5); Eosinophils # (Auto) 0.1 Thou/mm3 (0.0-0.5); Eosinophils % (Auto) 1 % (0-10); Hemoglobin 10.3 g/dL (12.0-16.0); Immature Granulocytes % (Auto) 0 % (0-0); Immature Granulocytes Auto 0.01 Thou/mm3 (0.00-0.00); Lymphocytes # (Auto) 1.6 Thou/mm3 (1.0-4.8); Lymphocytes % (Auto) 36 % (10-50); Mean Corpuscular HGB Conc 35.5 g/dl (31.0-37.0); Mean Corpuscular Hemoglobin 34.2 pg (25.0-35.0); Mean Corpuscular Volume 96 fL (80-100); Monocytes # (Auto) 0.6 Thou/mm3 (0.0-0.8); Monocytes % (Auto) 13 % (0-12); Neutrophils # (Auto) 2.2 Thou/mm3 (1.8-7.7); Neutrophils % (Auto) 50 % (37-80); Nucleated Red Blood Cell % 0 /100 WBC (0); Platelet Count 132 Thou/mm3 (140-440); RDW Standard Deviation 50.1 fL (36.4-46.3)
[2024-12-11 06:32] LABS: Red Blood Count 3.01 Miln/mm3 (4.00-5.20); White Blood Count 4.5 Thou/mm3 (3.6-11.0)
[2024-12-11 06:47] LABS: Alanine Aminotransferase 15 U/L (10-49); Albumin, Serum 3.2 gm/dL (3.4-4.8); Albumin/Globulin Ratio 1.9 (1.2-2.2); Alkaline Phosphatase 50 U/L (46-116); Anion Gap 7 (7-16); Aspartate Amino Transferase 12 U/L (0-34); BUN/Creatinine Ratio 20 Ratio (12-20); Bilirubin,Total 0.4 mg/dL (0.3-1.2); Blood Urea Nitrogen 26 mg/dL (9-23); Calcium 8.7 mg/dL (8.3-10.6); Calcium (Corrected) 9.3 mg/dL (8.5-10.1); Carbon Dioxide 24.4 mMol/L (20.0-31.0); Cardiac Risk Estimate 2.4 RATIO (3.7-5.6); Chloride 108 mMol/L (98-107); Cholesterol 100 mg/dL (132-200); Creatinine (Component) 1.3 mg/dL (0.6-1.3); Estimated Creatinine Clearance 28.3 mL/min (>60); Globulin 1.7 gm/dL (2.3-3.5); Glucose 188 mg/dL (74-106); HDL Cholesterol 41 mg/dL (40-60); LDL Cholesterol,Calculated 44 mg/dL (0-130); Osmolality,Calculated 287 (275-295); Phosphorous 3.1 mg/dL (2.4-5.1); Potassium 4.3 mMol/L (3.4-5.1); Sodium 139 mMol/L (136-145); Total Protein 4.9 gm/dL (5.7-8.2); Triglycerides 74 mg/dL (30-150); eGFR 41 See Note
[2024-12-11 06:50] LABS: Prothrombin Time 11.4 Seconds (9.0-12.2)
[2024-12-11 07:41] LABS: Glucose Estimated Average 194 mg/dL (80-131); Hemoglobin A1C 8.4 % Hgb (4.8-6.0)
[2024-12-11] MEDS: PANTOPRAZOLE INJ 40 MG VIAL IVP (08:24)
[2024-12-11] MEDS: METOPROLOL TARTRATE 25 MG TABLET PO ×2 (08:24→21:08)
[2024-12-11] MEDS: CLOPIDOGREL BISULFATE 75 MG TABLET PO (08:25)
[2024-12-11 09:43] LABS: Lactate (Lactic Acid) 1.5 mMol/L (0.4-2.0)
[2024-12-11 10:07] LABS: Albumin, Serum 3.4 gm/dL (3.4-4.8); Anion Gap 10 (7-16); BUN/Creatinine Ratio 18 Ratio (12-20); Blood Urea Nitrogen 24 mg/dL (9-23); Calcium 8.8 mg/dL (8.3-10.6); Calcium (Corrected) 9.3 mg/dL (8.5-10.1); Carbon Dioxide 22.5 mMol/L (20.0-31.0); Chloride 106 mMol/L (98-107); Creatinine (Component) 1.3 mg/dL (0.6-1.3); Estimated Creatinine Clearance 28.3 mL/min (>60); Glucose 234 mg/dL (74-106); Osmolality,Calculated 287 (275-295); Phosphorous 2.9 mg/dL (2.4-5.1); Potassium 4.6 mMol/L (3.4-5.1); Sodium 138 mMol/L (136-145); eGFR 41 See Note
[2024-12-11] MEDS: INSULIN LISPRO (AdmeLOG) 1 UNIT/0.01 ML UNIT 13 UNIT SC (11:59)
[2024-12-11] MEDS: INSULIN LISPRO (AdmeLOG) 1 UNIT/0.01 ML UNIT SC ×2 (12:00→17:11)
--- NOTE | 2024-12-11 12:21 | ESPR_ITS ---
<Statement entered by Brisa Titus MD - 12/12/24 08:20> TOTAL TIME: 45MINUTES ON DIRECT MEDICAL CARE, MANAGEMENT - COORDINATION AND COUNSELING > 50% OF TOTAL TIME I saw and evaluated the patient. I reviewed the resident?s note and agree with findings and plan as documented in the resident?s note. DKA resolved patient tolerated p.o. intake this morning and since long-acting insulin started as well as short acting sliding scale. Stable to transfer to medical surgical floor <Statement entered by Adrien Rodgers DO - 12/11/24 21:40> Senior attestation: Patient was examined and case was reviewed with team including attending physician. Note reviewed, I agree with most of its contents and agree with the patient's care. Patient's anion gap noted to close 2x, will transition to subcutaneous insulin and stop insulin drip. Advise 35 units glargine with 13 units lispro TID based on steady state IV insulin dose requirements. Patient and her daughter counseled this morning regarding medication compliance. Patient's daughter shares that patient may not be fully compliant with her medications, possibly because of the pain she feels with IV injection compounded by patient's history of dementia. Patient is noted to have had home health in the past, however is interested in a different agency who can help administer medications if possible. Advise home health or additional resources that can help patient administer daily medications. Urinalysis pending, patient stable for downgrade to medical floors. Adrien Rodgers DO PGY-3 Documentation for date of: 12/11/24 Subjective Subjective Interval history: Ms. Dickerson is a 79-year-old female with past medical history of hypertension, diabetes, hyperlipidemia, Alzheimer dementia, chronic UTIs, CVA, history of DKA, H pylori gastritis who presented to [facility] with chief complaint of high blood glucose levels. Patient has dementia at baseline and is a poor historian, on asking about details patient said that she thinks she might be in ketoacidosis further patient describes that since yesterday she has been having nausea and vomiting, reports having at least 5 episodes of emesis, nonbloody, moderate amount and foul-smelling. Patient also complains of on and off chest pain, describes it in the middle of her chest. Otherwise patient denies any diarrhea, shortness of breath, cough, headache, chills and fever. She endorses taking her medications regularly including insulin. Of note on discussion regarding CODE STATUS patient opted for DNR/DNI, patient's nurse in ED confirmed patient's CODE STATUS at bedside, patient alert oriented x 3 during discussion. ED Course: ED Vitals:On presentation blood pressure 109/51, P 93, RR 16, Temp 98.7, O2 sat 96 on room air ED Labs:ED labs significant for WBC 11.7, RBC 3.68, MCV 102, neutrophil 9.4 VBG in ED shows pH 7.06, pCO2 28, sodium 131, chloride 93, pCO2 less than 10, BUN 36, creatinine 2.0, GFR 25, glucose 682, BNP 108, globulin 2.2, beta- hydroxybutyrate 4.7 ED Imaging: No imaging obtained in ED EKG shows sinus rhythm, QTc 450 ED Treatment: Patient was given 2 L normal saline, 10 units of IV insulin and was started on insulin GGT in emergency department 12/11/2024: Patient seen and examined at bedside, reports marked improvement in symptoms, patient started on subcutaneous Lantus this morning, transitioned off insulin gtt. 2 hours later, tolerating breakfast well no current complaints, was started on lispro 3 times daily with meals, case discussed with daughter at bedside, she reports that patient lives at home with son and [id number], patient is poorly compliant with insulin at times due to advanced dementia. She does report that she is actively involved in patient's care and some also assists with family medication administration, does endorse having home health at home yet admits to lapses in medication administration at time, patient and patient's daughter counseled at bedside regarding DKA, verbalized understanding, advised close follow-up with primary care physician in outpatient setting. Patient will be downgraded to floors today, hospitalist team will resume care for patient in a.m., otherwise patient is stable has no current complaints, pending urine analysis. Exam Vital Signs Temp Pulse Resp BP Pulse Ox O2 Del Method 98.7 F 62 15 136/52 H 100 Room Air 12/11/24 12:12/11/24 12:12/11/24 12:12/11/24 12:12/11/24 12:12/11/24 04:00 Narrative Exam Physical Exam General: Awake and in no acute distress. Conversational and non-toxic appearing. HEENT: Normocephalic, atraumatic, mucous membranes dry. Heart: Regular rate and rhythm, no murmurs. Lungs: Clear to auscultation with no wheezing or crackles. Abdomen: Soft, nondistended, nontender, positive bowel sounds. ?No guarding or rebound tenderness. Neurologic: Alert and oriented x3, no gross neurological deficit, and patient able to move all 4 extremities. Extremities: No edema. Skin: No rash or ecchymoses. Objective Labs 12/11/24 06:05 12/11/24 09:33 Labs: Laboratory Results - last 24 hr 12/10/24 12/10/24 12/10/24 14:45 16:26 16:48 WBC 11.7 H RBC 3.68 L Hgb 12.6 Hct 37.5 MCV 102 H MCH 34.2 MCHC 33.6 RDW Std Deviation 53.5 H Plt Count 208 D Neut % (Auto) 80 Lymph % (Auto) 8 L [place] % (Auto) 12 Eos % (Auto) 0 Baso % (Auto) 0 Neut # (Auto) 9.4 H Lymph # (Auto) 0.9 L [place] # (Auto) 1.4 H Eos # (Auto) 0.0 Baso # (Auto) 0.0 Immature Gran # (Auto) 0.04 H Absolute Nucleated RBC 0.00 Immature Gran % 0 Nucleated RBC % 0 PT INR APTT Puncture Site Cancelled ABG pH Cancelled ABG pCO2 Cancelled ABG pO2 Cancelled ABG HCO3 Cancelled ABG O2 Saturation Cancelled ABG Base Excess Cancelled VBG pH 7.06 L VBG pCO2 28 L VBG pO2 27 VBG O2 Sat (Kathryn) 37 L VBG Base Excess -21 L Oxygen Liter Flow Cancelled FiO2 Cancelled Sodium 131 L Potassium 5.0 Chloride 93 L Carbon Dioxide < 10.0 L* Anion Gap 28 H BUN 36 H Creatinine 2.0 H Estim Creat Clear Calc 15.8 L eGFR 25 L BUN/Creatinine Ratio 18 Glucose 682 H* Estimated Ave Glu mg/dL Hemoglobin A1c Calculated Osmolality 302 H Lactic Acid Calcium 9.5 Corrected Calcium 9.5 Phosphorus Magnesium 2.4 Total Bilirubin 0.5 AST 18 ALT 24 Alkaline Phosphatase 71 Troponin I < 0.020 B-Natriuretic Peptide 108 H Total Protein 6.3 Albumin 4.1 Globulin 2.2 L Albumin/Globulin Ratio 1.9 Triglycerides Cholesterol LDL Cholesterol, Calc HDL Cholesterol Cholesterol/HDL Ratio Lipase 21 Beta-Hydroxybutyrate/Acetoacetate 4.7 H 12/10/24 12/10/24 12/11/24 17:58 21:46 01:43 WBC RBC Hgb Hct MCV MCH MCHC RDW Std Deviation Plt Count Neut % (Auto) Lymph % (Auto) [place] % (Auto) Eos % (Auto) Baso % (Auto) Neut # (Auto) Lymph # (Auto) [place] # (Auto) Eos # (Auto) Baso # (Auto) Immature Gran # (Auto) Absolute Nucleated RBC Immature Gran % Nucleated RBC % PT INR APTT Puncture Site ABG pH ABG pCO2 ABG pO2 ABG HCO3 ABG O2 Saturation ABG Base Excess VBG pH VBG pCO2 VBG pO2 VBG O2 Sat (Kathryn) VBG Base Excess Oxygen Liter Flow FiO2 Sodium 135 L 137 140 Potassium 4.3 D 4.3 4.4 Chloride 101 106 107 Carbon Dioxide < 10.0 L* 18.9 L 22.5 Anion Gap 24 H 12 11 BUN 29 H 31 H 28 H Creatinine 1.8 H 1.6 H 1.4 H Estim Creat Clear Calc 17.6 L 19.8 L 22.6 L eGFR 28 L 32 L 38 L BUN/Creatinine Ratio 16 19 20 Glucose 403 H* D 165 H D [address] Glu mg/dL Hemoglobin A1c Calculated Osmolality 292 284 289 Lactic Acid 1.8 1.3 Calcium 8.7 8.5 8.4 Corrected Calcium 8.9 9.0 9.1 Phosphorus 6.4 H 4.2 3.6 Magnesium 2.0 2.0 Total Bilirubin AST ALT Alkaline Phosphatase Troponin I B-Natriuretic Peptide Total Protein Albumin 3.8 3.4 3.1 L Globulin Albumin/Globulin Ratio Triglycerides Cholesterol LDL Cholesterol, Calc HDL Cholesterol Cholesterol/HDL Ratio Lipase Beta-Hydroxybutyrate/Acetoacetate 12/11/24 12/11/24 12/11/24 06:05 09:33 09:33 WBC 4.5 D RBC 3.01 L Hgb 10.3 L D Hct 29.0 L MCV 96 MCH 34.2 MCHC 35.5 RDW Std Deviation 50.1 H Plt Count 132 L D Neut % (Auto) 50 Lymph % (Auto) 36 [place] % (Auto) 13 H Eos % (Auto) 1 Baso % (Auto) 0 Neut # (Auto) 2.2 Lymph # (Auto) 1.6 [place] # (Auto) 0.6 Eos # (Auto) 0.1 Baso # (Auto) 0.0 Immature Gran # (Auto) 0.01 H Absolute Nucleated RBC 0.00 Immature Gran % 0 Nucleated RBC % 0 PT 11.4 INR 1.0 APTT 26.0 Puncture Site ABG pH ABG pCO2 ABG pO2 ABG HCO3 ABG O2 Saturation ABG Base Excess VBG pH VBG pCO2 VBG pO2 VBG O2 Sat (Kathryn) VBG Base Excess Oxygen Liter Flow FiO2 Sodium 139 138 Potassium 4.3 4.6 Chloride 108 H 106 Carbon Dioxide 24.4 22.5 Anion Gap 7 10 BUN 26 H 24 H Creatinine 1.3 1.3 Estim Creat Clear Calc 28.3 L 28.3 L eGFR 41 L 41 L BUN/Creatinine Ratio 20 18 Glucose [address] Glu mg/dL 194 H Hemoglobin A1c 8.4 H Calculated Osmolality 287 287 Lactic Acid 1.4 1.5 Calcium 8.7 8.8 Corrected Calcium 9.3 9.3 Phosphorus 3.1 2.9 3.0 Magnesium 2.0 2.0 Total Bilirubin 0.4 AST 12 ALT 15 Alkaline Phosphatase 50 D Troponin I B-Natriuretic Peptide Total Protein 4.9 L Albumin 3.2 L 3.4 Globulin 1.7 L Albumin/Globulin Ratio 1.9 Triglycerides 74 Cholesterol 100 L LDL Cholesterol, Calc 44 HDL Cholesterol 41 Cholesterol/HDL Ratio 2.4 L Lipase Beta-Hydroxybutyrate/Acetoacetate ABG Interpretation ABG results: 12/10/24 12/10/24 16:26 16:48 ABG pH Cancelled ABG pCO2 Cancelled ABG pO2 Cancelled ABG HCO3 Cancelled ABG O2 Saturation Cancelled ABG Base Excess Cancelled VBG pH 7.06 L VBG pCO2 28 L VBG pO2 27 VBG Base Excess -21 L Quality Measures Quality Measures none Advance care planning discussed with:: patient and child Assessment & Plan Assessment Current Active Medications: Generic Name Dose Route Start Last Admin Trade Name Freq PRN Reason Stop Dose Admin Acetaminophen 650 mg 12/10/24 17:39 Acetaminophen 325 Mg Tablet PO 01/09/25 17:38 Q6H PRN Pain and Fever >101.5 Atorvastatin Calcium 40 mg 12/10/24 21:00 12/10/24 21:13 Atorvastatin Calcium 20 Mg Tablet PO 01/09/25 20:59 40 mg HS JULITA Administration Clopidogrel Bisulfate 75 mg 12/11/24 09:00 12/11/24 08:25 Clopidogrel Bisulfate 75 Mg Tablet PO 01/10/25 08:59 75 mg QDAY JULITA Administration Dextrose 25 ml 12/10/24 17:10 Dextrose 50%-Water Inj 50 Ml Syringe IV [id number] PRN Blood Sugar - Low Donepezil HCl 10 mg 12/11/24 21:00 Donepezil Hcl 5 Mg Tablet PO 01/10/25 20:59 HS JULITA Glucagon 1 mg 12/11/24 08:05 Glucagon Inj 1 Mg Vial IM Q15MIN PRN BG <70, and no IV access Heparin Sodium (Porcine) 5,000 unit 12/10/24 22:00 12/11/24 05:17 Heparin Sod Inj 5000 Unit/Ml Vial SC 12/24/24 21:59 5,000 unit Q8HR JULITA Administration Insulin Glargine 35 unit 12/12/24 09:00 Insulin Glargine (Lantus) 5 Unit/0.05 Ml (Per 5 Units) SC 01/11/25 08:59 QDAY JULITA Insulin Human Lispro 13 unit 12/11/24 11:30 12/11/24 11:59 Insulin Lispro (Admelog) 1 Unit/0.01 Ml Unit SC 01/10/25 11:29 13 unit AC [facility] Administration Insulin Human Lispro 0 unit 12/11/24 11:30 12/11/24 12:00 Insulin Lispro (Admelog) 1 Unit/0.01 Ml Unit SC 01/10/25 11:29 2 unit AC [facility] Administration Protocol Metoprolol Tartrate 25 mg 12/10/24 21:00 12/11/24 08:24 Metoprolol Tartrate 25 Mg Tablet PO 01/09/25 20:59 25 mg BID JULITA Administration Pantoprazole Sodium 40 mg 12/10/24 17:45 12/11/24 08:24 Pantoprazole Inj 40 Mg Vial IVP 01/09/25 17:44 40 mg QDAY JULITA Administration Sennosides 1 tab 12/10/24 17:39 Senna Tablet PO 01/09/25 17:38 QDAY PRN constipation Protocol Plan Assessment and Plan: Summary: Ms. Dickerson is a 79-year-old female with past medical history of hypertension, diabetes, hyperlipidemia, Alzheimer dementia, chronic UTIs, CVA, history of DKA, H pylori gastritis who presented to [facility] with chief complaint of high blood glucose levels. Patient admitted to intensive care unit for further management of diabetic ketoacidosis. Neurological # Alzheimer Dementia Patient is alert and oriented x 3, on donepezil 10 mg at bedtime at home Differential diagnosis: High suspicion of Alzheimer dementia, less likely vascular dementia Treatment: Resumed home dose donepezil 10 mg at bedtime # History of CVA Treatment: Resume home dose Plavix 75 daily Cardiology # Hypertension Patient has history of hypertension, on metoprolol tartrate 25 twice daily at home Treatment: -Resumed home dose metoprolol tartrate 25 twice daily #Hyperlipidemia Patient has history of hyperlipidemia on atorvastatin 40 mg and ezetimibe 10 mg at home Lipid panel shows HDL 41, cholesterol 100, triglycerides 74, LDL 45 Treatment: -Resumed home dose atorvastatin Pulmonary Stable Gastrointestinal # Nausea and vomiting Patient reports nausea and vomiting since yesterday, moderate in amount, foul- smelling, nonbloody, associated with chest pain Differential diagnosis: Possibly secondary to DKA, gastroenteritis Diagnostic workup: Currently denies any nausea and vomiting Treatment: -Will treat underlying DKA -Will be cautious with the use of antiemetics, patient's QTc 450, already on donepezil -Started on IV Protonix daily Follow-up: -Monitor for nausea/vomiting Renal/Genitourinary # High anion gap metabolic acidosis with compensated respiratory alkalosis Differential diagnosis: Underlying diabetic ketoacidosis Diagnostic workup: pH VBG 7.06 on presentation, pCO2 28, venous CO2 less than 10 Anion gap 37, corrected sodium 140, chloride 93,, bicarb 10, albumin 4.1 Beta hydroxybutyrate 4.7 Treatment: -Resolved Follow-up: -Follow bicarb in a.m. #Acute kidney injury Differential diagnosis: Prerenal, less likely intrinsic renal versus postrenal Diagnostic workup: Baseline 5, creatinine 0.9, GFR more than 60 On presentation BUN 36, creatinine 2.0, GFR 25 Treatment: -Patient was given 2 L NS in ED -Received IV Ringer lactate per DKA protocol Follow-up: -Monitor renal panel in a.m. Endocrine # Diabetes Ketoacidosis Differential diagnosis: Diabetic ketoacidosis, less likely HHS Diagnostic workup: pH VBG 7.06 on presentation, pCO2 28, venous CO2 less than 10 Anion gap 37, corrected sodium 140, chloride 93,, bicarb 10, albumin 4.1 Beta hydroxybutyrate 4.7 Patient complained of nausea/vomiting since yesterday History of DKA in the past, currently on insulin for diabetes management High suspicion of poor outpatient management/compliance due to underlying Alzheimer's dementia Hemoglobin A1c 8.4 Treatment: -Insulin GGT discontinued, patient transitioned to subcutaneous insulin -Patient will be started on 35 units of insulin glargine and 13 units AC -Fingerstick blood glucose checks ACHS -Carb consistent low diet -IV Ringer lactate Follow-up: -Monitor fingerstick blood glucose Hematology # Leukocytosis, possibly reactive No source of infection, patient's only symptoms are nausea/vomiting Will monitor WBC count, pending urine analysis, complains of mild dysuria Infectious Disease Stable DVT prophylaxis: Heparin every 8 hours GI prophylaxis: Protonix 40 mg IV daily Diet: N.p.o. for now Lines: Peripheral IV Code status: DNR/DNI Case discussed with Attending Dr. Titus and Dr. Rodgers PGY3. Francisca Cano PGY1
--- NOTE | 2024-12-11 12:44 | PC.SS ---
IT TECHNICAL ARCHITECT conducted bedside contact with the patient conduct initial assessment and to discuss discharge planning. Patient confirmed demographic information. Patient resides at home with her son. Patient admitted to ICU due to DKA. Patient possesses history of diabetes insulin dependent. Patient does not utilize DME to assist with ambulation. Patient does not utilize home oxygen. Patient describes ability to complete ADL?s independently. Patient identified daughter, Marii Gonzalez ; as medical surrogate decision maker. Patient?s PCP is Etienne Sumner. Patient does not participate with dialysis. Patient utilizes [facility] for medication services. Patient confirmed that discharge plan is to return home. Patient is aligned with [facility]. Patient would to re-establish home health services upon discharge. Family will provide transportation on behalf of the patient. No discharge needs identified by the patient. No further intervention required at this time, social sciences lecturer will be available to address any further concerns. Next of Kin: Marii Gonzalez D/C Plan: Home
--- NOTE | 2024-12-11 14:07 | EVENTNT_ITS ---
<Statement entered by Leander Lunsford MD - 12/17/24 12:07> I reviewed above note and agree with findings and plans. I have also personally examined the patient with medicine team and went over assessment and plan with medical team including fashion intern and resident physician. Documentation for date of: 12/11/24 Event Note Event Note: 79-year-old female with past medical history of hypertension, DM2, hyperlipidemia, Alzheimer's dementia, chronic UTIs, CVA, H. pylori gastritis, and prior history of DKA's was admitted to the ICU on 12/10/2024 due to DKA. Initially patient came in mildly hypotensive and afebrile. Initial labs were relevant for mild leukocytosis (11.7), high anion gap metabolic acidosis (AG 28, bicarb less than 10), hyperglycemia (682), YARA (creatinine 2), and elevated beta hydroxybutyrate (4.7). Initial imaging included EKG which showed sinus rhythm. Patient was placed on DKA protocol and by today her anion gap had closed x 2 and her YARA had resolved as well. Patient at this time is stable to be downgraded to the medical floors and allocated to team C tomorrow. Case disclosed with Attending Dr. Isatu Palm PGY1
[2024-12-11] MEDS: DONEPEZIL HCL 5 MG TABLET 10 MG PO (21:08)
[2024-12-11] MEDS: ATORVASTATIN CALCIUM 20 MG TABLET 40 MG PO (21:08)
[2024-12-12] VITALS (11 sets, daily range): BP systolic 116–164; BP diastolic 59–80; PULSE 54–77; RESP 15–99; TEMP 36.2–36.7; O2SAT 90–99; BMI 27.9
--- NOTE | 2024-12-12 05:10 | PC.NURSE ---
Dr. Zhao, notified of black stools from patient brief. New orders for guaic test.
[2024-12-12 06:08] LABS: Basophils % (Auto) 0 % (0-2.5); Eosinophils # (Auto) 0.2 Thou/mm3 (0.0-0.5); Eosinophils % (Auto) 5 % (0-10); Hematocrit 31.4 % (36.0-46.0); Immature Granulocytes % (Auto) 0 % (0-0); Immature Granulocytes Auto 0.01 Thou/mm3 (0.00-0.00); Lymphocytes # (Auto) 0.9 Thou/mm3 (1.0-4.8); Lymphocytes % (Auto) 29 % (10-50); Mean Corpuscular Volume 97 fL (80-100); Monocytes # (Auto) 0.3 Thou/mm3 (0.0-0.8); Monocytes % (Auto) 10 % (0-12); Neutrophils # (Auto) 1.7 Thou/mm3 (1.8-7.7); Neutrophils % (Auto) 55 % (37-80); Nucleated Red Blood Cell % 0 /100 WBC (0); Platelet Count 118 Thou/mm3 (140-440); RDW Standard Deviation 49.8 fL (36.4-46.3); Red Blood Count 3.24 Miln/mm3 (4.00-5.20); White Blood Count 3.1 Thou/mm3 (3.6-11.0)
[2024-12-12 06:59] LABS: Alanine Aminotransferase 52 U/L (10-49); Albumin, Serum 3.3 gm/dL (3.4-4.8); Albumin/Globulin Ratio 1.9 (1.2-2.2); Alkaline Phosphatase 64 U/L (46-116); Anion Gap 9 (7-16); Aspartate Amino Transferase 117 U/L (0-34); BUN/Creatinine Ratio 17 Ratio (12-20); Bilirubin,Total 0.4 mg/dL (0.3-1.2); Blood Urea Nitrogen 15 mg/dL (9-23); Calcium 8.9 mg/dL (8.3-10.6); Calcium (Corrected) 9.5 mg/dL (8.5-10.1); Carbon Dioxide 25.3 mMol/L (20.0-31.0); Chloride 107 mMol/L (98-107); Creatinine (Component) 0.9 mg/dL (0.6-1.3); Globulin 1.7 gm/dL (2.3-3.5); Glucose 80 mg/dL (74-106); Magnesium 1.8 mg/dL (1.6-2.6); Osmolality,Calculated 281 (275-295); Phosphorous 3.1 mg/dL (2.4-5.1); Potassium 4.4 mMol/L (3.4-5.1); Sodium 141 mMol/L (136-145); eGFR > 60 See Note
[2024-12-12] MEDS: METOPROLOL TARTRATE 25 MG TABLET PO ×2 (09:16→20:36)
[2024-12-12] MEDS: PANTOPRAZOLE INJ 40 MG VIAL IVP (09:17)
[2024-12-12] MEDS: CLOPIDOGREL BISULFATE 75 MG TABLET PO (09:17)
[2024-12-12] MEDS: INSULIN GLARGINE (Lantus) 5 UNIT/0.05 ML (PER 5 UNITS) 35 UNIT SC (09:31)
--- NOTE | 2024-12-12 11:16 | ESPR_ITS ---
<Statement entered by Leander Lunsford MD - 12/17/24 12:10> I reviewed above note and agree with findings and plans. I have also personally examined the patient with medicine team and went over assessment and plan with medical team including public relations intern and resident physician. Documentation for date of: 12/12/24 Subjective Subjective Interval history: Patient was seen at bedside this morning. No overnight events. Patient was downgraded from the ICU to us today as she was stable. Patient denies any nausea or vomiting. From blood glucose this morning was 80. Her liver enzymes did increase, we have stopped patient's atorvastatin for now as it can be the cause. No other complaints at this time anticipated possible discharge in the next 24 to 48 hours. Exam Vital Signs Temp Pulse Resp BP Pulse Ox O2 Del Method 97.9 F 56 L 16 164/69 H 95 Room Air 12/12/24 08:00 12/12/24 09:16 12/12/24 08:00 12/12/24 09:16 12/12/24 08:00 12/12/24 08:00 Narrative Exam General: A/O x3, no acute distress, well-nourished, well-developed Eyes: PERRL, EOMI. Anicteric, vision grossly intact. Ears: No ear pain, no ear discharge, Hearing grossly intact. Nose: No nasal discharge. Mouth/Throat: Dry mucous membranes, missing dentation, no redness, no lesions. Neck: Neck supple, non-tender, no cervical lymphadenopathy. Lungs: Clear HUBER to auscultation and percussion, No accessory muscle use. Cardio: Normal S1/S2, regular rhythm, no murmurs, no JVD. Abdomen: Soft, non-tender, no palpable masses, peristalsis present, no guarding or rebound. Extremities: Symmetrical, no significant deformities, no peripheral edema , non-tender, peripheral pulses presents. Skin: No rashes, no lesions, warm to touch. Neuro: No focal neurological deficits. motor and sensory intact, 4/5 strength in R LE likely from previous CVA Objective Labs 12/12/24 05:47 12/12/24 05:47 Labs: Laboratory Results - last 24 hr 12/12/24 05:47 WBC 3.1 L RBC 3.24 L Hgb 11.0 L Hct 31.4 L MCV 97 MCH 34.0 MCHC 35.0 RDW Std Deviation 49.8 H Plt Count 118 L Neut % (Auto) 55 Lymph % (Auto) 29 Schleicher % (Auto) 10 Eos % (Auto) 5 Baso % (Auto) 0 Neut # (Auto) 1.7 L Lymph # (Auto) 0.9 L Schleicher # (Auto) 0.3 Eos # (Auto) 0.2 Baso # (Auto) 0.0 Immature Gran # (Auto) 0.01 H Absolute Nucleated RBC 0.00 Immature Gran % 0 Nucleated RBC % 0 Sodium 141 Potassium 4.4 Chloride 107 Carbon Dioxide 25.3 Anion Gap 9 BUN 15 Creatinine 0.9 Estim Creat Clear Calc 40.0 L eGFR > 60 BUN/Creatinine Ratio 17 Glucose 80 D Calculated Osmolality 281 Calcium 8.9 Corrected Calcium 9.5 Phosphorus 3.1 Magnesium 1.8 Total Bilirubin 0.4 AST 117 H ALT 52 H Alkaline Phosphatase 64 D Total Protein 5.0 L Albumin 3.3 L Globulin 1.7 L Albumin/Globulin Ratio 1.9 ABG Interpretation ABG results: 12/10/24 12/10/24 16:26 16:48 ABG pH Cancelled ABG pCO2 Cancelled ABG pO2 Cancelled ABG HCO3 Cancelled ABG O2 Saturation Cancelled ABG Base Excess Cancelled VBG pH 7.06 L VBG pCO2 28 L VBG pO2 27 VBG Base Excess -21 L Quality Measures Quality Measures none Advance care planning discussed with:: patient and child Assessment & Plan Assessment Current Active Medications: Generic Name Dose Route Start Last Admin Trade Name Freq PRN Reason Stop Dose Admin Acetaminophen 650 mg 12/10/24 17:39 Acetaminophen 325 Mg Tablet PO 01/09/25 17:38 Q6H PRN Pain and Fever >101.5 Clopidogrel Bisulfate 75 mg 12/11/24 09:00 12/12/24 09:17 Clopidogrel Bisulfate 75 Mg Tablet PO 01/10/25 08:59 75 mg QDAY JULITA Administration Dextrose 25 ml 12/10/24 17:10 Dextrose 50%-Water Inj 50 Ml Syringe IV [id number] PRN Blood Sugar - Low Donepezil HCl 10 mg 12/11/24 21:00 12/11/24 21:08 Donepezil Hcl 5 Mg Tablet PO 01/10/25 20:59 10 mg HS JULITA Administration Glucagon 1 mg 12/11/24 08:05 Glucagon Inj 1 Mg Vial IM Q15MIN PRN BG <70, and no IV access Heparin Sodium (Porcine) 5,000 unit 12/10/24 22:00 12/12/24 05:34 Heparin Sod Inj 5000 Unit/Ml Vial SC 12/24/24 21:59 Not Given Q8HR JULITA Insulin Glargine 35 unit 12/12/24 09:00 12/12/24 09:31 Insulin Glargine (Lantus) 5 Unit/0.05 Ml (Per 5 Units) SC 01/11/25 08:59 35 unit QDAY JULITA Administration Insulin Human Lispro 13 unit 12/11/24 11:30 12/12/24 07:29 Insulin Lispro (Admelog) 1 Unit/0.01 Ml Unit SC 01/10/25 11:29 Not Given [facility] Insulin Human Lispro 0 unit 12/11/24 11:30 12/12/24 07:30 Insulin Lispro (Admelog) 1 Unit/0.01 Ml Unit SC 01/10/25 11:29 Not Given [facility] Protocol Metoprolol Tartrate 25 mg 12/10/24 21:00 12/12/24 09:16 Metoprolol Tartrate 25 Mg Tablet PO 01/09/25 20:59 25 mg BID JULITA Administration Pantoprazole Sodium 40 mg 12/10/24 17:45 12/12/24 09:17 Pantoprazole Inj 40 Mg Vial IVP 01/09/25 17:44 40 mg QDAY JULITA Administration Sennosides 1 tab 12/10/24 17:39 Senna Tablet PO 01/09/25 17:38 QDAY PRN constipation Protocol Plan 79-year-old female with past medical history of hypertension, DM2, hyperlipidemia, Alzheimer's dementia, chronic UTIs, CVA, H. pylori gastritis, and prior history of DKA's was admitted to the ICU on 12/10/2024 due to DKA and downgraded to the medical floors on 12/12/2024. #DKA, resolved #High anion gap metabolic acidosis, resolved #Intractable nausea and vomiting, resolved #Hx of DM2 ?Patient came in with DKA, she has a history of multiple DKA's requiring admission. ? Patient lives at home with her son, but in the setting of Alzheimer's disease she most likely has difficulty being up to date on her medication. ? A1c on 12/11/2024 was 8.4 Plan: ? Insulin glargine 35 units daily ? Insulin lispro 13 units AC ? ISS ? Hypoglycemia protocol ordered ?Physical therapy ordered ? Refer to registered dietitian ? Will continue to monitor #Transaminitis ? AST 117 and ALT 52 today ? Patient does not have any symptoms at this time ? DDx likely medication induced as patient is on atorvastatin Plan: ? Will continue to monitor #YARA, resolved ? Patient came in with creatinine of 2 ? Most likely in the setting of dehydration given no nausea and vomiting ? Creatinine today 0.9 Plan: ? Avoid nephrotoxic agents ? Renal dose medication ? Will continue to monitor #Alzheimer's disease ?Patient was alert and oriented x 3 ? Continue donepezil 10 mg at bedtime #Hx of CVA ? Continue Plavix #Hx of hyperlipidemia ? Stop atorvastatin for now in the setting of transaminitis #Hx of hypertension ? Continue patient's metoprolol 25 twice daily Disposition: Patient seen in telemetry monitoring LFTS, pending PT. Diet: Dysphagia GI prophylaxis: protonix DVT prophylaxis: heparin sc Code: DNR Case disclosed with Attending Dr. Lunsford and My senior Dr. Leon PGY2. Wilver Palm PGY1 _ Senior Resident Attestation: The patient is a 79-year-old female with significant past medical history of DM2, hyperlipidemia, Alzheimer's disease, hypertension, chronic UTIs, CVA, H. pylori gastritis, and prior history of DKA's who was admitted to ICU for further management of DKA and later downgraded to the floors for further management of diabetes mellitus type 2. The patient reported doing well this morning. She denied any nausea or vomiting, abdominal pain or diarrhea, lightheadedness or headache, chest pain or SOB, fever or chills. Her vitals were stable, physical exam unremarkable. Labs were significant for mild transaminitis, likely in the setting of atorvastatin use. We will continue with insulin glargine 35 units daily, and lispro 13 units 3 times daily along with SSI. We will continue to monitor blood sugar. We will continue with donepezil 10 Mg p.o. MS disease, and metoprolol 25 Mg twice daily for hypertension. The plan is to discharge the patient possibly to SNF if her labs and vitals were stable tomorrow. I discussed with and supervised the public relations intern physician involved in the care of this patient. I personally saw and examined the patient and discussed the assessment and plan with the entire medicine team, including my attending. I agree with the assessment and plan as documented above. Chaz Leon MD PGY2 Internal Medicine
[2024-12-12] MEDS: INSULIN LISPRO (AdmeLOG) 1 UNIT/0.01 ML UNIT 13 UNIT SC (11:39)
[2024-12-12] MEDS: INSULIN LISPRO (AdmeLOG) 1 UNIT/0.01 ML UNIT SC (11:40)
--- NOTE | 2024-12-12 12:25 | PC.CM ---
Patient is opened to [facility]. She will need new orders for home health is she goes home.
[2024-12-12] MEDS: HEPARIN SOD INJ 5000 UNIT/ML VIAL SC ×2 (15:35→21:22)
--- NOTE | 2024-12-12 17:49 | PC.NURSE ---
SPOKE WITH DR KEYS. INFORMED OF SIGNIFICANT CHANGE IN BLOOD SUGAR SINCE YESTERDAY AFTERNOON. BS IN THE LOW 100'S THIS AM IT WAS 84, FOR LUNCH 151 GIVEN LISPRO PER ORDER 14UNITS TOTAL AND FOR DINNER BLOOD SUGAR 70.
[2024-12-12] MEDS: DONEPEZIL HCL 5 MG TABLET 10 MG PO (20:36)
[2024-12-13] VITALS (9 sets, daily range): BP systolic 128–150; BP diastolic 57–98; PULSE 55–71; RESP 15–94; TEMP 36.2–36.9; O2SAT 94–99; BMI 27.9
[2024-12-13] MEDS: HEPARIN SOD INJ 5000 UNIT/ML VIAL SC ×3 (05:20→21:53)
[2024-12-13 05:52] LABS: Basophils % (Auto) 0 % (0-2.5); Eosinophils # (Auto) 0.1 Thou/mm3 (0.0-0.5); Eosinophils % (Auto) 4 % (0-10); Hematocrit 32.3 % (36.0-46.0); Hemoglobin 11.3 g/dL (12.0-16.0); Immature Granulocytes % (Auto) 0 % (0-0); Lymphocytes # (Auto) 0.9 Thou/mm3 (1.0-4.8); Lymphocytes % (Auto) 26 % (10-50); Mean Corpuscular Hemoglobin 33.6 pg (25.0-35.0); Mean Corpuscular Volume 96 fL (80-100); Monocytes # (Auto) 0.3 Thou/mm3 (0.0-0.8); Monocytes % (Auto) 9 % (0-12); Neutrophils # (Auto) 2.1 Thou/mm3 (1.8-7.7); Neutrophils % (Auto) 62 % (37-80); Nucleated Red Blood Cell % 0 /100 WBC (0); Platelet Count 99 Thou/mm3 (140-440); RDW Standard Deviation 47.9 fL (36.4-46.3); Red Blood Count 3.36 Miln/mm3 (4.00-5.20); White Blood Count 3.4 Thou/mm3 (3.6-11.0)
[2024-12-13 06:37] LABS: Alanine Aminotransferase 85 U/L (10-49); Albumin, Serum 3.4 gm/dL (3.4-4.8); Alkaline Phosphatase 83 U/L (46-116); Anion Gap 7 (7-16); Aspartate Amino Transferase 164 U/L (0-34); BUN/Creatinine Ratio 15 Ratio (12-20); Bilirubin,Total 0.5 mg/dL (0.3-1.2); Blood Urea Nitrogen 12 mg/dL (9-23); Calcium (Corrected) 9.5 mg/dL (8.5-10.1); Carbon Dioxide 28.2 mMol/L (20.0-31.0); Chloride 107 mMol/L (98-107); Creatinine (Component) 0.8 mg/dL (0.6-1.3); Globulin 1.7 gm/dL (2.3-3.5); Glucose 86 mg/dL (74-106); Magnesium 1.7 mg/dL (1.6-2.6); Osmolality,Calculated 281 (275-295); Phosphorous 2.8 mg/dL (2.4-5.1); Sodium 142 mMol/L (136-145); Total Protein 5.1 gm/dL (5.7-8.2); eGFR > 60 See Note
--- NOTE | 2024-12-13 08:00 | XR_ITS ---
Examination: Abdomen sonogram, Limited Date and time of exam: December 13, 2024 0844 hours INDICATIONS: Elevated liver function tests on laboratory examination 4 days ago, diagnosis diabetic ketoacidosis Technique: Real-time christian scale transabdominal sonographic images of the upper abdomen obtained. Findings: Normal gallbladder Common bile duct 0.6 cm no stones Pancreatic head 2.3 cm Liver 16 cm fatty infiltration no focal liver lesions Normal hepatopedal portal venous flow Patent IVC IMPRESSION: Normal gallbladder No common bile duct stones Fatty liver no focal liver lesions
[2024-12-13] MEDS: PANTOPRAZOLE INJ 40 MG VIAL IVP (08:43)
[2024-12-13] MEDS: Magnesium Sulfate 4 GM Ivpb 4 GM/50 ML BAG IV (08:43)
[2024-12-13] MEDS: METOPROLOL TARTRATE 25 MG TABLET PO ×2 (08:44→21:56)
[2024-12-13] MEDS: CLOPIDOGREL BISULFATE 75 MG TABLET PO (08:44)
[2024-12-13] MEDS: INSULIN GLARGINE (Lantus) 5 UNIT/0.05 ML (PER 5 UNITS) 35 UNIT SC (08:50)
--- NOTE | 2024-12-13 10:04 | ESPR_ITS ---
<Statement entered by Leander Lunsford MD - 12/17/24 12:15> I reviewed above note and agree with findings and plans. I have also personally examined the patient with medicine team and went over assessment and plan with medical team including engineering intern and resident physician. Documentation for date of: 12/13/24 Subjective Subjective Interval history: Patient was seen at bedside this morning. No overnight events. Patient's blood sugar has been pretty well-controlled in the mornings and her lispro 3 times daily schedule has not been giving therefore will adjust insulin regimen and only leave insulin glargine 30 units at bedtime and insulin sliding scale for now. Patient's liver enzymes continue to uptrend and liver ultrasound was ordered which revealed patient to have fatty liver. Patient and family were adamant that they did not want to go to intermediate facility even though it was recommended by physical therapy. They had decided to go home with home health and they understood all the rest. Exam Vital Signs Temp Pulse Resp BP Pulse Ox O2 Del Method 97.9 F 63 15 145/76 H 95 Room Air 12/13/24 08:00 12/13/24 08:44 12/13/24 08:00 12/13/24 08:44 12/13/24 08:00 12/13/24 08:00 Narrative Exam General: A/O x3, no acute distress, well-nourished, well-developed Eyes: PERRL, EOMI. Anicteric, vision grossly intact. Ears: No ear pain, no ear discharge, Hearing grossly intact. Nose: No nasal discharge. Mouth/Throat: Dry mucous membranes, missing dentation, no redness, no lesions. Neck: Neck supple, non-tender, no cervical lymphadenopathy. Lungs: Clear HUBER to auscultation and percussion, No accessory muscle use. Cardio: Normal S1/S2, regular rhythm, no murmurs, no JVD. Abdomen: Soft, non-tender, no palpable masses, peristalsis present, no guarding or rebound. Extremities: Symmetrical, no significant deformities, no peripheral edema , non-tender, peripheral pulses presents. Skin: No rashes, no lesions, warm to touch. Neuro: No focal neurological deficits. motor and sensory intact, 4/5 strength in R LE likely from previous CVA Objective Labs 12/13/24 05:10 12/13/24 05:10 Labs: Laboratory Results - last 24 hr 12/13/24 05:10 WBC 3.4 L RBC 3.36 L Hgb 11.3 L Hct 32.3 L MCV 96 MCH 33.6 MCHC 35.0 RDW Std Deviation 47.9 H Plt Count 99 L Neut % (Auto) 62 Lymph % (Auto) 26 [place] % (Auto) 9 Eos % (Auto) 4 Baso % (Auto) 0 Neut # (Auto) 2.1 Lymph # (Auto) 0.9 L [place] # (Auto) 0.3 Eos # (Auto) 0.1 Baso # (Auto) 0.0 Immature Gran # (Auto) 0.00 Absolute Nucleated RBC 0.00 Immature Gran % 0 Nucleated RBC % 0 Sodium 142 Potassium 5.0 D Chloride 107 Carbon Dioxide 28.2 Anion Gap 7 BUN 12 Creatinine 0.8 Estim Creat Clear Calc 45.0 L eGFR > 60 BUN/Creatinine Ratio 15 Glucose 86 Calculated Osmolality 281 Calcium 9.0 Corrected Calcium 9.5 Phosphorus 2.8 Magnesium 1.7 Total Bilirubin 0.5 AST 164 H ALT 85 H Alkaline Phosphatase 83 D Total Protein 5.1 L Albumin 3.4 Globulin 1.7 L Albumin/Globulin Ratio 2.0 ABG Interpretation ABG results: 12/10/24 12/10/24 16:26 16:48 ABG pH Cancelled ABG pCO2 Cancelled ABG pO2 Cancelled ABG HCO3 Cancelled ABG O2 Saturation Cancelled ABG Base Excess Cancelled VBG pH 7.06 L VBG pCO2 28 L VBG pO2 27 VBG Base Excess -21 L Quality Measures Quality Measures none Advance care planning discussed with:: patient Assessment & Plan Assessment Current Active Medications: Generic Name Dose Route Start Last Admin Trade Name Denisq PRN Reason Stop Dose Admin Acetaminophen 650 mg 12/10/24 17:39 Acetaminophen 325 Mg Tablet PO 01/09/25 17:38 Q6H PRN Pain and Fever >101.5 Clopidogrel Bisulfate 75 mg 12/11/24 09:00 12/13/24 08:44 Clopidogrel Bisulfate 75 Mg Tablet PO 01/10/25 08:59 75 mg QDAY JULITA Administration Dextrose 25 ml 12/10/24 17:10 Dextrose 50%-Water Inj 50 Ml Syringe IV [id number] PRN Blood Sugar - Low Donepezil HCl 10 mg 12/11/24 21:00 12/12/24 20:36 Donepezil Hcl 5 Mg Tablet PO 01/10/25 20:59 10 mg HS JULITA Administration Glucagon 1 mg 12/11/24 08:05 Glucagon Inj 1 Mg Vial IM Q15MIN PRN BG <70, and no IV access Heparin Sodium (Porcine) 5,000 unit 12/10/24 22:00 12/13/24 05:20 Heparin Sod Inj 5000 Unit/Ml Vial SC 12/24/24 21:59 5,000 unit Q8HR JULITA Administration Magnesium Sulfate 4 gm in 50 mls @ 12.5 mls/hr 12/13/24 08:16 12/13/24 08:43 Magnesium Sulfate Ivpb IV 12/13/24 12:15 12.5 mls/hr X1 ONE Administration Insulin Glargine 35 unit 12/12/24 09:00 12/13/24 08:50 Insulin Glargine (Lantus) 5 Unit/0.05 Ml (Per 5 Units) SC 01/11/25 08:59 35 unit QDAY JULITA Administration Insulin Human Lispro 13 unit 12/11/24 11:30 12/13/24 07:37 Insulin Lispro (Admelog) 1 Unit/0.01 Ml Unit SC 01/10/25 11:29 Not Given [facility] Insulin Human Lispro 0 unit 12/11/24 11:30 12/13/24 07:34 Insulin Lispro (Admelog) 1 Unit/0.01 Ml Unit SC 01/10/25 11:29 Not Given [facility] Protocol Metoprolol Tartrate 25 mg 12/10/24 21:00 12/13/24 08:44 Metoprolol Tartrate 25 Mg Tablet PO 01/09/25 20:59 25 mg BID JULITA Administration Pantoprazole Sodium 40 mg 12/10/24 17:45 12/13/24 08:43 Pantoprazole Inj 40 Mg Vial IVP 01/09/25 17:44 40 mg QDAY JULITA Administration Sennosides 1 tab 12/10/24 17:39 Senna Tablet PO 01/09/25 17:38 QDAY PRN constipation Protocol Plan 79-year-old female with past medical history of hypertension, DM2, hyperlipidemia, Alzheimer's dementia, chronic UTIs, CVA, H. pylori gastritis, and prior history of DKA's was admitted to the ICU on 12/10/2024 due to DKA and downgraded to the medical floors on 12/12/2024. #DKA, resolved #High anion gap metabolic acidosis, resolved #Intractable nausea and vomiting, resolved #Hx of DM2 ?Patient came in with DKA, she has a history of multiple DKA's requiring admission. ? Patient lives at home with her son, but in the setting of Alzheimer's disease she most likely has difficulty being up to date on her medication. ? A1c on 12/11/2024 was 8.4 ? Discontinue Insulin lispro 13 units AC Plan: ? Insulin glargine changed to 30 units at night. ? ISS ? Hypoglycemia protocol ordered ?Physical therapy ordered ? Refer to registered dietitian ? Will continue to monitor #Transaminitis #Fatty liver ? AST 164 and ALT 85 today ? Patient does not have any symptoms at this time ? DDx likely medication induced as patient is on atorvastatin -Liver U/s showed fatty liver Plan: ? Will continue to monitor #Hypomagnesemia ? Magnesium 1.7 today Plan: ? Gave 4 g of magnesium today ? Will replete as necessary #YARA, resolved ? Patient came in with creatinine of 2 ? Most likely in the setting of dehydration given no nausea and vomiting ? Creatinine today 0.8 Plan: ? Avoid nephrotoxic agents ? Renal dose medication ? Will continue to monitor #Alzheimer's disease ?Patient was alert and oriented x 3 ? Continue donepezil 10 mg at bedtime #Hx of CVA ? Continue Plavix #Hx of hyperlipidemia ? Stop atorvastatin for now in the setting of transaminitis #Hx of hypertension ? Continue patient's metoprolol 25 twice daily Disposition: Patient seen in telemetry, adjusted insulin regimen, anticipate Dc in next 24-48 hrs. Diet: Dysphagia GI prophylaxis: protonix DVT prophylaxis: heparin sc Code: DNR Case disclosed with Attending Dr. Lunsford and My senior Dr. Leon PGY2. Wilver Palm PGY1 Senior Resident Attestation: The patient is a 79-year-old female with significant past medical history of DM2, hyperlipidemia, Alzheimer's disease, hypertension, chronic UTIs, CVA, H. pylori gastritis, and prior history of DKA's who was admitted to ICU for further management of DKA and later downgraded to the floors for further management of diabetes mellitus type 2. The patient reported doing well this morning. She denied any nausea or vomiting, abdominal pain or diarrhea, lightheadedness or headache, chest pain or SOB, fever or chills. Her vitals were stable, physical exam unremarkable. Labs were significant for mild transaminitis that has been worsening and US liver done revealed fatty liver, so transamnites likely in the setting of atorvastatin use. We will continue with insulin glargine 30 units daily at night, along with SSI. We will continue to monitor blood sugar. We will continue with donepezil 10 Mg p.o. MS disease, and metoprolol 25 Mg twice daily for hypertension. The plan is to discharge the patient possibly to home with home health if her labs and vitals were stable tomorrow. I discussed with and supervised the engineering intern physician involved in the care of this patient. I personally saw and examined the patient and discussed the assessment and plan with the entire medicine team, including my attending. I agree with the assessment and plan as documented above. Chaz Leon MD PGY2
[2024-12-13] MEDS: INSULIN LISPRO (AdmeLOG) 1 UNIT/0.01 ML UNIT SC ×2 (11:38→17:19)
[2024-12-13] MEDS: ATORVASTATIN CALCIUM 20 MG TABLET 40 MG PO (21:53)
[2024-12-13] MEDS: DONEPEZIL HCL 5 MG TABLET 10 MG PO (21:53)
[2024-12-14] VITALS: BP 147/85; PULSE 57; RESP 18; TEMP 36.1; O2SAT 96
[2024-12-14 04:00] VITALS: BP 119/67; PULSE 53; PULSE 56; RESP 27; TEMP 36.4; O2SAT 97
[2024-12-14] MEDS: HEPARIN SOD INJ 5000 UNIT/ML VIAL SC (05:16)
[2024-12-14 05:35] LABS: Basophils % (Auto) 0 % (0-2.5); Eosinophils # (Auto) 0.2 Thou/mm3 (0.0-0.5); Eosinophils % (Auto) 5 % (0-10); Hemoglobin 11.3 g/dL (12.0-16.0); Immature Granulocytes % (Auto) 0 % (0-0); Lymphocytes # (Auto) 1.1 Thou/mm3 (1.0-4.8); Lymphocytes % (Auto) 33 % (10-50); Mean Corpuscular HGB Conc 35.3 g/dl (31.0-37.0); Mean Corpuscular Hemoglobin 33.8 pg (25.0-35.0); Mean Corpuscular Volume 96 fL (80-100); Monocytes # (Auto) 0.4 Thou/mm3 (0.0-0.8); Monocytes % (Auto) 12 % (0-12); Neutrophils # (Auto) 1.7 Thou/mm3 (1.8-7.7); Neutrophils % (Auto) 50 % (37-80); Nucleated Red Blood Cell % 0 /100 WBC (0); Platelet Count 100 Thou/mm3 (140-440); RDW Standard Deviation 47.7 fL (36.4-46.3); Red Blood Count 3.34 Miln/mm3 (4.00-5.20); White Blood Count 3.3 Thou/mm3 (3.6-11.0)
[2024-12-14 06:00] VITALS: BMI 27.3
[2024-12-14 06:28] LABS: Alanine Aminotransferase 66 U/L (10-49); Albumin, Serum 3.2 gm/dL (3.4-4.8); Albumin/Globulin Ratio 1.8 (1.2-2.2); Alkaline Phosphatase 81 U/L (46-116); Anion Gap 5 (7-16); Aspartate Amino Transferase 79 U/L (0-34); BUN/Creatinine Ratio 11 Ratio (12-20); Bilirubin,Total 0.4 mg/dL (0.3-1.2); Blood Urea Nitrogen 10 mg/dL (9-23); Calcium 8.4 mg/dL (8.3-10.6); Carbon Dioxide 28.6 mMol/L (20.0-31.0); Chloride 104 mMol/L (98-107); Creatinine (Component) 0.9 mg/dL (0.6-1.3); Estimated Creatinine Clearance 39.7 mL/min (>60); Globulin 1.8 gm/dL (2.3-3.5); Glucose 168 mg/dL (74-106); Magnesium 2.3 mg/dL (1.6-2.6); Osmolality,Calculated 278 (275-295); Phosphorous 3.4 mg/dL (2.4-5.1); Potassium 4.5 mMol/L (3.4-5.1); Sodium 138 mMol/L (136-145); eGFR > 60 See Note
[2024-12-14] MEDS: INSULIN LISPRO (AdmeLOG) 1 UNIT/0.01 ML UNIT SC ×2 (07:30→11:47)
[2024-12-14 08:00] VITALS: BP 151/72; PULSE 64; PULSE 66; PULSE 93; RESP 20; TEMP 36.6; O2SAT 97
[2024-12-14 08:17] VITALS: BP 151/72; PULSE 64
[2024-12-14] MEDS: PANTOPRAZOLE INJ 40 MG VIAL IVP (08:17)
[2024-12-14] MEDS: CLOPIDOGREL BISULFATE 75 MG TABLET PO (08:17)
[2024-12-14] MEDS: METOPROLOL TARTRATE 25 MG TABLET PO (08:17)
--- NOTE | 2024-12-14 10:44 | PC.SS ---
Loom Technician (SALMA) Carrie met with patient [id number] to discuss discharge plan. Patient appeared alert and oriented to self, place and situation. Patient reported that plan was to discharge home, and her adult child, Marii would provide transportation.
--- NOTE | 2024-12-14 10:51 | ESDS_ITS ---
<Statement entered by Leander Lunsford MD - 12/17/24 12:21> I reviewed above note and agree with findings and plans. I have also personally examined the patient with medicine team and went over assessment and plan with medical team including consulting intern and resident physician. Planned Discharge Date 12/14/24 DS: Providers Provider Date of admission: 12/10/24 17:15 Primary care physician: Mack Neumann PA-C Admitting Provider: Brisa Titus MD Attending Provider on Admission: Leander Lunsford MD Consults: 12/10/24 17:11 Referral Registered Dietitian Routine Comment: 12/12/24 09:05 Referral Physical Therapy Routine Comment: Physician Instructions: Attending Provider on DC: Leander Lunsford MD Discharging Provider: Leander Lunsford MD DS: Diagnosis Problem List Completed Was Problem List Reviewed/Reconciled?: Yes Hospital Course Hospital Course Hospital course: 79-year-old female with past medical history of hypertension, DM2, hyperlipidemia, Alzheimer's dementia, chronic UTIs, CVA, H. pylori gastritis, and prior history of DKA's was admitted to the ICU on 12/10/2024 due to DKA. Initially patient came in mildly hypotensive and afebrile. Initial labs were relevant for mild leukocytosis (11.7), high anion gap metabolic acidosis (AG 28, bicarb less than 10), hyperglycemia (682), YARA (creatinine 2), and elevated beta hydroxybutyrate (4.7). Initial imaging included EKG which showed sinus rhythm. Patient was placed on DKA protocol and an exact close twice and her YARA resolved after fluid. Patient was transferred to the medical floors on 11/11/2025 she was stable and her anion gap closed. Patient liver enzymes state up trended slightly, but liver ultrasound did not show any lesions and only showed fatty liver. Patient's blood sugar was better controlled and her insulin regimen was adjusted. Patient remained stable throughout the hospital stay. Physical therapy recommended [facility] to go [facility], but patient and family members requested patient to go home with home health and were adamant on the decision. At the time of discharge was stable enough to be discharged home with home health. Discharge plan: ? Please follow-up with your primary care physician in 1 week after discharge for possible adjustment in insulin regimen. ?Your insulin regimen has been changed to insulin glargine 30 units subcutaneous daily at night and insulin lispro 10 units 3 times daily with meals. Please hold premeals insulin if your Blood sugar is <120. -CGM for continuous blood sugar monitoring - Started on Metformin 1000mg ER daily before lunch ? He has prescribed Baqsimi for any hypoglycemia episode ?Please continue all other home medications as prescribed ? Please come back to the ER if symptoms persist or worsen Problems: #DKA, resolved #High anion gap metabolic acidosis, resolved #Intractable nausea and vomiting, resolved #Hx of DM2 #Transaminitis #Fatty liver #Hypomagnesemia #YARA, resolved #Alzheimer's disease #Hx of CVA #Hx of hyperlipidemia #Hx of hypertension Case disclosed with Attending Dr. Lunsford and my senior Dr. Leon PGY2 Wilver Palm PGY1 Senior Resident Attestation: I discussed with and supervised the consulting intern physician involved in the care of this patient. I personally saw and examined the patient and discussed the assessment and plan with the entire medicine team, including my attending. I agree with the discharge plan as documented above. Chaz Leon MD PGY2 Internal Medicine Status at Discharge Overall status at discharge: patient is progressing back to baseline Time Spent with Patient Time attestation: Total time spent providing and/or coordinating discharge services:>35 min Home Health Home Health Referral Orders: 12/13/24 12:30 Home Health Referral Routine Reason For Exam: PT Home-Bound The patient must either because of illness or injury, need the aid of supportive devices such as crutches, canes, wheelchairs, and walkers; the use of special transportation; or the assistance of another person in order to leave their place of residence; OR have a condition such that leaving his or her home is medically contraindicated. In addition, the patient also meets the following criteria: patient is normally unable to leave the home and leaving home requires considerable taxing effort. Addendum to Home Health Certification Practitioner's Certification: I certify that the patient has been under my care in the hospital and the care of attending physician (see below). We had a zuam-th-pazy encounter on (see date below). My clinical findings indicate that the patient is home bound per the above criteria and the Home Health Services noted in these orders are medically necessary. The primary reason for the [id number]-[id number] encounter is related to the fact that the patient requires home health services. Date Certifying Jxuz-no-Rgvm Physician Encounter: 12/10/24 Physician's Name who will Assume Oversight for Services: Mack Neumann Physician's Phone No.who will Assume Oversight for Service: CADD INSTRUCTOR - Community Resources: No PT to Evaluate: Yes PT to evaluate and provide a treatmnet plan to increase patient's mobility and strength. Wound Care: No IV Therapy: No RN Safety Evaluation: Yes RN to evaluate and create a plan of care that will produce positive outcomes. Palliative Treatment: No Palliative treatment and evaluate the need for hospice. Home Health Aide - Personal Care: No Home Health Aide to assist with any ADL's. Exam Vital Signs Temp Pulse Resp BP Pulse Ox O2 Del Method 97.8 F 64 20 151/72 H 97 Room Air 12/14/24 08:00 12/14/24 08:17 12/14/24 08:00 12/14/24 08:17 12/14/24 08:00 12/14/24 08:00 Narrative Exam General: A/O x3, no acute distress, well-nourished, well-developed Eyes: PERRL, EOMI. Anicteric, vision grossly intact. Ears: No ear pain, no ear discharge, Hearing grossly intact. Nose: No nasal discharge. Mouth/Throat: Dry mucous membranes, missing dentation, no redness, no lesions. Neck: Neck supple, non-tender, no cervical lymphadenopathy. Lungs: Clear HUBER to auscultation and percussion, No accessory muscle use. Cardio: Normal S1/S2, regular rhythm, no murmurs, no JVD. Abdomen: Soft, non-tender, no palpable masses, peristalsis present, no guarding or rebound. Extremities: Symmetrical, no significant deformities, no peripheral edema , non-tender, peripheral pulses presents. Skin: No rashes, no lesions, warm to touch. Neuro: No focal neurological deficits. motor and sensory intact, 4/5 strength in R LE likely from previous CVA Discharge Plan Plan Patient Disposition: Home w/HOME HEALTH Disposition Comment: PT and medications Patient condition on transfer: Stable Care Plan Goals: ? Please follow-up with your primary care physician in 1 week after discharge for possible adjustment in insulin regimen. ?Your insulin regimen has been changed to insulin glargine 30 units subcutaneous daily at night and insulin lispro 10 units 3 times daily with meals. Please hold premeals insulin if your Blood sugar is <120. -CGM for continuous blood sugar monitoring - Started on Metformin 1000mg ER daily before lunch ? He has prescribed Baqsimi for any hypoglycemia episode ?Please continue all other home medications as prescribed ? Please come back to the ER if symptoms persist or worsen Prescriptions/Referrals Prescriptions/Med Rec: New Baqsimi 3 mg/actuation spray,non-aerosol 3 mg intranasal TID PRN (Reason: hypoglycemia) Qty: 2 3RF (DME) FreeStyle Laura 3 [place] Misc See Rx Instructions .Route Qty: 1 0RF Rx Instructions: As directed (DME) FreeStyle Laura 3 Sensor Device See Rx Instructions .Route Qty: 2 3RF Rx Instructions: As directed metformin 1,000 mg tablet,ER deangelo.retention 24 hr 1,000 mg PO DAILY Qty: 30 3RF Continued donepezil 5 mg Tablet 10 mg PO HS Qty: 0 0RF clopidogrel 75 mg Tablet 75 mg PO QDAY Qty: 0 0RF famotidine 20 mg Tablet 20 mg PO BID Qty: 0 0RF ezetimibe 10 mg Tablet 10 mg PO QDAY Qty: 0 0RF vilazodone 20 mg tablet 20 mg PO QDAY (DME) pen needle, diabetic [Pen Needle] 29 gauge x 1/2 needle See Rx Instructions .Route Qty: 100 3RF Rx Instructions: As directed insulin glargine U-300 conc [Toujeo Max U-300 SoloStar] 300 unit/mL (3 mL) insulin pen 30 unit subcut QDAY Qty: 6 0RF latanoprost 0.005 % Drops 1 drp OPHTHALMIC (EYE) QPM Rx Instructions: both eyes atorvastatin 40 mg Tablet 40 mg PO QDAY brinzolamide 1 % Drops,Suspension 1 drp OPHTHALMIC (EYE) BID Rx Instructions: left eye metoprolol tartrate 25 mg Tablet 25 mg PO QDAY dapagliflozin propanediol [Farxiga] 5 mg Tablet 5 mg PO QDAY Changed insulin lispro [Admelog U-100 Insulin lispro] 100 unit/mL solution 10 unit SCi TIDWM Qty: 10 0RF Referrals: Mack Neumann PA-C [Primary Care Provider] - Patient/Caregiver Discharge Instructions Discharge Activity: as per physical therapy Education Materials: CGM, Diabetes Exercise Get Started, Diabetes: Meal Planning, Diabetes Carbs Fats Protein, Diabetic Ketoacidosis Print Language: Burmese Stand Alone Forms: Pastora Award Info., Patient Portal Info Letter Discharge Order Discharge Orders: Discharge (Routine); Ordered 12/14/24 Ordered By: Chaz Leon Quality Discharge Quality Measures VTE prophylaxis
[2024-12-14] MEDS: INSULIN LISPRO (AdmeLOG) 1 UNIT/0.01 ML UNIT 5 UNIT SC ×2 (11:54→13:33)
[2024-12-14 12:00] VITALS: BP 122/63; PULSE 58; PULSE 66; RESP 17; TEMP 36.6; O2SAT 98
[2024-12-14 13:50] VITALS: BP 114/58; PULSE 61; RESP 18; TEMP 36.6; O2SAT 98
--- NOTE | 2024-12-14 17:01 | PC.CM ---
Patient opened to [facility]. I sent referral today.
--- NOTE | 2024-12-16 08:17 | PC.CC ---
Addendum entered by Tanika Wilkinson RN 12/16/24 10:05: SOC is 12/17/24 Original Note: Pt booked with [facility] pending SOC
--- NOTE | 2024-12-17 13:35 | PC.CC ---
Faxed CGM order to [facility].
== END 2024-12-14 14:00 | disposition home health service (06) | DRG 638 ==
LOC: SERX 17:52 → SERHOLD 19:06 → S2SX 12-11 07:42 → SERHOLD 12-11 12:12 → S2SX 12-11 12:12 → S2NX 12-11 18:55
PROVIDERS: Admitting Provider Internal Medicine; Emergency Provider Emergency Medicine; PCP Physician Assistant; Visit Provider Internal Medicine
DX: E11.10 Type 2 diabetes mellitus with ketoacidosis without coma (principal); N17.9 Acute kidney failure, unspecified; G30.9 Alzheimer's disease, unspecified; F02.80 Dementia in other diseases classified elsewhere, unspecified severity, without behavioral disturbance, psychotic disturbance, mood disturbance, and anxiety; E86.0 Dehydration; E78.5 Hyperlipidemia, unspecified; I10 Essential (primary) hypertension; D72.829 Elevated white blood cell count, unspecified; E83.42 Hypomagnesemia; K76.0 Fatty (change of) liver, not elsewhere classified; Z66 Do not resuscitate; Z86.73 Personal history of transient ischemic attack (TIA), and cerebral infarction without residual deficits; Z87.440 Personal history of urinary (tract) infections; Z87.19 Personal history of other diseases of the digestive system; Z87.891 Personal history of nicotine dependence; Z79.02 Long term (current) use of antithrombotics/antiplatelets; Z79.899 Other long term (current) drug therapy; Z79.4 Long term (current) use of insulin; Z79.84 Long term (current) use of oral hypoglycemic drugs
CPT/HCPCS: 36415; 36600; 76705; 80053; 80061; 80069; 81001; 82010; 82803; 83036; 83605; 83690; 83735; 83880; 84100; 84484; 85025; 85610; 85730; 87040; 87081; 93005; 93225; 96361; 96374; 97162; 99285; J1643; J1815; J2470; J3475; J3480; J7030; J7120; A9270